=== PATIENT | female | born 1960 | race Caucasian/White ===

== ENCOUNTER 2016-12-13 14:02 | Inpatient (IN) ==
[2016-12-13] MEDS ORDERED: MORPHINE 2 MG/1 ML SYRINGE IV STA (15:38)
[2016-12-13] MEDS ORDERED: methylPREDNISolone SOD SUC 125 MG/2 ML VIAL IV STA (15:38)
[2016-12-13] MEDS ORDERED: ONDANSETRON 4 MG/2 ML VIAL IV STA (15:38)
[2016-12-13] MEDS ORDERED: FUROSEMIDE 100 MG/10 ML VIAL IV STA (15:38)
--- NOTE | 2016-12-13 15:46 | Emergency Department Note ---
Andi Madrid Meredith, am scribing for, and in the presence of, Lambert Gregory MD 15:12. Bri Madrid Charles R, MD, personally performed the services described in this documentation, ascribed by Elizabeth Escamilla in my presence, and it is both accurate and complete [id number] . Arrival - Arrival Chief Complaint: Shortness of Breath Stated Complaint: CANT CATCH BREATH ED Nursing Triage Note: C/O SOB, bilateral lower extremety edema, and lack of sleep X 1 month. Pt normally wears home O2 at 3l but family member states they left it at home. [id number] applied in triage. Mode of Arrival: Wheelchair Limitations: No Limitations Source: Patient, Family, Old Records Reviewed, RN Notes Reviewed Time Seen by Provider: 12/13/16 15:06 - History of Present Illness HPI Narrative: Pt is a 56 y/o white female reporting to the ED with c/o shortness of breath, nausea, and vomiting which onset this morning. She states she has not been able to sleep well the past few days. She uses home O2 at 3L. Pt has a history of COPD and cirrhosis. She has not had alcohol for the past month. Onset (ago): hour(s) Allergies/Adverse Reactions: Allergies Allergy/AdvReac Type Severity Reaction Status Date / Time Penicillins AdvReac ANAPHYLAXIS Verified 12/13/16 14:06 Home Medications: Home Medications Medication Instructions Recorded Confirmed Type Albuterol Sulfate [Ventolin HFA] 1 puff INH QID PRN 12/13/16 12/13/16 History Ferrous Sulfate 325 mg PO DAILY 12/13/16 12/13/16 History Furosemide Tab [Lasix Tab] 20 mg PO DAILY 12/13/16 12/13/16 History Gabapentin 300 mg PO QID 12/13/16 12/13/16 History Potassium 99 mg PO DAILY 12/13/16 12/13/16 History Spironolactone 100 mg PO DAILY 12/13/16 12/13/16 History Review of System - Review of System 12 point system: reviewed and no additional remarkable complaints except as stated - Review of System Constitutional: Present: as per HPI, other (lack of sleep ) Respiratory: Present: as per HPI, other (SOB) Gastrointestinal: Present: as per HPI, nausea, vomiting Medical,Surgical,& Family Hx - Medical History Respiratory: History of: COPD Gastrointestinal: History of: Liver Problems (Cirrhosis) - Surgical History Abdominal Surgeries: Surgical HX of: Cholecystectomy, Gastric Bypass Surgery Orthopedic Surgeries: Patient denies;: Total Knee Replacement - Family History Family History: Denies;: Additional Family History - Social History Smoking Status: Former smoker Frequency of Alcohol Use: None (former heavy drinker) Type of Drug Use: Unknown Exam Vital Signs: Vital Signs Temperature 98.6 F 12/13/16 15:04 Pulse Rate 132 H 12/13/16 15:04 Respiratory Rate 26 H 12/13/16 15:04 Blood Pressure 119/90 12/13/16 15:04 O2 Sat by Pulse Oximetry 92 L 12/13/16 15:04 - General General appearance: alert, in no apparent distress, other (winded speech) - Head Head exam: Present: atraumatic, normocephalic - Eye Eye exam: Present: normal appearance, PERRL, EOMI - ENT ENT exam: Present: mucous membranes moist, normal external ear exam - Neck Neck exam: Present: full ROM, trachea midline. Absent: tenderness, meningismus , lymphadenopathy, thyromegaly - Chest Chest inspection: Present: symmetric chest wall rise. Absent: tenderness, rash - Respiratory Respiratory exam: Present: rales (on the left), other (decreased breath sounds on the right ) - Cardiovascular Cardiovascular exam: Present: normal rhythm, tachycardia. Absent: murmur, rubs , gallop - Abdominal Exam Abdominal exam: Present: soft, normal bowel sounds, ascites. Absent: distention - Extremities Exam Extremities exam: Present: full ROM, normal capillary refill, pedal edema (3+ pitting pedal edema). Absent: tenderness, calf tenderness - Back Exam Back exam: Present: full ROM. Absent: tenderness - Neurological Exam Neurological exam: Present: alert, oriented X3, CN II-XII intact. Absent: motor sensory deficit - Psychiatric Psychiatric exam: Present: normal affect, normal mood - Skin Skin exam: Present: warm, dry, intact, normal color Course - Consultations Consultation #1: Hospitalist will admit patient Time: 17:06 Results - Labs CBC & BMP: 12/13/16 14:59 12/13/16 14:59 Lab Results: I have reviewed the patients labs Labs: Laboratory Tests 12/13/16 12/13/16 14:59 14:59 WBC 6.2 RBC 3.07 L Hgb 9.7 L Hct 29.8 L Plt Count 124 L Neut % (Auto) 79.2 H Lymph % (Auto) 10.6 L Lymph # (Auto) 0.7 L INR 1.7 PT Patient/Control Mix 18.4 - Diagnostic Findings Procedure: Chest x-ray: report reviewed by me (Cardiomegaly and evidence of CHF with bilateral pulmonary edema and pleural effusion. The right pleural effusion is fairly massive in size. Underlying pneumonia in the right lung base cannot be excluded. ) Critical Care Time Critical Care Time: Yes Total Critical Care Time: 60 Disposition Clinical Impression: Ascites, Acute dyspnea, Pedal edema, Congestive heart failure, Pleural effusion , right, History of alcoholism, Liver cirrhosis, COPD (chronic obstructive pulmonary disease) Case discussed with: patient, patient's family Disposition: Still a Patient Condition: Guarded Time of Disposition: 17:07
[2016-12-13 15:49] LABS: Basophils % 0.5 % (0.0-0.8); Eosinophils # 0.1 10*3/uL (0.0-0.87); Eosinophils % 1.1 % (0.00-10.9); Hematocrit 29.8 VOL% (35.7-47.0); Hemoglobin 9.7 GM/DL (12.0-16.0); Immature Granulocytes % 0.5 %; Immature Granulocytes Absolute 0.03 #; Lymphocytes # 0.7 10*3/uL (1.4-4.0); Lymphocytes % 10.6 % (21.3-54.2); Mean Corpuscular HGB Conc 32.6 GM/DL (32-36); Mean Corpuscular Hemoglobin 32 PG (27-34); Mean Corpuscular Volume 97.1 FL (87-102); Mean Platelet Volume 11.4 FL (9.6-12.0); Monocytes # 0.5 10*3/uL (0.11-0.8); Monocytes % 8.1 % (1.7-12.7); Neutrophils # 4.9 10*3/uL (1.4-7.4); Neutrophils % 79.2 % (38.7-73.9); Platelet Count 124 T/CUMM (130-400); Red Blood Count 3.07 MC/CUMM (3.8-5.5); Red Cell Distribution Width 17.2 % (9.3-17.3); White Blood Count 6.2 T/CUMM (4-12)
--- NOTE | 2016-12-13 15:53 | XRay Report ---
History: Shortness of breath Date: 12/13/2016 Study: Chest x-ray AP portable Comparison exam: No previous There is cardiomegaly. The pulmonary vasculature is slightly prominent. There is no definite mediastinal mass. There is opacification of the lower 60% of the right hemithorax related to large right pleural effusion. There is small left pleural effusion as well. There is some right greater than left basilar pulmonary edema with or without underlying inflammatory infiltrate. Osseous structures are unremarkable. Impression: Cardiomegaly and evidence of CHF with bilateral pulmonary edema and pleural effusion. The right pleural effusion is fairly massive in size. Underlying pneumonia in the right lung base cannot be excluded PROCEDURE INTERPRETED AT [facility] DEPARTMENT OF RADIOLOGY Final Report Signed by: Dr. Lisbeth Vidal
[2016-12-13 15:55] LABS: INR 1.7; PT Patient Result 18.4 SECS
[2016-12-13] MEDS ORDERED: ALBUTEROL 2.5 MG/3 ML NEB RESP TX SCH (16:00)
[2016-12-13 16:15] LABS: Albumin 3.6 G/DL (3.4-5.0); Magnesium 1.7 MG/DL (1.8-2.4); Osmolality,Calculated 280.3 MOS/KG (273-304); Potassium 3.2 MMOL/L (3.5-5.1); Total Protein 7.3 G/DL (6.4-8.3); Troponin I Only 0.015 NG/ML (0.00-0.045)
[2016-12-13] MEDS ORDERED: ONDANSETRON 4 MG/2 ML VIAL ONE (16:47)
[2016-12-13] MEDS ORDERED: methylPREDNISolone SOD SUC 125 MG/2 ML VIAL ONE (16:48)
[2016-12-13] MEDS ORDERED: FUROSEMIDE 100 MG/10 ML VIAL ONE (16:48)
[2016-12-13] MEDS ORDERED: MORPHINE 2 MG/1 ML SYRINGE ONE (16:48)
[2016-12-13] MEDS ORDERED: MAGNESIUM SULF RIDER 2 GM in PREMIX 1 EACH IV STA (16:52)
[2016-12-13] MEDS ORDERED: POTASSIUM CHLORIDE 20 MEQ TABLET PO STA (16:52)
[2016-12-13] MEDS ORDERED: DILTIAZEM 50 MG/10 ML VIAL IV ONE (17:21)
[2016-12-13] MEDS ORDERED: DILTIAZEM 100 MG VIAL.ADD IV ONE (17:40)
[2016-12-13] MEDS ORDERED: SODIUM CHLORIDE 0.9% 100 ML IV ONE (17:40)
[2016-12-13] MEDS ORDERED: MAGNESIUM SULF RIDER 50 ML IV ONE (17:41)
[2016-12-13 17:49] LABS: Apearance,Urine Slightly Hazy (Clear); Bacteria,Urine Occasional /HPF (Few); Bilirubin,Urine Negative (Negative); Blood, Urine Negative (Negative); Glucose,Urine (UA) Negative (Negative); Hyaline Casts,Urine 4 /LPF (0-3); Ketones,Urine Negative (Negative); Mucus,Urine Occasional /LPF (Occasional); Nitrite,Urine Negative (Negative); Protein,Urine 30 MG/DL; RBC,Urine 3 /HPF (0-4); Squamous Epithelial Cell,Urine Few /HPF (0-10); Urine Color Amber (Yellow); Urine Specific Gravity 1.017 (1.001-1.035); WBC,Urine 8 /HPF (0-6)
[2016-12-13 17:57] LABS: Barbiturates Screen,Urine Negative (Negative); Benzodiazepines Screen,Urine Positive (Negative); Cannabinoid Screen,Urine Negative (Negative); Opiate Screen,Urine Negative (Negative); Phencyclidine Screen,Urine Negative (Negative)
[2016-12-13] MEDS ORDERED: POTASSIUM CHLORIDE 20 MEQ TABLET PO ONE (18:06)
[2016-12-13] MEDS: DILTIAZEM INJ 100 MG in SODIUM CHLORIDE 0.9% 100 ML IV SCH (18:08)
--- NOTE | 2016-12-13 18:15 | Hospitalist History & Physical ---
Assessment and Plan (1) Acute dyspnea Status: Acute Current Visit: Yes (2) Congestive heart failure Status: Acute Current Visit: Yes (3) Pleural effusion on right Status: Acute Current Visit: Yes (4) History of alcoholism Status: Acute Current Visit: Yes (5) Hepatic cirrhosis Status: Acute Current Visit: Yes (6) Chronic obstructive pulmonary disease Status: Acute Current Visit: Yes (7) Atrial fibrillation with RVR Status: Acute Assessment and plan: Plan for this patient #1 admit the patient to ICU #2 scheduled breathing treatments #3 thoracentesis #4 abdominal ultrasound #5 cardiac echo #6 times them infusion #Potassium supplementation #8 cardiology consult #9 pulmonary consult Current Visit: Yes History of Present Illness Chief complaint: short of breath History of present illness: Ms. Greco is a 56 year old female with medical problems including cirrhosis and COPD who is been in and out of the hospital 3 times in the past several months for similar complaints. She comes in with increased fluid. And shortness of breath. She has been admitted to [facility] in the past in [place] for these complaints. She does report that she was a heavy alcohol abuser. She has had no alcohol in 4 weeks now. After she got discharged from [facility] last time she went to live with her son. She reports that lately she's been having pain in her legs. She went to her regular doctor in [place] he prescribed her gabapentin. She said it made her legs feel worse. She says slowly they started feeling better. She says she got up this morning after poor night's sleep and she felt short of breath. She felt like she couldn't catch her breath. She has very poor functioning capability. And she had her family bring her up to the hospital for further evaluation. I was consulted to admit her. Home Medications Medication Instructions Recorded Confirmed Type Albuterol Sulfate [Ventolin HFA] 1 puff INH QID PRN 12/13/16 12/13/16 History Ferrous Sulfate 325 mg PO DAILY 12/13/16 12/13/16 History Furosemide Tab [Lasix Tab] 20 mg PO DAILY 12/13/16 12/13/16 History Gabapentin 300 mg PO QID 12/13/16 12/13/16 History Potassium 99 mg PO DAILY 12/13/16 12/13/16 History Spironolactone 100 mg PO DAILY 12/13/16 12/13/16 History Allergies Allergy/AdvReac Type Severity Reaction Status Date / Time Penicillins AdvReac ANAPHYLAXIS Verified 12/13/16 14:06 Medical,Surgical,& Family Hx - Medical History Respiratory: History of: COPD Gastrointestinal: History of: Liver Problems (Cirrhosis) - Surgical History Abdominal Surgeries: Surgical HX of: Cholecystectomy, Gastric Bypass Surgery Orthopedic Surgeries: Patient denies;: Total Knee Replacement - Family History Family History: noncontributory (She recently lost her and drank heavily ever since. But I suspect her abuse is gone on for years and her family confirms that she has not had any alcohol in 4 weeks.) Family History: Denies;: Additional Family History - Social History Smoking Status: Former smoker Frequency of Alcohol Use: None (former heavy drinker) Type of Drug Use: Unknown 12 point system: reviewed and no additional remarkable complaints except as stated Exam - Constitutional Vitals: Period Temp Pulse Resp BP Sys/Pastor Pulse Ox Last 24 Hr 98.6 F-98.6 F 112-132 25-26 119-127/77-90 90-96 - General General appearance: alert, in no apparent distress, other (winded speech) - Head Head exam: Present: atraumatic, normocephalic - Eye Eye exam: Present: normal appearance, PERRL, EOMI - ENT ENT exam: Present: mucous membranes moist, normal external ear exam - Neck Neck exam: Present: full ROM, trachea midline. Absent: tenderness, meningismus , lymphadenopathy, thyromegaly - Chest Chest inspection: Present: symmetric chest wall rise. Absent: tenderness, rash - Respiratory Respiratory exam: Present: rales (on the left), other (decreased breath sounds on the right ) - Cardiovascular Cardiovascular exam: Present: normal rhythm, tachycardia. Absent: murmur, rubs , gallop - Abdominal Exam Abdominal exam: Present: soft, normal bowel sounds, ascites. Absent: distention - Extremities Exam Extremities exam: Present: full ROM, normal capillary refill, pedal edema (3+ pitting pedal edema). Absent: tenderness, calf tenderness - Back Exam Back exam: Present: full ROM. Absent: tenderness - Neurological Exam Neurological exam: Present: alert, oriented X3, CN II-XII intact. Absent: motor sensory deficit - Psychiatric Psychiatric exam: Present: normal affect, normal mood - Skin Skin exam: Present: warm, dry, intact, normal color Results - Labs CBC & BMP: 12/13/16 14:59 12/13/16 14:59 Labs: Results of her EKG display an atrial fibrillation with RVR her chest x-ray reveals a large pleural effusion on the right with some evidence of CHF but underlying pneumonia in the right lung base cannot be excluded
[2016-12-13] MEDS ORDERED: ALBUTEROL 2.5 MG/3 ML NEB RESP TX PRN ×2 (18:20→18:25)
[2016-12-13] MEDS: ALBUTEROL/IPRATROPIUM 3 ML NEB RESP TX SCH (21:31)
[2016-12-13] MEDS: LEVOFLOXACIN INJ 750 MG in PREMIX 1 EACH IV SCH (22:27)
[2016-12-13] MEDS ORDERED: FUROSEMIDE 40 MG/4 ML VIAL IV STA (23:29)
[2016-12-14] MEDS ORDERED: methylPREDNISolone SOD SUC 40 MG/1 ML VIAL IV SCH
[2016-12-14] MEDS: DILTIAZEM INJ 100 MG in SODIUM CHLORIDE 0.9% 100 ML IV SCH ×2 (00:58→11:24)
[2016-12-14] MEDS: ALBUTEROL/IPRATROPIUM 3 ML NEB RESP TX SCH ×2 (02:58→07:32)
[2016-12-14 05:51] LABS: Basophils % 0.1 % (0.0-0.8); Hematocrit 29.6 VOL% (35.7-47.0); Hemoglobin 9.2 GM/DL (12.0-16.0); Immature Granulocytes % 0.7 %; Immature Granulocytes Absolute 0.06 #; Lymphocytes # 0.3 10*3/uL (1.4-4.0); Lymphocytes % 3.5 % (21.3-54.2); Mean Corpuscular HGB Conc 31.1 GM/DL (32-36); Mean Corpuscular Hemoglobin 31 PG (27-34); Mean Corpuscular Volume 99.7 FL (87-102); Mean Platelet Volume 10.4 FL (9.6-12.0); Monocytes # 0.1 10*3/uL (0.11-0.8); Monocytes % 1.6 % (1.7-12.7); Neutrophils # 8.5 10*3/uL (1.4-7.4); Neutrophils % 94.1 % (38.7-73.9); Platelet Count 128 T/CUMM (130-400); Red Blood Count 2.97 MC/CUMM (3.8-5.5); Red Cell Distribution Width 17.2 % (9.3-17.3)
[2016-12-14 05:56] LABS: INR 1.8; PT Patient Result 19.2 SECS
--- NOTE | 2016-12-14 06:01 | EKG Report ---
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
[2016-12-14 06:27] LABS: Band Neutrophils 5 % (0-10); Lymphocytes 1 % (20-55); Platelet Estimate Adequate; Segmented Neutrophils 93 % (50-85); Total Cells Counted 100
[2016-12-14 06:29] LABS: Albumin 3.8 G/DL (3.4-5.0); Bilirubin,Total 3.9 MG/DL (0.2-1.0); Calcium 9.1 MG/DL (8.5-10.1); Hypochromasia 1+; Misc Morphology 31; Osmolality,Calculated 287.1 MOS/KG (273-304); Potassium 3.7 MMOL/L (3.5-5.1); Total Protein 7.6 G/DL (6.4-8.3)
[2016-12-14] MEDS ORDERED: ALBUTEROL 1.25 MG/3 ML NEB RESP TX PRN (07:16)
--- NOTE | 2016-12-14 07:18 | Pulmonology Consult Note ---
Assessment and Plan - Time spent with patient Time spent with patient: Greater than 30 minutes History of Present Illness Chief complaint: shortness of breath, edema History of present illness: Ms. Greco is a 56 year old female with a history of alcoholic liver disease and cirrhosis. Her about a year ago when she started drinking heavily since then. Prior to that she said she just drank socially. She was hospitalized 3 times at [facility] in [place] for complications of cirrhosis. She has required paracentesis and diuretics. She's had problems with hyponatremia and hypokalemia from the Lasix. About a month ago after her third hospitalization at [facility], she moved to live with her son here in town. She comes in now with increased shortness of breath and edema. She's been found to have a right pleural effusion, ascites, and marked edema in her legs, basically anasarca. She's not had any fever. She stopped smoking a month ago and the longer has a cough or sputum production. She is on albuterol at home. When she came in last night her heart was rapid and irregular, atrial fibrillation with rapid ventricular response. She does not have any known heart disease. She has been having pain in her legs. She was given gabapentin by Dr. Mccabe in [facility] but said the pain got worse. Unable to access the assessment/plan this so we will list diagnoses here: #1 hepatic cirrhosis with anasarca and hyperbilirubinemia. Plan GI needs to see. Patient has large right pleural effusion which needs packing. I see that interventional radiology has Arty been consulted. Be cautious with Lasix and her because she's had problems with hyponatremia and hypokalemia before. May need paracentesis as well #2 history of COPD. She stopped smoking a month ago and is not having a cough. No purulent sputum and no fever. I don't think she's having an active exacerbation. We'll stop albuterol because of her atrial fibrillation with rapid ventricular response. We'll stop steroids I don't think she's having a flare up and this will cause further problems with fluid retention. Obtain ABGs on nasal oxygen. Try to keep her O2 sat around 90. #3 chronic alcoholism. She states that she hasn't had a drink in about a month. If this is so we should not see problems with withdrawal now. #4 atrial fibrillation with rapid ventricular response. Likely due to the anasarca. Certainly could have cardiac disease and cardiology is seeing her. Home Medications Medication Instructions Recorded Confirmed Type Albuterol Sulfate [Ventolin HFA] 1 puff INH QID PRN 12/13/16 12/13/16 History Ferrous Sulfate 325 mg PO DAILY 12/13/16 12/13/16 History Furosemide Tab [Lasix Tab] 20 mg PO DAILY 12/13/16 12/13/16 History Gabapentin 300 mg PO QID 12/13/16 12/13/16 History Potassium 99 mg PO DAILY 12/13/16 12/13/16 History Spironolactone 100 mg PO DAILY 12/13/16 12/13/16 History Allergies Allergy/AdvReac Type Severity Reaction Status Date / Time Penicillins AdvReac ANAPHYLAXIS Verified 12/13/16 14:06 12 point system: reviewed and no additional remarkable complaints except as stated - Constitutional Constitutional: Present: fatigue, malaise, weight gain - Cardiovascular Cardiovascular: Present: dyspnea, dyspnea on exertion, edema - Respiratory Respiratory: Present: dyspnea, dyspnea on exertion - Gastrointestinal Gastrointestinal: Present: bloating - Musculoskeletal Musculoskeletal: Present: arthralgias, myalgias Exam (Pulmonay) H&P - Constitutional Vitals: Period Temp Pulse Resp BP Sys/Pastor Pulse Ox Last 24 Hr 96.9 F-97.2 F 96-140 13-32 85-125/58-81 84-90 Exam: Vital signs normal except irregular pulse, rate about 105. She is afebrile. Systolic blood pressure 105. HEENT: She is jaundiced. Pupils react to light. Throat is clear. Neck is supple. She does have some jugular venous distention. No bruits. Chest reveals dullness at the right base and decreased breath sounds at the right base. She has some crackles at the left base. No wheezes. Heart irregular with rate around 105 no murmurs. Abdomen is grand obese and I do think she has ascites but is difficult to tell. Liver edge is probably palpable. Extremities show 4+ edema which is tense. Calves are nontender. Medical,Surgical,& Family Hx - Medical History Respiratory: History of: COPD, Respiratory Problems (wears home 02) Gastrointestinal: History of: Liver Problems (Cirrhosis) - Surgical History Neurologic Surgeries: Patient denies: Neurologic Surgery Abdominal Surgeries: Surgical HX of: Cholecystectomy, Gastric Bypass Surgery Orthopedic Surgeries: Patient denies;: Total Knee Replacement - Family History Family History: Denies;: Additional Family History - Social History Smoking Status: Former smoker Frequency of Alcohol Use: None Type of Drug Use: Unknown Results - Labs CBC & BMP: 12/14/16 05:12 12/14/16 05:12 Lab Results: I have reviewed the past 24 hour labs - Diagnostic Findings Procedure: Chest x-ray: image reviewed by me (large right pleural effusion. Small left pleural effusion. Mild cardiomegaly.)
[2016-12-14] MEDS ORDERED: FUROSEMIDE 40 MG/4 ML VIAL IV SCH (08:00)
[2016-12-14 08:27] LABS: ABG Base Excess 2.7 MMOL/L (-2.5-2.5); ABG HCO3 26.6 MMOL/L (20-26); ABG Oxygen Saturation 86.1 % (95-100); ABG PCO2 53.5 MM HG (35-48); ABG PH 7.345 (7.35-7.45); ABG PO2 56.2 MM HG (80-95); Allen Test Positive
--- NOTE | 2016-12-14 08:42 | Ultrasound Report ---
US right upper quadrant Indication: Cirrhosis and ascites. ULTRASOUND ABDOMEN, limited Comparison: None Findings: Liver: Diffusely echogenic and heterogeneous, without focal lesion identified. Contour is slightly nodular. Normal size. Gallbladder: Surgically absent Common bile duct: 9 mm Pancreas: Unremarkable Right kidney: 12.0 cm length. No mass, calcification or obstruction. 22 x 21 mm anechoic cyst at the lower pole is present. Small amount of ascites is present, and a right pleural effusion appears present as well. Impression: 1. Echogenic and heterogeneous liver with minimal peripheral nodularity, consistent with cirrhosis. No focal mass identified. 2. Small right pleural effusion and small amount of ascites. PROCEDURE INTERPRETED AT [facility] DEPARTMENT OF RADIOLOGY Final Report Signed by: Miko Tay M.D.
[2016-12-14] MEDS: SPIRONOLACTONE 50 MG TABLET PO SCH (09:07)
[2016-12-14] MEDS: FERROUS SULFATE 325 MG TABLET PO SCH (09:08)
[2016-12-14] MEDS: MULTIVITAMIN (CENTRUM) TABLET PO SCH (09:08)
[2016-12-14] MEDS: FOLIC ACID 1 MG TABLET PO SCH (09:09)
[2016-12-14] MEDS: POTASSIUM CHLORIDE 20 MEQ TABLET PO SCH (09:09)
[2016-12-14] MEDS: THIAMINE 100 MG TABLET PO SCH (09:10)
[2016-12-14] MEDS: PANTOPRAZOLE 40 MG TABLET PO SCH (09:10)
--- NOTE | 2016-12-14 09:17 | Physician Query Form ---
CLICK EDIT DOCUMENT TO SELECT QUERY ANSWER --> OK --> SIGN Estelle Perdue RN, CCDS Certified Clinical Pipe Assembly Worker W) [phone] (f) [phone] [email or web address]: Make your selection(s) from the choices in EACH section by typing an "x" and enter comments in the comment section. Please use your independent medical judgment in providing your response. This request does not imply that any particular answer is desired or expected. CLINICAL INDICATORS: (Providers should not edit this section) The medical record indicates that the patient was admitted with congestive heart failure, BNP of 306#, and the patient was on Lasix. Please provide further specificity regarding CHF. ACUITY: ( ) Acute ( x) Chronic ( ) Acute on Chronic ( ) Clinically unable to determine TYPE: ( ) Systolic ( ) Diastolic ( ) Combined Systolic/Diastolic ( ) Other, please specify: ( x) Clinically unable to determine ( ) The patient does NOT have CHF COMMENTS: Use of terms such as suspected, likely, or probable (associated with a specific diagnosis that is being evaluated, monitored, or treated as if it exists) are acceptable and can be restated in the discharge summary if not ruled out. [facility]
[2016-12-14] MEDS ORDERED: POTASSIUM CHLORIDE RIDER 10 MEQ in PREMIX 1 EACH IV PRN (10:54)
[2016-12-14] MEDS ORDERED: MAGNESIUM SULF RIDER 2 GM in PREMIX 1 EACH IV ONE (11:00)
--- NOTE | 2016-12-14 13:08 | Hospitalist Progress Note ---
Assessment and Plan (1) Acute dyspnea Status: Acute Current Visit: Yes (2) Congestive heart failure Status: Acute Current Visit: Yes (3) Pleural effusion on right Status: Acute Current Visit: Yes (4) History of alcoholism Status: Chronic Current Visit: Yes (5) Hepatic cirrhosis Status: Chronic Current Visit: Yes (6) Chronic obstructive pulmonary disease Status: Chronic Current Visit: Yes (7) Atrial fibrillation with RVR Status: Acute Assessment and plan: Plan for this patient #1 admit the patient to ICU #2 scheduled breathing treatments #3 thoracentesis #4 abdominal ultrasound #5 cardiac echo #6 times them infusion #Potassium supplementation #8 cardiology consult #9 pulmonary consult 12/14/16 continue with ICU monitoring. She needs her pleural effusion drained. Appreciate Dr. Daniel's input. Cardiology is to say. She 7 new-onset A. fib with RVR. Patient denies a history of this. Patient reports dyspnea on exertion with at least exertion. This could be associated with alcoholism damaging her heart. Patient should be admitted upstairs tomorrow. Monitor labs. Current Visit: Yes Hospitalist: Subjective Interval history: Patient reports feeling better today. Patient looks much more bit better today she hadn't had her pleural effusion tapped. Exam - Constitutional Vitals: Period Temp Pulse Resp BP Sys/Pastor Pulse Ox Last 24 Hr 96.9 F-97.3 F 68-140 13-32 83-125/51-81 79-90 - General General appearance: alert, in no apparent distress) - Head Head exam: Present: atraumatic, normocephalic - Eye Eye exam: Present: normal appearance, PERRL, EOMI - ENT ENT exam: Present: mucous membranes moist, normal external ear exam - Neck Neck exam: Present: full ROM, trachea midline. Absent: tenderness, meningismus , lymphadenopathy, thyromegaly - Chest Chest inspection: Present: symmetric chest wall rise. Absent: tenderness, rash - Respiratory Respiratory exam: Present: rales (on the left), other (decreased breath sounds on the right ) - Cardiovascular Cardiovascular exam: Present: normal rhythm, tachycardia. Absent: murmur, rubs , gallop - Abdominal Exam Abdominal exam: Present: soft, normal bowel sounds, ascites. Absent: distention - Extremities Exam Extremities exam: Present: full ROM, normal capillary refill, pedal edema (3+ pitting pedal edema). Absent: tenderness, calf tenderness - Back Exam Back exam: Present: full ROM. Absent: tenderness - Neurological Exam Neurological exam: Present: alert, oriented X3, CN II-XII intact. Absent: motor sensory deficit - Psychiatric Psychiatric exam: Present: normal affect, normal mood - Skin Skin exam: Present: warm, dry, intact, normal color Results - Labs CBC & BMP: 12/14/16 05:12 12/14/16 05:12
[2016-12-14] MEDS: IPRATROPIUM 500 MCG/2.5 ML NEB RESP TX SCH ×2 (14:26→23:38)
[2016-12-14] MEDS ORDERED: DIGOXIN 0.5 MG/2 ML AMP IV ONE (14:54)
[2016-12-14] MEDS: DILTIAZEM 60 MG TABLET PO SCH ×4 (15:26→21:48)
--- NOTE | 2016-12-14 15:32 | XRay Report ---
History: Right pleural effusion status post thoracentesis by Dr. Lucas Date: 12/14/2016 at 2:57 PM Study: Chest x-ray AP portable Comparison exam: Chest x-ray 12/13/2016 There is continued cardiomegaly. The mediastinal contours are unchanged. The pulmonary vasculature is slightly prominent and ill-defined. There is a moderate amount of residual pleural effusion on the right, though this is at least mildly improved. Parenchymal pleural consolidation in the right lung base is unchanged. There is slightly reduced hazy edema/infiltrate in the left base. The osseous structures are similar. Impression: No evidence of a pneumothorax following right thoracentesis. Reduced pleural effusion in the interval, though a moderate amount of pleural effusion does persist PROCEDURE INTERPRETED AT [facility] DEPARTMENT OF RADIOLOGY Final Report Signed by: Dr. Lisbeth Vidal
--- NOTE | 2016-12-14 15:49 | Post Interventional Procedure ---
Pre-op diagnosis: A fib with RVR and large right pleural effusion Post-op diagnosis: same Procedure: right thoracentesis Contrast: none Flouroscopy: none Radiologist: Eliezer Lucas Anesthesia: local Specimens: other (specimen sent if requested) Estimated blood loss: none Complications: none Condition: stable Description/Findings: 1200 mL of serous straw-colored fluid removed via a right posterior approach using ultrasound guidance. Needle was removed and a sterile dressing was applied. Patient tolerated the procedure well and left the procedure area in stable condition. Assessment and Plan - Time spent with patient Time spent with patient: Less than 30 minutes
--- NOTE | 2016-12-14 16:54 | Ultrasound Report ---
Exam: ULTRASOUND-GUIDED THORACENTESIS Clinical history: History of large right pleural effusion. Physician: Dr. Lucas. Procedure: Informed consent was obtained prior to the procedure. A formal timeout was performed. Maximum sterile barrier technique was used. A right pleural effusion was identified with ultrasound. The right was prepped and draped in sterile fashion. 1% lidocaine was used to anesthetize the skin and subcutaneous tissues. Under sonographic guidance, a 6 Swedish safety centesis needle and catheter were advanced into the effusion using trocar technique. A captured sonographic image demonstrates positioning of the needle within the targeted pleural fluid. The needle was removed. Through the catheter, we obtained a total of 1200 cc of serous straw-colored fluid. The catheter was removed. A bandage was placed at the puncture site. The patient tolerated the procedure well. Chest radiograph is pending. Impression: 1. Technically successful ultrasound guided right thoracentesis as detailed above. 2. Post procedure chest radiograph is pending. PROCEDURE INTERPRETED AT [facility] DEPARTMENT OF RADIOLOGY Final Report Signed by: Eliezer Lucas
[2016-12-14] MEDS: FUROSEMIDE 40 MG TABLET PO SCH (17:01)
[2016-12-14 17:30] LABS: Lymphocytes,Pleural Fluid 77 %; Monocytes,Pleural Fluid 4 %; Neutrophils,Pleural Fluid 19 %; RBC,Pleural Fluid 2164 T/CUMM
--- NOTE | 2016-12-14 17:36 | ECHO Report ---
Kimberley Greco Exam Date: 12/14/2016 09:02 Referring Physician: Technologist: Arnol CORTEZ Age: 56 Ht (in): Wt (lb): Gender: F Exam Location: [facility] Echo Indications: dyspnea, CHF, pleural effusion, Hx. alcoholism, hepatic cirrhosis, COPD BP: / HR: Rhythm: Atrial fibrillation Technical Quality: Technically difficult study IMPRESSIONS Normal wall thickness. Diastolic dysfunction. Left ventricular ejection fraction is estimated at >65 %. Moderately increased right ventricular size. Moderately increased right atrial size. Severely increased left atrial diameter. Aortic valve sclerosis without stenosis or regurgitation. Moderate tricuspid valve regurgitation. Tricuspid regurgitation velocities suggest a PAP of 27.5 mmHg + RAP. Trace- mild pulmonary valve regurgitation. + left pleural effusion. MEASUREMENTS (Male / Female) Normal Values 2D ECHO LV Diastolic Diameter PLAX 4.9 cm 4.2 - 5.9 / 3.9 - 5.3 cm LV Systolic Diameter PLAX 3.5 cm LV Fractional Shortening PLAX 29.4 % IVS Diastolic Thickness 1.1 cm 0.6 - 1.0 / 0.6 - 0.9 cm LVPW Diastolic Thickness 1.1 cm 0.6 - 1.0 / 0.6 - 0.9 cm RV Internal Dim ED PLAX 4.7 cm Aortic Root Diameter 2.8 cm LA Systolic Diameter LX 4.9 cm 3.0 - 4.0 / 2.7 - 3.8 cm DOPPLER TR Peak Velocity 262.0 cm/s TR Peak Gradient 27.5 mmHg FINDINGS Left Ventricle normal wall thickness. diastolic dysfunction.hyperdynamic left ventricular systolic function. Left ventricular ejection fraction is estimated at >65 %. Right Ventricle Moderately increased right ventricular size. Right Atrium Moderately increased right atrial size. Left Atrium Severely increased left atrial diameter. Mitral Valve Morphologically normal mitral valve. Aortic Valve Aortic valve sclerosis without stenosis or regurgitation. Tricuspid Valve Morphologically normal tricuspid valve. Moderate tricuspid valve regurgitation. Tricuspid regurgitation velocities suggest a PAP of 27.5 mmHg + RAP. Pulmonic Valve Morphologically normal pulmonic valve. Trace- mild pulmonary valve regurgitation. Pericardium No pericardial effusion. + left pleural effusion. Aorta Normal size aortic root and proximal ascending aorta. Matteo Patel MD (Electronically Signed) Final Date: 14 December 2016 17:34
[2016-12-14] MEDS: LEVOFLOXACIN INJ 750 MG in PREMIX 1 EACH IV SCH (21:47)
[2016-12-14] MEDS: traZODone 50 MG TABLET PO SCH (21:48)
[2016-12-14] MEDS: APIXABAN 5 MG TABLET PO SCH (21:48)
--- NOTE | 2016-12-14 22:56 | Cardiology Consult Note ---
Mercy, Maria R Calderon, DENISSE, am scribing for, and in the presence of, Matteo Patel MD 22:55. Assessment and Plan (1) Atrial fibrillation with RVR Status: Acute Assessment and plan: The onset of atrial fibrillation with rapid ventricular response noted. She currently remains in atrial fibrillation with heart rates ranging from 90s- 110s. She is currently asymptomatic and denies chest pain and palpitations. She denies any history of GI bleeding, CVA, frequent falls or any contraindications to anticoagulation. Will initiate Eliquis at this time for stroke prevention. Potassium and magnesium also replaced. Will recheck BMP in the morning. echo was done replete mg and k change iv to po diltiazem I discussed with the patient the benefits of stopping use of all tobacco products. I discussed the problems with continued use the tobacco, the benefits of stopping it, and options of treatment. The patient is considering it. Creatinine is 1.4. We'll continue to watch it. For her insomnia we'll try a low-dose of trazodone, 50 mg one half daily at bedtime Agree with the thoracentesis-see if it is transudate or exudate and what the etiology might be Current Visit: Yes (2) Congestive heart failure Status: Acute Assessment and plan: BNP of 400 noted. Patient reports that she was unaware of a history of congestive heart failure. Will order an echo at this time to further evaluate. Current Visit: Yes (3) Former smoker Status: Chronic Assessment and plan: Patient reports that she quit smoking 3 weeks ago. Current Visit: Yes (4) Acute dyspnea Status: Acute Assessment and plan: This seems to be multifactorial. Could be secondary to patient's new onset of atrial fibrillation, COPD or congestive heart failure. Current Visit: Yes (5) Ascites Status: Chronic Current Visit: Yes (6) Chronic obstructive pulmonary disease Status: Chronic Assessment and plan: Management per pulmonology. Current Visit: Yes (7) Edema of foot Status: Acute Current Visit: Yes (8) Hepatic cirrhosis Status: Chronic Current Visit: Yes (9) History of alcoholism Status: Chronic Assessment and plan: Patient reports that she quit drinking 3 weeks ago. Current Visit: Yes (10) Pleural effusion on right Status: Acute Assessment and plan: Management per pulmonology. Current Visit: Yes History of Present Illness - Data of Consult Patient: new to practice Consult date: 12/14/16 Requesting Physician: Miko Ignacio - Consult Narrative Reason for consult: new onset afib History of present illness: Ms. Greco is a 56 year old female without known coronary artery disease. She is not routinely followed by a hair specialist. However, she tells me that she has been seen by hair specialist in the past at [facility] in [place]. Her primary care provider is Dr. Ashley Mccabe in [place], [place]. She presented to [facility] for further evaluation of shortness of breath. She has risk factors significant for former smoker, sedentary lifestyle and obesity. She tells me that she lost her and drank heavily for several years. Fortunately, she reports that she quit smoking and drinking 3 weeks ago. She denies any significant family history of heart disease. She has a past medical history of COPD and cirrhosis of the liver. She has a past surgical history cholecystectomy, gastric bypass and multiple back surgeries. She denies ever having a heart catheterization but tells me that she had a cardiac stress test at [facility] several years ago that was normal. Patient just recently moved to [place] to live with her son 3 weeks ago. She moved from [place], [place]. She tells me that she has been in and out of [facility] in [place] several times since July of last year for shortness of breath, hypokalemia and hyponatremia. She was last discharged from [facility] in September. She states that she has been doing exceptionally well since being discharged. She reports that she has been in her usual state of health until yesterday afternoon when she became extremely short of breath. She reports that she was not doing any strenuous activity when the shortness of breath occurred. Nausea and fatigue were also associated with her shortness of breath. She cannot identify any aggravating or alleviating factors. Activity does not worsen her shortness of breath. She denies chest pain, palpitations, activity intolerance and worsening edema. However she does report orthopnea, trouble sleeping and PND over the past few weeks. She reported to [facility] emergency room for further evaluation of shortness of breath yesterday afternoon. Upon arrival to the ER she was noted to be in atrial fibrillation with rapid ventricular response, heart rate of 135. Diltiazem drip was started and patient was transferred to the ICU. Cardiology was consulted for management of new onset atrial fibrillation. Patient was seen and examined in the ICU. Upon entering the room she was sitting on the side of the bed in no acute distress. She reports that she cannot lay flat without worsening her shortness of breath. Cardizem drip is infusing at 15 mg/h. She remains in atrial fibrillation with heart rates ranging from 90s-110s. She denies any chest pain and palpitations. She tells me that she cannot tell that she is in an irregular rhythm. She reports that she has no past history of atrial fibrillation. Her shortness of breath has improved from yesterday. She denies any history of past CVA, GI bleeding, frequent falls or any contraindication to anticoagulation. Her chest x-ray reveals cardiomegaly with evidence of congestive heart failure, bilateral pulmonary edema, right pleural effusion and possible pneumonia in the right lung base. Her white blood cell count is normal. She denies any fever and chills. Her potassium is noted to be 3.7, troponin negative 1, creatinine 1.4 , BNP 400, ammonia 50, mag 1.7, H&H 9.2 and 29.6 and platelets 128. CC: Miko Ignacio MD - Home Medications and Allergies Home Medications: Home Medications Medication Instructions Recorded Confirmed Type Albuterol Sulfate [Ventolin HFA] 1 puff INH QID PRN 12/13/16 12/13/16 History Ferrous Sulfate 325 mg PO DAILY 12/13/16 12/13/16 History Furosemide Tab [Lasix Tab] 20 mg PO DAILY 12/13/16 12/13/16 History Gabapentin 300 mg PO QID 12/13/16 12/13/16 History Potassium 99 mg PO DAILY 12/13/16 12/13/16 History Spironolactone 100 mg PO DAILY 12/13/16 12/13/16 History Allergies/Adverse Reactions: Allergies Allergy/AdvReac Type Severity Reaction Status Date / Time Penicillins AdvReac ANAPHYLAXIS Verified 12/13/16 14:06 - Constitutional Constitutional: Present: fatigue, weakness, other (Decreased appetite). Absent : chills, fever(s), frequent falls, headache(s) - Cardiovascular Cardiovascular: Present: dyspnea, edema, orthopnea, PND. Absent: chest pain at rest, chest pain with activity, claudication, diaphoresis, radiating jaw, neck or arm pain, lightheadedness, palpitations - Respiratory Respiratory: Present: cough, dyspnea. Absent: wheezing, snoring, pain on inspiration, change in phlegm color - Gastrointestinal Gastrointestinal: Present: early satiety, nausea, vomiting. Absent: abdominal pain, dysphagia, hematemesis, hematochezia, melena - Neurological Neurological: Absent: dizziness, focal weakness, frequent falls, syncope - Psychiatric Psychiatric: Absent: anxiety, memory loss, panic attacks - Hematologic/Lymphatic Hematologic/Lymphatic: Absent: easy bleeding, easy bruising Medical,Surgical,& Family Hx - Medical History Cardio: No history of: Cardiac Dysrhythmia, Congenital Heart Disease, CAD, Cardiovascular Problems Respiratory: History of: COPD, Respiratory Problems (wears home 02) Gastrointestinal: History of: Liver Problems (Cirrhosis) - Surgical History Neurologic Surgeries: Patient denies: Neurologic Surgery Abdominal Surgeries: Surgical HX of: Cholecystectomy, Gastric Bypass Surgery Orthopedic Surgeries: Patient denies;: Total Knee Replacement - Family History Family History: Denies;: Family Heart Disease, Additional Family History - Social History Smoking Status: Former smoker Frequency of Alcohol Use: None Type of Drug Use: Unknown Physical Examination Vital Signs Temp Pulse Resp BP Pulse Ox 98.6 F 130 H 25 H 127/77 90 L 12/13/16 14:06 12/13/16 14:06 12/13/16 14:06 12/13/16 14:06 12/13/16 14:06 General: Present: Appears Well, No Apparent Distress Neck: Present: Supple Neck, Midline Trachea, No Masses, No Bruit, No Thyromegaly Cardiac: Present: Irregularly Regular (Atrial fibrillation), S1/S2, No Murmur, Tachycardia. Absent: Gallop Lungs: Present: Decreased Breath Sounds, Oxygen (2 L nasal cannula), No Wheezes , No Rhonchi Abdomen: Present: Decreased Bowel Sounds, Ascites, Firm, Non-Tender Skin: Absent: Rash, Suspicious Lesions, Ulceration Extremities: Present: No Clubbing, No Cyanosis, Normal Upper Extr. Pulses, Normal Lower Extr. Pulses, +4 Edema, Bilateral Pedal Edema Result/EKG - Labs CBC & BMP: 12/14/16 05:12 12/14/16 05:12 Lab Results: I have reviewed the past 24 hour labs Labs: Laboratory Results - last 24 hr 12/14/16 12/14/16 12/14/16 05:12 05:12 05:12 WBC 9.0 D RBC 2.97 L Hgb 9.2 L Hct 29.6 L MCV 99.7 MCH 31 MCHC 31.1 L RDW 17.2 Plt Count 128 L MPV 10.4 Neut % (Auto) 94.1 H Lymph % (Auto) 3.5 L Hanover % (Auto) 1.6 L Eos % (Auto) 0.0 Baso % (Auto) 0.1 Neut # (Auto) 8.5 H Lymph # (Auto) 0.3 L Han[place] # (Auto) 0.1 L Eos # (Auto) 0.0 Baso # (Auto) 0.0 Total Counted 100 Immature Gran % 0.7 Nucleated RBC % 0.0 Immature Gran # 0.06 Segmented Neutrophils 93 H Band Neutrophils 5 Lymphocytes 1 L Monocytes 1 L Nucleated RBCs # 0.00 Platelet Estimate Adequate Hypochromasia 1+ Morphology Comment 31 INR 1.8 PT Patient/Control Mix 19.2 Sodium 142 Potassium 3.7 Chloride 98 Carbon Dioxide 29 Anion Gap 18.7 H BUN 14 Creatinine 1.40 H GFR Calculation 50 BUN/Creatinine Ratio 10.00 Glucose 164 H Calculated Osmolality 287.1 Calcium 9.1 Total Bilirubin 3.90 H AST 36 ALT 25 Alkaline Phosphatase 114 Ammonia 50 H B-Natriuretic Peptide Total Protein 7.6 Albumin 3.8 Globulin 3.8 H Albumin/Globulin Ratio 1.0 L 12/14/16 05:12 WBC RBC Hgb Hct MCV MCH MCHC RDW Plt Count MPV Neut % (Auto) Lymph % (Auto) Hanover % (Auto) Eos % (Auto) Baso % (Auto) Neut # (Auto) Lymph # (Auto) Hanover # (Auto) Eos # (Auto) Baso # (Auto) Total Counted Immature Gran % Nucleated RBC % Immature Gran # Segmented Neutrophils Band Neutrophils Lymphocytes Monocytes Nucleated RBCs # Platelet Estimate Hypochromasia Morphology Comment INR PT Patient/Control Mix Sodium Potassium Chloride Carbon Dioxide Anion Gap BUN Creatinine GFR Calculation BUN/Creatinine Ratio Glucose Calculated Osmolality Calcium Total Bilirubin AST ALT Alkaline Phosphatase Ammonia B-Natriuretic Peptide 400 H Total Protein Albumin Globulin Albumin/Globulin Ratio - EKG EKG results: interpreted by me EKG shows: atrial fibrillation I, Matteo Patel MD, personally performed the services described in this documentation, ascribed by Maria R Calderon RN in my presence, and it is both accurate and complete .
[2016-12-15 05:39] LABS: Basophils % 0.1 % (0.0-0.8); Hematocrit 27.1 VOL% (35.7-47.0); Hemoglobin 8.6 GM/DL (12.0-16.0); Immature Granulocytes % 0.9 %; Immature Granulocytes Absolute 0.11 #; Lymphocytes # 0.6 10*3/uL (1.4-4.0); Lymphocytes % 4.8 % (21.3-54.2); Mean Corpuscular HGB Conc 31.7 GM/DL (32-36); Mean Corpuscular Hemoglobin 31 PG (27-34); Mean Corpuscular Volume 98.9 FL (87-102); Mean Platelet Volume 10.5 FL (9.6-12.0); Monocytes # 1.2 10*3/uL (0.11-0.8); Monocytes % 9.3 % (1.7-12.7); Neutrophils # 10.6 10*3/uL (1.4-7.4); Neutrophils % 84.9 % (38.7-73.9); Platelet Count 123 T/CUMM (130-400); Red Blood Count 2.74 MC/CUMM (3.8-5.5); Red Cell Distribution Width 17.3 % (9.3-17.3); White Blood Count 12.5 T/CUMM (4-12)
[2016-12-15 06:05] LABS: Band Neutrophils 8 % (0-10); Hypochromasia 1+; Lymphocytes 4 % (20-55); Macrocytosis 1+; Platelet Estimate Adequate; Segmented Neutrophils 81 % (50-85); Total Cells Counted 100
[2016-12-15 06:17] LABS: Calcium 8.7 MG/DL (8.5-10.1); Magnesium 2.5 MG/DL (1.8-2.4); Osmolality,Calculated 282.5 MOS/KG (273-304); Potassium 4.6 MMOL/L (3.5-5.1)
[2016-12-15 06:22] LABS: Albumin 3.3 G/DL (3.4-5.0); Bilirubin,Total 2.7 MG/DL (0.2-1.0); Calcium 8.7 MG/DL (8.5-10.1); Osmolality,Calculated 281.7 MOS/KG (273-304); Potassium 4.6 MMOL/L (3.5-5.1); Total Protein 6.8 G/DL (6.4-8.3)
[2016-12-15] MEDS: IPRATROPIUM 500 MCG/2.5 ML NEB RESP TX SCH ×3 (06:58→23:44)
--- NOTE | 2016-12-15 07:12 | Pulmonology Progress Note ---
Pulmonary - PN: Subj Interval history: This 56-year-old white female has cirrhosis and anasarca. She had a right thoracentesis yesterday with removal of 1200 mL of straw-colored fluid. The fluid appears to be a transudate. Cytology and cultures are pending. Creatinine has risen to 2.0 and she's not making a lot of urine. I'm concerned about hepato-renal syndrome. We need to have GI to see her. She feels better and is more alert. Her weight does not reflect fluid loss. Exam (Progress Note) - Constitutional Vitals: Period Temp Pulse Resp BP Sys/Pastor Pulse Ox Last 24 Hr 97.1 F-98.3 F 74-120 13-29 63-108/39-67 79-94 Exam: Patient is alert seated on side of the bed. Seems oriented. Vital signs show an O2 sat in the mid 90s on nasal oxygen. Pulse is 105 and irregular with atrial fibrillation. Afebrile. Pupils react to light. She is jaundiced. Throat is clear. Neck supple no bruits. Still has some jugular venous distention. Chest reveals decreased breath sounds at the right base. I hear a few crackles. Sounds much better than yesterday. Heart irregular without murmur. Abdomen grand obese probably has ascites. Extremities marked edema in both lower extremities, 4+, calves nontender. Results - Labs CBC & BMP: 12/15/16 04:58 12/15/16 04:59 Lab Results: I have reviewed the past 24 hour labs - Diagnostic Findings Procedure: Chest x-ray: pending Assessment and Plan (1) Anasarca Status: Acute Assessment and plan: This is likely due to her severe liver disease. I'm concerned about hepatorenal syndrome. LV function was normal on echo. BNP is only slightly elevated at 400. Current Visit: Yes (2) Pleural effusion on right Status: Acute Assessment and plan: Right pleural effusion is a transudate. This would fit with liver disease as a cause. Other considerations would be congestive heart failure or nephrotic syndrome. She has known cirrhosis. Needs cautious diuresis watching her renal function. Current Visit: Yes (3) Hepatic cirrhosis Status: Chronic Assessment and plan: Clearly has cirrhosis. Likely the cause of her fluid retention. Watch for hepatorenal syndrome. Current Visit: Yes (4) Atrial fibrillation with RVR Status: Acute Assessment and plan: Heart rate is 105, persistent atrial fibrillation. Controlling weight medications. Cardiology following. Current Visit: Yes
--- NOTE | 2016-12-15 07:32 | XRay Report ---
XR chest 1V portable Indication: Right thoracentesis. Chest one view: Comparison yesterday shows little change in the size of a large right pleural effusion. No pneumothorax is seen. Left hemidiaphragm remains obscured as well. There is continued reticular prominence of the aerated portion of both lungs. Heart size remains indeterminate. Impression: Overall, no change from yesterday. No evidence of pneumothorax. PROCEDURE INTERPRETED AT [facility] DEPARTMENT OF RADIOLOGY Final Report Signed by: Miko Tay M.D.
[2016-12-15] MEDS: FUROSEMIDE 40 MG TABLET PO SCH ×2 (08:20→17:44)
[2016-12-15] MEDS: POTASSIUM CHLORIDE 20 MEQ TABLET PO SCH (08:20)
[2016-12-15] MEDS: THIAMINE 100 MG TABLET PO SCH (08:20)
[2016-12-15] MEDS: APIXABAN 5 MG TABLET PO SCH ×2 (08:20→21:32)
[2016-12-15] MEDS: FERROUS SULFATE 325 MG TABLET PO SCH (08:20)
[2016-12-15] MEDS: PANTOPRAZOLE 40 MG TABLET PO SCH (08:20)
[2016-12-15] MEDS: DILTIAZEM 60 MG TABLET PO SCH ×4 (08:20→21:33)
[2016-12-15] MEDS: FOLIC ACID 1 MG TABLET PO SCH (08:20)
[2016-12-15] MEDS: MULTIVITAMIN (CENTRUM) TABLET PO SCH (08:20)
[2016-12-15] MEDS: SPIRONOLACTONE 50 MG TABLET PO SCH (08:44)
--- NOTE | 2016-12-15 10:30 | Physician Query Form ---
CLICK EDIT DOCUMENT TO SELECT QUERY ANSWER --> OK --> SIGN Estelle Perdue RN, CCDS Certified Clinical Data Control Clerk Supervisor W) [phone] (f) [phone] [email or web address]: Make your selection(s) from the choices in EACH section by typing an "x" and enter comments in the comment section. Please use your independent medical judgment in providing your response. This request does not imply that any particular answer is desired or expected. CLINICAL INDICATORS: (Providers should not edit this section) The medical record indicates that the patient was admitted with congestive heart failure, creatinine of .90 that has increased to 2.10 on the 15th, GFR of 95# on admission that has dropped to 31# on the 15th, and "she's not making a lot of urine". Clarify which of the following most accurately represents the patient's renal status: ( ) Acute kidney injury (non-traumatic) ( x) Acute renal failure ( ) Acute renal failure with underlying Chronic Kidney Disease (CKD) - please provide stage below ( ) Acute renal failure with pathological renal lesion ( ) Acute renal failure with necrosis ( ) tubular ( ) medullary ( ) cortical ( ) CKD - please provide stage below ( ) End Stage Renal Disease ( ) Acute interstitial nephritis ( ) Hepatorenal syndrome ( ) Other, please specify: ( ) Clinically unable to determine Chronic Kidney Disease Stages Source: National Kidney Disease Foundation ( ) Stage I (eGFR > or = 90) ( ) Stage II (eGFR 60 - 89) ( ) Stage III (eGFR 30 - 59) ( ) Stage IV (eGFR 15 - 29) ( ) Stage V (eGFR < 15 or dialysis) COMMENTS: Use of terms such as suspected, likely, or probable (associated with a specific diagnosis that is being evaluated, monitored, or treated as if it exists) are acceptable and can be restated in the discharge summary if not ruled out. MTDD
--- NOTE | 2016-12-15 10:33 | Hospitalist Progress Note ---
Assessment and Plan (1) Acute dyspnea Status: Acute Current Visit: Yes (2) Congestive heart failure Status: Acute Current Visit: Yes (3) Pleural effusion on right Status: Acute Current Visit: Yes (4) History of alcoholism Status: Chronic Current Visit: No (5) Hepatic cirrhosis Status: Chronic Current Visit: Yes (6) Chronic obstructive pulmonary disease Status: Chronic Current Visit: Yes (7) Atrial fibrillation with RVR Status: Acute Assessment and plan: Plan for this patient #1 admit the patient to ICU #2 scheduled breathing treatments #3 thoracentesis #4 abdominal ultrasound #5 cardiac echo #6 times them infusion #Potassium supplementation #8 cardiology consult #9 pulmonary consult 12/14/16 continue with ICU monitoring. She needs her pleural effusion drained. Appreciate Dr. Daniel's input. Cardiology is to say. She 7 new-onset A. fib with RVR. Patient denies a history of this. Patient reports dyspnea on exertion with at least exertion. This could be associated with alcoholism damaging her heart. Patient should be admitted upstairs tomorrow. Monitor labs. 12/15/16 with a new the patient upstairs to a monitored bed. Cardiology is put her on anticoagulation which is appropriate. We'll continue monitoring labs. Agree with GI been consult of this points secondary to her increased creatinine this could indicate hepatorenal syndrome. Or overdiuresis. We'll review her Lasix dose. Current Visit: Yes Hospitalist: Subjective Interval history: Patient's feeling much better and actually wants to go home. Told her I wasn't ready for going home but she was up could go upstairs Exam - Constitutional Vitals: Period Temp Pulse Resp BP Sys/Pastor Pulse Ox Last 24 Hr 97.1 F-98.3 F 92-120 13-29 63-108/39-67 84-94 - General General appearance: alert, in no apparent distress) - Head Head exam: Present: atraumatic, normocephalic - Eye Eye exam: Present: normal appearance, PERRL, EOMI - ENT ENT exam: Present: mucous membranes moist, normal external ear exam - Neck Neck exam: Present: full ROM, trachea midline. Absent: tenderness, meningismus , lymphadenopathy, thyromegaly - Chest Chest inspection: Present: symmetric chest wall rise. Absent: tenderness, rash - Respiratory Respiratory exam: Present: Overall better air movement today. There are breath sounds heard on the right - Cardiovascular Cardiovascular exam: Present: normal rhythm, tachycardia. Absent: murmur, rubs , gallop - Abdominal Exam Abdominal exam: Present: soft, normal bowel sounds, ascites. Absent: distention - Extremities Exam Extremities exam: Present: full ROM, normal capillary refill, pedal edema (3+ pitting pedal edema). Absent: tenderness, calf tenderness - Back Exam Back exam: Present: full ROM. Absent: tenderness - Neurological Exam Neurological exam: Present: alert, oriented X3, CN II-XII intact. Absent: motor sensory deficit - Psychiatric Psychiatric exam: Present: normal affect, normal mood - Skin Skin exam: Present: warm, dry, intact, normal color Results - Labs CBC & BMP: 12/15/16 04:58 12/15/16 04:59
--- NOTE | 2016-12-15 13:47 | Gastrointestinal Consult Note ---
Assessment and Plan (1) Hepatic cirrhosis Status: Chronic Assessment and plan: 12/15-Hx of hepatic cirrhosis with long standing alcohol use now presenting with pleural effusion, post thoracentesis. Elevated creatnine with no knowledge of baseline. Ascites managed at home with diuretics, diet. Us shows small amount of ascites, nodular liver. Plan and addendum to follow by Dr Vidal. Current Visit: Yes History of Present Illness Chief complaint: Cirrhosis History of present illness: Ms. Greco is a 56 year old female who presented to the ER with onset of SOB. Pt has a prior history of cirrhosis, COPD, CHF and atrial fibrillation. She is currently staying with her son due to her recent health status however lives in [place]. She is followed in the past at [facility] in [place] for her health issues. She is a known alcoholic with her last reported drink being 4 weeks ago. She has a long standing history of heavy alcohol use in the past. Pt states that she has been hospitalized three times over the recent months for the SOB. She reports having fluid removed most recently in [place]. She states that the last several days she had another onset of SOB and was brought in for further evaluation. She was found at that time to have a large right pleural effusion and had thoracentesis with 1200 ml removed. She cannot recall having paracentesis as of recent. On admission her creatnine was elevated at 1.7 and increased today at 2.0. Her home diuretic regimen included Lasix 20 and Aldactone 100mg daily. Uncertain as to her baseline creatnine at present due to no facility records in database. She states she manages her cirrhosis at home fairly well with her medications and fluid intake/diet modifications. She has been started on Eliquis since admission. Home Medications Medication Instructions Recorded Confirmed Type Albuterol Sulfate [Ventolin HFA] 1 puff INH QID PRN 12/13/16 12/13/16 History Ferrous Sulfate 325 mg PO DAILY 12/13/16 12/13/16 History Furosemide Tab [Lasix Tab] 20 mg PO DAILY 12/13/16 12/13/16 History Gabapentin 300 mg PO QID 12/13/16 12/13/16 History Potassium 99 mg PO DAILY 12/13/16 12/13/16 History Spironolactone 100 mg PO DAILY 12/13/16 12/13/16 History Allergies Allergy/AdvReac Type Severity Reaction Status Date / Time Penicillins AdvReac ANAPHYLAXIS Verified 12/13/16 14:06 Medical,Surgical,& Family Hx - Medical History Cardio: No history of: Cardiac Dysrhythmia, Congenital Heart Disease, CAD, Cardiovascular Problems Respiratory: History of: COPD, Respiratory Problems (wears home 02) Gastrointestinal: History of: Liver Problems (Cirrhosis) - Surgical History Neurologic Surgeries: Patient denies: Neurologic Surgery Abdominal Surgeries: Surgical HX of: Cholecystectomy, Gastric Bypass Surgery Orthopedic Surgeries: Patient denies;: Total Knee Replacement - Family History Family History: Denies;: Family Heart Disease, Additional Family History - Social History Smoking Status: Former smoker Frequency of Alcohol Use: None Type of Drug Use: Unknown 12 point system: reviewed and no additional remarkable complaints except as stated - Constitutional Constitutional: Present: as per HPI - EENT Eyes: Present: as per HPI Ears: Present: as per HPI Nose, mouth and throat: Present: as per HPI - Cardiovascular Cardiovascular: Present: as per HPI, dyspnea - Respiratory Respiratory: Present: as per HPI - Gastrointestinal Gastrointestinal: Present: as per HPI - Genitourinary Genitourinary: Present: as per HPI - Musculoskeletal Musculoskeletal: Present: as per HPI - Neurological Neurological: Present: as per HPI - Psychiatric Psychiatric: Present: as per HPI - Endocrine Endocrine: Present: as per HPI - Hematologic/Lymphatic Hematologic/Lymphatic: Present: as per HPI Exam - Constitutional Vitals: Period Temp Pulse Resp BP Sys/Pastor Pulse Ox Last 24 Hr 97.1 F-98.6 F 92-120 13-29 63-104/39-67 84-94 General appearance: normal weight, no acute distress - Head Head exam: Present: normal inspection, normocephalic - Eye Eye exam: Present: other (lids and conjunctiva unremarkable). Absent: scleral icterus - ENT ENT exam: Present: normal exam, normal oropharynx - Neck Neck exam: Present: normal inspection - Respiratory Respiratory exam: Present: clear to auscultation bilaterally. Absent: rales, rhonchi, wheezes - Cardiovascular Cardiovascular exam: Present: regular rate and rhythm. Absent: diastolic murmur , JVD, systolic murmur - GI/Abdominal GI/Abdominal exam: Present: normal bowel sounds, ascites, firm. Absent: distended, mass, organomegaly, tenderness, soft - Extremities Exam Extremities exam: Present: normal inspection, full ROM - Back Exam Back exam: Present: normal inspection - Neurological Exam Neurological exam: Present: alert, oriented X3 - Psychiatric Psychiatric exam: Present: normal affect, normal mood - Skin Skin exam: Present: normal color, warm, dry Results - Labs CBC & BMP: 12/15/16 04:58 12/15/16 04:59 Lab Results: I have reviewed the past 24 hour labs - Diagnostic Findings Procedure: Ultrasound: report reviewed by me, X-ray: report reviewed by me
--- NOTE | 2016-12-15 18:32 | Cardiology Progress Note ---
Mercy, Maria Fernanda Cárdenas RN, am scribing for, and in the presence of, Matteo Patel MD 18:30. Assessment and Plan (1) Atrial fibrillation with RVR Status: Acute Assessment and plan: Initial Assessment 12/14/16 The onset of atrial fibrillation with rapid ventricular response noted. She currently remains in atrial fibrillation with heart rates ranging from 90s- 110s. She is currently asymptomatic and denies chest pain and palpitations. She denies any history of GI bleeding, CVA, frequent falls or any contraindications to anticoagulation. Will initiate Eliquis at this time for stroke prevention. Potassium and magnesium also replaced. Will recheck BMP in the morning. echo was done replete mg and k change iv to po diltiazem I discussed with the patient the benefits of stopping use of all tobacco products. I discussed the problems with continued use the tobacco, the benefits of stopping it, and options of treatment. The patient is considering it. Creatinine is 1.4. We'll continue to watch it. For her insomnia we'll try a low-dose of trazodone, 50 mg one half daily at bedtime Agree with the thoracentesis-see if it is transudate or exudate and what the etiology might be 12/15/26-plan/recommendation: Atrial fib is controlled, rate in the 90s. Would not try to actively convert, given she is not on any anticoagulant prior to coming the hospital. When probably try to wait a few weeks to a month after anticoagulation before attempted active cardioversion. Right thoracentesis was done. Will evaluate as to whether this is transudate or exudate. My suspicion is transudate. Platelets and hematocrit are low. She is tolerating the low- dose oral diltiazem well. Chronic lower extremity edema. Echo showed good LV function. Will move to 2 E. Current Visit: Yes (2) Acute dyspnea Status: Acute Current Visit: Yes (3) Congestive heart failure Status: Acute Current Visit: Yes (4) Edema of foot Status: Chronic Current Visit: Yes (5) Pleural effusion on right Status: Acute Assessment and plan: Right thoracentesis 12/14/16. Current Visit: Yes (6) Ascites Status: Chronic Current Visit: Yes (7) Chronic obstructive pulmonary disease Status: Chronic Current Visit: Yes (8) Former smoker Status: Chronic Current Visit: No (9) Hepatic cirrhosis Status: Chronic Current Visit: Yes (10) History of alcoholism Status: Chronic Current Visit: No Cardiology - PN: Subj Interval history: Patient is seen in intensive care unit sitting up on side of bed in no acute distress. Oxygen in use via NBP, O2 sat 91%. She denies any chest pain, shortness of breath, or palpitations. She had a right thoracentesis yesterday with 1200 cc of what appeared to be transudate fluid. Diltiazem has been changed to po, currently she is in afib with heart rates in the 90's. ECHO done yesterday with EF >65%. She was given potassium and magnesium yesterday, and todays labs are potassium of 4.6, magnesium of 2.5. H&H 8.6 a nd 27.1, platelet count of 123. Exam (Progress Note) - Constitutional Vitals: Period Temp Pulse Resp BP Sys/Pastor Pulse Ox Last 24 Hr 97.1 F-98.3 F 92-120 13-29 63-108/39-67 81-94 General appearance: no acute distress, over weight - Head Head exam: Absent: abrasion, hematoma - Neck Neck exam: Absent: tenderness - Respiratory Respiratory exam: Present: clear to auscultation bilaterally, other (oxygen via NBP). Absent: accessory muscle use, chest wall tenderness - Cardiovascular Cardiovascular exam: Present: irregular rhythm - GI/Abdominal GI/Abdominal exam: Present: normal bowel sounds, soft. Absent: distended, tenderness - Extremities Exam Extremities exam: Present: edema (4+ to lower extremities) - Neurological Exam Neurological exam: Present: alert, oriented X3 - Psychiatric Psychiatric exam: Present: normal affect, normal mood - Skin Skin exam: Present: warm, dry Result/EKG - Labs CBC & BMP: 12/15/16 04:58 12/15/16 04:59 Lab Results: I have reviewed the past 24 hour labs Labs: Laboratory Results - last 24 hr 12/14/16 12/14/16 12/14/16 Unknown Unknown Unknown WBC RBC Hgb Hct MCV MCH MCHC RDW Plt Count MPV Neut % (Auto) Lymph % (Auto) [place] % (Auto) Eos % (Auto) Baso % (Auto) Neut # (Auto) Lymph # (Auto) [place] # (Auto) Eos # (Auto) Baso # (Auto) Total Counted Immature Gran % Nucleated RBC % Immature Gran # Segmented Neutrophils Band Neutrophils Lymphocytes Monocytes Nucleated RBCs # Platelet Estimate Hypochromasia Macrocytosis Morphology Comment Sodium Potassium Chloride Carbon Dioxide Anion Gap BUN Creatinine GFR Calculation BUN/Creatinine Ratio Glucose Calculated Osmolality Calcium Magnesium Total Bilirubin AST ALT Alkaline Phosphatase Total Protein Albumin Globulin Albumin/Globulin Ratio Fluid Total Protein Fluid LDH 77 Pleural WBC 269 Pleural RBC [address] 100 Pleural Neutrophils 19 Pleural Lymphocytes 77 Pleural Monocytes 4 Pleural LDH Pleural Glucose 162 12/14/16 12/14/16 12/15/16 Unknown Unknown 04:58 WBC 12.5 H D RBC 2.74 L Hgb 8.6 L Hct 27.1 L MCV 98.9 MCH 31 MCHC 31.7 L RDW 17.3 Plt Count 123 L MPV 10.5 Neut % (Auto) 84.9 H Lymph % (Auto) 4.8 L [place] % (Auto) 9.3 Eos % (Auto) 0.0 Baso % (Auto) 0.1 Neut # (Auto) 10.6 H Lymph # (Auto) 0.6 L [place]land # (Auto) 1.2 H Eos # (Auto) 0.0 Baso # (Auto) 0.0 Total Counted 100 Immature Gran % 0.9 Nucleated RBC % 0.0 Immature Gran # 0.11 Segmented Neutrophils 81 Band Neutrophils 8 Lymphocytes 4 L Monocytes 7 Nucleated RBCs # 0.00 Platelet Estimate Adequate Hypochromasia 1+ Macrocytosis 1+ Morphology Comment Sodium Potassium Chloride Carbon Dioxide Anion Gap BUN Creatinine GFR Calculation BUN/Creatinine Ratio Glucose Calculated Osmolality Calcium Magnesium Total Bilirubin AST ALT Alkaline Phosphatase Total Protein Albumin Globulin Albumin/Globulin Ratio Fluid Total Protein 2.7 Fluid LDH Pleural WBC Pleural RBC Pleural Tot Cell Ct Pleural Neutrophils Pleural Lymphocytes Pleural Monocytes Pleural LDH 71 Pleural Glucose 12/15/16 12/15/16 04:58 04:59 WBC RBC Hgb Hct MCV MCH MCHC RDW Plt Count MPV Neut % (Auto) Lymph % (Auto) [place] % (Auto) Eos % (Auto) Baso % (Auto) Neut # (Auto) Lymph # (Auto) [place] # (Auto) Eos # (Auto) Baso # (Auto) Total Counted Immature Gran % Nucleated RBC % Immature Gran # Segmented Neutrophils Band Neutrophils Lymphocytes Monocytes Nucleated RBCs # Platelet Estimate Hypochromasia Macrocytosis Morphology Comment Sodium 138 139 Potassium 4.6 4.6 Chloride 98 98 Carbon Dioxide 31 28 Anion Gap 13.6 17.6 H BUN 28 H D 26 H Creatinine 2.00 H 2.10 H GFR Calculation 32 31 BUN/Creatinine Ratio 14.00 12.00 Glucose 115 H 116 H Calculated Osmolality 281.7 282.5 Calcium 8.7 8.7 Magnesium 2.5 H Total Bilirubin 2.70 H AST 34 ALT 24 Alkaline Phosphatase 96 Total Protein 6.8 Albumin 3.3 L Globulin 3.5 Albumin/Globulin Ratio 0.9 L Fluid Total Protein Fluid LDH Pleural WBC Pleural RBC Pleural Tot Cell Ct Pleural Neutrophils Pleural Lymphocytes Pleural Monocytes Pleural LDH Pleural Glucose - EKG EKG results: interpreted by me EKG shows: atrial fibrillation IJorge Dale, MD, personally performed the services described in this documentation, ascribed by Maria Fernanda Cárdenas RN in my presence, and it is both accurate and complete [id number] .
[2016-12-15] MEDS: traZODone 50 MG TABLET PO SCH (21:30)
[2016-12-15] MEDS: LEVOFLOXACIN INJ 250 MG in PREMIX 1 EACH IV SCH (21:32)
[2016-12-16] MEDS: ZALEPLON 5 MG CAPSULE PO PRN ×2 (00:43→21:06)
[2016-12-16 07:12] LABS: Calcium 8.7 MG/DL (8.5-10.1); Magnesium 2.5 MG/DL (1.8-2.4); Osmolality,Calculated 280.1 MOS/KG (273-304); Potassium 4.5 MMOL/L (3.5-5.1)
[2016-12-16] MEDS: IPRATROPIUM 500 MCG/2.5 ML NEB RESP TX SCH ×3 (07:21→23:47)
--- NOTE | 2016-12-16 08:03 | Hospitalist Progress Note ---
Assessment and Plan - Time spent with patient Time spent with patient: Less than 30 minutes (due to assessment, plan and documentation.) (1) Acute diastolic CHF (congestive heart failure) Status: Acute Assessment and plan: ECHO showed EF 65% on Lasix 40 po bid Current Visit: Yes (2) REBECCA (acute kidney injury) Status: Acute Assessment and plan: creatinine is up from 2.0 yesterday to 2.7 today, GFR from 32 to 23 today Current Visit: Yes (3) Acute dyspnea Status: Acute Assessment and plan: likely multifactorial--- pleural effusions, a fib RVR, CHF and copd Current Visit: Yes (4) Anasarca Status: Acute Current Visit: Yes (5) Atrial fibrillation with RVR Status: Acute Current Visit: Yes (6) Pleural effusion on right Status: Acute Assessment and plan: Dr. Daniel is following for Pulmonary. Current Visit: Yes (7) Chronic obstructive pulmonary disease Status: Chronic Assessment and plan: home o2 at night Current Visit: Yes (8) Hepatic cirrhosis Status: Chronic Assessment and plan: Dr. Vidal with GI following on aldactone Current Visit: Yes (9) History of alcoholism Status: Chronic Current Visit: No Hospitalist: Subjective Interval history: Ms. Greco was seen sitting up in the chair eating breakfast on rounds this morning. She states that she feels "okay" right now, but that she had a rough night and got short of breath getting up to go to the bathroom. Her O2 was increased to 3L. Her sats this morning are 80-82% which appears to be at baseline. She is back on 2L now. She gives me a hx of COPD as well with home O2 use at night. Denies any abdominal pain. Her creatinine is up today at 2.7, yesterday 2.0. Continue to follow along with Consultants. Exam - Constitutional Vitals: Period Temp Pulse Resp BP Sys/Pastor Pulse Ox Last 24 Hr 97.7 F-98.6 F 83-104 15-24 88-106/44-66 86-97 General appearance: normal weight, no acute distress - Head Head exam: Present: normal inspection, normocephalic - Eye Eye exam: Present: EOMI. Absent: scleral icterus Pupils: Present: PAPITO, normal accommodation - ENT ENT exam: Present: normal exam, normal oropharynx - Neck Neck exam: Present: normal inspection. Absent: lymphadenopathy - Respiratory Respiratory exam: Present: clear to auscultation bilaterally. Absent: accessory muscle use - Cardiovascular Cardiovascular exam: Present: tachycardia - GI/Abdominal GI/Abdominal exam: Present: normal bowel sounds, soft. Absent: tenderness - Extremities Exam Extremities exam: Present: normal inspection. Absent: edema - Back Exam Back exam: Present: normal inspection. Absent: muscle spasm - Neurological Exam Neurological exam: Present: alert, oriented X3 - Psychiatric Psychiatric exam: Present: normal affect, normal mood - Skin Skin exam: Present: normal color, warm, dry, intact Results - Labs CBC & BMP: 12/15/16 04:58 12/16/16 06:17 Lab Results: I have reviewed the past 24 hour labs
--- NOTE | 2016-12-16 08:40 | Pulmonology Progress Note ---
Pulmonary - PN: Subj Interval history: This 56-year-old white female has cirrhosis and anasarca. She had a right thoracentesis yesterday with removal of 1200 mL of straw-colored fluid. The fluid appears to be a transudate. Cytology and cultures are pending. Creatinine has risen to 2.0 and she's not making a lot of urine. I'm concerned about hepato-renal syndrome. We need to have GI to see her. She feels better and is more alert. Her weight does not reflect fluid loss. 12/16/69 Patient's breathing is a little better. She has a large right pleural effusion and apparently has ascites. Also has marked peripheral edema. Basically anasarca. Diuretics were held by GI because of worsening renal function. Difficult situation. We will re-x-ray her in the morning and if she still has large right pleural effusion I will tap her. Not a candidate for an indwelling drain. Has transudative pleural effusions due to liver disease. Exam (Progress Note) - Constitutional Vitals: Period Temp Pulse Resp BP Sys/Pastor Pulse Ox Last 24 Hr 96.8 F-98.6 F 83-104 15-24 88-107/44-55 86-97 Exam: Patient is alert seated on side of the bed. Seems oriented. Vital signs show an O2 sat in the mid 90s on nasal oxygen. Pulse is 105 and irregular with atrial fibrillation. Afebrile. Pupils react to light. She is jaundiced. Throat is clear. Neck supple no bruits. Still has some jugular venous distention. Chest reveals decreased breath sounds at the right base. I hear a few crackles. Sounds much better than yesterday. Heart irregular without murmur. Abdomen grand obese probably has ascites. Extremities marked edema in both lower extremities, 4+, calves nontender. Little change from yesterday. Results - Labs CBC & BMP: 12/15/16 04:58 12/16/16 06:17 Lab Results: I have reviewed the past 24 hour labs Assessment and Plan (1) Anasarca Status: Acute Assessment and plan: This is likely due to her severe liver disease. I'm concerned about hepatorenal syndrome. LV function was normal on echo. BNP is only slightly elevated at 400. 12/16/16 appears to be due to advanced hepatic cirrhosis. Diuresing her has made her renal function worse. We will repeat x-rays tomorrow and tap right chest if still large effusion. However this will not take care of the problem long-term. Current Visit: Yes (2) Pleural effusion on right Status: Acute Assessment and plan: Right pleural effusion is a transudate. This would fit with liver disease as a cause. Other considerations would be congestive heart failure or nephrotic syndrome. She has known cirrhosis. Needs cautious diuresis watching her renal function. 12/16/16 this has recurred. Likely will re-tap tomorrow. Current Visit: Yes (3) Hepatic cirrhosis Status: Chronic Assessment and plan: Clearly has cirrhosis. Likely the cause of her fluid retention. Watch for hepatorenal syndrome. 12/16/16 GI is seeing. They're wanting to get some old records on her. Current Visit: Yes (4) Atrial fibrillation with RVR Status: Acute Assessment and plan: Heart rate is 105, persistent atrial fibrillation. Controlling weight medications. Cardiology following. 12/16/16 rate is controlled at 100. Current Visit: Yes
[2016-12-16] MEDS: POTASSIUM CHLORIDE 20 MEQ TABLET PO SCH (09:25)
[2016-12-16] MEDS: APIXABAN 5 MG TABLET PO SCH (09:25)
[2016-12-16] MEDS: MULTIVITAMIN (CENTRUM) TABLET PO SCH (09:25)
[2016-12-16] MEDS: FUROSEMIDE 40 MG TABLET PO SCH ×2 (09:26→17:10)
[2016-12-16] MEDS: THIAMINE 100 MG TABLET PO SCH (09:26)
[2016-12-16] MEDS: DILTIAZEM 60 MG TABLET PO SCH ×3 (09:26→17:05)
[2016-12-16] MEDS: FERROUS SULFATE 325 MG TABLET PO SCH (09:26)
[2016-12-16] MEDS: FOLIC ACID 1 MG TABLET PO SCH (09:28)
[2016-12-16] MEDS: PANTOPRAZOLE 40 MG TABLET PO SCH (09:28)
[2016-12-16] MEDS: SPIRONOLACTONE 50 MG TABLET PO SCH (09:32)
--- NOTE | 2016-12-16 11:36 | Gastrointestinal Progress Note ---
Assessment and Plan (1) Hepatic cirrhosis Status: Chronic Assessment and plan: 12/16-Records pending from [facility]. Creatnine elevated at 2.7. Weight unchanged. Tolerating diet. Plan and addendum to follow by Dr Vidal. 12/15-Hx of hepatic cirrhosis with long standing alcohol use now presenting with pleural effusion, post thoracentesis. Elevated creatnine with no knowledge of baseline. Ascites managed at home with diuretics, diet. Us shows small amount of ascites, nodular liver. Plan and addendum to follow by Dr Vidal. Current Visit: Yes Gastroenterology - PN: Subj Interval history: CC: Cirrhosis Pt is seen, sitting up in chair. States she slept in chair last night due to her breathing. She states that she is feeling some better today. She is tolerating her diet. Her creatnine is elevated today at 2.7. Records are still pending from [facility]. Her weight is stable at present time. Abdomen is soft, nontender. ROS: Denies SOB or chest pain Exam (Progress Note) - Constitutional Vitals: Period Temp Pulse Resp BP Sys/Pastor Pulse Ox Last 24 Hr 96.8 F-98.6 F 83-104 15-24 88-107/44-55 86-97 - Other Additional findings: General appearance: normal weight, no acute distress - Head Head exam: Present: normal inspection, normocephalic - Eye Eye exam: Present: other (lids and conjunctiva unremarkable). Absent: scleral icterus - ENT ENT exam: Present: normal exam, normal oropharynx - Neck Neck exam: Present: normal inspection - Respiratory Respiratory exam: Present: clear to auscultation bilaterally. Absent: rales, rhonchi, wheezes - Cardiovascular Cardiovascular exam: Present: regular rate and rhythm. Absent: diastolic murmur , JVD, systolic murmur - GI/Abdominal GI/Abdominal exam: Present: normal bowel sounds, soft Absent: distended, mass, organomegaly, tenderness, soft - Extremities Exam Extremities exam: Present: normal inspection, full ROM - Back Exam Back exam: Present: normal inspection - Neurological Exam Neurological exam: Present: alert, oriented X3 - Psychiatric Psychiatric exam: Present: normal affect, normal mood - Skin Skin exam: Present: normal color, warm, dry Results - Labs CBC & BMP: 12/15/16 04:58 12/16/16 06:17 Lab Results: I have reviewed the past 24 hour labs
--- NOTE | 2016-12-16 11:40 | Pathology Report from [facility] ---
ACCESSION # : [id number] PATIENT NAME : Kimberley Greco ORDERING DR : Eliezer Lucas MD CLINICAL HX: R pleural effusion, COPD POST-OP DX: Same SPECIMEN INFO: Fluid- Pleural, right- 1200 mls dark straw CLASS: I CLASS COMMENTS: Blood, inflammation, mesothelial cells.CELL BLOCK: Same CLASS LEGEND: CLASS 0 Material inadequate for diagnosis because of (see comment) CLASS I Absence of atypical or abnormal cells CLASS II Atypical Cytology but no evidence of malignancy CLASS III Cytology suggestive of but not conclusive for malignancy CLASS IV Cytology strongly suggestive of malignancy CLASS V Cytology conclusive for malignancy SERVICE DATE: 12/15/2016 REPORT DATE: 12/16/2016 PATHOLOGIST: Galen Jo
--- NOTE | 2016-12-16 18:25 | Cardiology Progress Note ---
Mercy, Raina Lai RN, am scribing for, and in the presence of, Garcia Rodrigez MD 18:25. Assessment and Plan - Time spent with patient Time spent with patient: Less than 30 minutes (1) Atrial fibrillation with RVR Status: Acute Assessment and plan: (Dr. Patel) Initial Assessment 12/14/16 The onset of atrial fibrillation with rapid ventricular response noted. She currently remains in atrial fibrillation with heart rates ranging from 90s- 110s. She is currently asymptomatic and denies chest pain and palpitations. She denies any history of GI bleeding, CVA, frequent falls or any contraindications to anticoagulation. Will initiate Eliquis at this time for stroke prevention. Potassium and magnesium also replaced. Will recheck BMP in the morning. echo was done replete mg and k change iv to po diltiazem I discussed with the patient the benefits of stopping use of all tobacco products. I discussed the problems with continued use the tobacco, the benefits of stopping it, and options of treatment. The patient is considering it. Creatinine is 1.4. We'll continue to watch it. For her insomnia we'll try a low-dose of trazodone, 50 mg one half daily at bedtime Agree with the thoracentesis-see if it is transudate or exudate and what the etiology might be 12/15/26 (Dr. Patel)-plan/recommendation: Atrial fib is controlled, rate in the 90s. Would not try to actively convert, given she is not on any anticoagulant prior to coming the hospital. When probably try to wait a few weeks to a month after anticoagulation before attempted active cardioversion. Right thoracentesis was done. Will evaluate as to whether this is transudate or exudate. My suspicion is transudate. Platelets and hematocrit are low. She is tolerating the low-dose oral diltiazem well. Chronic lower extremity edema. Echo showed good LV function. Will move to 2 E. 10/15/2017 update: 1. Previous thoracentesis, still decreased breath sounds on the right side 2. Change by mouth diltiazem 2 CD 120 mg twice a day (was on 60 4 times a day) 3. Gross hematuria in her [place] catheter; check urinalysis and hold anticoagulation 4. Still atrial fibrillation with borderline RVR; observe overnight and consider further rate control if needed 5. Normal LV function by echocardiogram with severe left atrial enlargement 6. Previously elevated INR 1.8 due to liver disease? Current Visit: Yes (2) Acute dyspnea Status: Acute Current Visit: Yes (3) Congestive heart failure Status: Acute Current Visit: Yes (4) Pleural effusion on right Status: Acute Current Visit: Yes (5) Ascites Status: Chronic Current Visit: Yes (6) Chronic obstructive pulmonary disease Status: Chronic Current Visit: Yes (7) Hepatic cirrhosis Status: Chronic Current Visit: Yes (8) History of alcoholism Status: Chronic Current Visit: No (9) Former smoker Status: Chronic Current Visit: No Cardiology - PN: Subj Interval history: 56 year old female with PMHx of COPD, HTN, and cirrhosis of the liver related to heavy alcohol. She was admitted to ICU on 12/13/16 with shortness of breath, found to have new onset of atrial fibrillation with RVR, heart rate 130. IV Cardizem infusion initially, and she is now PO Cardizem. Heart rate with improvement, currently 90-105 bpm. Post right thoracentesis on 12/14 with 1,200 ml's removed and negative cultures. Elevated BNP at 400 on 12/14 and has been treated for heart failure. Worsening renal function since admission with initial creatinine of 0.9 and today is 2.7. GI has been consulted and are evaluating for hepato-renal syndrome. Patient has been seen previously by Dr. Patel while in ICU. Transferred to yesterday afternoon, and has done well overnight. This morning, she is sitting up in bedside chair. No acute distress noted. States she usually has to sit up in order to breathe comfortably. Denies chest discomfort or acute dyspnea at this time. Requiring O2, and she uses this at home also. Slightly hypotensive with SBP 85-100 mmHg. Labs reviewed: as above, sodium 135, potassium 4.5, magnesium 2.5, ammonia 53 Exam (Progress Note) - Constitutional Vitals: Period Temp Pulse Resp BP Sys/Pastor Pulse Ox Last 24 Hr 96.8 F-98.6 F 83-104 15-24 88-107/44-55 86-97 General appearance: no acute distress, over weight - Head Head exam: Absent: abrasion, contusion, hematoma - Eye Eye exam: Absent: periorbital swelling, laceration to eyelids Pupils: Absent: dilated, fixed, irregular - ENT ENT exam: Present: normal external ear exam - Neck Neck exam: Absent: tenderness - Respiratory Respiratory exam: Present: clear to auscultation bilaterally. Absent: accessory muscle use, rales, rhonchi, stridor, wheezes - Cardiovascular Cardiovascular exam: Present: irregular rhythm, JVD (slight), tachycardia ( slight; pulse rate no higher than 105). Absent: bradycardia, carotid bruit, diastolic murmur, systolic murmur - GI/Abdominal GI/Abdominal exam: Present: normal bowel sounds, soft. Absent: ascites, distended, firm, tenderness - Extremities Exam Extremities exam: Present: normal capillary refill, edema (4+ pitting to BLE's; chronic). Absent: full ROM, calf tenderness - Back Exam Back exam: Present: normal inspection - Neurological Exam Neurological exam: Present: alert, oriented X3 - Psychiatric Psychiatric exam: Present: normal affect, normal mood. Absent: anxious - Skin Skin exam: Present: warm, dry. Absent: cyanosis, diaphoretic, rash Result/EKG - Labs CBC & BMP: 12/15/16 04:58 12/16/16 06:17 Lab Results: I have reviewed the past 24 hour labs Labs: Laboratory Results - last 24 hr 12/16/16 06:17 Sodium 135 L Potassium 4.5 Chloride 96 L Carbon Dioxide 30 Anion Gap 13.5 BUN 40 H Creatinine 2.70 H GFR Calculation 23 BUN/Creatinine Ratio 14.00 Glucose 111 H Calculated Osmolality 280.1 Calcium 8.7 Magnesium 2.5 H Ammonia 53 H - Diagnostic Findings Procedure: Chest x-ray: report reviewed by me, image reviewed by me (12/15 no significant change from previous study 12/14 cardiomegaly. no evidence of pneumothorax s/p right thoracentesis. mild improvement of moderate sized right pleural effusion. pleural consolidation RLL. slight reduced infiltrate of LLL.) - EKG EKG results: interpreted by me, no acute changes EKG shows: atrial fibrillation Elia Madrid Randall Scott, MD, personally performed the services described in this documentation, ascribed by Raina Lai RN in my presence, and it is both accurate and complete 825 .
[2016-12-16] MEDS: LEVOFLOXACIN INJ 250 MG in PREMIX 1 EACH IV SCH (21:05)
[2016-12-16] MEDS: traZODone 50 MG TABLET PO SCH (21:06)
[2016-12-16] MEDS: DILTIAZEM CD 120 MG CAPSULE PO SCH (21:13)
[2016-12-16] MEDS: ALBUMIN 25% 12.5 GM in PREMIX 1 EACH IV SCH (21:31)
[2016-12-17 05:42] LABS: Basophils % 0.1 % (0.0-0.8); Eosinophils # 0.1 10*3/uL (0.0-0.87); Eosinophils % 0.9 % (0.00-10.9); Hematocrit 24.9 VOL% (35.7-47.0); Hemoglobin 8.2 GM/DL (12.0-16.0); Immature Granulocytes % 0.8 %; Immature Granulocytes Absolute 0.08 #; Lymphocytes # 1.1 10*3/uL (1.4-4.0); Lymphocytes % 11.4 % (21.3-54.2); Mean Corpuscular HGB Conc 32.9 GM/DL (32-36); Mean Corpuscular Hemoglobin 31 PG (27-34); Mean Corpuscular Volume 92.9 FL (87-102); Mean Platelet Volume 10.1 FL (9.6-12.0); Monocytes # 0.9 10*3/uL (0.11-0.8); Monocytes % 8.6 % (1.7-12.7); Neutrophils # 7.8 10*3/uL (1.4-7.4); Neutrophils % 78.2 % (38.7-73.9); Platelet Count 111 T/CUMM (130-400); Red Blood Count 2.68 MC/CUMM (3.8-5.5); Red Cell Distribution Width 17.1 % (9.3-17.3); White Blood Count 9.9 T/CUMM (4-12)
[2016-12-17 06:12] LABS: Albumin 3.2 G/DL (3.4-5.0); Bilirubin,Total 2.3 MG/DL (0.2-1.0); Calcium 8.9 MG/DL (8.5-10.1); Potassium 4.8 MMOL/L (3.5-5.1); Total Protein 6.4 G/DL (6.4-8.3)
[2016-12-17] MEDS: ALBUMIN 25% 12.5 GM in PREMIX 1 EACH IV SCH ×2 (06:13→13:33)
[2016-12-17 06:17] LABS: Free T4 (Free Thyroxine) 1.02 NG/DL (0.76-1.46); Magnesium 2.5 MG/DL (1.8-2.4); Thyroid Stimulating Hormone 3.09 uIU/ml (0.358-3.74)
[2016-12-17 06:41] LABS: Amorphous Crystals,Urine Occasional /HPF (Few); Mucus,Urine Few /LPF (Occasional); RBC,Urine 7371 /HPF (0-4); Squamous Epithelial Cell,Urine Occasional /HPF (0-10); WBC,Urine 779 /HPF (0-6)
[2016-12-17 06:42] LABS: Apearance,Urine Cloudy (Clear); Bilirubin,Urine Negative (Negative); Blood, Urine Large mg/dL (Negative); Glucose,Urine (UA) Negative (Negative); Ketones,Urine Negative (Negative); Nitrite,Urine Negative (Negative); Protein,Urine 100 MG/DL; Urine Color Brown (Yellow); Urine Specific Gravity 1.015 (1.001-1.035); Urine Urobilinogen 0.2 EU/DL (0.2-1.0)
--- NOTE | 2016-12-17 06:53 | XRay Report ---
XR chest 1V portable Indication: Anasarca. History of liver disease. Comparison: Chest x-ray 12/15/2016 Technique: Portable AP chest was performed. Findings: Bilateral pleural effusions again redemonstrated with little change in size suggested. Central pulmonary vascular congestion is suggested and appears stable. Bilateral parenchymal opacities bilaterally present the lung bases have changed little since comparison study. Chest is otherwise stable. Impression: 1. Bilateral pleural effusions remain present, larger on the right. 2. Pulmonary venous congestive changes again are suggested and appears stable. 3. Bibasilar parenchymal opacities may in part reflect atelectasis. A component of pulmonary edema is not excluded. 12/17/2016 6:50 AM PROCEDURE INTERPRETED AT [facility] DEPARTMENT OF RADIOLOGY Final Report Signed by: Dr. Patricio Perdue
[2016-12-17] MEDS: IPRATROPIUM 500 MCG/2.5 ML NEB RESP TX SCH ×3 (07:54→23:21)
--- NOTE | 2016-12-17 07:58 | EKG Report ---
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
--- NOTE | 2016-12-17 08:54 | Pulmonology Progress Note ---
Pulmonary - PN: Subj Interval history: This 56-year-old white female has cirrhosis and anasarca. She had a right thoracentesis yesterday with removal of 1200 mL of straw-colored fluid. The fluid appears to be a transudate. Cytology and cultures are pending. Creatinine has risen to 2.0 and she's not making a lot of urine. I'm concerned about hepato-renal syndrome. We need to have GI to see her. She feels better and is more alert. Her weight does not reflect fluid loss. 12/16/16 Patient's breathing is a little better. She has a large right pleural effusion and apparently has ascites. Also has marked peripheral edema. Basically anasarca. Diuretics were held by GI because of worsening renal function. Difficult situation. We will re-x-ray her in the morning and if she still has large right pleural effusion I will tap her. Not a candidate for an indwelling drain. Has transudative pleural effusions due to liver disease. 12/17/2016 Patient still quite short of breath at rest. Chest x-ray has shown the right pleural effusion looks different than it did prior to the earlier thoracentesis. Plan for thoracentesis this morning. Hematocrit is down to 24. Creatinine up to 3.3. Difficult situation with patient with advanced cirrhosis and anasarca with rising creatinine. Need nephrology to see. Exam (Progress Note) - Constitutional Vitals: Period Temp Pulse Resp BP Sys/Pastor Pulse Ox Last 24 Hr 96.8 F-98.2 F 84-107 17-24 92-107/46-72 84-97 Exam: Patient is alert seated on side of the bed. Seems oriented. Vital signs show an O2 sat in the mid 90s on nasal oxygen. Pulse is 105 and irregular with atrial fibrillation. Afebrile. Pupils react to light. She is jaundiced. Throat is clear. Neck supple no bruits. Still has some jugular venous distention. Chest reveals decreased breath sounds at the right base. I hear a few crackles. Heart irregular without murmur. Abdomen grand obese probably has ascites. Extremities marked edema in both lower extremities, 4+, calves nontender. Little change from yesterday. Results - Labs CBC & BMP: 12/17/16 04:33 12/17/16 04:33 Lab Results: I have reviewed the past 24 hour labs - Diagnostic Findings Procedure: Chest x-ray: image reviewed by me (large right pleural effusion. Cardiomegaly.) Assessment and Plan (1) Anasarca Status: Acute Assessment and plan: This is likely due to her severe liver disease. I'm concerned about hepatorenal syndrome. LV function was normal on echo. BNP is only slightly elevated at 400. 12/16/16 appears to be due to advanced hepatic cirrhosis. Diuresing her has made her renal function worse. We will repeat x-rays tomorrow and tap right chest if still large effusion. However this will not take care of the problem long-term. 12/17/2016 anasarca due to advanced cirrhosis. Prognosis guarded. Unable to safely diurese with her renal function getting worse. Current Visit: Yes (2) Pleural effusion on right Status: Acute Assessment and plan: Right pleural effusion is a transudate. This would fit with liver disease as a cause. Other considerations would be congestive heart failure or nephrotic syndrome. She has known cirrhosis. Needs cautious diuresis watching her renal function. 12/16/16 this has recurred. Likely will re-tap tomorrow. 12/17/2016 we will do repeat thoracentesis today. Current Visit: Yes (3) Hepatic cirrhosis Status: Chronic Assessment and plan: Clearly has cirrhosis. Likely the cause of her fluid retention. Watch for hepatorenal syndrome. 12/16/16 GI is seeing. They're wanting to get some old records on her. Current Visit: Yes (4) Atrial fibrillation with RVR Status: Acute Assessment and plan: Heart rate is 105, persistent atrial fibrillation. Controlling weight medications. Cardiology following. 12/16/16 rate is controlled at 100. 12/17/2016 rate controlled. Current Visit: Yes
--- NOTE | 2016-12-17 08:58 | Operative Note ---
Date of procedure: 12/17/16 (right thoracentesis) Pre-op diagnosis: hepatic cirrhosis with large right pleural effusion. Post-op diagnosis: same Procedure: After an appropriate timeout to be sure we were dealing with Kimberley Greco, the patient was seated on the side of the bed. Using percussion we located the top edge of the pleural effusion and went two interspaces below that. Local anesthetic was applied with Xylocaine after using Betadine prep. The catheter provided on the Arrow tray was used and advanced into the right pleural space. We obtained a total of 1900 mL of alexandre clear fluid. She had some right shoulder pain at the end of the procedure so we decided to stop at that point. The catheter was removed. Patient remained in her room in stable condition. She tolerated the procedure well. Chest x-ray is pending. Anesthesia: local Surgeon / Physician: Mac Daniel Estimated blood loss: minimal Specimens: other (pleural fluid for cytology and cultures) Condition: stable Disposition: floor Results - Labs CBC & BMP: 12/17/16 04:33 12/17/16 04:33 Discharge Plan - Discharge Medications No Action Ferrous Sulfate 325 mg PO DAILY Furosemide Tab [Lasix Tab] 20 mg PO DAILY Gabapentin 300 mg PO QID Spironolactone 100 mg PO DAILY Albuterol Sulfate [Ventolin HFA] 1 puff INH QID PRN PRN Reason: Wheezing Potassium 99 mg PO DAILY - Follow Up or Referral - Forms/Instructions
--- NOTE | 2016-12-17 09:59 | XRay Report ---
History: Pleural effusion now postop thoracentesis Date: 12/17/2016 at 9:22 AM Study: Chest x-ray AP portable Comparison exam: 12/17/2016 at 6:06 AM There is no evidence of a pneumothorax following thoracentesis. There is residual mild to moderate right pleural effusion, though this has decreased considerably since the earlier film. There is stable mild left pleural effusion. There is mild bibasilar edema/infiltrate, right greater than left, with improved aeration on the right. There is cardiomegaly. The pulmonary vasculature is slightly prominent as before. Osseous structures are unchanged. Impression: No evidence of a pneumothorax following thoracentesis. Considerably reduced pleural effusion on the right, though residual effusion does persist. Improved aeration of the right lung base otherwise. Cardiomegaly and continued CHF as before PROCEDURE INTERPRETED AT [facility] DEPARTMENT OF RADIOLOGY Final Report Signed by: Dr. Lisbeth Vidal
--- NOTE | 2016-12-17 11:15 | Gastrointestinal Progress Note ---
Assessment and Plan (1) Hepatic cirrhosis Status: Chronic Assessment and plan: 12/17-Creatnine 3.3. Post thoracentesis today. [place] [facility] [facility] records noted. Plan and addendum to follow by Dr Vidal. 12/16-Records pending from [place]. Creatnine elevated at 2.7. Weight unchanged. Tolerating diet. Plan and addendum to follow by Dr Vidal. 12/15-Hx of hepatic cirrhosis with long standing alcohol use now presenting with pleural effusion, post thoracentesis. Elevated creatnine with no knowledge of baseline. Ascites managed at home with diuretics, diet. Us shows small amount of ascites, nodular liver. Plan and addendum to follow by Dr Vidal. Current Visit: Yes Gastroenterology - PN: Subj Interval history: CC: Cirrhosis Pt is seen, sitting on side of bed. States she is feeling some better today. SHe is post thoracentesis this morning with 1900ml removed. She is breathing better and chest xray is improved. Her creatnine is up at 3.3 today. Abdomen is soft, nontender. Diuretics continue to be held. Weight is inaccurate in chart. Will have nursing staff reweigh patient. [facility] records noted with last hospital stay in August with CHF. Creatnine was 0.3 at that time. There is notation of an elevated CEA level at that time however pt did not follow up with [facility]. ROS: Denies SOB or chest pain Exam (Progress Note) - Constitutional Vitals: Period Temp Pulse Resp BP Sys/Pastor Pulse Ox Last 24 Hr 96.8 F-98.2 F 84-107 17-24 92-109/46-72 84-97 - Other Additional findings: General appearance: normal weight, no acute distress - Head Head exam: Present: normal inspection, normocephalic - Eye Eye exam: Present: other (lids and conjunctiva unremarkable). Absent: scleral icterus - ENT ENT exam: Present: normal exam, normal oropharynx - Neck Neck exam: Present: normal inspection - Respiratory Respiratory exam: Present: clear to auscultation bilaterally. Absent: rales, rhonchi, wheezes - Cardiovascular Cardiovascular exam: Present: regular rate and rhythm. Absent: diastolic murmur , JVD, systolic murmur - GI/Abdominal GI/Abdominal exam: Present: normal bowel sounds, soft Absent: distended, mass, organomegaly, tenderness, soft - Extremities Exam Extremities exam: Present: normal inspection, full ROM - Back Exam Back exam: Present: normal inspection - Neurological Exam Neurological exam: Present: alert, oriented X3 - Psychiatric Psychiatric exam: Present: normal affect, normal mood - Skin Skin exam: Present: normal color, warm, dry Results - Labs CBC & BMP: 12/17/16 04:33 12/17/16 04:33 Lab Results: I have reviewed the past 24 hour labs
[2016-12-17] MEDS: PANTOPRAZOLE 40 MG TABLET PO SCH (13:33)
[2016-12-17] MEDS: POTASSIUM CHLORIDE 20 MEQ TABLET PO SCH (13:33)
[2016-12-17] MEDS: MULTIVITAMIN (CENTRUM) TABLET PO SCH (13:33)
[2016-12-17] MEDS: FOLIC ACID 1 MG TABLET PO SCH (13:33)
[2016-12-17] MEDS: DILTIAZEM CD 120 MG CAPSULE PO SCH ×2 (13:33→21:28)
[2016-12-17] MEDS: FERROUS SULFATE 325 MG TABLET PO SCH (13:33)
[2016-12-17] MEDS: THIAMINE 100 MG TABLET PO SCH (13:33)
--- NOTE | 2016-12-17 14:08 | Hospitalist Progress Note ---
Assessment and Plan (1) Anasarca Status: Acute Assessment and plan: The patient had pleuracentesis today and is less shortness of breath. The patient does complain of obstipation and we will give her MiraLAX. Current Visit: Yes (2) Ascites Status: Chronic Current Visit: Yes (3) REBECCA (acute kidney injury) Status: Acute Current Visit: Yes Hospitalist: Subjective Interval history: The patient was admitted to the hospital with edema and worsening renal failure. The patient had pleural effusion which was treated with thoracentesis by Dr. Daniel today. The patient complains of obstipation and peripheral edema. Exam - Constitutional Vitals: Period Temp Pulse Resp BP Sys/Pastor Pulse Ox Last 24 Hr 96.8 F-98.2 F 84-107 16-21 92-109/46-72 84-97 General appearance: mild distress - Neck Neck exam: Present: normal inspection - Respiratory Respiratory exam: Present: clear to auscultation bilaterally - Cardiovascular Cardiovascular exam: Present: regular rate and rhythm - GI/Abdominal GI/Abdominal exam: Present: normal bowel sounds - Extremities Exam Extremities exam: Present: edema Results - Labs CBC & BMP: 12/17/16 04:33 12/17/16 04:33 Lab Results: I have reviewed the past 24 hour labs
[2016-12-17] MEDS ORDERED: POLYETHYLENE GLYCOL POWDER 17 GM PACK PO PRN (14:09)
[2016-12-17] MEDS: ALBUMIN 25% 25 GM in PREMIX 1 EACH IV SCH ×2 (16:30→23:32)
[2016-12-17] MEDS ORDERED: OCTREOTIDE 1,250 MCG in SODIUM CHLORIDE 0.9% 247.5 ML IV SCH (17:00)
[2016-12-17] MEDS: POLYETHYLENE GLYCOL POWDER 17 GM PACK PO SCH (17:24)
[2016-12-17] MEDS ORDERED: MIDODRINE 5 MG TABLET PO SCH (21:00)
[2016-12-17] MEDS: traZODone 50 MG TABLET PO SCH (21:29)
[2016-12-17] MEDS: LEVOFLOXACIN INJ 250 MG in PREMIX 1 EACH IV SCH (21:29)
[2016-12-17] MEDS: ZALEPLON 5 MG CAPSULE PO PRN (21:37)
--- NOTE | 2016-12-17 23:40 | Cardiology Progress Note ---
Mercy, Raina Lai RN, am scribing for, and in the presence of, Garcia Rodrigez MD 23:40. Assessment and Plan - Time spent with patient Time spent with patient: Less than 30 minutes (1) Atrial fibrillation with RVR Status: Acute Assessment and plan: (Dr. Patel) Initial Assessment 12/14/16 The onset of atrial fibrillation with rapid ventricular response noted. She currently remains in atrial fibrillation with heart rates ranging from 90s- 110s. She is currently asymptomatic and denies chest pain and palpitations. She denies any history of GI bleeding, CVA, frequent falls or any contraindications to anticoagulation. Will initiate Eliquis at this time for stroke prevention. Potassium and magnesium also replaced. Will recheck BMP in the morning. echo was done replete mg and k change iv to po diltiazem I discussed with the patient the benefits of stopping use of all tobacco products. I discussed the problems with continued use the tobacco, the benefits of stopping it, and options of treatment. The patient is considering it. Creatinine is 1.4. We'll continue to watch it. For her insomnia we'll try a low-dose of trazodone, 50 mg one half daily at bedtime Agree with the thoracentesis-see if it is transudate or exudate and what the etiology might be 12/15/26 (Dr. Patel)-plan/recommendation: Atrial fib is controlled, rate in the 90s. Would not try to actively convert, given she is not on any anticoagulant prior to coming the hospital. When probably try to wait a few weeks to a month after anticoagulation before attempted active cardioversion. Right thoracentesis was done. Will evaluate as to whether this is transudate or exudate. My suspicion is transudate. Platelets and hematocrit are low. She is tolerating the low-dose oral diltiazem well. Chronic lower extremity edema. Echo showed good LV function. Will move to 2 E. 12/16/2016 update: 1. Previous thoracentesis, still decreased breath sounds on the right side 2. Change by mouth diltiazem 2 CD 120 mg twice a day (was on 60 4 times a day) 3. Gross hematuria in her [place]ada catheter; check urinalysis and hold anticoagulation 4. Still atrial fibrillation with borderline RVR; observe overnight and consider further rate control if needed 5. Normal LV function by echocardiogram with severe left atrial enlargement 6. Previously elevated INR 1.8 due to liver disease? 12/17/2016 update: 1. Status post paracentesis with improvement in dyspnea since that time 2. Atrial fibrillation still with mild RVR; add Toprol 25 millions per day starting in the morning 3. Given hematuria and dropping hematocrit, will hold off on restarting Eliquis ; consider restarting at a lower dose 2.5 millions twice a day in the near future? 4. Normal LV function noted 5. Being considered for TIPS procedure Current Visit: Yes (2) Acute dyspnea Status: Acute Current Visit: Yes (3) Congestive heart failure Status: Acute Current Visit: Yes (4) Pleural effusion on right Status: Acute Current Visit: Yes (5) Ascites Status: Chronic Current Visit: Yes (6) Chronic obstructive pulmonary disease Status: Chronic Current Visit: Yes (7) Hepatic cirrhosis Status: Chronic Current Visit: Yes (8) History of alcoholism Status: Chronic Current Visit: No (9) Former smoker Status: Chronic Current Visit: No Cardiology - PN: Subj Interval history: Patient is sitting on side of bed with arms and head resting supported on bedside table after right thoracentesis earlier this morning. Chest x-ray this morning, increasing bilateral pleural effusion, more so on right side. There was 1,900 ml's removed during procedure, alexandre colored, and sent for cytology and pathology. Post chest x-ray is without pneumothorax, reduced right pleural effusion with some residual, improved aeration, and continued cardiomegaly with CHF. Only complaint at this time is some right hand numbness and tingling after thoracentesis. Atrial fib with rate in the 90's, no greater than 100, per director of cardiac cath lab. Labs reviewed and creatinine continues to trend up. Today it is 3.3 (2.7 yesterday). Hematocrit has decreased to 24.1 today (27.1 previously) . Urinalysis completed yesterday with large leukocytosis and large amount of blood. Eliquis was stopped yesterday, and she did not receive it last night. Systolic BP 96-110 with diastolic BP 45-55. Exam (Progress Note) - Constitutional Vitals: Period Temp Pulse Resp BP Sys/Pastor Pulse Ox Last 24 Hr 96.8 F-98.2 F 84-107 17-24 92-107/46-72 84-97 General appearance: normal weight, no acute distress Exam: General appearance: no acute distress, morbidly obese - Head Head exam: Absent: abrasion, contusion, hematoma - Eye Eye exam: Absent: periorbital swelling, laceration to eyelids Pupils: Absent: dilated, fixed, irregular - ENT ENT exam: Present: normal external ear exam - Neck Neck exam: Absent: tenderness - Respiratory Respiratory exam: Present: clear to auscultation bilaterally. Absent: accessory muscle use, rales, rhonchi, stridor, wheezes - Cardiovascular Cardiovascular exam: Present: irregular rhythm, JVD (slight), tachycardia ( slight; pulse rate no higher than 105). Absent: bradycardia, carotid bruit, diastolic murmur, systolic murmur - GI/Abdominal GI/Abdominal exam: Present: normal bowel sounds, soft. Absent: ascites, distended, firm, tenderness - Extremities Exam Extremities exam: Present: normal capillary refill, edema (4+ pitting to BLE's; chronic). Absent: full ROM, calf tenderness - Back Exam Back exam: Present: normal inspection - Neurological Exam Neurological exam: Present: alert, oriented X3 - Psychiatric Psychiatric exam: Present: normal affect, normal mood. Absent: anxious - Skin Skin exam: Present: warm, dry. Absent: cyanosis, diaphoretic, rash - Head Head exam: Present: normal inspection, normocephalic, atraumatic - Respiratory Respiratory exam: Present: clear to auscultation bilaterally, decreased breath sounds, rhonchi - Cardiovascular Cardiovascular exam: Present: irregular rhythm. Absent: diastolic murmur - GI/Abdominal GI/Abdominal exam: Present: soft - Extremities Exam Extremities exam: Absent: edema Result/EKG - Labs CBC & BMP: 12/17/16 04:33 12/17/16 04:33 Lab Results: I have reviewed the past 24 hour labs Labs: Laboratory Results - last 24 hr 12/16/16 12/17/16 12/17/16 06:24 04:33 04:33 WBC 9.9 RBC 2.68 L Hgb 8.2 L Hct 24.9 L MCV 92.9 MCH 31 MCHC 32.9 RDW 17.1 Plt Count 111 L MPV 10.1 Neut % (Auto) 78.2 H Lymph % (Auto) 11.4 L Sherman % (Auto) 8.6 Eos % (Auto) 0.9 Baso % (Auto) 0.1 Neut # (Auto) 7.8 H Lymph # (Auto) 1.1 L Sherman # (Auto) 0.9 H Eos # (Auto) 0.1 Baso # (Auto) 0.0 Immature Gran % 0.8 Nucleated RBC % 0.0 Immature Gran # 0.08 Nucleated RBCs # 0.00 Sodium 136 Potassium 4.8 Chloride 96 L Carbon Dioxide 30 Anion Gap 14.8 BUN 48 H Creatinine 3.30 H GFR Calculation 18 BUN/Creatinine Ratio 14.00 Glucose 106 Calculated Osmolality 284.0 Calcium 8.9 Magnesium Total Bilirubin 2.30 H AST 32 ALT 22 Alkaline Phosphatase 90 Total Protein 6.4 Albumin 3.2 L Globulin 3.2 Albumin/Globulin Ratio 1.0 L Free T4 TSH 3rd Generation Urine Color Brown Urine Appearance Cloudy Urine pH 7.0 Ur Specific [place] 1.015 Urine Protein 100 Urine Glucose (UA) Negative Urine Ketones Negative Urine Blood Large Urine Nitrate Negative Urine Bilirubin Negative Urine Urobilinogen 0.2 Urine Leukocytes Large H Urine RBC 7371 Urine WBC 779 Urine WBC Clumps Few Ur Squamous Epith Cells Occasional Amorphous Crystals Occasional Urine Mucus Few Urine Yeast (Budding) Few Ur Culture Indicated? Results to follow Ur Random Sodium 12/17/16 12/17/16 04:33 06:24 WBC RBC Hgb Hct MCV MCH MCHC RDW Plt Count MPV Neut % (Auto) Lymph % (Auto) Sherman % (Auto) Eos % (Auto) Baso % (Auto) Neut # (Auto) Lymph # (Auto) Sherman # (Auto) Eos # (Auto) Baso # (Auto) Immature Gran % Nucleated RBC % Immature Gran # Nucleated RBCs # Sodium Potassium Chloride Carbon Dioxide Anion Gap BUN Creatinine GFR Calculation BUN/Creatinine Ratio Glucose Calculated Osmolality Calcium Magnesium 2.5 H Total Bilirubin AST ALT Alkaline Phosphatase Total Protein Albumin Globulin Albumin/Globulin Ratio Free T4 1.02 TSH 3rd Generation 3.090 Urine Color Urine Appearance Urine pH Ur Specific [place] Urine Protein Urine Glucose (UA) Urine Ketones Urine Blood Urine Nitrate Urine Bilirubin Urine Urobilinogen Urine Leukocytes Urine RBC Urine WBC Urine WBC Clumps Ur Squamous Epith Cells Amorphous Crystals Urine Mucus Urine Yeast (Budding) Ur Culture Indicated? Ur Random Sodium 23.0 - Diagnostic Findings Procedure: Chest x-ray: report reviewed by me, image reviewed by me (2/17 continued simon pleural effusions, larger on right. pulmonary venous congestion changes stable. bibasilar parenchymal opacities reflective of either atelectasis or pulmonary edema) - EKG EKG results: interpreted by me EKG shows: atrial fibrillation (heart rate 90's) IElia Randall Scott, MD, personally performed the services described in this documentation, ascribed by Raina Lai RN in my presence, and it is both accurate and complete 340 .
[2016-12-18] MEDS: ALBUMIN 25% 25 GM in PREMIX 1 EACH IV SCH ×4 (05:08→23:26)
[2016-12-18] MEDS ORDERED: MORPHINE 2 MG/1 ML SYRINGE IV PRN (05:25)
[2016-12-18] MEDS ORDERED: ACETAMINOPHEN 325 MG TABLET PO PRN (05:27)
[2016-12-18 06:51] LABS: Basophils % 0.1 % (0.0-0.8); Eosinophils # 0.2 10*3/uL (0.0-0.87); Eosinophils % 1.8 % (0.00-10.9); Hematocrit 23.7 VOL% (35.7-47.0); Hemoglobin 7.9 GM/DL (12.0-16.0); Immature Granulocytes % 0.8 %; Immature Granulocytes Absolute 0.08 #; Lymphocytes # 1.2 10*3/uL (1.4-4.0); Lymphocytes % 12.6 % (21.3-54.2); Mean Corpuscular HGB Conc 33.3 GM/DL (32-36); Mean Corpuscular Hemoglobin 31 PG (27-34); Mean Corpuscular Volume 92.2 FL (87-102); Mean Platelet Volume 10.1 FL (9.6-12.0); Monocytes # 0.8 10*3/uL (0.11-0.8); Monocytes % 8.7 % (1.7-12.7); Neutrophils # 7.4 10*3/uL (1.4-7.4); Platelet Count 93 T/CUMM (130-400); Red Blood Count 2.57 MC/CUMM (3.8-5.5); Red Cell Distribution Width 17.2 % (9.3-17.3); White Blood Count 9.7 T/CUMM (4-12)
[2016-12-18 07:20] LABS: Calcium 8.7 MG/DL (8.5-10.1); Magnesium 2.6 MG/DL (1.8-2.4); Osmolality,Calculated 285.1 MOS/KG (273-304)
[2016-12-18] MEDS: IPRATROPIUM 500 MCG/2.5 ML NEB RESP TX SCH ×3 (07:44→23:27)
[2016-12-18 08:08] LABS: Hypochromasia 1+; Lymphocytes 11 % (20-55); Platelet Estimate Decreased; Segmented Neutrophils 84 % (50-85); Total Cells Counted 100
[2016-12-18] MEDS: MULTIVITAMIN (CENTRUM) TABLET PO SCH (08:28)
[2016-12-18] MEDS: FERROUS SULFATE 325 MG TABLET PO SCH (08:28)
[2016-12-18] MEDS: POLYETHYLENE GLYCOL POWDER 17 GM PACK PO SCH (08:28)
[2016-12-18] MEDS: POTASSIUM CHLORIDE 20 MEQ TABLET PO SCH (08:28)
[2016-12-18] MEDS: PANTOPRAZOLE 40 MG TABLET PO SCH (08:29)
[2016-12-18] MEDS: THIAMINE 100 MG TABLET PO SCH (08:29)
[2016-12-18] MEDS: FOLIC ACID 1 MG TABLET PO SCH (08:30)
[2016-12-18] MEDS: DILTIAZEM CD 120 MG CAPSULE PO SCH (08:30)
--- NOTE | 2016-12-18 08:35 | Pulmonology Progress Note ---
Pulmonary - PN: Subj Interval history: This 56-year-old white female has cirrhosis and anasarca. She had a right thoracentesis yesterday with removal of 1200 mL of straw-colored fluid. The fluid appears to be a transudate. Cytology and cultures are pending. Creatinine has risen to 2.0 and she's not making a lot of urine. I'm concerned about hepato-renal syndrome. We need to have GI to see her. She feels better and is more alert. Her weight does not reflect fluid loss. 12/16/16 Patient's breathing is a little better. She has a large right pleural effusion and apparently has ascites. Also has marked peripheral edema. Basically anasarca. Diuretics were held by GI because of worsening renal function. Difficult situation. We will re-x-ray her in the morning and if she still has large right pleural effusion I will tap her. Not a candidate for an indwelling drain. Has transudative pleural effusions due to liver disease. 12/17/2016 Patient still quite short of breath at rest. Chest x-ray has shown the right pleural effusion looks different than it did prior to the earlier thoracentesis. Plan for thoracentesis this morning. Hematocrit is down to 24. Creatinine up to 3.3. Difficult situation with patient with advanced cirrhosis and anasarca with rising creatinine. Need nephrology to see. 12/18/16 patient feeling much better post thoracentesis. Hematocrit stable at 23. Creatinine stable at 3.3. Nephrology has been consulted but has not seen yet. Patient relates that Dr. Vidal told her they would look into a TIPS procedure. She overall looks a little better this morning. Hopefully her renal function is turning around. Recheck x-ray tomorrow. Exam (Progress Note) - Constitutional Vitals: Period Temp Pulse Resp BP Sys/Pastor Pulse Ox Last 24 Hr 8.6 F-98.6 F 85-108 16-86 101-120/49-91 88-100 Exam: Patient is alert seated on side of the bed. Seems oriented. Vital signs show an O2 sat in the mid 90s on nasal oxygen. Pulse is 105 and irregular with atrial fibrillation. Afebrile. Pupils react to light. She is jaundiced. Throat is clear. Neck supple no bruits. Still has some jugular venous distention. Chest reveals clear breath sounds at the right base. I hear a few crackles, with slight dullness there. Heart irregular without murmur. Abdomen grand obese probably has ascites. Extremities marked edema in both lower extremities, 4+, calves nontender. Results - Labs CBC & BMP: 12/18/16 04:47 12/18/16 04:47 Lab Results: I have reviewed the past 24 hour labs - Diagnostic Findings Procedure: Chest x-ray: image reviewed by me (postthoracentesis chest x-ray shows improvement in the right pleural effusion. She still has a small to moderate 1. Cardiomegaly still noted.) Assessment and Plan (1) Anasarca Status: Acute Assessment and plan: This is likely due to her severe liver disease. I'm concerned about hepatorenal syndrome. LV function was normal on echo. BNP is only slightly elevated at 400. 12/16/16 appears to be due to advanced hepatic cirrhosis. Diuresing her has made her renal function worse. We will repeat x-rays tomorrow and tap right chest if still large effusion. However this will not take care of the problem long-term. 12/17/2016 anasarca due to advanced cirrhosis. Prognosis guarded. Unable to safely diurese with her renal function getting worse. 12/18/16 anasarca due to advanced cirrhosis. GI seeing. Worsening renal function after diuresis. Nephrology to see. Current Visit: Yes (2) Pleural effusion on right Status: Acute Assessment and plan: Right pleural effusion is a transudate. This would fit with liver disease as a cause. Other considerations would be congestive heart failure or nephrotic syndrome. She has known cirrhosis. Needs cautious diuresis watching her renal function. 12/16/16 this has recurred. Likely will re-tap tomorrow. 12/17/2016 we will do repeat thoracentesis today. 12/18/16 pleural fluid is pending as far as cultures and cytology. We did not repeat chemistries on this specimen. Current Visit: Yes (3) Hepatic cirrhosis Status: Chronic Assessment and plan: Clearly has cirrhosis. Likely the cause of her fluid retention. Watch for hepatorenal syndrome. 12/16/16 GI is seeing. They're wanting to get some old records on her. 12/18/16 advanced cirrhosis. Current Visit: Yes (4) Atrial fibrillation with RVR Status: Acute Assessment and plan: Heart rate is 105, persistent atrial fibrillation. Controlling weight medications. Cardiology following. 12/16/16 rate is controlled at 100. 12/17/2016 rate controlled. 12/18/16 rate is controlled. Current Visit: Yes
[2016-12-18] MEDS ORDERED: METOPROLOL SUCCINATE XL 25 MG TABLET PO SCH ×2 (09:00→21:00)
--- NOTE | 2016-12-18 11:29 | Gastrointestinal Progress Note ---
Assessment and Plan - Time spent with patient Time spent with patient: Greater than 30 minutes (1) Hepatic cirrhosis Status: Chronic Current Visit: Yes (2) Other specified counseling Status: Acute Current Visit: Yes Exam (Progress Note) - Constitutional Vitals: Period Temp Pulse Resp BP Sys/Pastor Pulse Ox Last 24 Hr 8.6 F-98.6 F 87-108 16-86 95-120/45-91 88-100 Results - Labs CBC & BMP: 12/18/16 04:47 12/18/16 04:47 Note Addendum: Chief complaint: Cirrhosis Subjective: The patient is a 56-year-old female seen for follow-up of alcoholic cirrhosis. She has experienced declining renal function during this admission and has been getting intravenous albumin. Despite this, renal function has continued to decline. Serum creatinine is just over 3 today. She reports no abdominal discomfort at present. She is eating and drinking comfortably. She has not had a bowel movement in a couple of days. Medications: Tylenol, albumin, Proventil, Cardizem, iron sulfate, folic acid, Poplar, Atrovent, levofloxacin, Toprol, Zofran, Protonix, MiraLAX, potassium chloride, thiamin, Desyrel, Sonata Review of Systems: 12 point review of systems was negative except as noted above. Objective: Physical examination: Vital Signs: Current vital signs reviewed and documented above. General Appearance: Sitting in the bedside chair. Having lunch. No apparent distress. Accompanied by a family member. Head: Normocephalic. Eyes: No scleral icterus. No scleral injection. No conjunctival pallor. Oral Cavity: Odor of breath was normal. No drooling was observed. Lips showed no abnormalities. Lungs: Respiration rhythm and depth was normal. Cardiovascular: Heart Rate and Rhythm were normal. Abdomen: Abdomen was protuberant due to morbid obesity but not clearly distended. [Abdominal palpation revealed no no tenderness and no hepatosplenomegaly.] Ascites was likely present but examination was confounded by baseline abdominal girth. [Abdominal auscultation revealed positive bowel sounds.] Musculoskeletal System: Musculoskeletal system was grossly normal. Neurological: Level of consciousness was normal. Speech was normal. Skin: General appearance was normal. Color and pigmentation were normal. No skin lesions. Laboratory: White blood count 9.7, hemoglobin 7.9, hematocrit 23.7, platelets 93 , ALT 22, AST 32, total bilirubin 2.3, sodium 135, MELD 28 Radiology: [Reviewed] Impressions: #1. Cirrhosis: The patient has alcoholic cirrhosis and has now been abstinent for 1 month per her report. She is not a candidate for transplant as of this time due to recent alcohol use but if she remains abstinent she will be a candidate for referral at the six-month jacki. Her MELD score of 28 would put her close to the top of a transplant list at most centers in our region. The laboratory and clinical course is consistent with hepatorenal syndrome and I recommend consulting the nephrology for their opinion in this regard. Continued albumin infusion is reasonable as would be the initiation of octreotide and midodrine, I believe. In some cases, TIPS can be therapeutic if transplant is unavailable. I recommend continued aggressive volume and electrolyte management, continue diet with sodium restriction, and continued monitoring of renal function. [#2.] Other specified counseling: The patient was seen for [greater than 30 minutes]. The [patient] was counseled for greater than 50% of this time regarding the differential diagnosis, likely diagnosis, diagnostic and therapeutic options, risk/benefit/alternatives of procedures and medications, and plan of care generally. The [patient] expressed understanding and wishes to proceed. Recommendations: --Continued abstinence --Continue low-sodium diet --Aggressive volume and electrolyte control --Nephrology consultation for evaluation and management of hepatorenal syndrome --Continue albumin infusion --Consider the addition of octreotide and midodrine after consultation with nephrology --We will continue to follow with you
[2016-12-18] MEDS ORDERED: SODIUM CHLORIDE 0.9% 250 ML IV PRN (15:11)
--- NOTE | 2016-12-18 15:12 | Hospitalist Progress Note ---
Assessment and Plan (1) Pleural effusion, right Status: Acute Current Visit: Yes (2) Status post thoracentesis Status: Acute Current Visit: Yes (3) Alcoholic cirrhosis Status: Acute Current Visit: Yes (4) COPD (chronic obstructive pulmonary disease) Status: Acute Current Visit: Yes (5) Anemia of chronic disease Status: Acute Current Visit: Yes (6) Acute UTI Status: Acute Current Visit: Yes (7) Acute renal failure due to tubular necrosis Status: Acute Assessment and plan: Plan: Continue albumin infusion, we'll transfuse 2 units packed red blood cells today. No zana GI/ blood loss. GI discussing possibility of TIPS procedure. Otherwise we'll repeat a chest x-ray in the morning to assess whether she is reaccumulating pleural fluid. Otherwise continue supportive care. We'll add Diflucan for heavy yeast on urine culture Current Visit: Yes Hospitalist: Subjective Interval history: Ms. Greco is sitting in the chair appears comfortable, reports improvement of shortness of breath since thoracentesis. Exam - Constitutional Vitals: Period Temp Pulse Resp BP Sys/Pastor Pulse Ox Last 24 Hr 8.6 F-98.6 F 97-108 18-86 95-120/45-91 88-100 Exam: EXAM: CONSTITUTIONAL: non toxic, NAD HEENT: NC, AT, OP benign, PAPITO, EOMI CV: Irregular no m/g/r RESP: Decreased breath sounds at the bases otherwise clear GI: abd soft, NT, ND, +bowel sounds INTEGUMENTARY: Multiple telangiectasias EXTREMITIES: no c/c/e NEURO: no focal deficits PSYCH: unremarkable, A/O x3 Results - Labs CBC & BMP: 12/18/16 04:47 12/18/16 04:47 Lab Results: I have reviewed the past 24 hour labs
[2016-12-18] MEDS: FLUCONAZOLE IV SCH (16:18)
--- NOTE | 2016-12-18 16:56 | Cardiology Progress Note ---
Assessment and Plan (1) Atrial fibrillation with RVR Status: Acute Assessment and plan: (Dr. Patel) Initial Assessment 12/14/16 The onset of atrial fibrillation with rapid ventricular response noted. She currently remains in atrial fibrillation with heart rates ranging from 90s- 110s. She is currently asymptomatic and denies chest pain and palpitations. She denies any history of GI bleeding, CVA, frequent falls or any contraindications to anticoagulation. Will initiate Eliquis at this time for stroke prevention. Potassium and magnesium also replaced. Will recheck BMP in the morning. echo was done replete mg and k change iv to po diltiazem I discussed with the patient the benefits of stopping use of all tobacco products. I discussed the problems with continued use the tobacco, the benefits of stopping it, and options of treatment. The patient is considering it. Creatinine is 1.4. We'll continue to watch it. For her insomnia we'll try a low-dose of trazodone, 50 mg one half daily at bedtime Agree with the thoracentesis-see if it is transudate or exudate and what the etiology might be 12/15/26 (Dr. Patel)-plan/recommendation: Atrial fib is controlled, rate in the 90s. Would not try to actively convert, given she is not on any anticoagulant prior to coming the hospital. When probably try to wait a few weeks to a month after anticoagulation before attempted active cardioversion. Right thoracentesis was done. Will evaluate as to whether this is transudate or exudate. My suspicion is transudate. Platelets and hematocrit are low. She is tolerating the low-dose oral diltiazem well. Chronic lower extremity edema. Echo showed good LV function. Will move to 2 E. 12/16/2016 update: 1. Previous thoracentesis, still decreased breath sounds on the right side 2. Change by mouth diltiazem 2 CD 120 mg twice a day (was on 60 4 times a day) 3. Gross hematuria in her Tejada catheter; check urinalysis and hold anticoagulation 4. Still atrial fibrillation with borderline RVR; observe overnight and consider further rate control if needed 5. Normal LV function by echocardiogram with severe left atrial enlargement 6. Previously elevated INR 1.8 due to liver disease? 12/17/2016 update: 1. Status post tap with improvement in dyspnea since that time 2. Atrial fibrillation still with mild RVR; add Toprol 25 millions per day starting in the morning 3. Given hematuria and dropping hematocrit, will hold off on restarting Eliquis ; consider restarting at a lower dose 2.5 millions twice a day in the near future? 4. Normal LV function noted 5. Being considered for TIPS procedure 12/18/2016 update: 1. Atrial fibrillation still with mild RVR; increase diltiazem CD to 180 mg twice a day 2. Given her previous hematuria and hematocrit less than 24%, would not restart Eliquis at this time even at low dose 3. Previously noted to have normal LV function 4. GI workup in progress Current Visit: Yes (2) Acute dyspnea Status: Acute Current Visit: Yes (3) Congestive heart failure Status: Acute Current Visit: Yes (4) Pleural effusion on right Status: Acute Current Visit: Yes (5) Ascites Status: Chronic Current Visit: Yes (6) Chronic obstructive pulmonary disease Status: Chronic Current Visit: Yes (7) Hepatic cirrhosis Status: Chronic Current Visit: Yes (8) History of alcoholism Status: Chronic Current Visit: No (9) Former smoker Status: Chronic Current Visit: No Cardiology - PN: Subj Interval history: Angus says her breathing is improved in the last couple of days. She has not gotten up much. She has chronic lower extremity edema but has been worse since her admission. She is not having chest pain palpitations or dizziness. Exam (Progress Note) - Constitutional Vitals: Period Temp Pulse Resp BP Sys/Pastor Pulse Ox Last 24 Hr 8.6 F-98.6 F 93-108 18-86 95-120/45-91 89-100 General appearance: no acute distress, over weight - Head Head exam: Present: normal inspection, normocephalic, atraumatic - Neck Neck exam: Present: normal inspection - Respiratory Respiratory exam: Present: prolonged expiratory phase, rales (few scattered rales) - Cardiovascular Cardiovascular exam: Present: systolic murmur, tachycardia. Absent: diastolic murmur, rubs - GI/Abdominal GI/Abdominal exam: Present: distended - Extremities Exam Extremities exam: Present: edema (2-3+) Result/EKG - Labs CBC & BMP: 12/18/16 04:47 12/18/16 04:47 Labs: Laboratory Results - last 24 hr 12/18/16 12/18/16 04:47 04:47 WBC 9.7 RBC 2.57 L Hgb 7.9 L Hct 23.7 L MCV 92.2 MCH 31 MCHC 33.3 RDW 17.2 Plt Count 93 L MPV 10.1 Neut % (Auto) 76.0 H Lymph % (Auto) 12.6 L [place] % (Auto) 8.7 Eos % (Auto) 1.8 Baso % (Auto) 0.1 Neut # (Auto) 7.4 Lymph # (Auto) 1.2 L [place] # (Auto) 0.8 Eos # (Auto) 0.2 Baso # (Auto) 0.0 Total Counted 100 Immature Gran % 0.8 Nucleated RBC % 0.0 Immature Gran # 0.08 Segmented Neutrophils 84 Lymphocytes 11 L Monocytes 5 Nucleated RBCs # 0.00 Platelet Estimate Decreased Hypochromasia 1+ Morphology Comment Sodium 135 L Potassium 5.0 Chloride 97 L Carbon Dioxide 28 Anion Gap 15.0 BUN 56 H Creatinine 3.30 H GFR Calculation 20 BUN/Creatinine Ratio 16.00 Glucose 91 Calculated Osmolality 285.1 Calcium 8.7 Magnesium 2.6 H
[2016-12-18] MEDS: traZODone 50 MG TABLET PO SCH (20:31)
[2016-12-18] MEDS: LEVOFLOXACIN INJ 250 MG in PREMIX 1 EACH IV SCH (20:32)
[2016-12-19] MEDS: ALBUMIN 25% 25 GM in PREMIX 1 EACH IV SCH ×4 (05:36→23:13)
[2016-12-19 06:10] LABS: Basophils % 0.1 % (0.0-0.8); Eosinophils # 0.2 10*3/uL (0.0-0.87); Eosinophils % 1.4 % (0.00-10.9); Hematocrit 26.5 VOL% (35.7-47.0); Hemoglobin 9.1 GM/DL (12.0-16.0); Immature Granulocytes % 0.9 %; Immature Granulocytes Absolute 0.09 #; Lymphocytes # 1.1 10*3/uL (1.4-4.0); Lymphocytes % 10.2 % (21.3-54.2); Mean Corpuscular HGB Conc 34.3 GM/DL (32-36); Mean Corpuscular Hemoglobin 31 PG (27-34); Mean Corpuscular Volume 88.9 FL (87-102); Mean Platelet Volume 10.5 FL (9.6-12.0); Monocytes # 0.8 10*3/uL (0.11-0.8); Monocytes % 7.2 % (1.7-12.7); Neutrophils # 8.4 10*3/uL (1.4-7.4); Neutrophils % 80.2 % (38.7-73.9); Platelet Count 108 T/CUMM (130-400); Red Blood Count 2.98 MC/CUMM (3.8-5.5); Red Cell Distribution Width 17.2 % (9.3-17.3); White Blood Count 10.5 T/CUMM (4-12)
[2016-12-19] MEDS: ONDANSETRON 4 MG/2 ML VIAL IV PRN ×2 (06:19→22:04)
--- NOTE | 2016-12-19 06:37 | Pulmonology Progress Note ---
Pulmonary - PN: Subj Interval history: This 56-year-old white female has cirrhosis and anasarca. She had a right thoracentesis yesterday with removal of 1200 mL of straw-colored fluid. The fluid appears to be a transudate. Cytology and cultures are pending. Creatinine has risen to 2.0 and she's not making a lot of urine. I'm concerned about hepato-renal syndrome. We need to have GI to see her. She feels better and is more alert. Her weight does not reflect fluid loss. 12/16/16 Patient's breathing is a little better. She has a large right pleural effusion and apparently has ascites. Also has marked peripheral edema. Basically anasarca. Diuretics were held by GI because of worsening renal function. Difficult situation. We will re-x-ray her in the morning and if she still has large right pleural effusion I will tap her. Not a candidate for an indwelling drain. Has transudative pleural effusions due to liver disease. 12/17/2016 Patient still quite short of breath at rest. Chest x-ray has shown the right pleural effusion looks different than it did prior to the earlier thoracentesis. Plan for thoracentesis this morning. Hematocrit is down to 24. Creatinine up to 3.3. Difficult situation with patient with advanced cirrhosis and anasarca with rising creatinine. Need nephrology to see. 12/18/16 patient feeling much better post thoracentesis. Hematocrit stable at 23. Creatinine stable at 3.3. Nephrology has been consulted but has not seen yet. Patient relates that Dr. Vidal told her they would look into a TIPS procedure. She overall looks a little better this morning. Hopefully her renal function is turning around. Recheck x-ray tomorrow. 12/19/2016 patient was moved to ICU last night because of vomiting. Dr. Chambers has recommended Mitodrine and octreotide. These have not been started. Defer to GI. A nephrology consult was placed Tuesday and she has not been seen yet by nephrology. Patient is alert and does not appear to be short of breath. Her chest x-ray shows a lateral pleural effusions worse on the right than the left but still improved since with did tap 2 days ago. Patient apparently has hepatorenal syndrome. Exam (Progress Note) - Constitutional Vitals: Period Temp Pulse Resp BP Sys/Pastor Pulse Ox Last 24 Hr 96.4 F-98.8 F 75-108 14-24 81-126/45-73 87-99 Exam: Patient is alert seated on side of the bed. Seems oriented. Vital signs show an O2 sat in the mid 90s on nasal oxygen. Pulse is 80 and irregular with atrial fibrillation. Afebrile. Pupils react to light. She is jaundiced. Throat is clear. Neck supple no bruits. Still has some jugular venous distention. Chest reveals clear breath sounds at the right base. I hear a few crackles, with slight dullness there. Heart irregular without murmur. Abdomen grand obese probably has ascites. Extremities marked edema in both lower extremities, 4+, calves nontender. Results - Labs CBC & BMP: 12/19/16 05:51 12/18/16 04:47 Lab Results: I have reviewed the past 24 hour labs - Diagnostic Findings Procedure: Chest x-ray: image reviewed by me (bilateral pleural effusions more on the right than the left. However this is stable since last thoracentesis.) Assessment and Plan (1) Anasarca Status: Acute Assessment and plan: This is likely due to her severe liver disease. I'm concerned about hepatorenal syndrome. LV function was normal on echo. BNP is only slightly elevated at 400. 12/16/16 appears to be due to advanced hepatic cirrhosis. Diuresing her has made her renal function worse. We will repeat x-rays tomorrow and tap right chest if still large effusion. However this will not take care of the problem long-term. 12/17/2016 anasarca due to advanced cirrhosis. Prognosis guarded. Unable to safely diurese with her renal function getting worse. 12/18/16 anasarca due to advanced cirrhosis. GI seeing. Worsening renal function after diuresis. Nephrology to see. 12/19/2016 this is due to end-stage cirrhosis. Renal function does not allow diuresis. GI and nephrology are to follow. Current Visit: Yes (2) Pleural effusion on right Status: Acute Assessment and plan: Right pleural effusion is a transudate. This would fit with liver disease as a cause. Other considerations would be congestive heart failure or nephrotic syndrome. She has known cirrhosis. Needs cautious diuresis watching her renal function. 12/16/16 this has recurred. Likely will re-tap tomorrow. 12/17/2016 we will do repeat thoracentesis today. 12/18/16 pleural fluid is pending as far as cultures and cytology. We did not repeat chemistries on this specimen. 12/19/2016 patient's dyspnea is improved. Watching right effusion. Can tap again if need be. Current Visit: Yes (3) Hepatic cirrhosis Status: Chronic Assessment and plan: Clearly has cirrhosis. Likely the cause of her fluid retention. Watch for hepatorenal syndrome. 12/16/16 GI is seeing. They're wanting to get some old records on her. 12/18/16 advanced cirrhosis. 12/19/2016 end-stage cirrhosis. Patient would not be candidate for liver transplant until she has been off alcohol for 6 months. Presently has been a little over one month. Current Visit: Yes (4) Atrial fibrillation with RVR Status: Acute Assessment and plan: Heart rate is 105, persistent atrial fibrillation. Controlling weight medications. Cardiology following. 12/16/16 rate is controlled at 100. 12/17/2016 rate controlled. 12/18/16 rate is controlled. 12/19/2016 rate controlled at around 80. Current Visit: Yes
[2016-12-19 06:48] LABS: Magnesium 2.6 MG/DL (1.8-2.4); Potassium 5.2 MMOL/L (3.5-5.1)
[2016-12-19] MEDS: IPRATROPIUM 500 MCG/2.5 ML NEB RESP TX SCH ×2 (07:50→14:41)
--- NOTE | 2016-12-19 08:38 | Cardiology Progress Note ---
Assessment and Plan (1) Atrial fibrillation with RVR Status: Acute Assessment and plan: (Dr. Patel) Initial Assessment 12/14/16 The onset of atrial fibrillation with rapid ventricular response noted. She currently remains in atrial fibrillation with heart rates ranging from 90s- 110s. She is currently asymptomatic and denies chest pain and palpitations. She denies any history of GI bleeding, CVA, frequent falls or any contraindications to anticoagulation. Will initiate Eliquis at this time for stroke prevention. Potassium and magnesium also replaced. Will recheck BMP in the morning. echo was done replete mg and k change iv to po diltiazem I discussed with the patient the benefits of stopping use of all tobacco products. I discussed the problems with continued use the tobacco, the benefits of stopping it, and options of treatment. The patient is considering it. Creatinine is 1.4. We'll continue to watch it. For her insomnia we'll try a low-dose of trazodone, 50 mg one half daily at bedtime Agree with the thoracentesis-see if it is transudate or exudate and what the etiology might be 12/15/26 (Dr. Patel)-plan/recommendation: Atrial fib is controlled, rate in the 90s. Would not try to actively convert, given she is not on any anticoagulant prior to coming the hospital. When probably try to wait a few weeks to a month after anticoagulation before attempted active cardioversion. Right thoracentesis was done. Will evaluate as to whether this is transudate or exudate. My suspicion is transudate. Platelets and hematocrit are low. She is tolerating the low-dose oral diltiazem well. Chronic lower extremity edema. Echo showed good LV function. Will move to 2 E. 12/16/2016 update: 1. Previous thoracentesis, still decreased breath sounds on the right side 2. Change by mouth diltiazem 2 CD 120 mg twice a day (was on 60 4 times a day) 3. Gross hematuria in her Tejada catheter; check urinalysis and hold anticoagulation 4. Still atrial fibrillation with borderline RVR; observe overnight and consider further rate control if needed 5. Normal LV function by echocardiogram with severe left atrial enlargement 6. Previously elevated INR 1.8 due to liver disease? 12/17/2016 update: 1. Status post tap with improvement in dyspnea since that time 2. Atrial fibrillation still with mild RVR; add Toprol 25 millions per day starting in the morning 3. Given hematuria and dropping hematocrit, will hold off on restarting Eliquis ; consider restarting at a lower dose 2.5 millions twice a day in the near future? 4. Normal LV function noted 5. Being considered for TIPS procedure 12/18/2016 update: 1. Atrial fibrillation still with mild RVR; increase diltiazem CD to 180 mg twice a day 2. Given her previous hematuria and hematocrit less than 24%, would not restart Eliquis at this time even at low dose 3. Previously noted to have normal LV function 4. GI workup in progress December 19 2016 update: 1. Atrial fibrillation with controlled rate 2. Transferred to the ICU last night apparently for nausea and general ill feeling during blood transfusion yesterday p.m.; she reports feeling much better now and is anxious for transfer back to the floor (can transfer from cardiac standpoint) 3. Recheck urinalysis to see if she still has hematuria 4. Eliquis has been discontinued due to her anemia and previous hematuria 5. Apparent hepatorenal syndrome; GI following 6. Previously normal LV systolic function 7. Moderate hypotension; would discontinue diltiazem indefinitely and slightly increased Toprol to 25 mg 3 times a day (can be changed to daily or twice a day dosing later if she tolerates it) Current Visit: Yes (2) Acute dyspnea Status: Acute Current Visit: Yes (3) Congestive heart failure Status: Acute Current Visit: Yes (4) Pleural effusion on right Status: Acute Current Visit: Yes (5) Ascites Status: Chronic Current Visit: Yes (6) Chronic obstructive pulmonary disease Status: Chronic Current Visit: Yes (7) Hepatic cirrhosis Status: Chronic Current Visit: Yes (8) History of alcoholism Status: Chronic Current Visit: No (9) Former smoker Status: Chronic Current Visit: No Cardiology - PN: Subj Interval history: Mrs. Gann reports that she feels good this morning's and anxious to go back to the floor. Apparently she had some nausea and felt ill during her second? Unit of packed red blood cells yesterday PM. She is not having chest pain or shortness of breath currently. She still has significant lower extremity edema. Exam (Progress Note) - Constitutional Vitals: Period Temp Pulse Resp BP Sys/Pastor Pulse Ox Last 24 Hr 96.4 F-98.8 F 75-105 12-24 81-126/46-73 87-100 General appearance: no acute distress, over weight - Head Head exam: Present: normal inspection, normocephalic, atraumatic - Neck Neck exam: Present: normal inspection - Respiratory Respiratory exam: Present: decreased breath sounds, rales, rhonchi. Absent: wheezes - Cardiovascular Cardiovascular exam: Present: regular rate and rhythm. Absent: diastolic murmur , rubs - Extremities Exam Extremities exam: Present: edema Result/EKG - Labs CBC & BMP: 12/19/16 05:51 12/19/16 05:51 Labs: Laboratory Results - last 24 hr 12/18/16 12/18/16 12/19/16 17:04 Unknown 05:51 WBC 10.5 RBC 2.98 L Hgb 9.1 L Hct 26.5 L MCV 88.9 MCH 31 MCHC 34.3 RDW 17.2 Plt Count 108 L MPV 10.5 Neut % (Auto) 80.2 H Lymph % (Auto) 10.2 L [place] % (Auto) 7.2 Eos % (Auto) 1.4 Baso % (Auto) 0.1 Neut # (Auto) 8.4 H Lymph # (Auto) 1.1 L [place] # (Auto) 0.8 Eos # (Auto) 0.2 Baso # (Auto) 0.0 Immature Gran % 0.9 Nucleated RBC % 0.0 Immature Gran # 0.09 Nucleated RBCs # 0.00 Sodium Potassium Chloride Carbon Dioxide Anion Gap BUN Creatinine GFR Calculation BUN/Creatinine Ratio Glucose Calculated Osmolality Calcium Magnesium Ammonia Blood Type A POSITIVE A POSITIVE Antibody Screen Negative Crossmatch See Detail 12/19/16 12/19/16 05:51 05:51 WBC RBC Hgb Hct MCV MCH MCHC RDW Plt Count MPV Neut % (Auto) Lymph % (Auto) [place] % (Auto) Eos % (Auto) Baso % (Auto) Neut # (Auto) Lymph # (Auto) [place] # (Auto) Eos # (Auto) Baso # (Auto) Immature Gran % Nucleated RBC % Immature Gran # Nucleated RBCs # Sodium 136 Potassium 5.2 H Chloride 97 L Carbon Dioxide 29 Anion Gap 15.2 H BUN 57 H Creatinine 3.30 H GFR Calculation 20 BUN/Creatinine Ratio 17.00 Glucose 118 H Calculated Osmolality 288.0 Calcium 9.0 Magnesium 2.6 H Ammonia 186 H Blood Type Antibody Screen Crossmatch
--- NOTE | 2016-12-19 08:45 | Gastrointestinal Progress Note ---
Assessment and Plan - Time spent with patient Time spent with patient: Greater than 30 minutes (1) Hepatic cirrhosis Status: Chronic Current Visit: Yes (2) Other specified counseling Status: Acute Current Visit: Yes Exam (Progress Note) - Constitutional Vitals: Period Temp Pulse Resp BP Sys/Pastor Pulse Ox Last 24 Hr 96.4 F-98.8 F 75-105 12-24 81-126/46-73 87-100 Results - Labs CBC & BMP: 12/19/16 05:51 12/19/16 05:51 Note Addendum: PLEASE NOTE -- automatic citation of patient information is unavoidable in this electronic note. I have made a reasonable effort to review the information cited , but it is not a part of my evaluation, impression, or recommendation unless specifically discussed in the dictated text that follows. As well, voice recognition software was used in the creation of this clinical note. Reasonable effort was made to identify and correct gross errors. Despite proofreading, errors in after school driver may be present, including nonsense verbiage at times. If you encounter such an error, please contact me at [phone] for discussion and correction. -- Reyes Chief complaint: cirrhosis with portal hypertension Subjective: the patient is a 56-year-old female seen for follow-up of cirrhosis with sequela of portal hypertension and possible hepatorenal syndrome. The patient was transferred to the intensive care unit overnight, ostensibly because of intractable vomiting. Blood products were also required but no overt bleeding has been documented. She had an uneventful night otherwise and has now been transferred to the telemetry unit. She reports having had a good bowel movement this morning with no evidence of bleeding. Nephrology is consulting and is evaluating urinary parameters. They have made a initial recommendation to hold diuretics. Medications: Tylenol, albumin, Proventil, iron sulfate, fluconazole, Glendo, Atrovent, Centrum, levofloxacin, Toprol, Zofran, Protonix, MiraLAX, potassium chloride, sodium chloride infusion, thiamine, trazodone, Sonata Review of Symptoms: 12 point review of symptoms was negative except as noted above Physical examination: Vital Signs: Current vital signs reviewed. General Appearance: well it. Sitting in the bedside chair. Comfortable. Conversant. Head: Normocephalic. Eyes: no scleral icterus. No scleral injection. No conjunctival pallor. Oral Cavity: Odor of breath was normal. No drooling was observed. Lips showed no abnormalities. Lungs: Respiration rhythm and depth was normal. Cardiovascular: Heart rate and rhythm were normal. Abdomen: abdomen was protuberant due to obesity but not distended. Abdominal auscultation revealed no abnormalities. Ascites was equivocal. Abdominal palpation revealed no tenderness and no hepatosplenomegaly. Musculoskeletal System: musculoskeletal system was grossly normal. Neurological: level of consciousness was normal. Speech was normal. No coordination/cerebellum abnormalities were noted. Skin: Gen. appearance was normal. Color and pigmentation were normal. No skin lesions were appreciated. Laboratory: white blood count 10.5, hemoglobin 9.1, hematocrit 26.5, platelets 108, sodium 136, potassium 5.2, chloride 97, CO2 29, BUN 57, serum creatinine 3.3, glucose 118, calcium 9.0, magnesium 2.6, serum ammonia 186 Radiology: reviewed with no pertinent changes noted. Impressions: 1. Cirrhosis with portal hypertension -- it is unclear whether this had a part to play in her nausea last evening. She continues with decompensated cirrhosis and probable hepatorenal syndrome. I recommend consideration of octreotide and midodrine pending further recommendations by nephrology. Finally, TIPS may be beneficial in this setting. 2. Patient Counseling: Medical Management: Patient seen for greater than 30 minutes. Greater than 50% of this time was spent counseling regarding differential diagnosis, likely diagnosis,, diagnostic and therapeutic options, risks, benefits, and alternatives to procedures and medications, informed consent, and plan of care generally. Patient has expressed understanding and wishes to proceed. Recommendations: -- continued abstinence -- continue low-sodium diet -- volume and electrolyte management -- continue albumin infusion -- consider the addition of octreotide and midodrine pending nephrology consultation -- we will continue to follow with you. Dr. Rapp will resume G.I. care for this patient tomorrow.
--- NOTE | 2016-12-19 09:04 | Hospitalist Progress Note ---
Assessment and Plan (1) Pleural effusion, right Status: Acute Current Visit: Yes (2) Status post thoracentesis Status: Acute Current Visit: Yes (3) Alcoholic cirrhosis Status: Acute Current Visit: Yes (4) COPD (chronic obstructive pulmonary disease) Status: Acute Current Visit: Yes (5) Anemia of chronic disease Status: Acute Current Visit: Yes (6) Acute UTI Status: Acute Current Visit: Yes (7) Acute renal failure due to tubular necrosis Status: Acute Assessment and plan: Plan: Continue albumin infusion, we'll transfuse 2 units packed red blood cells today. No zana GI/ blood loss. GI discussing possibility of TIPS procedure. Otherwise we'll repeat a chest x-ray in the morning to assess whether she is reaccumulating pleural fluid. Otherwise continue supportive care. We'll add Diflucan for heavy yeast on urine culture 12/19: Transfer back up to the floor, continue rate controlling meds, be judicious of dropping her blood pressure. Blood counts are stable status post transfusion. Renal function is still suboptimal but about the same. Nephrology will see today. Continue supportive care otherwise. Current Visit: Yes Hospitalist: Subjective Interval history: Ms. Greco was moved to the ICU last night due to persistent hypotension and malaise during transfusion. Overnight, her course has been uneventful she can be transferred back to the floor. She is rate control. She has no other complaints at this time. Exam - Constitutional Vitals: Period Temp Pulse Resp BP Sys/Pastor Pulse Ox Last 24 Hr 96.4 F-98.8 F 75-105 12-24 81-126/46-73 87-100 Exam: EXAM: CONSTITUTIONAL: non toxic, NAD HEENT: NC, AT, OP benign, PAPITO, EOMI CV: Irregular no m/g/r RESP: Decreased breath sounds at the bases otherwise clear, some dullness at the right base GI: abd soft, NT, ND, +bowel sounds INTEGUMENTARY: Multiple telangiectasias EXTREMITIES: Correction: 2+ pitting edema of the lower extremities, pitting edema of the abdomen NEURO: no focal deficits PSYCH: unremarkable, A/O x3 Results - Labs CBC & BMP: 12/19/16 05:51 12/19/16 05:51 Lab Results: I have reviewed the past 24 hour labs - Diagnostic Findings Procedure: Chest x-ray: image reviewed by me
[2016-12-19] MEDS: POLYETHYLENE GLYCOL POWDER 17 GM PACK PO SCH (09:23)
[2016-12-19] MEDS: FOLIC ACID 1 MG TABLET PO SCH (09:23)
[2016-12-19] MEDS: THIAMINE 100 MG TABLET PO SCH (09:23)
[2016-12-19] MEDS: METOPROLOL SUCCINATE XL 25 MG TABLET PO SCH ×3 (09:23→21:59)
[2016-12-19] MEDS: PANTOPRAZOLE 40 MG TABLET PO SCH (09:23)
[2016-12-19] MEDS: MULTIVITAMIN (CENTRUM) TABLET PO SCH (09:23)
[2016-12-19] MEDS: FERROUS SULFATE 325 MG TABLET PO SCH (09:23)
[2016-12-19] MEDS: POTASSIUM CHLORIDE 20 MEQ TABLET PO SCH (09:23)
[2016-12-19 10:02] LABS: Apearance,Urine CLOUDY (Clear); Bacteria,Urine Occasional /HPF (Few); Bilirubin,Urine Negative (Negative); Blood, Urine Large mg/dL (Negative); Glucose,Urine (UA) 50 mg/dL (Negative); Ketones,Urine Negative (Negative); Nitrite,Urine Negative (Negative); Protein,Urine 100 MG/DL; RBC,Urine 1147 /HPF (0-4); Urine Color Red (Yellow); Urine Specific Gravity 1.013 (1.001-1.035); Urine Urobilinogen < 2.0 EU/DL (0.2-1.0); WBC,Urine 705 /HPF (0-6)
--- NOTE | 2016-12-19 10:19 | Nephrology Consult Note ---
History of Present Illness Chief complaint: increased BUN/creatinine creatinine History of present illness: Ms. Greco is a 56 year old female admitted on 12/13/2016 for shortness of breath and swelling in her lower extremities. The patient states she has been having swelling in her legs for the past 4 months or so and is been in the hospital on multiple occasions during this time for shortness of breath. The patient denies any history of kidney problems. On this admission the patient had a normal creatinine of 0.9 mg/dL initially this is increased at 3 mg/dL over the past 6 days. The patient denies any nonsteroidal anti-inflammatory medication, she has not been on any particularly nephrotoxic medication, review of her blood pressures reveals that her blood pressure on the systolic side was around 80 denies any during her initial hospital day or 2 here. It sounds like the patient may also have been getting diuretics for her edema although I cannot find any record of this in the computer. The patient is presently getting albumin IV twice daily for the past few days. The patient states she has been drinking quite heavily up until about a month ago for the past year due to her recent passing of her . The patient also had been smoking and gave this up the past month as well. Patient denies any urinary hesitancy or retention problems. The patient had a urinalysis initially on presentation which showed a trace amount of protein in her urine and about 7 red cells per high power field, sensitive having a [place] placed she's had a large amount of blood in her urine. The patient is noted to have a increased INR of around 1.8, she is not on any anticoagulants. Patient had an abdominal ultrasound that showed an increased echogenicity to her kidneys consistent with liver cirrhosis. The patient has also required a couple of thoracenteses for pleural effusions. The patient is also developed atrial fibrillation. The patient's echocardiogram shows a good ejection fraction however she does have diastolic dysfunction as well as moderate tricuspid regurgitation. ROS: Head - denies headaches ENT - denies sore throat Lymphatics - denies lymphadenopathy Hematology - denies bleeding problems Heart - denies chest pain Lungs -positive shortness of breath associated with a cough productive of thick whitish sputum Abdomen - denies abdominal pain Musculoskeletal - denies arthritis Skin - denies rash Neurology - denies stroke General - denies fever PE: General: in no acute distress Eyes: Pupils are round and reactive, conjunctivae are clear ENT: Nose is clear, O/P is benign Neck: Supple, no thyromegaly Lymphatics: No cervical, supraclavicular or axillary adenopathy Heart: Regular rate and rhythm, 2+ lower extremity edema Lungs: Clear to auscultation anteriorly, chest expansion symmetric Abdomen: Soft, normoactive bowel sounds, no hepatomegaly Musculoskeletal: No joint erythema or effusions or joint asymmetry Skin: Normal turgor, normal hydration, no rash Neuro/Psych: Alert and cooperative with poor insight Home Medications Medication Instructions Recorded Confirmed Type Albuterol Sulfate [Ventolin HFA] 1 puff INH QID PRN 12/13/16 12/13/16 History Ferrous Sulfate 325 mg PO DAILY 12/13/16 12/13/16 History Furosemide Tab [Lasix Tab] 20 mg PO DAILY 12/13/16 12/13/16 History Gabapentin 300 mg PO QID 12/13/16 12/13/16 History Potassium 99 mg PO DAILY 12/13/16 12/13/16 History Spironolactone 100 mg PO DAILY 12/13/16 12/13/16 History Allergies Allergy/AdvReac Type Severity Reaction Status Date / Time Penicillins AdvReac ANAPHYLAXIS Verified 12/13/16 14:06 Medical,Surgical,& Family Hx - Medical History Cardio: No history of: Cardiac Dysrhythmia, Congenital Heart Disease, CAD, Cardiovascular Problems Respiratory: History of: COPD, Respiratory Problems (wears home 02) Gastrointestinal: History of: Liver Problems (Cirrhosis) - Surgical History Neurologic Surgeries: Patient denies: Neurologic Surgery Abdominal Surgeries: Surgical HX of: Cholecystectomy, Gastric Bypass Surgery Orthopedic Surgeries: Patient denies;: Total Knee Replacement - Family History Family History: Denies;: Family Heart Disease, Additional Family History Additional Family History: Pancreatic cancer in her - Social History Smoking Status: Former smoker Frequency of Alcohol Use: None Type of Drug Use: Unknown Exam - Vital Signs Vital signs: Period Temp Pulse Resp BP Sys/Pastor Pulse Ox Last 24 Hr 96.4 F-98.8 F 75-105 12-24 81-126/46-73 87-100 Results - Labs CBC & BMP: 12/19/16 05:51 12/19/16 05:51 Assessment and Plan (1) REBECCA (acute kidney injury) Status: Acute Assessment and plan: I suspect this patient has a hepatorenal syndrome developing, I'll check a spot urine microalbumin to creatinine ratio and a fractional excretion of urinary sodium. I agree with a limited trial of albumin and holding her diuretics for now. Current Visit: Yes (2) Alcoholic cirrhosis Status: Acute Current Visit: Yes (3) Anasarca Status: Acute Current Visit: Yes (4) Anemia of chronic disease Status: Acute Assessment and plan: Patient's hematocrit around 25% Current Visit: Yes (5) COPD (chronic obstructive pulmonary disease) Status: Acute Current Visit: Yes (6) Status post thoracentesis Status: Acute Current Visit: Yes (7) Former smoker Status: Chronic Current Visit: No
--- NOTE | 2016-12-19 10:50 | XRay Report ---
Exam: XR chest 1V portable Indication: Cirrhosis, pleural effusion Comparison study: 12/17/2016 Findings: Cardiac silhouette remains enlarged. There has been slight worsening of bibasilar opacities, right more so than left. Upper lobe pulmonary texture also appears slightly prominent. There is no pneumothorax. There is no acute osseous abnormality. Impression: Slight worsening of basilar opacities suggestive of atelectasis and pleural effusions, larger on the right. Similar cardiomegaly. PROCEDURE INTERPRETED AT [facility] DEPARTMENT OF RADIOLOGY Final Report Signed by: Eliezer Lucas
[2016-12-19 12:19] LABS: Microalbum/Creat Ratio Random 655.8 RATIO (0-30)
--- NOTE | 2016-12-19 13:43 | Ultrasound Report ---
US renal Bilateral Indication: Acute renal failure. Comparison: None available. Technique: Multiple longitudinal and transverse real-time sonographic images of the kidneys were obtained. Findings: The right kidney measures 12.7 x 6.1 x 7.7 cm, and the left kidney measures 12.4 X 6.1 x 4.9 cm. There is no evidence of nephrolithiasis or abnormal perinephric fluid collections. Renal cortical echogenicity and thickness are within normal limits. There is no hydronephrosis. Hypoechoic/anechoic lesions are noted within both kidneys measuring up to 2.4 cm maximum at the lower pole on the right and 1.3 cm maximum at the upper pole of the left. These likely represent simple cysts. There is no evidence of surrounding ascites. Ultrasound images were captured and stored. IMPRESSION: Unremarkable renal ultrasound. No hydronephrosis. PROCEDURE INTERPRETED AT [facility] DEPARTMENT OF RADIOLOGY Final Report Signed by: Eliezer Lucas
--- NOTE | 2016-12-19 14:00 | Event Note ---
Reviewing hepatorenal syndrome and the patient's latest findings with a fractional excretion of sodium of 0.3% and lowish blood pressure I believe it be worthwhile to try Midodrine and octreotide therapy towards Ativan I have started her on Midodrine 7.5 mg by mouth 3 times a day and octreotide 100 g subcutaneous 3 times a day
[2016-12-19] MEDS: MIDODRINE 5 MG TABLET PO SCH ×2 (14:37→21:59)
[2016-12-19] MEDS: FLUCONAZOLE IV SCH (14:38)
[2016-12-19] MEDS: OCTREOTIDE 100 MCG/ML SYRINGE SUBCUT SCH ×2 (15:16→23:09)
[2016-12-19] MEDS: traZODone 50 MG TABLET PO SCH (21:59)
[2016-12-19] MEDS: LEVOFLOXACIN INJ 250 MG in PREMIX 1 EACH IV SCH (22:00)
[2016-12-19] MEDS: ZALEPLON 5 MG CAPSULE PO PRN (22:04)
[2016-12-20] MEDS: IPRATROPIUM 500 MCG/2.5 ML NEB RESP TX SCH ×4 (01:08→23:17)
[2016-12-20 05:04] LABS: Basophils % 0.1 % (0.0-0.8); Eosinophils # 0.2 10*3/uL (0.0-0.87); Eosinophils % 2.8 % (0.00-10.9); Hematocrit 27.2 VOL% (35.7-47.0); Immature Granulocytes % 0.6 %; Immature Granulocytes Absolute 0.05 #; Lymphocytes % 11.2 % (21.3-54.2); Mean Corpuscular HGB Conc 33.1 GM/DL (32-36); Mean Corpuscular Hemoglobin 30 PG (27-34); Mean Corpuscular Volume 91.3 FL (87-102); Mean Platelet Volume 10.6 FL (9.6-12.0); Monocytes # 0.7 10*3/uL (0.11-0.8); Monocytes % 8.3 % (1.7-12.7); Neutrophils # 6.7 10*3/uL (1.4-7.4); Platelet Count 104 T/CUMM (130-400); Red Blood Count 2.98 MC/CUMM (3.8-5.5); Red Cell Distribution Width 17.2 % (9.3-17.3); White Blood Count 8.7 T/CUMM (4-12)
[2016-12-20] MEDS: ALBUMIN 25% 25 GM in PREMIX 1 EACH IV SCH ×4 (05:15→22:46)
[2016-12-20 05:36] LABS: Calcium 8.7 MG/DL (8.5-10.1); Magnesium 2.6 MG/DL (1.8-2.4); Potassium 5.2 MMOL/L (3.5-5.1)
[2016-12-20 06:26] LABS: Hepatitis A Ab IgM Quant 0.08 Index; Hepatitis A Ab IgM Result Negative (Negative); Hepatitis B Core IgM Quant 0.77 Index; Hepatitis B Core IgM Result Negative (Negative); Hepatitis B Surface Ag Quant < 0.10 Index; Hepatitis B Surface Ag Result Negative (Negative); Hepatitis C Virus Ab Quant 0.07 Index; Hepatitis C Virus Ab Result Negative (Negative)
--- NOTE | 2016-12-20 07:51 | XRay Report ---
XR chest 1V portable Indication: Shortness of breath Comparison: 19 December 2016 Findings: The heart and mediastinum are stable in size and configuration. The pulmonary vascularity is increased with bilateral increased interstitial lung density similar to previous. No other lung infiltrates, effusions, pneumothorax or other abnormality is demonstrated. Impression: Findings suggest cardiac decompensation similar to previous. PROCEDURE INTERPRETED AT [facility] DEPARTMENT OF RADIOLOGY Final Report Signed by: Dr. Rajendra Waller
--- NOTE | 2016-12-20 08:24 | Pulmonology Progress Note ---
Pulmonary - PN: Subj Interval history: This 56-year-old white female has cirrhosis and anasarca. She had a right thoracentesis yesterday with removal of 1200 mL of straw-colored fluid. The fluid appears to be a transudate. Cytology and cultures are pending. Creatinine has risen to 2.0 and she's not making a lot of urine. I'm concerned about hepato-renal syndrome. We need to have GI to see her. She feels better and is more alert. Her weight does not reflect fluid loss. 12/16/16 Patient's breathing is a little better. She has a large right pleural effusion and apparently has ascites. Also has marked peripheral edema. Basically anasarca. Diuretics were held by GI because of worsening renal function. Difficult situation. We will re-x-ray her in the morning and if she still has large right pleural effusion I will tap her. Not a candidate for an indwelling drain. Has transudative pleural effusions due to liver disease. 12/17/2016 Patient still quite short of breath at rest. Chest x-ray has shown the right pleural effusion looks different than it did prior to the earlier thoracentesis. Plan for thoracentesis this morning. Hematocrit is down to 24. Creatinine up to 3.3. Difficult situation with patient with advanced cirrhosis and anasarca with rising creatinine. Need nephrology to see. 12/18/16 patient feeling much better post thoracentesis. Hematocrit stable at 23. Creatinine stable at 3.3. Nephrology has been consulted but has not seen yet. Patient relates that Dr. Vidal told her they would look into a TIPS procedure. She overall looks a little better this morning. Hopefully her renal function is turning around. Recheck x-ray tomorrow. 12/19/2016 patient was moved to ICU last night because of vomiting. Dr. Chambers has recommended Mitodrine and octreotide. These have not been started. Defer to GI. A nephrology consult was placed Tuesday and she has not been seen yet by nephrology. Patient is alert and does not appear to be short of breath. Her chest x-ray shows a lateral pleural effusions worse on the right than the left but still improved since with did tap 2 days ago. Patient apparently has hepatorenal syndrome. 12/20/16 patient is fairly stable. She has some recurrence of her right pleural effusion but not nearly as bad as before. We will defer to nephrology as far as any further diuretics because of her hepatorenal syndrome. I note that octreotide and Midodrin have been started. Exam (Progress Note) - Constitutional Vitals: Period Temp Pulse Resp BP Sys/Pastor Pulse Ox Last 24 Hr 97 F-98.9 F 72-114 14-21 107-136/55-64 90-97 Exam: Patient is alert seated on side of the bed. Seems oriented. Vital signs show an O2 sat in the mid 90s on nasal oxygen. Pulse is 80 and irregular with atrial fibrillation. Afebrile. Pupils react to light. She is jaundiced. Throat is clear. Neck supple no bruits. Still has some jugular venous distention. Chest reveals clear breath sounds at the right base. I hear a few crackles, with slight dullness there. Heart irregular without murmur. Abdomen grand obese probably has ascites. Extremities marked edema in both lower extremities, 4+, calves nontender. Calves are a little bit less intense. Results - Labs CBC & BMP: 12/20/16 04:07 12/20/16 04:07 Lab Results: I have reviewed the past 24 hour labs - Diagnostic Findings Procedure: Chest x-ray: image reviewed by me (bilateral pleural effusions which are moderate in degree. Cardiomegaly.) Assessment and Plan (1) Anasarca Status: Acute Assessment and plan: This is likely due to her severe liver disease. I'm concerned about hepatorenal syndrome. LV function was normal on echo. BNP is only slightly elevated at 400. 12/16/16 appears to be due to advanced hepatic cirrhosis. Diuresing her has made her renal function worse. We will repeat x-rays tomorrow and tap right chest if still large effusion. However this will not take care of the problem long-term. 12/17/2016 anasarca due to advanced cirrhosis. Prognosis guarded. Unable to safely diurese with her renal function getting worse. 12/18/16 anasarca due to advanced cirrhosis. GI seeing. Worsening renal function after diuresis. Nephrology to see. 12/19/2016 this is due to end-stage cirrhosis. Renal function does not allow diuresis. GI and nephrology are to follow. 12/20/2016 end-stage cirrhosis with anasarca. Hepatorenal syndrome. Defer to nephrology as far as diuretics are concerned. Current Visit: Yes (2) Pleural effusion on right Status: Acute Assessment and plan: Right pleural effusion is a transudate. This would fit with liver disease as a cause. Other considerations would be congestive heart failure or nephrotic syndrome. She has known cirrhosis. Needs cautious diuresis watching her renal function. 12/16/16 this has recurred. Likely will re-tap tomorrow. 12/17/2016 we will do repeat thoracentesis today. 12/18/16 pleural fluid is pending as far as cultures and cytology. We did not repeat chemistries on this specimen. 12/19/2016 patient's dyspnea is improved. Watching right effusion. Can tap again if need be. 12/20/16 patient is not in respiratory distress. She does have a slowly enlarging recurrent right pleural effusion. I can tap if need be in a couple of days. Hopefully we can manage this with diuresis of some form. Current Visit: Yes (3) Hepatic cirrhosis Status: Chronic Assessment and plan: Clearly has cirrhosis. Likely the cause of her fluid retention. Watch for hepatorenal syndrome. 12/16/16 GI is seeing. They're wanting to get some old records on her. 12/18/16 advanced cirrhosis. 12/19/2016 end-stage cirrhosis. Patient would not be candidate for liver transplant until she has been off alcohol for 6 months. Presently has been a little over one month. 12/20/2016 end-stage cirrhosis. Has been getting albumin. Started on octreotide and middle drained yesterday. Current Visit: Yes (4) Atrial fibrillation with RVR Status: Acute Assessment and plan: Heart rate is 105, persistent atrial fibrillation. Controlling weight medications. Cardiology following. 12/16/16 rate is controlled at 100. 12/17/2016 rate controlled. 12/18/16 rate is controlled. 12/19/2016 rate controlled at around 80. Current Visit: Yes
[2016-12-20] MEDS: MIDODRINE 5 MG TABLET PO SCH ×3 (09:01→21:43)
[2016-12-20] MEDS: FERROUS SULFATE 325 MG TABLET PO SCH (09:01)
[2016-12-20] MEDS: FOLIC ACID 1 MG TABLET PO SCH (09:01)
[2016-12-20] MEDS: POLYETHYLENE GLYCOL POWDER 17 GM PACK PO SCH (09:01)
[2016-12-20] MEDS: METOPROLOL SUCCINATE XL 25 MG TABLET PO SCH ×3 (09:01→21:49)
[2016-12-20] MEDS: MULTIVITAMIN (CENTRUM) TABLET PO SCH (09:01)
[2016-12-20] MEDS: POTASSIUM CHLORIDE 20 MEQ TABLET PO SCH (09:02)
[2016-12-20] MEDS: PANTOPRAZOLE 40 MG TABLET PO SCH (09:02)
[2016-12-20] MEDS: OCTREOTIDE 100 MCG/ML SYRINGE SUBCUT SCH ×3 (09:02→22:09)
[2016-12-20] MEDS: THIAMINE 100 MG TABLET PO SCH (09:04)
--- NOTE | 2016-12-20 10:06 | Gastrointestinal Progress Note ---
Assessment and Plan (1) Hepatic cirrhosis Status: Chronic Assessment and plan: 12/20-Creatnine 3.1, wt up 3 kg. Octeotride and Midodrone started. Recheck ammonia level. Noted pt receiving Mirilax and not lactulose at present.Will add Lactulose 30cc q 6 hours. Plan and addendum to follow by DR Vidal. 12/17-Creatnine 3.3. Post thoracentesis today. [facility] records noted. Plan and addendum to follow by Dr Vidal. 12/16-Records pending from [facility]. Creatnine elevated at 2.7. Weight unchanged. Tolerating diet. Plan and addendum to follow by Dr Vidal. 12/15-Hx of hepatic cirrhosis with long standing alcohol use now presenting with pleural effusion, post thoracentesis. Elevated creatnine with no knowledge of baseline. Ascites managed at home with diuretics, diet. Us shows small amount of ascites, nodular liver. Plan and addendum to follow by Dr Vidal. Current Visit: Yes Gastroenterology - PN: Subj Interval history: CC: Cirrhosis Pt is seen, sitting up in chair. She has a poor appetite today and is complaining of just not feeling well all over today. She seems to be a little less oriented and slow to respond. Noted her ammonia was up yesterday at 186. She had a bowel movement on yesterday. Her weight is up 3 kg x 2 days. She has had some recurrence of right pleural effusion. She has been seen by nephrology also and has had Octeotride and Midodrin started on yesterday. Her creatnine is at 3.1. She was transfused 2 units of PRBC on yesterday. Hepatitis panel is negative. Abdomen is soft, nontender. ROS: Denies SOB or chest pain Exam (Progress Note) - Constitutional Vitals: Period Temp Pulse Resp BP Sys/Pastor Pulse Ox Last 24 Hr 97 F-98.9 F 72-114 16-21 109-136/55-64 90-99 General appearance: no acute distress, over weight - Head Head exam: Present: normal inspection, normocephalic - Eye Eye exam: Present: other (lids and conjunctiva unremarkable). Absent: scleral icterus - ENT ENT exam: Present: normal exam, normal oropharynx - Neck Neck exam: Present: normal inspection - Respiratory Respiratory exam: Present: clear to auscultation bilaterally. Absent: rales, rhonchi, wheezes - Cardiovascular Cardiovascular exam: Present: regular rate and rhythm. Absent: diastolic murmur , JVD, systolic murmur - GI/Abdominal GI/Abdominal exam: Present: normal bowel sounds, soft. Absent: ascites, distended, mass, organomegaly, tenderness - Extremities Exam Extremities exam: Present: normal inspection, full ROM - Back Exam Back exam: Present: normal inspection - Neurological Exam Neurological exam: Present: alert, oriented X3 - Psychiatric Psychiatric exam: Present: normal affect, normal mood - Skin Skin exam: Present: normal color, warm, dry Results - Labs CBC & BMP: 12/20/16 04:07 12/20/16 04:07 Lab Results: I have reviewed the past 24 hour labs
--- NOTE | 2016-12-20 10:17 | Nephrology Progress Note ---
Nephrology - PN: Subj Interval history: Patient complains of pins and needles in her legs. Review of systems pulmonary she denies shortness of breath, Gen.-she states she does feels poorly Physical exam general patient's chronically ill-appearing, she has diffuse edema Assessment/plan 1. Acute renal failure-this patient's creatinine is slightly improved from yesterday at 3.1 mg/dL from 3.3 mg/dL, her urine output picked up To 1500 ML Yesterday over 24 Hours, Her Weight Is Going up 3 KG's However I Think This Is More Function of a Different Scale Then a True Weight Gain. Over 24 hours yesterday her intake is reportedly less than her output. 2. Liver cirrhosis-I spoke to the patient about her poor prognosis with both liver failure and kidney failure, spoke to her also about her wishes should she deteriorate and ultimately have complete kidney failure or respiratory failure. The patient related that she would like to be intubated and dialyzed in those situations. 3. Volume overload-I'll like to see a little bit more improvement in her kidney function prior to subjecting her to more diuretics. As long as her pulmonary status is okay at think we have time for further kidney recovery. Exam (PN)-Nephrology - Vital Signs Vital signs: Period Temp Pulse Resp BP Sys/Pastor Pulse Ox Last 24 Hr 97 F-98.9 F 72-114 16-21 109-136/55-64 90-99 - Lab 12/20/16 04:07 12/20/16 04:07 Most recent lab results ABG pH 7.345 (7.35-7.45) L 12/14/16 08:15 ABG pCO2 53.5 MM HG (35-48) H 12/14/16 08:15 ABG pO2 56.2 MM HG (80-95) L 12/14/16 08:15 ABG HCO3 26.6 MMOL/L (20-26) H 12/14/16 08:15 ABG O2 Saturation 86.1 % (95-100) L 12/14/16 08:15 Calcium 8.7 MG/DL (8.5-10.1) 12/20/16 04:07 Magnesium 2.6 MG/DL (1.8-2.4) H 12/20/16 04:07 Assessment and Plan (1) REBECCA (acute kidney injury) Status: Acute Assessment and plan: I suspect this patient has a hepatorenal syndrome developing, I'll check a spot urine microalbumin to creatinine ratio and a fractional excretion of urinary sodium. I agree with a limited trial of albumin and holding her diuretics for now. Current Visit: Yes (2) Alcoholic cirrhosis Status: Acute Current Visit: Yes (3) Anasarca Status: Acute Current Visit: Yes (4) Anemia of chronic disease Status: Acute Assessment and plan: Patient's hematocrit around 25% Current Visit: Yes (5) COPD (chronic obstructive pulmonary disease) Status: Acute Current Visit: Yes (6) Status post thoracentesis Status: Acute Current Visit: Yes (7) Former smoker Status: Chronic Current Visit: No
[2016-12-20] MEDS: LACTULOSE 20 GM/30 ML UDCUP PO SCH ×3 (11:54→23:52)
--- NOTE | 2016-12-20 12:54 | Pathology Report from [facility] ---
ACCESSION # : [id number] PATIENT NAME : Kimberley Greco ORDERING DR : TONYA MCINTOSH MD CLINICAL HX: Hepatic Cirrhosis with large Right Pleural Effusion POST-OP DX: Same SPECIMEN INFO: Fluid,Pleural,Right - 90 ml's alexandre, cloudy CLASS: I CLASS COMMENTS: Benign mesothelial cells, proteinaceous material, inflammation.CELL BLOCK: Same CLASS LEGEND: CLASS 0 Material inadequate for diagnosis because of (see comment) CLASS I Absence of atypical or abnormal cells CLASS II Atypical Cytology but no evidence of malignancy CLASS III Cytology suggestive of but not conclusive for malignancy CLASS IV Cytology strongly suggestive of malignancy CLASS V Cytology conclusive for malignancy SERVICE DATE: 12/17/2016 REPORT DATE: 12/20/2016 PATHOLOGIST: Galen Jo
--- NOTE | 2016-12-20 14:07 | Hospitalist Progress Note ---
Assessment and Plan (1) Pleural effusion, right Status: Acute Current Visit: Yes (2) Status post thoracentesis Status: Acute Current Visit: Yes (3) Alcoholic cirrhosis Status: Acute Current Visit: Yes (4) COPD (chronic obstructive pulmonary disease) Status: Acute Current Visit: Yes (5) Anemia of chronic disease Status: Acute Current Visit: Yes (6) Acute UTI Status: Acute Current Visit: Yes (7) Hepatorenal syndrome Status: Acute Current Visit: Yes (8) Acute renal failure due to tubular necrosis Status: Acute Assessment and plan: Plan: Continue albumin infusion, we'll transfuse 2 units packed red blood cells today. No zana GI/ blood loss. GI discussing possibility of TIPS procedure. Otherwise we'll repeat a chest x-ray in the morning to assess whether she is reaccumulating pleural fluid. Otherwise continue supportive care. We'll add Diflucan for heavy yeast on urine culture 12/19: Transfer back up to the floor, continue rate controlling meds, be judicious of dropping her blood pressure. Blood counts are stable status post transfusion. Renal function is still suboptimal but about the same. Nephrology will see today. Continue supportive care otherwise. 12/20: Octreotide and midodrine have been started. Blood counts remain stable, renal function slightly better today. Blood pressure better today. Current Visit: Yes Hospitalist: Subjective Interval history: No acute events overnight, reports general malaise. No shortness of breath or chest pain. No abdominal pain Exam - Constitutional Vitals: Period Temp Pulse Resp BP Sys/Pastor Pulse Ox Last 24 Hr 97 F-98.9 F 72-114 16-21 109-136/55-81 90-99 Exam: EXAM: CONSTITUTIONAL: non toxic, NAD HEENT: NC, AT, OP benign, PAPITO, EOMI CV: Irregular no m/g/r RESP: Decreased breath sounds at the bases otherwise clear, some dullness at the right base GI: abd soft, NT, ND, +bowel sounds INTEGUMENTARY: Multiple telangiectasias EXTREMITIES: 2+ pitting edema of the lower extremities, pitting edema of the abdomen NEURO: no focal deficits PSYCH: unremarkable, A/O x3 Results - Labs CBC & BMP: 12/20/16 04:07 12/20/16 04:07 Lab Results: I have reviewed the past 24 hour labs
[2016-12-20] MEDS: FLUCONAZOLE IV SCH (15:47)
[2016-12-20] MEDS ORDERED: LACTULOSE 20 GM/30 ML UDCUP PO PRN (19:06)
--- NOTE | 2016-12-20 20:54 | Cardiology Progress Note ---
Assessment and Plan (1) Ascites Status: Chronic Assessment and plan: 56-year-old female, with cirrhosis, hepatorenal syndrome, diastolic CHF, anasacrca. Atrial fibrillation, preserved systolic function. Anemia -AF. Rate better controlled. not anticoagulated due to anemia, high bleeding risk -Anasarca. REBECCA limiting diuresis, followed by renal. Poor prognosis due to hepatorenal sy Current Visit: Yes (2) Acute dyspnea Status: Acute Current Visit: Yes (3) Congestive heart failure Status: Acute Current Visit: Yes (4) Pleural effusion on right Status: Acute Current Visit: Yes (5) History of alcoholism Status: Chronic Current Visit: No (6) Hepatic cirrhosis Status: Chronic Current Visit: Yes (7) Chronic obstructive pulmonary disease Status: Chronic Current Visit: Yes (8) Anasarca Status: Acute Current Visit: Yes (9) REBECCA (acute kidney injury) Status: Acute Current Visit: Yes (10) Hepatorenal syndrome Status: Acute Current Visit: Yes Cardiology - PN: Subj Interval history: She is still unable to lay flat. The lower extremity edema mildly improved. Exam (Progress Note) - Constitutional Vitals: Period Temp Pulse Resp BP Sys/Pastor Pulse Ox Last 24 Hr 96.5 F-98.9 F 86-114 15-22 103-136/55-81 80-99 General appearance: morbidly obese - Head Head exam: Present: normal inspection - Eye Eye exam: Absent: conjunctival injection Pupils: Absent: dilated - ENT ENT exam: Present: normal external ear exam - Neck Neck exam: Present: normal inspection, lymphadenopathy - Respiratory Respiratory exam: Present: decreased breath sounds - Cardiovascular Cardiovascular exam: Present: irregular rhythm - GI/Abdominal GI/Abdominal exam: Present: normal bowel sounds, ascites, distended - Extremities Exam Extremities exam: Present: edema (4+) - Neurological Exam Neurological exam: Present: alert, oriented X3 - Psychiatric Psychiatric exam: Present: normal affect, normal mood - Skin Skin exam: Present: normal color, warm. Absent: cyanosis Result/EKG - Labs CBC & BMP: 12/20/16 04:07 12/20/16 04:07 Lab Results: I have reviewed the past 24 hour labs Labs: Laboratory Results - last 24 hr 12/20/16 12/20/16 12/20/16 04:07 04:07 04:07 WBC 8.7 RBC 2.98 L Hgb 9.0 L Hct 27.2 L MCV 91.3 MCH 30 MCHC 33.1 RDW 17.2 Plt Count 104 L MPV 10.6 Neut % (Auto) 77.0 H Lymph % (Auto) 11.2 L [place] % (Auto) 8.3 Eos % (Auto) 2.8 Baso % (Auto) 0.1 Neut # (Auto) 6.7 Lymph # (Auto) 1.0 L [place] # (Auto) 0.7 Eos # (Auto) 0.2 Baso # (Auto) 0.0 Immature Gran % 0.6 Nucleated RBC % 0.0 Immature Gran # 0.05 Nucleated RBCs # 0.00 Sodium 136 Potassium 5.2 H Chloride 97 L Carbon Dioxide 27 Anion Gap 17.2 H BUN 53 H Creatinine 3.10 H GFR Calculation 22 BUN/Creatinine Ratio 17.00 Glucose 128 H Calculated Osmolality 287.0 Calcium 8.7 Magnesium 2.6 H Ammonia Hepatitis A IgM Ab Negative Hep Bs Antigen Negative Hep B Core IgM Ab Negative Hepatitis C Antibody Negative 12/20/16 10:56 WBC RBC Hgb Hct MCV MCH MCHC RDW Plt Count MPV Neut % (Auto) Lymph % (Auto) [place] % (Auto) Eos % (Auto) Baso % (Auto) Neut # (Auto) Lymph # (Auto) [place] # (Auto) Eos # (Auto) Baso # (Auto) Immature Gran % Nucleated RBC % Immature Gran # Nucleated RBCs # Sodium Potassium Chloride Carbon Dioxide Anion Gap BUN Creatinine GFR Calculation BUN/Creatinine Ratio Glucose Calculated Osmolality Calcium Magnesium Ammonia 215 H Hepatitis A IgM Ab Hep Bs Antigen Hep B Core IgM Ab Hepatitis C Antibody - EKG EKG results: interpreted by me
[2016-12-20] MEDS: traZODone 50 MG TABLET PO SCH (21:42)
[2016-12-20] MEDS: LEVOFLOXACIN INJ 250 MG in PREMIX 1 EACH IV SCH (21:46)
[2016-12-21] MEDS: traMADol 50 MG TABLET PO PRN ×3 (00:50→15:56)
[2016-12-21] MEDS: ALBUMIN 25% 25 GM in PREMIX 1 EACH IV SCH ×4 (05:02→22:34)
[2016-12-21 05:33] LABS: Basophils % 0.3 % (0.0-0.8); Eosinophils # 0.2 10*3/uL (0.0-0.87); Immature Granulocytes % 0.5 %; Immature Granulocytes Absolute 0.04 #; Mean Corpuscular HGB Conc 33.3 GM/DL (32-36); Mean Corpuscular Hemoglobin 30 PG (27-34); Mean Corpuscular Volume 90.3 FL (87-102); Mean Platelet Volume 10.2 FL (9.6-12.0); Monocytes # 0.6 10*3/uL (0.11-0.8); Monocytes % 8.3 % (1.7-12.7); Neutrophils # 5.7 10*3/uL (1.4-7.4); Neutrophils % 75.9 % (38.7-73.9); Platelet Count 98 T/CUMM (130-400); Red Blood Count 2.99 MC/CUMM (3.8-5.5); Red Cell Distribution Width 17.2 % (9.3-17.3); White Blood Count 7.5 T/CUMM (4-12)
[2016-12-21 05:54] LABS: Hypochromasia 1+; Ovalocytes Slight; Platelet Estimate Decreased
[2016-12-21 06:03] LABS: Calcium 9.1 MG/DL (8.5-10.1); Magnesium 2.6 MG/DL (1.8-2.4); Osmolality,Calculated 285.8 MOS/KG (273-304); Potassium 4.9 MMOL/L (3.5-5.1)
[2016-12-21] MEDS: LACTULOSE 20 GM/30 ML UDCUP PO SCH ×3 (06:12→18:12)
[2016-12-21] MEDS: IPRATROPIUM 500 MCG/2.5 ML NEB RESP TX SCH ×3 (06:51→23:47)
--- NOTE | 2016-12-21 08:00 | Nephrology Progress Note ---
Nephrology - PN: Subj Interval history: Patient complains of shortness of breath last night. Review of systems GI- patient states she's not had a bowel movement recently. Physical exam general patient's chronically ill-appearing Assessment/plan 1. Acute renal failure-patient's creatinine is improving and [place] 2.6 mg/dL today from 3 mg/dL the day prior. 2. Volume overload-patient had some shortness of breath symptoms last night she remains grossly volume overloaded I'll give her Lasix 40 mg IV twice a day hopefully this will adversely affect her kidney improvement 3. Liver cirrhosis-patient's prognosis remains extremely felecia Exam (PN)-Nephrology - Vital Signs Vital signs: Period Temp Pulse Resp BP Sys/Pastor Pulse Ox Last 24 Hr 96.5 F-98.2 F 72-119 15-24 103-136/63-81 80-99 - Lab 12/21/16 05:07 12/21/16 05:07 Most recent lab results ABG pH 7.345 (7.35-7.45) L 12/14/16 08:15 ABG pCO2 53.5 MM HG (35-48) H 12/14/16 08:15 ABG pO2 56.2 MM HG (80-95) L 12/14/16 08:15 ABG HCO3 26.6 MMOL/L (20-26) H 12/14/16 08:15 ABG O2 Saturation 86.1 % (95-100) L 12/14/16 08:15 Calcium 9.1 MG/DL (8.5-10.1) 12/21/16 05:07 Magnesium 2.6 MG/DL (1.8-2.4) H 12/21/16 05:07 Assessment and Plan (1) REBECCA (acute kidney injury) Status: Acute Assessment and plan: I suspect this patient has a hepatorenal syndrome developing, I'll check a spot urine microalbumin to creatinine ratio and a fractional excretion of urinary sodium. I agree with a limited trial of albumin and holding her diuretics for now. Current Visit: Yes (2) Alcoholic cirrhosis Status: Acute Current Visit: Yes (3) Anasarca Status: Acute Current Visit: Yes (4) Anemia of chronic disease Status: Acute Assessment and plan: Patient's hematocrit around 25% Current Visit: Yes (5) COPD (chronic obstructive pulmonary disease) Status: Acute Current Visit: Yes (6) Status post thoracentesis Status: Acute Current Visit: Yes (7) Former smoker Status: Chronic Current Visit: No
--- NOTE | 2016-12-21 08:07 | Pulmonology Progress Note ---
Pulmonary - PN: Subj Interval history: This 56-year-old white female has cirrhosis and anasarca. She had a right thoracentesis yesterday with removal of 1200 mL of straw-colored fluid. The fluid appears to be a transudate. Cytology and cultures are pending. Creatinine has risen to 2.0 and she's not making a lot of urine. I'm concerned about hepato-renal syndrome. We need to have GI to see her. She feels better and is more alert. Her weight does not reflect fluid loss. 12/16/16 Patient's breathing is a little better. She has a large right pleural effusion and apparently has ascites. Also has marked peripheral edema. Basically anasarca. Diuretics were held by GI because of worsening renal function. Difficult situation. We will re-x-ray her in the morning and if she still has large right pleural effusion I will tap her. Not a candidate for an indwelling drain. Has transudative pleural effusions due to liver disease. 12/17/2016 Patient still quite short of breath at rest. Chest x-ray has shown the right pleural effusion looks different than it did prior to the earlier thoracentesis. Plan for thoracentesis this morning. Hematocrit is down to 24. Creatinine up to 3.3. Difficult situation with patient with advanced cirrhosis and anasarca with rising creatinine. Need nephrology to see. 12/18/16 patient feeling much better post thoracentesis. Hematocrit stable at 23. Creatinine stable at 3.3. Nephrology has been consulted but has not seen yet. Patient relates that Dr. Vidal told her they would look into a TIPS procedure. She overall looks a little better this morning. Hopefully her renal function is turning around. Recheck x-ray tomorrow. 12/19/2016 patient was moved to ICU last night because of vomiting. Dr. Chambers has recommended Mitodrine and octreotide. These have not been started. Defer to GI. A nephrology consult was placed Tuesday and she has not been seen yet by nephrology. Patient is alert and does not appear to be short of breath. Her chest x-ray shows a lateral pleural effusions worse on the right than the left but still improved since with did tap 2 days ago. Patient apparently has hepatorenal syndrome. 12/20/16 patient is fairly stable. She has some recurrence of her right pleural effusion but not nearly as bad as before. We will defer to nephrology as far as any further diuretics because of her hepatorenal syndrome. I note that octreotide and Midodrin have been started. 12/21/2016 O2 sats acceptable. Weight is stable. Good urine output. She did not have bowel movements after the Chronulac. Defer to GI. Exam (Progress Note) - Constitutional Vitals: Period Temp Pulse Resp BP Sys/Pastor Pulse Ox Last 24 Hr 96.5 F-98.2 F 72-119 15-24 103-118/63-81 80-99 Exam: Patient is alert seated on side of the bed. Seems oriented. Vital signs show an O2 sat in the mid 90s on nasal oxygen. Pulse is 80 and irregular with atrial fibrillation. Afebrile. Pupils react to light. She is jaundiced. Throat is clear. Neck supple no bruits. Still has some jugular venous distention. Chest reveals clear breath sounds at the right base. I hear a few crackles, with slight dullness there. Heart irregular without murmur. Abdomen grand obese probably has ascites. Extremities marked edema in both lower extremities, 3+, calves nontender. Calves are a little bit less tense. Results - Labs CBC & BMP: 12/21/16 05:07 12/21/16 05:07 Lab Results: I have reviewed the past 24 hour labs Assessment and Plan (1) Anasarca Status: Acute Assessment and plan: This is likely due to her severe liver disease. I'm concerned about hepatorenal syndrome. LV function was normal on echo. BNP is only slightly elevated at 400. 12/16/16 appears to be due to advanced hepatic cirrhosis. Diuresing her has made her renal function worse. We will repeat x-rays tomorrow and tap right chest if still large effusion. However this will not take care of the problem long-term. 12/17/2016 anasarca due to advanced cirrhosis. Prognosis guarded. Unable to safely diurese with her renal function getting worse. 12/18/16 anasarca due to advanced cirrhosis. GI seeing. Worsening renal function after diuresis. Nephrology to see. 12/19/2016 this is due to end-stage cirrhosis. Renal function does not allow diuresis. GI and nephrology are to follow. 12/20/2016 end-stage cirrhosis with anasarca. Hepatorenal syndrome. Defer to nephrology as far as diuretics are concerned. 12/21/2016 less edema than before. Recheck x-ray tomorrow. Current Visit: Yes (2) Pleural effusion on right Status: Acute Assessment and plan: Right pleural effusion is a transudate. This would fit with liver disease as a cause. Other considerations would be congestive heart failure or nephrotic syndrome. She has known cirrhosis. Needs cautious diuresis watching her renal function. 12/16/16 this has recurred. Likely will re-tap tomorrow. 12/17/2016 we will do repeat thoracentesis today. 12/18/16 pleural fluid is pending as far as cultures and cytology. We did not repeat chemistries on this specimen. 12/19/2016 patient's dyspnea is improved. Watching right effusion. Can tap again if need be. 12/20/16 patient is not in respiratory distress. She does have a slowly enlarging recurrent right pleural effusion. I can tap if need be in a couple of days. Hopefully we can manage this with diuresis of some form. 12/21/2016 She has had 2 thoracenteses. O2 sat is stable. Recheck x-ray tomorrow. Current Visit: Yes (3) Hepatic cirrhosis Status: Chronic Assessment and plan: Clearly has cirrhosis. Likely the cause of her fluid retention. Watch for hepatorenal syndrome. 12/16/16 GI is seeing. They're wanting to get some old records on her. 12/18/16 advanced cirrhosis. 12/19/2016 end-stage cirrhosis. Patient would not be candidate for liver transplant until she has been off alcohol for 6 months. Presently has been a little over one month. 12/20/2016 end-stage cirrhosis. Has been getting albumin. Started on octreotide and middle drained yesterday. 12/21/2016 reports that she did not have bowel movements after getting Chronulac. Defer to GI. Current Visit: Yes (4) Atrial fibrillation with RVR Status: Acute Assessment and plan: Heart rate is 105, persistent atrial fibrillation. Controlling weight medications. Cardiology following. 12/16/16 rate is controlled at 100. 12/17/2016 rate controlled. 12/18/16 rate is controlled. 12/19/2016 rate controlled at around 80. Current Visit: Yes
[2016-12-21] MEDS: POLYETHYLENE GLYCOL POWDER 17 GM PACK PO SCH (08:55)
[2016-12-21] MEDS: POTASSIUM CHLORIDE 20 MEQ TABLET PO SCH (08:56)
[2016-12-21] MEDS: MIDODRINE 5 MG TABLET PO SCH ×3 (08:56→21:14)
[2016-12-21] MEDS: METOPROLOL SUCCINATE XL 25 MG TABLET PO SCH ×3 (08:56→21:14)
[2016-12-21] MEDS: OCTREOTIDE 100 MCG/ML SYRINGE SUBCUT SCH ×3 (08:57→21:18)
[2016-12-21] MEDS: FERROUS SULFATE 325 MG TABLET PO SCH (08:57)
[2016-12-21] MEDS: FOLIC ACID 1 MG TABLET PO SCH (08:57)
[2016-12-21] MEDS: THIAMINE 100 MG TABLET PO SCH (08:57)
[2016-12-21] MEDS: PANTOPRAZOLE 40 MG TABLET PO SCH (08:57)
[2016-12-21] MEDS: FUROSEMIDE 40 MG/4 ML VIAL IV SCH ×2 (08:57→15:56)
[2016-12-21] MEDS: MULTIVITAMIN (CENTRUM) TABLET PO SCH (09:10)
--- NOTE | 2016-12-21 11:43 | Gastrointestinal Progress Note ---
Assessment and Plan (1) Hepatic cirrhosis Status: Chronic Assessment and plan: 12/21-Creatnine 2.6, wt unchanged. Ammonia down to 67. Plan and addendum to follow by Dr Vidal. 12/20-Creatnine 3.1, wt up 3 kg. Octeotride and Midodrone started. Recheck ammonia level. Noted pt receiving Mirilax and not lactulose at present.Will add Lactulose 30cc q 6 hours. Plan and addendum to follow by DR Vidal. 12/17-Creatnine 3.3. Post thoracentesis today. [facility] records noted. Plan and addendum to follow by Dr Vidal. 12/16-Records pending from [facility]. Creatnine elevated at 2.7. Weight unchanged. Tolerating diet. Plan and addendum to follow by Dr Vidal. 12/15-Hx of hepatic cirrhosis with long standing alcohol use now presenting with pleural effusion, post thoracentesis. Elevated creatnine with no knowledge of baseline. Ascites managed at home with diuretics, diet. Us shows small amount of ascites, nodular liver. Plan and addendum to follow by Dr Vidal. Current Visit: Yes Gastroenterology - PN: Subj Interval history: CC: Cirrhosis Pt is seen, awake and alert sitting up in chair. She is more oriented today than she was on yesterday. She denies any pain at present. States she has had a bowel movement last night. Ammonia level is back down to 67 today. Her creatnine is also down at 2.6 today. Wt unchanged at present time. Abdomen is soft, nontender. ROS: Denies SOB or chest pain Exam (Progress Note) - Constitutional Vitals: Period Temp Pulse Resp BP Sys/Pastor Pulse Ox Last 24 Hr 96.5 F-98.2 F 72-119 15-24 103-124/61-68 80-99 General appearance: no acute distress, over weight - Head Head exam: Present: normal inspection, normocephalic - Eye Eye exam: Present: other (lids and conjunctiva unremarkable). Absent: scleral icterus - ENT ENT exam: Present: normal exam, normal oropharynx - Neck Neck exam: Present: normal inspection - Respiratory Respiratory exam: Present: clear to auscultation bilaterally. Absent: rales, rhonchi, wheezes - Cardiovascular Cardiovascular exam: Present: regular rate and rhythm. Absent: diastolic murmur , JVD, systolic murmur - GI/Abdominal GI/Abdominal exam: Present: normal bowel sounds, soft. Absent: ascites, distended, mass, organomegaly, tenderness - Extremities Exam Extremities exam: Present: normal inspection, full ROM - Back Exam Back exam: Present: normal inspection - Neurological Exam Neurological exam: Present: alert, oriented X3 - Psychiatric Psychiatric exam: Present: normal affect, normal mood - Skin Skin exam: Present: normal color, warm, dry Results - Labs CBC & BMP: 12/21/16 05:07 12/21/16 05:07 Lab Results: I have reviewed the past 24 hour labs
--- NOTE | 2016-12-21 11:46 | Hospitalist Progress Note ---
Assessment and Plan (1) Pleural effusion, right Status: Acute Current Visit: Yes (2) Status post thoracentesis Status: Acute Current Visit: Yes (3) Alcoholic cirrhosis Status: Acute Current Visit: Yes (4) COPD (chronic obstructive pulmonary disease) Status: Acute Current Visit: Yes (5) Anemia of chronic disease Status: Acute Current Visit: Yes (6) Acute UTI Status: Acute Current Visit: Yes (7) Hepatorenal syndrome Status: Acute Current Visit: Yes (8) Hepatic encephalopathy Status: Acute Current Visit: Yes (9) Acute renal failure due to tubular necrosis Status: Acute Assessment and plan: Plan: Continue albumin infusion, we'll transfuse 2 units packed red blood cells today. No zana GI/ blood loss. GI discussing possibility of TIPS procedure. Otherwise we'll repeat a chest x-ray in the morning to assess whether she is reaccumulating pleural fluid. Otherwise continue supportive care. We'll add Diflucan for heavy yeast on urine culture 12/19: Transfer back up to the floor, continue rate controlling meds, be judicious of dropping her blood pressure. Blood counts are stable status post transfusion. Renal function is still suboptimal but about the same. Nephrology will see today. Continue supportive care otherwise. 12/20: Octreotide and midodrine have been started. Blood counts remain stable, renal function slightly better today. Blood pressure better today. 12/21: Continue Chronulac, recheck ammonia in the morning. Start diuretics and watch renal function carefully. Blood counts otherwise stable and renal function continues to improve slowly Current Visit: Yes Hospitalist: Subjective Interval history: Ms. Greco is sitting in the chair, appears comfortable. Her ammonia is over 200 however she is awake and seems alert. Apparently she had considerable amount of stool output last night. We'll continue with the lactulose and repeat ammonia in the morning. She denies chest pain, shortness of breath or abdominal pain. Exam - Constitutional Vitals: Period Temp Pulse Resp BP Sys/Pastor Pulse Ox Last 24 Hr 96.5 F-98.2 F 72-119 15-24 103-124/61-68 80-99 Exam: EXAM: CONSTITUTIONAL: non toxic, NAD HEENT: NC, AT, OP benign, PAPITO, EOMI CV: Irregular no m/g/r RESP: Decreased breath sounds at the bases otherwise clear, some dullness at the right base GI: abd soft, NT, ND, +bowel sounds INTEGUMENTARY: Multiple telangiectasias EXTREMITIES: 2+ pitting edema of the lower extremities, mild improvement from yesterday NEURO: no focal deficits PSYCH: unremarkable, A/O x3 Results - Labs CBC & BMP: 12/21/16 05:07 12/21/16 05:07 Lab Results: I have reviewed the past 24 hour labs
[2016-12-21] MEDS: FLUCONAZOLE IV SCH (13:57)
--- NOTE | 2016-12-21 17:01 | Cardiology Progress Note ---
Melia Madrid April RN, am scribing for, and in the presence of, Melvin Iverson MD 17 :00. Assessment and Plan (1) Atrial fibrillation with RVR Status: Acute Assessment and plan: 56-year-old female, with cirrhosis, hepatorenal syndrome, diastolic CHF, anasacrca. Atrial fibrillation, preserved systolic function. Anemia -AF. Rate better controlled. Switch Toprol XL to 50 mg bid -No anticoagulation due to high bleeding risk, anemia -Anasarca. REBECCA limiting diuresis, followed by renal. Now in iv Lasix. Poor prognosis due to hepatorenal sy Current Visit: Yes (2) Acute dyspnea Status: Acute Current Visit: Yes (3) Congestive heart failure Status: Acute Current Visit: Yes (4) Edema of foot Status: Chronic Current Visit: Yes (5) Pleural effusion on right Status: Acute Assessment and plan: Right thoracentesis 12/14/16. Current Visit: Yes (6) Ascites Status: Chronic Current Visit: Yes (7) Chronic obstructive pulmonary disease Status: Chronic Current Visit: Yes (8) Former smoker Status: Chronic Current Visit: No (9) Hepatic cirrhosis Status: Chronic Current Visit: Yes (10) History of alcoholism Status: Chronic Current Visit: No Cardiology - PN: Subj Interval history: Patient is seen sitting up in chair in no acute distress. Oxygen in use via NBP , reports her breathing is better. Denies any chest pain or palpitations. Reports she does have some dizziness when she stands up quickly. Reports she was very short of breath during the night. She also says she was very confused and having hallucinations during the night. This is improved today, and she is not confused at all. Ammonia level has improved to 67. Exam (Progress Note) - Constitutional Vitals: Period Temp Pulse Resp BP Sys/Pastor Pulse Ox Last 24 Hr 96.5 F-98.2 F 72-119 15-24 103-124/61-68 80-99 General appearance: no acute distress, over weight - Head Head exam: Absent: abrasion, hematoma - Eye Eye exam: Absent: periorbital swelling, laceration to eyelids - Neck Neck exam: Absent: tenderness - Respiratory Respiratory exam: Present: clear to auscultation bilaterally. Absent: accessory muscle use, chest wall tenderness - Cardiovascular Cardiovascular exam: Present: irregular rhythm - GI/Abdominal GI/Abdominal exam: Present: normal bowel sounds, soft. Absent: distended, tenderness - Extremities Exam Extremities exam: Present: edema (4+ to bilateral lower extremities) - Neurological Exam Neurological exam: Present: alert, oriented X3 - Psychiatric Psychiatric exam: Present: normal affect, normal mood - Skin Skin exam: Present: warm, dry Result/EKG - Labs CBC & BMP: 12/21/16 05:07 12/21/16 05:07 Lab Results: I have reviewed the past 24 hour labs Labs: Laboratory Results - last 24 hr 12/21/16 12/21/16 12/21/16 05:07 05:07 11:04 WBC 7.5 RBC 2.99 L Hgb 9.0 L Hct 27.0 L MCV 90.3 MCH 30 MCHC 33.3 RDW 17.2 Plt Count 98 L MPV 10.2 Neut % (Auto) 75.9 H Lymph % (Auto) 13.0 L [place] % (Auto) 8.3 Eos % (Auto) 2.0 Baso % (Auto) 0.3 Neut # (Auto) 5.7 Lymph # (Auto) 1.0 L [place] # (Auto) 0.6 Eos # (Auto) 0.2 Baso # (Auto) 0.0 Immature Gran % 0.5 Nucleated RBC % 0.0 Immature Gran # 0.04 Nucleated RBCs # 0.00 Platelet Estimate Decreased Hypochromasia 1+ Ovalocytes Slight Morphology Comment Sodium 137 Potassium 4.9 Chloride 99 Carbon Dioxide 27 Anion Gap 15.9 H BUN 47 H Creatinine 2.60 H GFR Calculation 27 BUN/Creatinine Ratio 18.00 Glucose 114 H Calculated Osmolality 285.8 Calcium 9.1 Magnesium 2.6 H Ammonia 67 H - EKG EKG results: interpreted by me EKG shows: atrial fibrillation Zayra Madrid Attila, MD, personally performed the services described in this documentation, ascribed by Maria Fernanda Cárdenas RN in my presence, and it is both accurate and complete .
[2016-12-21] MEDS: traZODone 50 MG TABLET PO SCH (21:15)
[2016-12-21] MEDS: LEVOFLOXACIN INJ 250 MG in PREMIX 1 EACH IV SCH (21:20)
[2016-12-22] MEDS: LACTULOSE 20 GM/30 ML UDCUP PO SCH ×4 (01:42→18:13)
[2016-12-22] MEDS: ALBUMIN 25% 25 GM in PREMIX 1 EACH IV SCH ×4 (03:46→23:21)
[2016-12-22 04:11] LABS: Basophils % 0.1 % (0.0-0.8); Eosinophils # 0.2 10*3/uL (0.0-0.87); Eosinophils % 2.8 % (0.00-10.9); Hematocrit 26.8 VOL% (35.7-47.0); Hemoglobin 8.6 GM/DL (12.0-16.0); Immature Granulocytes % 0.6 %; Immature Granulocytes Absolute 0.04 #; Lymphocytes # 1.1 10*3/uL (1.4-4.0); Lymphocytes % 15.6 % (21.3-54.2); Mean Corpuscular HGB Conc 32.1 GM/DL (32-36); Mean Corpuscular Hemoglobin 30 PG (27-34); Mean Corpuscular Volume 93.7 FL (87-102); Mean Platelet Volume 10.1 FL (9.6-12.0); Monocytes # 0.6 10*3/uL (0.11-0.8); Monocytes % 8.7 % (1.7-12.7); Neutrophils # 4.9 10*3/uL (1.4-7.4); Neutrophils % 72.2 % (38.7-73.9); Platelet Count 86 T/CUMM (130-400); Red Blood Count 2.86 MC/CUMM (3.8-5.5); Red Cell Distribution Width 16.9 % (9.3-17.3); White Blood Count 6.8 T/CUMM (4-12)
[2016-12-22 04:38] LABS: Band Neutrophils 1 % (0-10); Eosinophils 1 % (0-10); Lymphocytes 13 % (20-55); Myelocytes 1 %; Segmented Neutrophils 82 % (50-85); Total Cells Counted 100
[2016-12-22 04:39] LABS: Anisocytosis 1+; Hypochromasia Slight; Platelet Estimate Decreased
[2016-12-22 04:40] LABS: Calcium 9.2 MG/DL (8.5-10.1); Osmolality,Calculated 288.5 MOS/KG (273-304); Potassium 4.4 MMOL/L (3.5-5.1)
[2016-12-22] MEDS: traMADol 50 MG TABLET PO PRN ×2 (04:41→21:45)
[2016-12-22 04:46] LABS: Albumin 4.4 G/DL (3.4-5.0); Bilirubin,Total 3.2 MG/DL (0.2-1.0); Calcium 9.3 MG/DL (8.5-10.1); Potassium 4.4 MMOL/L (3.5-5.1); Total Protein 6.5 G/DL (6.4-8.3)
--- NOTE | 2016-12-22 07:21 | Pulmonology Progress Note ---
Pulmonary - PN: Subj Interval history: This 56-year-old white female has cirrhosis and anasarca. She had a right thoracentesis yesterday with removal of 1200 mL of straw-colored fluid. The fluid appears to be a transudate. Cytology and cultures are pending. Creatinine has risen to 2.0 and she's not making a lot of urine. I'm concerned about hepato-renal syndrome. We need to have GI to see her. She feels better and is more alert. Her weight does not reflect fluid loss. 12/16/16 Patient's breathing is a little better. She has a large right pleural effusion and apparently has ascites. Also has marked peripheral edema. Basically anasarca. Diuretics were held by GI because of worsening renal function. Difficult situation. We will re-x-ray her in the morning and if she still has large right pleural effusion I will tap her. Not a candidate for an indwelling drain. Has transudative pleural effusions due to liver disease. 12/17/2016 Patient still quite short of breath at rest. Chest x-ray has shown the right pleural effusion looks different than it did prior to the earlier thoracentesis. Plan for thoracentesis this morning. Hematocrit is down to 24. Creatinine up to 3.3. Difficult situation with patient with advanced cirrhosis and anasarca with rising creatinine. Need nephrology to see. 12/18/16 patient feeling much better post thoracentesis. Hematocrit stable at 23. Creatinine stable at 3.3. Nephrology has been consulted but has not seen yet. Patient relates that Dr. Vidal told her they would look into a TIPS procedure. She overall looks a little better this morning. Hopefully her renal function is turning around. Recheck x-ray tomorrow. 12/19/2016 patient was moved to ICU last night because of vomiting. Dr. Chambers has recommended Mitodrine and octreotide. These have not been started. Defer to GI. A nephrology consult was placed Tuesday and she has not been seen yet by nephrology. Patient is alert and does not appear to be short of breath. Her chest x-ray shows a lateral pleural effusions worse on the right than the left but still improved since with did tap 2 days ago. Patient apparently has hepatorenal syndrome. 12/20/16 patient is fairly stable. She has some recurrence of her right pleural effusion but not nearly as bad as before. We will defer to nephrology as far as any further diuretics because of her hepatorenal syndrome. I note that octreotide and Midodrin have been started. 12/21/2016 O2 sats acceptable. Weight is stable. Good urine output. She did not have bowel movements after the Chronulac. Defer to GI. 12/22/2016 patient is sitting up and having no respiratory distress. Still has moderate pleural effusions. Weight is stable. Creatinine is following. Defer to nephrology as far as when to add diuretics back. No need for thoracentesis at present. Exam (Progress Note) - Constitutional Vitals: Period Temp Pulse Resp BP Sys/Pastor Pulse Ox Last 24 Hr 96.8 F-98 F 16-123 16-20 103-124/57-69 90-99 Exam: Patient is alert seated in chair. Seems oriented. Vital signs show an O2 sat in the mid 90s on nasal oxygen. Pulse is 80 and irregular with atrial fibrillation. Afebrile. Pupils react to light. She is jaundiced. Throat is clear. Neck supple no bruits. Still has some jugular venous distention. Chest reveals clear breath sounds at the right base. I hear a few crackles, with slight dullness there. Heart irregular without murmur. Abdomen grand obese probably has ascites. Extremities marked edema in both lower extremities , 3+, calves nontender. Results - Labs CBC & BMP: 12/22/16 03:24 12/22/16 03:24 Lab Results: I have reviewed the past 24 hour labs - Diagnostic Findings Procedure: Chest x-ray: image reviewed by me (moderate right pleural effusion little change from last one.) Assessment and Plan (1) Anasarca Status: Acute Assessment and plan: This is likely due to her severe liver disease. I'm concerned about hepatorenal syndrome. LV function was normal on echo. BNP is only slightly elevated at 400. 12/16/16 appears to be due to advanced hepatic cirrhosis. Diuresing her has made her renal function worse. We will repeat x-rays tomorrow and tap right chest if still large effusion. However this will not take care of the problem long-term. 12/17/2016 anasarca due to advanced cirrhosis. Prognosis guarded. Unable to safely diurese with her renal function getting worse. 12/18/16 anasarca due to advanced cirrhosis. GI seeing. Worsening renal function after diuresis. Nephrology to see. 12/19/2016 this is due to end-stage cirrhosis. Renal function does not allow diuresis. GI and nephrology are to follow. 12/20/2016 end-stage cirrhosis with anasarca. Hepatorenal syndrome. Defer to nephrology as far as diuretics are concerned. 12/21/2016 less edema than before. Recheck x-ray tomorrow. 12/22/2016 status stable. Needs further diuresis if her renal function can tolerate. Current Visit: Yes (2) Pleural effusion on right Status: Acute Assessment and plan: Right pleural effusion is a transudate. This would fit with liver disease as a cause. Other considerations would be congestive heart failure or nephrotic syndrome. She has known cirrhosis. Needs cautious diuresis watching her renal function. 12/16/16 this has recurred. Likely will re-tap tomorrow. 12/17/2016 we will do repeat thoracentesis today. 12/18/16 pleural fluid is pending as far as cultures and cytology. We did not repeat chemistries on this specimen. 12/19/2016 patient's dyspnea is improved. Watching right effusion. Can tap again if need be. 12/20/16 patient is not in respiratory distress. She does have a slowly enlarging recurrent right pleural effusion. I can tap if need be in a couple of days. Hopefully we can manage this with diuresis of some form. 12/21/2016 She has had 2 thoracenteses. O2 sat is stable. Recheck x-ray tomorrow. 12/22/2016 transudate if pleural effusions related to her chronic liver disease. Plans are for repeat thoracentesis if she has respiratory distress. Current Visit: Yes (3) Hepatic cirrhosis Status: Chronic Assessment and plan: Clearly has cirrhosis. Likely the cause of her fluid retention. Watch for hepatorenal syndrome. 12/16/16 GI is seeing. They're wanting to get some old records on her. 12/18/16 advanced cirrhosis. 12/19/2016 end-stage cirrhosis. Patient would not be candidate for liver transplant until she has been off alcohol for 6 months. Presently has been a little over one month. 12/20/2016 end-stage cirrhosis. Has been getting albumin. Started on octreotide and middle drained yesterday. 12/21/2016 reports that she did not have bowel movements after getting Chronulac. Defer to GI. 12/22/2016 being followed by GI. Current Visit: Yes (4) Atrial fibrillation with RVR Status: Acute Assessment and plan: Heart rate is 105, persistent atrial fibrillation. Controlling weight medications. Cardiology following. 12/16/16 rate is controlled at 100. 12/17/2016 rate controlled. 12/18/16 rate is controlled. 12/19/2016 rate controlled at around 80. Current Visit: Yes
--- NOTE | 2016-12-22 07:31 | XRay Report ---
XR chest 1V portable Indication: Pleural effusion Comparison: 20 December 2016 Findings: The heart and mediastinum are stable in size and configuration. The pulmonary vascularity is decreased with bilateral decrease in interstitial lung density. Pleural effusions are present, similar to previous exam. No other other lung infiltrates, effusions, pneumothorax or other abnormality is demonstrated. Impression: Findings suggest improvement cardiac decompensation. PROCEDURE INTERPRETED AT [facility] DEPARTMENT OF RADIOLOGY Final Report Signed by: Dr. Rajendra Waller
[2016-12-22] MEDS: IPRATROPIUM 500 MCG/2.5 ML NEB RESP TX SCH ×3 (08:00→23:56)
--- NOTE | 2016-12-22 08:23 | Nephrology Progress Note ---
Nephrology - PN: Subj Interval history: Patient feels better today. She denies shortness of breath. Review of systems GI she states she had a good bowel movement yesterday. Physical exam general patient's in no acute distress Assessment/plan 1. Acute renal failure-this patient's creatinine is 2.4 mg/dL down from 2.6 mg/dL, this despite restarting diuretics 2. Volume overload-patient was started on Lasix 40 mg IV twice a day yesterday , her weight is actually a little increased from yesterday if this trend continues I'll bump up her Lasix to perhaps 80 mg 3 times a day and consider starting some Zaroxolyn 3. Liver cirrhosis Exam (PN)-Nephrology - Vital Signs Vital signs: Period Temp Pulse Resp BP Sys/Pastor Pulse Ox Last 24 Hr 96.8 F-97.9 F 16-123 16-20 103-116/57-69 90-99 - Lab 12/22/16 03:24 12/22/16 03:24 Most recent lab results ABG pH 7.345 (7.35-7.45) L 12/14/16 08:15 ABG pCO2 53.5 MM HG (35-48) H 12/14/16 08:15 ABG pO2 56.2 MM HG (80-95) L 12/14/16 08:15 ABG HCO3 26.6 MMOL/L (20-26) H 12/14/16 08:15 ABG O2 Saturation 86.1 % (95-100) L 12/14/16 08:15 Calcium 9.3 MG/DL (8.5-10.1) 12/22/16 03:24 Magnesium 2.6 MG/DL (1.8-2.4) H 12/21/16 05:07 Assessment and Plan (1) REBECCA (acute kidney injury) Status: Acute Assessment and plan: I suspect this patient has a hepatorenal syndrome developing, I'll check a spot urine microalbumin to creatinine ratio and a fractional excretion of urinary sodium. I agree with a limited trial of albumin and holding her diuretics for now. Current Visit: Yes (2) Alcoholic cirrhosis Status: Acute Current Visit: Yes (3) Anasarca Status: Acute Current Visit: Yes (4) Anemia of chronic disease Status: Acute Assessment and plan: Patient's hematocrit around 25% Current Visit: Yes (5) COPD (chronic obstructive pulmonary disease) Status: Acute Current Visit: Yes (6) Status post thoracentesis Status: Acute Current Visit: Yes (7) Former smoker Status: Chronic Current Visit: No
[2016-12-22] MEDS: METOPROLOL SUCCINATE XL 25 MG TABLET PO SCH ×2 (10:16→21:41)
[2016-12-22] MEDS: FUROSEMIDE 40 MG/4 ML VIAL IV SCH ×2 (10:16→17:18)
[2016-12-22] MEDS: MULTIVITAMIN (CENTRUM) TABLET PO SCH (10:16)
[2016-12-22] MEDS: PANTOPRAZOLE 40 MG TABLET PO SCH (10:17)
[2016-12-22] MEDS: MIDODRINE 5 MG TABLET PO SCH ×3 (10:17→21:44)
[2016-12-22] MEDS: FOLIC ACID 1 MG TABLET PO SCH (10:17)
[2016-12-22] MEDS: POTASSIUM CHLORIDE 20 MEQ TABLET PO SCH (10:17)
[2016-12-22] MEDS: THIAMINE 100 MG TABLET PO SCH (10:17)
[2016-12-22] MEDS: OCTREOTIDE 100 MCG/ML SYRINGE SUBCUT SCH ×3 (10:18→21:41)
[2016-12-22] MEDS: FERROUS SULFATE 325 MG TABLET PO SCH (10:18)
[2016-12-22] MEDS: POLYETHYLENE GLYCOL POWDER 17 GM PACK PO SCH (10:18)
--- NOTE | 2016-12-22 10:44 | Hospitalist Progress Note ---
Assessment and Plan - Time spent with patient Time spent with patient: Less than 30 minutes (1) Acute diastolic CHF (congestive heart failure) Status: Acute Assessment and plan: ECHO showed EF 65% Current Visit: Yes (2) REBECCA (acute kidney injury) Status: Acute Assessment and plan: creatinine is 2.[address] Sierra following. on lasix 40 IV BID, weight actually increased. He states that if she continues to trend upward that he will bump to 80 mg TID and consider zaroxolyn. Current Visit: Yes (3) Acute dyspnea Status: Acute Assessment and plan: likely multifactorial--- pleural effusions, a fib RVR, CHF and copd Current Visit: Yes (4) Anasarca Status: Acute Current Visit: Yes (5) Atrial fibrillation with RVR Status: Acute Current Visit: Yes (6) Pleural effusion on right Status: Acute Assessment and plan: Dr. Daniel is following for Pulmonary. Current Visit: Yes (7) Chronic obstructive pulmonary disease Status: Chronic Assessment and plan: home o2 at night Current Visit: Yes (8) Hepatic cirrhosis Status: Chronic Assessment and plan: Dr. Vidal with GI following on aldactone Current Visit: Yes (9) History of alcoholism Status: Chronic Current Visit: No Hospitalist: Subjective Interval history: Ms. Greco was seen on rounds today sitting up in the chair. She says that she is feeling good. Her H/H has dropped from 07/27 yesterday to 06/25 today. She denies any obvious bleeding, and has history of anemia of chronic disease. She did require 2 units of PRBC's on admission for H/H of 05/22. Her renal failure is improving slightly. Creatinine is 2.4 today from 2.6 yesterday. Lungs clear, no difficulty breathing. We will continue to monitor. Exam - Constitutional Vitals: Period Temp Pulse Resp BP Sys/Pastor Pulse Ox Last 24 Hr 96.8 F-97.9 F 16-123 16-20 103-116/57-69 90-99 General appearance: no acute distress, morbidly obese - Head Head exam: Present: normal inspection, normocephalic - Eye Eye exam: Present: EOMI. Absent: scleral icterus Pupils: Present: PAPITO, normal accommodation - ENT ENT exam: Present: normal exam, normal oropharynx - Neck Neck exam: Present: normal inspection. Absent: lymphadenopathy - Respiratory Respiratory exam: Present: clear to auscultation bilaterally. Absent: accessory muscle use - Cardiovascular Cardiovascular exam: Present: regular rate and rhythm - GI/Abdominal GI/Abdominal exam: Present: normal bowel sounds, soft. Absent: tenderness - Extremities Exam Extremities exam: Present: normal inspection. Absent: edema - Back Exam Back exam: Present: normal inspection. Absent: muscle spasm - Neurological Exam Neurological exam: Present: alert, oriented X3 - Psychiatric Psychiatric exam: Present: normal affect, normal mood - Skin Skin exam: Present: normal color, warm, dry, intact Results - Labs CBC & BMP: 12/22/16 03:24 12/22/16 03:24 Lab Results: I have reviewed the past 24 hour labs
--- NOTE | 2016-12-22 10:51 | Gastrointestinal Progress Note ---
Assessment and Plan (1) Hepatic cirrhosis Status: Chronic Assessment and plan: 12/22-Creatnine 2.4, no changes in wt. Ammonia 112, having bowel movements and well oriented. Hgb down slightly at 8.6 in absence of overt bleeding. Plan and addendum to follow by Dr Vidal. 12/21-Creatnine 2.6, wt unchanged. Ammonia down to 67. Plan and addendum to follow by Dr Vidal. 12/20-Creatnine 3.1, wt up 3 kg. Octeotride and Midodrone started. Recheck ammonia level. Noted pt receiving Mirilax and not lactulose at present.Will add Lactulose 30cc q 6 hours. Plan and addendum to follow by DR Viadl. 12/17-Creatnine 3.3. Post thoracentesis today. [facility] records noted. Plan and addendum to follow by Dr Vidal. 12/16-Records pending from [facility]. Creatnine elevated at 2.7. Weight unchanged. Tolerating diet. Plan and addendum to follow by Dr Vidal. 12/15-Hx of hepatic cirrhosis with long standing alcohol use now presenting with pleural effusion, post thoracentesis. Elevated creatnine with no knowledge of baseline. Ascites managed at home with diuretics, diet. Us shows small amount of ascites, nodular liver. Plan and addendum to follow by Dr Vidal. Current Visit: Yes Gastroenterology - PN: Subj Interval history: CC: Cirrhosis Pt is seen, sitting up in chair. States she is feeling much better today. She has had 2 bowel movements this morning. Denies any blood in this. She denies any pain, nausea or vomiting. She is tolerating her diet. Creatnine is down to 2.4 today and no changes in her weight at present. Ammonia is elevated today at 112 but she is more alert and oriented today than the previous two days. Abdomen is soft, nontender. Hgb 8.6, no overt bleeding. ROS: Denies SOB or chest pain Exam (Progress Note) - Constitutional Vitals: Period Temp Pulse Resp BP Sys/Pastor Pulse Ox Last 24 Hr 96.8 F-97.9 F 16-123 16-20 103-116/57-69 90-99 - Other Additional findings: General appearance: no acute distress, over weight - Head Head exam: Present: normal inspection, normocephalic - Eye Eye exam: Present: other (lids and conjunctiva unremarkable). Absent: scleral icterus - ENT ENT exam: Present: normal exam, normal oropharynx - Neck Neck exam: Present: normal inspection - Respiratory Respiratory exam: Present: clear to auscultation bilaterally. Absent: rales, rhonchi, wheezes - Cardiovascular Cardiovascular exam: Present: regular rate and rhythm. Absent: diastolic murmur , JVD, systolic murmur - GI/Abdominal GI/Abdominal exam: Present: normal bowel sounds, soft. Absent: ascites, distended, mass, organomegaly, tenderness - Extremities Exam Extremities exam: Present: normal inspection, full ROM - Back Exam Back exam: Present: normal inspection - Neurological Exam Neurological exam: Present: alert, oriented X3 - Psychiatric Psychiatric exam: Present: normal affect, normal mood - Skin Skin exam: Present: normal color, warm, dry Results - Labs CBC & BMP: 12/22/16 03:24 12/22/16 03:24 Lab Results: I have reviewed the past 24 hour labs
--- NOTE | 2016-12-22 16:28 | Cardiology Progress Note ---
Melia Madrid April RN, am scribing for, and in the presence of, Melvin Iverson MD 16 :27. Assessment and Plan (1) Atrial fibrillation with RVR Status: Acute Assessment and plan: 56-year-old female, with cirrhosis, hepatorenal syndrome, diastolic CHF, anasarca. Atrial fibrillation, preserved systolic function. Anemia -AF. Rate better controlled. Cont Toprol XL to 50 mg bid -No anticoagulation due to high bleeding risk, anemia -Anasarca. REBECCA limiting diuresis, followed by renal. Now in iv Lasix. Poor prognosis due to hepatorenal sy -She requested portable oxygen at home. Will ask CM to help with this Current Visit: Yes (2) Acute dyspnea Status: Acute Current Visit: Yes (3) Congestive heart failure Status: Acute Current Visit: Yes (4) Edema of foot Status: Chronic Current Visit: Yes (5) Pleural effusion on right Status: Acute Current Visit: Yes (6) Ascites Status: Chronic Current Visit: Yes (7) Chronic obstructive pulmonary disease Status: Chronic Current Visit: Yes (8) Former smoker Status: Chronic Current Visit: No (9) Hepatic cirrhosis Status: Chronic Current Visit: Yes (10) History of alcoholism Status: Chronic Current Visit: No Cardiology - PN: Subj Interval history: Seen sitting up in chair in no acute distress, oxygen in use via NBP. Denies chest pain, shortness of breath, or palpitations. Is complaining of nausea and dizziness. She says she has had no more confusion or hallucinations. Currently in atrial fibrillation with heart rates ranging from 100-110. [place] nauseated today. had 3 bms. Exam (Progress Note) - Constitutional Vitals: Period Temp Pulse Resp BP Sys/Pastor Pulse Ox Last 24 Hr 96.8 F-97.6 F 16-123 16-20 103-130/57-75 90-99 General appearance: no acute distress, over weight - Head Head exam: Absent: abrasion, hematoma - Eye Eye exam: Absent: periorbital swelling, laceration to eyelids - Neck Neck exam: Absent: tenderness - Respiratory Respiratory exam: Present: clear to auscultation bilaterally, other (oxygen via NBP). Absent: accessory muscle use, chest wall tenderness - Cardiovascular Cardiovascular exam: Present: irregular rhythm - GI/Abdominal GI/Abdominal exam: Present: normal bowel sounds, soft. Absent: distended, tenderness - Extremities Exam Extremities exam: Present: edema (4+ ble) - Neurological Exam Neurological exam: Present: alert, oriented X3 - Psychiatric Psychiatric exam: Present: normal affect, normal mood - Skin Skin exam: Present: warm, dry Result/EKG - Labs CBC & BMP: 12/22/16 03:24 12/22/16 03:24 Lab Results: I have reviewed the past 24 hour labs Labs: Laboratory Results - last 24 hr 12/22/16 12/22/16 12/22/16 03:24 03:24 03:24 WBC 6.8 RBC 2.86 L Hgb 8.6 L Hct 26.8 L MCV 93.7 MCH 30 MCHC 32.1 RDW 16.9 Plt Count 86 L MPV 10.1 Neut % (Auto) 72.2 Lymph % (Auto) 15.6 L [place] % (Auto) 8.7 Eos % (Auto) 2.8 Baso % (Auto) 0.1 Neut # (Auto) 4.9 Lymph # (Auto) 1.1 L [place] # (Auto) 0.6 Eos # (Auto) 0.2 Baso # (Auto) 0.0 Total Counted 100 Immature Gran % 0.6 Nucleated RBC % 0.0 Immature Gran # 0.04 Segmented Neutrophils 82 Band Neutrophils 1 Lymphocytes 13 L Monocytes 2 Eosinophils 1 Myelocytes 1 Nucleated RBCs # 0.00 Platelet Estimate Decreased Hypochromasia Slight Anisocytosis 1+ Sodium 136 139 Potassium 4.4 4.4 Chloride 97 L 98 Carbon Dioxide 30 29 Anion Gap 13.4 16.4 H BUN 42 H 42 H Creatinine 2.40 H 2.40 H GFR Calculation 29 29 BUN/Creatinine Ratio 17.00 17.00 Glucose 110 H 112 H Calculated Osmolality 283.0 288.5 Calcium 9.3 9.2 Total Bilirubin 3.20 H AST 33 ALT 19 Alkaline Phosphatase 72 Ammonia 112 H Total Protein 6.5 Albumin 4.4 Globulin 2.1 L Albumin/Globulin Ratio 2.0 - EKG EKG results: interpreted by me EKG shows: atrial fibrillation Zayra Madrid Attila, MD, personally performed the services described in this documentation, ascribed by Maria Fernanda Cárdenas RN in my presence, and it is both accurate and complete [id number] .
[2016-12-22] MEDS: VANCOMYCIN INJ 2,000 MG in SODIUM CHLORIDE 0.9% 500 ML IV SCH (17:21)
--- NOTE | 2016-12-22 21:39 | Event Note ---
The patient is sitting up in chair. She is doing acceptable. She mentions feeling much better than yesterday. CV:RR LUNGS:clear bilaterally AB: obese, positive bowel sounds.
[2016-12-22] MEDS: ZALEPLON 5 MG CAPSULE PO PRN ×2 (21:42→21:44)
[2016-12-22] MEDS: traZODone 50 MG TABLET PO SCH (21:45)
[2016-12-23] MEDS: LACTULOSE 20 GM/30 ML UDCUP PO SCH ×4 (00:29→18:31)
[2016-12-23] MEDS: ALBUMIN 25% 25 GM in PREMIX 1 EACH IV SCH ×4 (04:21→22:47)
[2016-12-23] MEDS: IPRATROPIUM 500 MCG/2.5 ML NEB RESP TX SCH ×2 (07:00→14:09)
[2016-12-23] MEDS: traMADol 50 MG TABLET PO PRN (07:35)
--- NOTE | 2016-12-23 07:47 | Pulmonology Progress Note ---
Pulmonary - PN: Subj Interval history: This 56-year-old white female has cirrhosis and anasarca. She had a right thoracentesis yesterday with removal of 1200 mL of straw-colored fluid. The fluid appears to be a transudate. Cytology and cultures are pending. Creatinine has risen to 2.0 and she's not making a lot of urine. I'm concerned about hepato-renal syndrome. We need to have GI to see her. She feels better and is more alert. Her weight does not reflect fluid loss. 12/16/16 Patient's breathing is a little better. She has a large right pleural effusion and apparently has ascites. Also has marked peripheral edema. Basically anasarca. Diuretics were held by GI because of worsening renal function. Difficult situation. We will re-x-ray her in the morning and if she still has large right pleural effusion I will tap her. Not a candidate for an indwelling drain. Has transudative pleural effusions due to liver disease. 12/17/2016 Patient still quite short of breath at rest. Chest x-ray has shown the right pleural effusion looks different than it did prior to the earlier thoracentesis. Plan for thoracentesis this morning. Hematocrit is down to 24. Creatinine up to 3.3. Difficult situation with patient with advanced cirrhosis and anasarca with rising creatinine. Need nephrology to see. 12/18/16 patient feeling much better post thoracentesis. Hematocrit stable at 23. Creatinine stable at 3.3. Nephrology has been consulted but has not seen yet. Patient relates that Dr. Vidal told her they would look into a TIPS procedure. She overall looks a little better this morning. Hopefully her renal function is turning around. Recheck x-ray tomorrow. 12/19/2016 patient was moved to ICU last night because of vomiting. Dr. Chambers has recommended Mitodrine and octreotide. These have not been started. Defer to GI. A nephrology consult was placed Tuesday and she has not been seen yet by nephrology. Patient is alert and does not appear to be short of breath. Her chest x-ray shows a lateral pleural effusions worse on the right than the left but still improved since with did tap 2 days ago. Patient apparently has hepatorenal syndrome. 12/20/16 patient is fairly stable. She has some recurrence of her right pleural effusion but not nearly as bad as before. We will defer to nephrology as far as any further diuretics because of her hepatorenal syndrome. I note that octreotide and Midodrin have been started. 12/21/2016 O2 sats acceptable. Weight is stable. Good urine output. She did not have bowel movements after the Chronulac. Defer to GI. 12/22/2016 patient is sitting up and having no respiratory distress. Still has moderate pleural effusions. Weight is stable. Creatinine is following. Defer to nephrology as far as when to add diuretics back. No need for thoracentesis at present. 12/23/2016 renal function is getting better. Patient still quite weak. She is asking for portable oxygen at home. Already has concentrated. Will get secondary social studies teacher to work on. Exam (Progress Note) - Constitutional Vitals: Period Temp Pulse Resp BP Sys/Pastor Pulse Ox Last 24 Hr 96.8 F-98.3 F 73-98 16-20 106-130/57-75 90-99 Exam: Patient is alert seated in chair. Seems oriented. Vital signs show an O2 sat in the mid 90s on nasal oxygen. Pulse is 80 and irregular with atrial fibrillation. Afebrile. Pupils react to light. She is jaundiced. Throat is clear. Neck supple no bruits. Still has some jugular venous distention. Chest reveals clear breath sounds at the right base. I hear a few crackles, with slight dullness there. Heart irregular without murmur. Abdomen grand obese probably has ascites. Extremities marked edema in both lower extremities , 3+, calves nontender. Little change from yesterday. Results - Labs CBC & BMP: 12/22/16 03:24 12/22/16 03:24 Lab Results: I have reviewed the past 24 hour labs Assessment and Plan (1) Anasarca Status: Acute Assessment and plan: This is likely due to her severe liver disease. I'm concerned about hepatorenal syndrome. LV function was normal on echo. BNP is only slightly elevated at 400. 12/16/16 appears to be due to advanced hepatic cirrhosis. Diuresing her has made her renal function worse. We will repeat x-rays tomorrow and tap right chest if still large effusion. However this will not take care of the problem long-term. 12/17/2016 anasarca due to advanced cirrhosis. Prognosis guarded. Unable to safely diurese with her renal function getting worse. 12/18/16 anasarca due to advanced cirrhosis. GI seeing. Worsening renal function after diuresis. Nephrology to see. 12/19/2016 this is due to end-stage cirrhosis. Renal function does not allow diuresis. GI and nephrology are to follow. 12/20/2016 end-stage cirrhosis with anasarca. Hepatorenal syndrome. Defer to nephrology as far as diuretics are concerned. 12/21/2016 less edema than before. Recheck x-ray tomorrow. 12/22/2016 status stable. Needs further diuresis if her renal function can tolerate. 12/23/2016 weight is stable. A little less edema. Current Visit: Yes (2) Pleural effusion on right Status: Acute Assessment and plan: Right pleural effusion is a transudate. This would fit with liver disease as a cause. Other considerations would be congestive heart failure or nephrotic syndrome. She has known cirrhosis. Needs cautious diuresis watching her renal function. 12/16/16 this has recurred. Likely will re-tap tomorrow. 12/17/2016 we will do repeat thoracentesis today. 12/18/16 pleural fluid is pending as far as cultures and cytology. We did not repeat chemistries on this specimen. 12/19/2016 patient's dyspnea is improved. Watching right effusion. Can tap again if need be. 12/20/16 patient is not in respiratory distress. She does have a slowly enlarging recurrent right pleural effusion. I can tap if need be in a couple of days. Hopefully we can manage this with diuresis of some form. 12/21/2016 She has had 2 thoracenteses. O2 sat is stable. Recheck x-ray tomorrow. 12/22/2016 transudate if pleural effusions related to her chronic liver disease. Plans are for repeat thoracentesis if she has respiratory distress. 12/23/2016 recheck x-ray tomorrow. She does not need a thoracentesis at present. She is back on Lasix per nephrology. Hopefully can mobilize fluid with that. Current Visit: Yes (3) Hepatic cirrhosis Status: Chronic Assessment and plan: Clearly has cirrhosis. Likely the cause of her fluid retention. Watch for hepatorenal syndrome. 12/16/16 GI is seeing. They're wanting to get some old records on her. 12/18/16 advanced cirrhosis. 12/19/2016 end-stage cirrhosis. Patient would not be candidate for liver transplant until she has been off alcohol for 6 months. Presently has been a little over one month. 12/20/2016 end-stage cirrhosis. Has been getting albumin. Started on octreotide and middle drained yesterday. 12/21/2016 reports that she did not have bowel movements after getting Chronulac. Defer to GI. 12/22/2016 being followed by GI. Current Visit: Yes (4) Atrial fibrillation with RVR Status: Acute Assessment and plan: Heart rate is 105, persistent atrial fibrillation. Controlling weight medications. Cardiology following. 12/16/16 rate is controlled at 100. 12/17/2016 rate controlled. 12/18/16 rate is controlled. 12/19/2016 rate controlled at around 80. 12/23/2016 her rate is controlled. Current Visit: Yes
[2016-12-23] MEDS: FUROSEMIDE 40 MG/4 ML VIAL IV SCH ×3 (08:58→21:21)
[2016-12-23] MEDS: ONDANSETRON 4 MG/2 ML VIAL IV PRN (08:58)
[2016-12-23] MEDS: OCTREOTIDE 100 MCG/ML SYRINGE SUBCUT SCH ×3 (09:02→21:22)
[2016-12-23] MEDS: THIAMINE 100 MG TABLET PO SCH (09:03)
[2016-12-23] MEDS: MULTIVITAMIN (CENTRUM) TABLET PO SCH (09:03)
[2016-12-23] MEDS: POTASSIUM CHLORIDE 20 MEQ TABLET PO SCH (09:03)
[2016-12-23] MEDS: FERROUS SULFATE 325 MG TABLET PO SCH (09:03)
[2016-12-23] MEDS: METOPROLOL SUCCINATE XL 25 MG TABLET PO SCH ×2 (09:03→21:19)
[2016-12-23] MEDS: FOLIC ACID 1 MG TABLET PO SCH (09:03)
[2016-12-23] MEDS: PANTOPRAZOLE 40 MG TABLET PO SCH (09:03)
[2016-12-23] MEDS: MIDODRINE 5 MG TABLET PO SCH ×3 (09:03→21:19)
[2016-12-23] MEDS: POLYETHYLENE GLYCOL POWDER 17 GM PACK PO SCH (09:04)
--- NOTE | 2016-12-23 10:30 | Gastrointestinal Progress Note ---
Assessment and Plan (1) Hepatic cirrhosis Status: Chronic Assessment and plan: 12/23-Lab pending for today. No signs of encephalopathy noted. Having bowel movements. Plan and addendum to follow by DR Vidal. 12/22-Creatnine 2.4, no changes in wt. Ammonia 112, having bowel movements and well oriented. Hgb down slightly at 8.6 in absence of overt bleeding. Plan and addendum to follow by Dr Vidal. 12/21-Creatnine 2.6, wt unchanged. Ammonia down to 67. Plan and addendum to follow by Dr Vidal. 12/20-Creatnine 3.1, wt up 3 kg. Octeotride and Midodrone started. Recheck ammonia level. Noted pt receiving Mirilax and not lactulose at present.Will add Lactulose 30cc q 6 hours. Plan and addendum to follow by DR Vidal. 12/17-Creatnine 3.3. Post thoracentesis today. [facility] records noted. Plan and addendum to follow by Dr Vidal. 12/16-Records pending from [facility]. Creatnine elevated at 2.7. Weight unchanged. Tolerating diet. Plan and addendum to follow by Dr Vidal. 12/15-Hx of hepatic cirrhosis with long standing alcohol use now presenting with pleural effusion, post thoracentesis. Elevated creatnine with no knowledge of baseline. Ascites managed at home with diuretics, diet. Us shows small amount of ascites, nodular liver. Plan and addendum to follow by Dr Vidal. Current Visit: Yes Gastroenterology - PN: Subj Interval history: CC: Cirrhosis Pt is seen, sitting up in chair. States she is feeling better today. She denies any abdominal pain, nausea or vomiting. SHe is having continued bowel movements. Labwork is pending for this morning at present time. Weight is unchanged. She remains alert, no signs of confusion, encephalopathy. Abdomen is soft, nontender. ROS: Denies SOB or chest pain Exam (Progress Note) - Constitutional Vitals: Period Temp Pulse Resp BP Sys/Pastor Pulse Ox Last 24 Hr 96.8 F-98.3 F 73-105 16-20 107-130/57-75 93-99 - Other Additional findings: General appearance: no acute distress, over weight - Head Head exam: Present: normal inspection, normocephalic - Eye Eye exam: Present: other (lids and conjunctiva unremarkable). Absent: scleral icterus - ENT ENT exam: Present: normal exam, normal oropharynx - Neck Neck exam: Present: normal inspection - Respiratory Respiratory exam: Present: clear to auscultation bilaterally. Absent: rales, rhonchi, wheezes - Cardiovascular Cardiovascular exam: Present: regular rate and rhythm. Absent: diastolic murmur , JVD, systolic murmur - GI/Abdominal GI/Abdominal exam: Present: normal bowel sounds, soft. Absent: ascites, distended, mass, organomegaly, tenderness - Extremities Exam Extremities exam: Present: normal inspection, full ROM - Back Exam Back exam: Present: normal inspection - Neurological Exam Neurological exam: Present: alert, oriented X3 - Psychiatric Psychiatric exam: Present: normal affect, normal mood - Skin Skin exam: Present: normal color, warm, dry Results - Labs CBC & BMP: 12/22/16 03:24 12/22/16 03:24 Lab Results: I have reviewed the past 24 hour labs
[2016-12-23 11:28] LABS: Osmolality,Calculated 283.7 MOS/KG (273-304); Potassium 4.2 MMOL/L (3.5-5.1)
--- NOTE | 2016-12-23 12:21 | Nephrology Progress Note ---
Nephrology - PN: Subj Interval history: Patient complains of some nausea. Review of systems pulmonary she states she is breathing okay Physical exam general patient's chronically ill-appearing, she has diffuse edema Assessment/plan 1. Acute renal failure-patient's creatinines improved at 2 mg/ dL 2. Liver cirrhosis 3. Volume overload-I'm going to increase her Lasix to 80 mg thrice a day and start Zaroxolyn 5 mg daily, her weight is unchanged from yesterday Exam (PN)-Nephrology - Vital Signs Vital signs: Period Temp Pulse Resp BP Sys/Pastor Pulse Ox Last 24 Hr 97.2 F-98.3 F 73-105 16-20 107-128/57-72 93-99 - Lab 12/22/16 03:24 12/23/16 10:48 Most recent lab results ABG pH 7.345 (7.35-7.45) L 12/14/16 08:15 ABG pCO2 53.5 MM HG (35-48) H 12/14/16 08:15 ABG pO2 56.2 MM HG (80-95) L 12/14/16 08:15 ABG HCO3 26.6 MMOL/L (20-26) H 12/14/16 08:15 ABG O2 Saturation 86.1 % (95-100) L 12/14/16 08:15 Calcium 9.0 MG/DL (8.5-10.1) 12/23/16 10:48 Magnesium 2.6 MG/DL (1.8-2.4) H 12/21/16 05:07 Assessment and Plan (1) REBECCA (acute kidney injury) Status: Acute Assessment and plan: I suspect this patient has a hepatorenal syndrome developing, I'll check a spot urine microalbumin to creatinine ratio and a fractional excretion of urinary sodium. I agree with a limited trial of albumin and holding her diuretics for now. Current Visit: Yes (2) Alcoholic cirrhosis Status: Acute Current Visit: Yes (3) Anasarca Status: Acute Current Visit: Yes (4) Anemia of chronic disease Status: Acute Assessment and plan: Patient's hematocrit around 25% Current Visit: Yes (5) COPD (chronic obstructive pulmonary disease) Status: Acute Current Visit: Yes (6) Status post thoracentesis Status: Acute Current Visit: Yes (7) Former smoker Status: Chronic Current Visit: No
[2016-12-23] MEDS: metOLazone 5 MG TABLET PO SCH (13:10)
--- NOTE | 2016-12-23 15:02 | Hospitalist Progress Note ---
<Fely El - Last Filed: 12/23/16 15:00> Assessment and Plan - Time spent with patient Time spent with patient: Less than 30 minutes (due to assessment, plan and documentation) (1) Acute diastolic CHF (congestive heart failure) Status: Acute Assessment and plan: ECHO showed EF 65% Current Visit: Yes (2) REBECCA (acute kidney injury) Status: Acute Assessment and plan: creatinine is 2.[address] Sierra following. on lasix 40 IV BID, weight actually increased. He states that if she continues to trend upward that he will bump to 80 mg TID and consider zaroxolyn. Current Visit: Yes (3) Acute dyspnea Status: Acute Assessment and plan: likely multifactorial--- pleural effusions, a fib RVR, CHF and copd Current Visit: Yes (4) Anasarca Status: Acute Current Visit: Yes (5) Atrial fibrillation with RVR Status: Acute Current Visit: Yes (6) Pleural effusion on right Status: Acute Assessment and plan: Dr. Daniel is following for Pulmonary. Current Visit: Yes (7) Chronic obstructive pulmonary disease Status: Chronic Assessment and plan: home o2 at night Current Visit: Yes (8) Hepatic cirrhosis Status: Chronic Assessment and plan: Dr. Vidal with GI following on aldactone Current Visit: Yes (9) History of alcoholism Status: Chronic Current Visit: No Hospitalist: Subjective Interval history: Ms. Greco is seen sitting up in the chair watching TV and knitting. She states that she is feeling good and has not had significant shortness of breath. She does get a little SOB on exertion per her report. Dr. Sierra has increased her lasix to 80 mg TID and started zaroxolyn 5 mg po daily as her weight is unchanged from yesterday. Hopefully, this will help diurese her and decrease her weight. We will continue to follow along with consultants. Her daughter is to bring O2 equipment to the hospital for when discharge day arrives. Exam - Constitutional Vitals: Period Temp Pulse Resp BP Sys/Pastor Pulse Ox Last 24 Hr 97 F-98.3 F 76-105 16-20 107-128/57-72 93-99 General appearance: no acute distress, morbidly obese - Head Head exam: Present: normal inspection, normocephalic - Eye Eye exam: Present: EOMI. Absent: scleral icterus Pupils: Present: PAPITO, normal accommodation - ENT ENT exam: Present: normal exam, normal oropharynx - Neck Neck exam: Present: normal inspection. Absent: lymphadenopathy - Respiratory Respiratory exam: Present: clear to auscultation bilaterally. Absent: accessory muscle use - Cardiovascular Cardiovascular exam: Present: regular rate and rhythm - GI/Abdominal GI/Abdominal exam: Present: normal bowel sounds, soft. Absent: tenderness - Extremities Exam Extremities exam: Present: normal inspection. Absent: edema - Back Exam Back exam: Present: normal inspection. Absent: muscle spasm - Neurological Exam Neurological exam: Present: alert, oriented X3 - Psychiatric Psychiatric exam: Present: normal affect, normal mood - Skin Skin exam: Present: normal color, warm, dry, intact Results - Labs CBC & BMP: 12/22/16 03:24 12/23/16 10:48 Lab Results: I have reviewed the past 24 hour labs <Moises Diaz Jr. - Last Filed: 12/23/16 20:13> Assessment and Plan (1) Acute renal failure due to tubular necrosis Status: Chronic Current Visit: Yes (2) Alcoholic cirrhosis Status: Chronic Current Visit: Yes (3) Anasarca Status: Acute Current Visit: Yes (4) Former smoker Status: Chronic Current Visit: No (5) History of alcoholism Status: Chronic Current Visit: No Hospitalist: Subjective Interval history: Patient is resting comfortably. Making preparations for discharge home tomorrow. Exam - Constitutional Vitals: Period Temp Pulse Resp BP Sys/Pastor Pulse Ox Last 24 Hr 97 F-98.3 F 76-105 16-20 107-128/57-68 93-99 Results - Labs CBC & BMP: 12/22/16 03:24 12/23/16 10:48
[2016-12-23] MEDS: VANCOMYCIN INJ 2,000 MG in SODIUM CHLORIDE 0.9% 500 ML IV SCH (16:03)
--- NOTE | 2016-12-23 17:59 | Cardiology Progress Note ---
Maurice Madrid Lauren, DENISSE, am scribing for, and in the presence of, Melvin Iverson MD 17: 59. Assessment and Plan - Time spent with patient Time spent with patient: Less than 30 minutes (1) Atrial fibrillation with RVR Status: Acute Assessment and plan: 56-year-old female, with cirrhosis, hepatorenal syndrome, diastolic CHF, anasarca. Atrial fibrillation, preserved systolic function. Anemia -AF. Rate better controlled. Cont Toprol XL to 50 mg bid. SOB improved. -No anticoagulation due to high bleeding risk, anemia -Anasarca. Creat improved. Fair diuresis. Followed by renal. Poor prognosis due to hepatorenal sy Current Visit: Yes (2) Acute dyspnea Status: Acute Current Visit: Yes (3) COPD (chronic obstructive pulmonary disease) Status: Acute Current Visit: Yes (4) Congestive heart failure Status: Acute Current Visit: Yes (5) Pleural effusion, right Status: Acute Current Visit: Yes (6) Ascites Status: Chronic Current Visit: Yes (7) Edema of foot Status: Chronic Current Visit: Yes (8) Hepatic cirrhosis Status: Chronic Current Visit: Yes (9) Former smoker Status: Chronic Current Visit: No (10) History of alcoholism Status: Chronic Current Visit: No Cardiology - PN: Subj Interval history: Patient is sitting up in chair upon exam today. She's in no acute distress. Oxygen is in use via NBP. She denies chest pain, shortness of breath, palpitations. She continues to complain of some nausea and dizziness. Denies further hallucinations or confusion. She remains in atrial fibrillation with rates in the 90's-100's. Yesterday she requested portable O2 at home. Case management is working on this; apparently, she has not been paying the bill for her oxygen. She currently has oxygen at home but it is not portable. Exam (Progress Note) - Constitutional Vitals: Period Temp Pulse Resp BP Sys/Pastor Pulse Ox Last 24 Hr 96.8 F-98.3 F 73-105 16-20 107-130/57-75 93-99 Exam: General appearance: no acute distress, over weight - Head Head exam: Absent: abrasion, hematoma - Eye Eye exam: Absent: periorbital swelling, laceration to eyelids - Neck Neck exam: Absent: tenderness - Respiratory Respiratory exam: Present: clear to auscultation bilaterally, other (oxygen via NBP). Absent: accessory muscle use, chest wall tenderness - Cardiovascular Cardiovascular exam: Present: irregular rhythm - GI/Abdominal GI/Abdominal exam: Present: normal bowel sounds, soft. Absent: distended, tenderness - Extremities Exam Extremities exam: Present: edema (4+ ble), peripheral pulses present and palpable - Neurological Exam Neurological exam: Present: alert, oriented X3 - Psychiatric Psychiatric exam: Present: normal affect, normal mood - Skin Skin exam: Present: warm, dry Result/EKG - Labs CBC & BMP: 12/22/16 03:24 12/23/16 10:48 Lab Results: I have reviewed the past 24 hour labs Labs: Laboratory Results - last 24 hr 12/23/16 10:48 Sodium 138 Potassium 4.2 Chloride 98 Carbon Dioxide 30 Anion Gap 14.2 BUN 32 H Creatinine 2.00 H GFR Calculation 37 BUN/Creatinine Ratio 16.00 Glucose 137 H Calculated Osmolality 283.7 Calcium 9.0 Ammonia 119 H - EKG EKG results: interpreted by me EKG shows: atrial fibrillation Zayra Madrid Attila, MD, personally performed the services described in this documentation, ascribed by Dalila Richards RN in my presence, and it is both accurate and complete [id number] .
[2016-12-23] MEDS: traZODone 50 MG TABLET PO SCH (21:20)
[2016-12-24] MEDS: IPRATROPIUM 500 MCG/2.5 ML NEB RESP TX SCH ×3 (00:18→14:19)
[2016-12-24] MEDS: LACTULOSE 20 GM/30 ML UDCUP PO SCH ×3 (03:41→15:00)
[2016-12-24 04:17] LABS: Calcium 9.4 MG/DL (8.5-10.1); Potassium 3.8 MMOL/L (3.5-5.1)
[2016-12-24] MEDS: ALBUMIN 25% 25 GM in PREMIX 1 EACH IV SCH ×2 (05:32→10:16)
--- NOTE | 2016-12-24 07:48 | XRay Report ---
XR chest 1V portable Indication: Pleural effusion, cirrhosis Comparison: 22 December 2016 Findings: The heart and mediastinum are normal in size and configuration. The pulmonary vascularity is normal in caliber. Bilateral pleural effusions are present similar to previous. No other lung infiltrates, effusions, pneumothorax or other abnormality is demonstrated. Impression: Bilateral pleural effusions, similar in appearance to previous exam. PROCEDURE INTERPRETED AT [facility] DEPARTMENT OF RADIOLOGY Final Report Signed by: Dr. Rajendra Waller
--- NOTE | 2016-12-24 08:08 | Pulmonology Progress Note ---
Pulmonary - PN: Subj Interval history: This 56-year-old white female has cirrhosis and anasarca. She had a right thoracentesis yesterday with removal of 1200 mL of straw-colored fluid. The fluid appears to be a transudate. Cytology and cultures are pending. Creatinine has risen to 2.0 and she's not making a lot of urine. I'm concerned about hepato-renal syndrome. We need to have GI to see her. She feels better and is more alert. Her weight does not reflect fluid loss. 12/16/16 Patient's breathing is a little better. She has a large right pleural effusion and apparently has ascites. Also has marked peripheral edema. Basically anasarca. Diuretics were held by GI because of worsening renal function. Difficult situation. We will re-x-ray her in the morning and if she still has large right pleural effusion I will tap her. Not a candidate for an indwelling drain. Has transudative pleural effusions due to liver disease. 12/17/2016 Patient still quite short of breath at rest. Chest x-ray has shown the right pleural effusion looks different than it did prior to the earlier thoracentesis. Plan for thoracentesis this morning. Hematocrit is down to 24. Creatinine up to 3.3. Difficult situation with patient with advanced cirrhosis and anasarca with rising creatinine. Need nephrology to see. 12/18/16 patient feeling much better post thoracentesis. Hematocrit stable at 23. Creatinine stable at 3.3. Nephrology has been consulted but has not seen yet. Patient relates that Dr. Vidal told her they would look into a TIPS procedure. She overall looks a little better this morning. Hopefully her renal function is turning around. Recheck x-ray tomorrow. 12/19/2016 patient was moved to ICU last night because of vomiting. Dr. Chambers has recommended Mitodrine and octreotide. These have not been started. Defer to GI. A nephrology consult was placed Tuesday and she has not been seen yet by nephrology. Patient is alert and does not appear to be short of breath. Her chest x-ray shows a lateral pleural effusions worse on the right than the left but still improved since with did tap 2 days ago. Patient apparently has hepatorenal syndrome. 12/20/16 patient is fairly stable. She has some recurrence of her right pleural effusion but not nearly as bad as before. We will defer to nephrology as far as any further diuretics because of her hepatorenal syndrome. I note that octreotide and Midodrin have been started. 12/21/2016 O2 sats acceptable. Weight is stable. Good urine output. She did not have bowel movements after the Chronulac. Defer to GI. 12/22/2016 patient is sitting up and having no respiratory distress. Still has moderate pleural effusions. Weight is stable. Creatinine is following. Defer to nephrology as far as when to add diuretics back. No need for thoracentesis at present. 12/23/2016 renal function is getting better. Patient still quite weak. She is asking for portable oxygen at home. Already has concentrated. Will get social services aide to work on. 12/24/2016 x-ray looks a little better. She is responding to diuretics, although the whites do not agree. Renal function is a little better also with creatinine down to 1.9. Does not appear that she will need another thoracentesis at this point. I will check back on Tuesday. Call Dr. Miller this weekend if needed. Exam (Progress Note) - Constitutional Vitals: Period Temp Pulse Resp BP Sys/Pastor Pulse Ox Last 24 Hr 96.9 F-98.3 F 80-97 16-20 103-144/54-68 92-98 Exam: Patient is alert seated in chair. Seems oriented. Vital signs show an O2 sat in the mid 90s on nasal oxygen. Pulse is 80 and irregular with atrial fibrillation. Afebrile. Pupils react to light. She is jaundiced. Throat is clear. Neck supple no bruits. Still has some jugular venous distention. Chest reveals clear breath sounds at the right base. I hear a few crackles, with slight dullness there. Heart irregular without murmur. Abdomen grand obese probably has ascites. Extremities marked edema in both lower extremities , 2+, calves nontender. Results - Labs CBC & BMP: 12/22/16 03:24 12/24/16 02:13 Lab Results: I have reviewed the past 24 hour labs - Diagnostic Findings Procedure: Chest x-ray: image reviewed by me (Bilateral pleural effusions which are both smaller.) Assessment and Plan (1) Anasarca Status: Acute Assessment and plan: This is likely due to her severe liver disease. I'm concerned about hepatorenal syndrome. LV function was normal on echo. BNP is only slightly elevated at 400. 12/16/16 appears to be due to advanced hepatic cirrhosis. Diuresing her has made her renal function worse. We will repeat x-rays tomorrow and tap right chest if still large effusion. However this will not take care of the problem long-term. 12/17/2016 anasarca due to advanced cirrhosis. Prognosis guarded. Unable to safely diurese with her renal function getting worse. 12/18/16 anasarca due to advanced cirrhosis. GI seeing. Worsening renal function after diuresis. Nephrology to see. 12/19/2016 this is due to end-stage cirrhosis. Renal function does not allow diuresis. GI and nephrology are to follow. 12/20/2016 end-stage cirrhosis with anasarca. Hepatorenal syndrome. Defer to nephrology as far as diuretics are concerned. 12/21/2016 less edema than before. Recheck x-ray tomorrow. 12/22/2016 status stable. Needs further diuresis if her renal function can tolerate. 12/23/2016 weight is stable. A little less edema. 12/24/2016 by physical exam she is losing fluid on a daily basis. Intake and output agree with that. The weights do not agree. Current Visit: Yes (2) Pleural effusion on right Status: Acute Assessment and plan: Right pleural effusion is a transudate. This would fit with liver disease as a cause. Other considerations would be congestive heart failure or nephrotic syndrome. She has known cirrhosis. Needs cautious diuresis watching her renal function. 12/16/16 this has recurred. Likely will re-tap tomorrow. 12/17/2016 we will do repeat thoracentesis today. 12/18/16 pleural fluid is pending as far as cultures and cytology. We did not repeat chemistries on this specimen. 12/19/2016 patient's dyspnea is improved. Watching right effusion. Can tap again if need be. 12/20/16 patient is not in respiratory distress. She does have a slowly enlarging recurrent right pleural effusion. I can tap if need be in a couple of days. Hopefully we can manage this with diuresis of some form. 12/21/2016 She has had 2 thoracenteses. O2 sat is stable. Recheck x-ray tomorrow. 12/22/2016 transudate if pleural effusions related to her chronic liver disease. Plans are for repeat thoracentesis if she has respiratory distress. 12/23/2016 recheck x-ray tomorrow. She does not need a thoracentesis at present. She is back on Lasix per nephrology. Hopefully can mobilize fluid with that. 12/24/2016 pleural effusion is smaller. Continue with diuretics. I will check back Tuesday. Call pulmonary regional refrigerated cdl truck driver this weekend if needed. Current Visit: Yes (3) Hepatic cirrhosis Status: Chronic Assessment and plan: Clearly has cirrhosis. Likely the cause of her fluid retention. Watch for hepatorenal syndrome. 12/16/16 GI is seeing. They're wanting to get some old records on her. 12/18/16 advanced cirrhosis. 12/19/2016 end-stage cirrhosis. Patient would not be candidate for liver transplant until she has been off alcohol for 6 months. Presently has been a little over one month. 12/20/2016 end-stage cirrhosis. Has been getting albumin. Started on octreotide and middle drained yesterday. 12/21/2016 reports that she did not have bowel movements after getting Chronulac. Defer to GI. 12/22/2016 being followed by GI. 12/24/2016 GI is following. Current Visit: Yes (4) Atrial fibrillation with RVR Status: Acute Assessment and plan: Heart rate is 105, persistent atrial fibrillation. Controlling weight medications. Cardiology following. 12/16/16 rate is controlled at 100. 12/17/2016 rate controlled. 12/18/16 rate is controlled. 12/19/2016 rate controlled at around 80. 12/23/2016 her rate is controlled. 12/24/2016 rate controlled. Current Visit: Yes
[2016-12-24] MEDS: FUROSEMIDE 40 MG/4 ML VIAL IV SCH ×2 (08:15→15:33)
[2016-12-24] MEDS: MULTIVITAMIN (CENTRUM) TABLET PO SCH (08:15)
[2016-12-24] MEDS: THIAMINE 100 MG TABLET PO SCH (08:16)
[2016-12-24] MEDS: FERROUS SULFATE 325 MG TABLET PO SCH (08:16)
[2016-12-24] MEDS: FOLIC ACID 1 MG TABLET PO SCH (08:16)
[2016-12-24] MEDS: POTASSIUM CHLORIDE 20 MEQ TABLET PO SCH (08:16)
[2016-12-24] MEDS: MIDODRINE 5 MG TABLET PO SCH ×2 (08:16→15:33)
[2016-12-24] MEDS: traMADol 50 MG TABLET PO PRN ×2 (08:16→15:23)
[2016-12-24] MEDS: PANTOPRAZOLE 40 MG TABLET PO SCH (08:16)
[2016-12-24] MEDS: metOLazone 5 MG TABLET PO SCH (08:16)
[2016-12-24] MEDS: METOPROLOL SUCCINATE XL 25 MG TABLET PO SCH (08:16)
[2016-12-24] MEDS: POLYETHYLENE GLYCOL POWDER 17 GM PACK PO SCH (08:17)
[2016-12-24] MEDS: OCTREOTIDE 100 MCG/ML SYRINGE SUBCUT SCH ×2 (08:17→15:34)
--- NOTE | 2016-12-24 09:53 | Nephrology Progress Note ---
Nephrology - PN: Subj Interval history: Patient reports breathing better. She is anxious about going home. Review of systems GI she denies nausea or vomiting, musculoskeletal-she complains of continued swelling in her legs Physical exam general patient's in no acute distress Assessment/plan 1. Acute renal failure-patient's creatinines 1.9 mg/dL this is improved from 2 yesterday 2. Volume overload-patient seems to be responding to the increased diuretics however her weight is up a KG from yesterday (I'm not sure how accurate this is) . We'll continue her present diuretic regimen 3. Liver cirrhosis 4. Anemia-patient's hematocrit around 27% a few days ago It's okay from my standpoint if patient is discharged, I would send her out on Midodrin and would give her Lasix 160 mg twice daily and Zaroxolyn 5 mg daily. I'll be happy to see her in follow-up in about a week's time post discharge. Exam (PN)-Nephrology - Vital Signs Vital signs: Period Temp Pulse Resp BP Sys/Pastor Pulse Ox Last 24 Hr 96.9 F-98.3 F 80-97 16-20 103-144/54-68 92-98 - Lab 12/22/16 03:24 12/24/16 02:13 Most recent lab results ABG pH 7.345 (7.35-7.45) L 12/14/16 08:15 ABG pCO2 53.5 MM HG (35-48) H 12/14/16 08:15 ABG pO2 56.2 MM HG (80-95) L 12/14/16 08:15 ABG HCO3 26.6 MMOL/L (20-26) H 12/14/16 08:15 ABG O2 Saturation 86.1 % (95-100) L 12/14/16 08:15 Calcium 9.4 MG/DL (8.5-10.1) 12/24/16 02:13 Magnesium 2.6 MG/DL (1.8-2.4) H 12/21/16 05:07 Assessment and Plan (1) REBECCA (acute kidney injury) Status: Acute Assessment and plan: I suspect this patient has a hepatorenal syndrome developing, I'll check a spot urine microalbumin to creatinine ratio and a fractional excretion of urinary sodium. I agree with a limited trial of albumin and holding her diuretics for now. Current Visit: Yes (2) Alcoholic cirrhosis Status: Chronic Current Visit: Yes (3) Anasarca Status: Acute Current Visit: Yes (4) Anemia of chronic disease Status: Acute Assessment and plan: Patient's hematocrit around 25% Current Visit: Yes (5) COPD (chronic obstructive pulmonary disease) Status: Acute Current Visit: Yes (6) Status post thoracentesis Status: Acute Current Visit: Yes (7) Former smoker Status: Chronic Current Visit: No
--- NOTE | 2016-12-24 10:05 | Gastrointestinal Progress Note ---
Assessment and Plan (1) Hepatic cirrhosis Status: Chronic Assessment and plan: 12/24-Creatnine 1.9. Wt up 1 kg. Having 2-3 bowel movements daily. Plan and addendum to follow by DR Vidal. 12/23-Lab pending for today. No signs of encephalopathy noted. Having bowel movements. Plan and addendum to follow by DR Vidal. 12/22-Creatnine 2.4, no changes in wt. Ammonia 112, having bowel movements and well oriented. Hgb down slightly at 8.6 in absence of overt bleeding. Plan and addendum to follow by Dr Vidal. 12/21-Creatnine 2.6, wt unchanged. Ammonia down to 67. Plan and addendum to follow by Dr Vidal. 12/20-Creatnine 3.1, wt up 3 kg. Octeotride and Midodrone started. Recheck ammonia level. Noted pt receiving Mirilax and not lactulose at present.Will add Lactulose 30cc q 6 hours. Plan and addendum to follow by DR Vidal. 12/17-Creatnine 3.3. Post thoracentesis today. [facility] records noted. Plan and addendum to follow by Dr Vidal. 12/16-Records pending from [facility]. Creatnine elevated at 2.7. Weight unchanged. Tolerating diet. Plan and addendum to follow by Dr Vidal. 12/15-Hx of hepatic cirrhosis with long standing alcohol use now presenting with pleural effusion, post thoracentesis. Elevated creatnine with no knowledge of baseline. Ascites managed at home with diuretics, diet. Us shows small amount of ascites, nodular liver. Plan and addendum to follow by Dr Vidal. Current Visit: Yes Gastroenterology - PN: Subj Interval history: CC: Cirrhosis PT is sitting up in chair, states she is feeling better today. States that she has had 2 bowel movements this morning. She has a good appetite and states she is wanting to go home when she can. Her creatnine is 1.9 today. Wt is up 1 kg since yesterday but she denies any SOB or chest pain. Abdomen is soft, nontender. ROS: Denies SOB or chest pain Exam (Progress Note) - Constitutional Vitals: Period Temp Pulse Resp BP Sys/Pastor Pulse Ox Last 24 Hr 96.9 F-98.3 F 80-97 16-20 103-144/54-68 92-98 - Other Additional findings: General appearance: no acute distress, over weight - Head Head exam: Present: normal inspection, normocephalic - Eye Eye exam: Present: other (lids and conjunctiva unremarkable). Absent: scleral icterus - ENT ENT exam: Present: normal exam, normal oropharynx - Neck Neck exam: Present: normal inspection - Respiratory Respiratory exam: Present: clear to auscultation bilaterally. Absent: rales, rhonchi, wheezes - Cardiovascular Cardiovascular exam: Present: regular rate and rhythm. Absent: diastolic murmur , JVD, systolic murmur - GI/Abdominal GI/Abdominal exam: Present: normal bowel sounds, soft. Absent: ascites, distended, mass, organomegaly, tenderness - Extremities Exam Extremities exam: Present: normal inspection, full ROM - Back Exam Back exam: Present: normal inspection - Neurological Exam Neurological exam: Present: alert, oriented X3 - Psychiatric Psychiatric exam: Present: normal affect, normal mood - Skin Skin exam: Present: normal color, warm, dry Results - Labs CBC & BMP: 12/22/16 03:24 12/24/16 02:13 Lab Results: I have reviewed the past 24 hour labs
--- NOTE | 2016-12-24 11:41 | Discharge Summary ---
<Fely El - Last Filed: 12/24/16 11:29> Hospital Course - Hospital Course Hospital Course: Ms. Greco was admitted on 12/13 with acute diastolic CHF EF 65%, right pleural effusion, hepatic cirrhosis, COPD and a fib RVR. She was admitted to the ICU, schedule nebs, thoracentesis, echo. Cardiology was consulted and Dr. Patel saw on 12/14 for A fib RVR. She was asymptomatic at the time. She did not have any contraindication to anticoagulation. Dr. Daniel was consulted for Pulmonary for her right pleural effusion. She states that she has quit drinking and smoking. On 12/14, she underwent a thoracentesis that removed 1200 cc's of serous straw colored fluid by Interventional Radiology. She tolerated this well without any complications. Dr. Gamble with GI saw on 12/15 for hepatic cirrhosis. She was on Lasix 20 mg and Aldactone 100 mg daily. IV albumin was started. She was noted to have an element of REBECCA. She did require a repeat thoracentesis on 12/[address] Daniel and removed 1900 cc's of alexandre clear fluid. TIPS was discussed as an option for her as well. She dropped her H/H and required 2 units of PRBC's. She did not have any zana GI/ blood loss. She did grow heavy yeast on urine cx and was started on Diflucan. She remained in a fib, and toprol 25 mg BID was added for rate control and cardizem was increased to 180 mg PO BID. Eliquis was not restarted due to hx of hematuria. ON 12/18, she did require transfer to ICU for vomiting. Dr. Chambers started on Mitodrine and octreotide. Dr. Sierra with Nephrology was consulted given her acute renal failure. Hepatorenal syndrome was suspected. Albumin trial started and diuretics were held. She did have an elevated ammonia level that required chronulac. Despite measures, she did not diurese well, and her weight remained the same. Dr. Sierra increased lasix to 80 mg TID and started on zaroxolyn. She has improved and is ready for discharge home today. She feels that she will be ' okay without her regulator for her oxygen'. She will be discharged home today on appropriate medications and follow up. - Time spent with patient Time with patient DS: Greater than 30 minutes Diagnosis - Discharge Diagnosis (1) Acute diastolic CHF (congestive heart failure) Status: Acute (2) REBECCA (acute kidney injury) Status: Acute (3) Acute dyspnea Status: Acute (4) Anasarca Status: Acute (5) Atrial fibrillation with RVR Status: Acute (6) Pleural effusion on right Status: Acute (7) Chronic obstructive pulmonary disease Status: Chronic (8) Hepatic cirrhosis Status: Chronic (9) History of alcoholism Status: Chronic Specialty Discharge - Follow Up or Referrals Follow up with: Miko Sierra MD [Physician] - 1 Week Discharge Plan - Discharge Data Disposition: Disch To Home/Self Care - Discharge Medications New Metoprolol Succinate Xl [Toprol Xl] 50 mg PO BID #60 tablet Pantoprazole Tab [Protonix Tab] 40 mg PO DAILY #30 tablet metOLazone [Zaroxolyn] 5 mg PO DAILY #30 tablet Furosemide Tab [Lasix Tab] 80 mg PO TID #90 tablet Continue Ferrous Sulfate 325 mg PO DAILY Furosemide Tab [Lasix Tab] 20 mg PO DAILY Gabapentin 300 mg PO QID Spironolactone 100 mg PO DAILY Albuterol Sulfate [Ventolin HFA] 1 puff INH QID PRN PRN Reason: Wheezing Discontinued Potassium 99 mg PO DAILY - Follow Up or Referral Follow Up: Miko Sierra MD [Physician] - 1 Week - Forms/Instructions Exam - Constitutional Vitals: Period Temp Pulse Resp BP Sys/Pastor Pulse Ox Last 24 Hr 96.9 F-98.3 F 80-97 16-20 103-144/54-66 92-98 Discharge Results Procedures and tests throughout hospitalization: Pending Orders 12/14/16 AFB Culture/Smears Routine 12/14/16 08:44 Cytology Request Routine 12/17/16 06:38 Cytology Request Routine 12/25/16 15:30 Vancomycin,Trough Timed Labs on day of discharge: Labs from last 24 hours 12/24/16 02:13 Sodium 136 Potassium 3.8 Chloride 95 L Carbon Dioxide 32 Anion Gap 12.8 BUN 30 H Creatinine 1.90 H GFR Calculation 39 BUN/Creatinine Ratio 15.00 Glucose 104 Calculated Osmolality 277.0 Calcium 9.4 DS: Provider Date of admission: 12/13/16 18:20 Primary care physician: Abdifatah Saenz Attending physician on admission: Miko Ignacio MD Consults: 12/13/16 21:03 Consult to Pharmacy [CONS] Routine Reason for Pharmacy Consult: Adjust Meds Renal Funct 12/15/16 07:07 Consult to Physician [CONS] Routine Comment: cirrhosis Consulting Provider: Ward Vidal Consulting Provider Notified: Yes Consult to Specialist Group: Gastroenterology When should Consulting Provider be notified: Now Person Notified: CARA Date Notified: 12/15/16 Time Notified: 08:40 12/17/16 16:25 Consult to Physician [CONS] Routine Comment: ARF/cirrhosis Consulting Provider: Miko Sierra 12/21/16 13:42 Consult to Pastoral Services [CONS] Routine Comment: Pastoral Screen: Crying,Anxiety,Nervous,M 12/21/16 15:43 Consult to Wound Care - [place] [CONS] Routine Reason for Wound Care: Other Consult Comment: LOW SOULEYMANE SCALE 12/22/16 16:28 Consult to Case Mgmt/Social Srvs [CONS] Routine Reason for Case Mgmt/Social Srvs: Equipment Consult Comment: Requested portable oxygen at home Discharging clinician: Fely El NP Expected date of discharge: 12/24/16 <Moises Diaz Jr. - Last Filed: 12/24/16 13:45> Diagnosis - Discharge Diagnosis (1) Acute renal failure due to tubular necrosis Status: Chronic (2) Alcoholic cirrhosis Status: Chronic (3) Anasarca Status: Acute (4) Former smoker Status: Chronic (5) History of alcoholism Status: Chronic Discharge Plan - Discharge Data Condition at Discharge: Discharge Diet: advance to your usual diet Contact your physician if you experience:: fever over 101 - Forms/Instructions Additional Discharge Instructions: Follow-up with Dr. Nelson as scheduled. Exam - Constitutional General appearance: normal weight - Respiratory Respiratory exam: Present: clear to auscultation bilaterally - Cardiovascular Cardiovascular exam: Present: regular rate and rhythm - GI/Abdominal GI/Abdominal exam: Present: normal bowel sounds - Psychiatric Psychiatric exam: Present: normal affect
[2016-12-24 11:46] VITALS: BP 104/56
== END 2016-12-24 17:04 | disposition home or self-care (01) | DRG 432 ==
LOC: N.ED 14:02 → N.EDINP 18:20 → N.ICU 20:30 → N.2E 12-15 13:32 → N.ICU 12-18 23:18 → N.TELEN 12-19 10:29
PROVIDERS: ADMIT Internal Medicine; ATTEND Internal Medicine
PROC: IRTHORA (2016-12-14 14:40)

== ENCOUNTER 2016-12-26 00:30 | Inpatient (IN) ==
[2016-12-26] MEDS ORDERED: FUROSEMIDE 100 MG/10 ML VIAL IV STA (01:07)
[2016-12-26] MEDS ORDERED: ONDANSETRON 4 MG/2 ML VIAL IV STA ×2 (01:07→02:29)
--- NOTE | 2016-12-26 01:13 | Emergency Department Note ---
Arrival - Arrival ED Nursing Triage Note: pt to triage c.o sob . pt was dc from hospital yesterday. pt states she also has had nausea for last week, no vomitting. pt staes meds that she is taking are causing the nausea. pt is on home o2 @ [facility] Mode of Arrival: Wheelchair Limitations: No Limitations Source: Patient - History of Present Illness Onset (ago): hour(s) (patient presents 8 hours post onset of symptoms) Consistency: constant <Olu Long - Last Filed: 12/26/16 01:15> <Мария Nicole - Last Filed: 12/26/16 03:16> - Arrival Chief Complaint: Shortness of Breath Stated Complaint: sob - History of Present Illness HPI Narrative: This 56-year-old white female presents less than 24 hours post discharge with complaints of increasing shortness of breath associated with nausea BUT no vomiting, chest pain, or diaphoresis. The patient was hospitalized for multiple problems including recurrent right pleural effusion, cirrhosis, COPD, atrial fibrillation, and acute renal failure. She states that when she went home, she still did not feel quite right and felt nauseated; however, she was not short of breath until this past evening when she rapidly acquired symptoms. Currently she is breathlessness between sentences and presented to the ER with a O2 sat of 85%. (Olu Long) Allergies/Adverse Reactions: Allergies Allergy/AdvReac Type Severity Reaction Status Date / Time Penicillins AdvReac ANAPHYLAXIS Verified 12/26/16 00:44 Home Medications: Home Medications Medication Instructions Recorded Confirmed Type Albuterol Sulfate [Ventolin HFA] 1 puff INH QID PRN 12/13/16 12/13/16 History Ferrous Sulfate 325 mg PO DAILY 12/13/16 12/13/16 History Furosemide Tab [Lasix Tab] 20 mg PO DAILY 12/13/16 12/13/16 History Gabapentin 300 mg PO QID 12/13/16 12/13/16 History Spironolactone 100 mg PO DAILY 12/13/16 12/13/16 History Furosemide Tab [Lasix Tab] 80 mg PO TID #90 tablet 12/24/16 Rx Metoprolol Succinate Xl [Toprol Xl] 50 mg PO BID #60 tablet 12/24/16 Rx Pantoprazole Tab [Protonix Tab] 40 mg PO DAILY #30 tablet 12/24/16 Rx metOLazone [Zaroxolyn] 5 mg PO DAILY #30 tablet 12/24/16 Rx Review of System - Review of System 12 point system: reviewed and no additional remarkable complaints except as stated - Review of System Constitutional: Present: as per HPI Respiratory: Present: as per HPI Cardiovascular: Present: as per HPI Gastrointestinal: Present: as per HPI <Olu Long - Last Filed: 12/26/16 01:15> Medical,Surgical,& Family Hx - Medical History Cardio: No history of: Cardiac Dysrhythmia, Congenital Heart Disease, CAD, Cardiovascular Problems Respiratory: History of: COPD, Respiratory Problems (wears home 02) Gastrointestinal: History of: Liver Problems (Cirrhosis) - Surgical History Neurologic Surgeries: Patient denies: Neurologic Surgery Abdominal Surgeries: Surgical HX of: Cholecystectomy, Gastric Bypass Surgery Orthopedic Surgeries: Patient denies;: Total Knee Replacement - Family History Family History: Denies;: Family Heart Disease - Social History Smoking Status: Former smoker Frequency of Alcohol Use: None Type of Drug Use: None <Olu Long - Last Filed: 12/26/16 01:15> Exam <Olu Long - Last Filed: 12/26/16 01:15> <Мария Nicole - Last Filed: 12/26/16 03:16> Physical Examination: GENERAL: Chronically ill-appearing white female in mild respiratory distress. HEENT: Normocephalic. No trauma. Moist mucous membranes. EOMI. PERRLA. NECK: Supple. No adenopathy. CARDIAC: Irregular. Heart rate at 115 No murmurs. CHEST: Scattered expiratory Walter with decreased breath sounds at right base. No respiratory distress. O2 sat 85% on room air ABDOMEN: Soft. Nontender. Active bowel sounds. EXTREMITIES: No trauma. Normal ROM. 2+ brawny orange peel pedal edema. SKIN: No diaphoresis. No rash. NEURO: Alert. Neuro intact No focal deficits. (Olu Long) Vital Signs: Vital Signs Temperature 97.8 F 12/26/16 01:26 Pulse Rate 118 H 12/26/16 02:40 Respiratory Rate 20 12/26/16 02:40 Blood Pressure 105/69 12/26/16 01:26 O2 Sat by Pulse Oximetry 95 12/26/16 02:40 Course <Olu Long - Last Filed: 12/26/16 01:15> <Мария Nicole - Last Filed: 12/26/16 03:16> Course Narrative: pt will be admitted to dr Ignacio , (Мария Nicole) Results <Olu Long - Last Filed: 12/26/16 01:15> - Labs CBC & BMP: 12/26/16 01:20 12/26/16 01:20 <Мария Nicole - Last Filed: 12/26/16 03:16> - Impressions EKG: Atrial fibrillation at a rate of 113 with right bundle branch block and nonspecific ST changes. No acute injury pattern noted. (Olu Long) Disposition <Olu Long - Last Filed: 12/26/16 01:15> Case discussed with: patient Time of Disposition: 03:16 <Мария Nicole - Last Filed: 12/26/16 03:16> Clinical Impression: CHF (congestive heart failure), Hyperammonemia Disposition: Still a Patient Condition: Stable
[2016-12-26 01:28] LABS: Basophils % 0.2 % (0.0-0.8); Eosinophils # 0.1 10*3/uL (0.0-0.87); Hematocrit 27.8 VOL% (35.7-47.0); Hemoglobin 9.3 GM/DL (12.0-16.0); Immature Granulocytes % 0.4 %; Immature Granulocytes Absolute 0.03 #; Lymphocytes # 1.1 10*3/uL (1.4-4.0); Lymphocytes % 12.7 % (21.3-54.2); Mean Corpuscular HGB Conc 33.5 GM/DL (32-36); Mean Corpuscular Hemoglobin 30 PG (27-34); Mean Corpuscular Volume 90.8 FL (87-102); Mean Platelet Volume 10.8 FL (9.6-12.0); Monocytes # 0.5 10*3/uL (0.11-0.8); Monocytes % 6.4 % (1.7-12.7); Neutrophils # 6.5 10*3/uL (1.4-7.4); Neutrophils % 79.3 % (38.7-73.9); Red Blood Count 3.06 MC/CUMM (3.8-5.5); Red Cell Distribution Width 17.2 % (9.3-17.3); White Blood Count 8.2 T/CUMM (4-12)
[2016-12-26] MEDS ORDERED: FUROSEMIDE 100 MG/10 ML VIAL ONE (01:29)
[2016-12-26] MEDS ORDERED: ONDANSETRON 4 MG/2 ML VIAL ONE ×2 (01:29→02:34)
[2016-12-26] MEDS ORDERED: ALBUTEROL 2.5 MG/3 ML NEB RESP TX SCH (01:30)
[2016-12-26 01:31] LABS: Platelet Count 86 T/CUMM (130-400)
[2016-12-26 01:41] LABS: INR 1.7; Partial Thromboplastin Time 32.1 SECS (0-40)
[2016-12-26 01:53] LABS: Albumin 4.7 G/DL (3.4-5.0); Bilirubin,Total 4.2 MG/DL (0.2-1.0); Calcium 9.6 MG/DL (8.5-10.1); Total Protein 7.2 G/DL (6.4-8.3)
[2016-12-26 01:54] LABS: Osmolality,Calculated 282.5 MOS/KG (273-304); Potassium 3.6 MMOL/L (3.5-5.1)
[2016-12-26 02:19] LABS: Apearance,Urine CLOUDY (Clear); Bacteria,Urine Occasional /HPF (Few); Bilirubin,Urine Negative (Negative); Blood, Urine Small mg/dL (Negative); Glucose,Urine (UA) Negative (Negative); Hyaline Casts,Urine 23 /LPF (0-3); Ketones,Urine Negative (Negative); Mucus,Urine Occasional /LPF (Occasional); Nitrite,Urine Negative (Negative); Protein,Urine Negative; RBC,Urine 1 /HPF (0-4); Squamous Epithelial Cell,Urine Many /HPF (0-10); Urine Color Yellow (Yellow); Urine Specific Gravity 1.006 (1.001-1.035); Urine Urobilinogen < 2.0 EU/DL (0.2-1.0)
[2016-12-26] MEDS ORDERED: KETOROLAC 30 MG/1 ML VIAL ONE (03:06)
[2016-12-26] MEDS ORDERED: KETOROLAC 30 MG/1 ML VIAL IV STA (03:06)
[2016-12-26 03:28] LABS: Microcytosis Slight; Platelet Estimate Decreased
[2016-12-26 03:29] LABS: Anisocytosis Slight
--- NOTE | 2016-12-26 04:00 | Hospitalist History & Physical ---
Assessment and Plan (1) Acute dyspnea Status: Acute Current Visit: No (2) Edema of foot Status: Chronic Current Visit: No (3) Congestive heart failure Status: Acute Current Visit: No (4) Pleural effusion on right Status: Acute Current Visit: No (5) History of alcoholism Status: Chronic Current Visit: No (6) Hepatic cirrhosis Status: Chronic Current Visit: No (7) Chronic obstructive pulmonary disease Status: Chronic Current Visit: No (8) Atrial fibrillation with RVR Status: Acute Current Visit: No (9) Acute diastolic CHF (congestive heart failure) Status: Acute Current Visit: No (10) Hepatorenal syndrome Status: Acute Current Visit: No (11) Hepatic encephalopathy Status: Acute Assessment and plan: It appears that the pleural effusion has returned. We'll consult pulmonary for their assistance with her low O2 sats. Her creatinine has improved do not want to increase diuresis at this point. Her ammonia level is elevated we'll need to use lactulose. Concerned about her lower extremities look like they're getting infected we'll start her on some antibiotics. We'll continue to monitor her INR and other labs. Would feel more comfortable if patient was observed in the unit. Current Visit: No History of Present Illness Chief complaint: lower extremity pain shortness of breath and nausea History of present illness: Ms. Greco is a 56 year old female past medical history of diastolic heart failure , acute kidney injury, acute dyspnea, anasarca, atrial fibrillation with RVR, pleural effusion, COPD, hepatic cirrhosis and history of alcoholism who was just recently discharged from our hospital 2 days ago. Apparently patient did well for approximately 24 hours and progressively got short of breath. Upon physical exam she deathly seems dyspneic. When she gets up and move her right found her O2 sats drop in the 80s. She's also complaining about nausea. There' s been no vomiting. I was consulted to admit the patient. She was to follow- up with Dr. Rigo watson and Dr. Daniel status post discharged. Home Medications Medication Instructions Recorded Confirmed Type Albuterol Sulfate [Ventolin HFA] 1 puff INH QID PRN 12/13/16 12/13/16 History Ferrous Sulfate 325 mg PO DAILY 12/13/16 12/13/16 History Furosemide Tab [Lasix Tab] 20 mg PO DAILY 12/13/16 12/13/16 History Gabapentin 300 mg PO QID 12/13/16 12/13/16 History Spironolactone 100 mg PO DAILY 12/13/16 12/13/16 History Furosemide Tab [Lasix Tab] 80 mg PO TID #90 tablet 12/24/16 Rx Metoprolol Succinate Xl [Toprol Xl] 50 mg PO BID #60 tablet 12/24/16 Rx Pantoprazole Tab [Protonix Tab] 40 mg PO DAILY #30 tablet 12/24/16 Rx metOLazone [Zaroxolyn] 5 mg PO DAILY #30 tablet 12/24/16 Rx Allergies Allergy/AdvReac Type Severity Reaction Status Date / Time Penicillins AdvReac ANAPHYLAXIS Verified 12/26/16 00:44 Medical,Surgical,& Family Hx - Medical History Cardio: No history of: Cardiac Dysrhythmia, Congenital Heart Disease, CAD, Cardiovascular Problems Respiratory: History of: COPD, Respiratory Problems (wears home 02) Gastrointestinal: History of: Liver Problems (Cirrhosis) - Surgical History Neurologic Surgeries: Patient denies: Neurologic Surgery Abdominal Surgeries: Surgical HX of: Cholecystectomy, Gastric Bypass Surgery Orthopedic Surgeries: Patient denies;: Total Knee Replacement - Family History Family History: Denies;: Family Heart Disease Additional Family History: none - Social History Smoking Status: Former smoker Frequency of Alcohol Use: None Type of Drug Use: None 12 point system: reviewed and no additional remarkable complaints except as stated Exam - Constitutional Vitals: Period Temp Pulse Resp BP Sys/Pastor Pulse Ox Last 24 Hr 97.8 F-97.8 F 112-118 20-24 105-105/69-69 85-95 General appearance: over weight - Head Head exam: Present: normal inspection - Eye Eye exam: Present: EOMI Pupils: Present: PAPITO - ENT ENT exam: Present: normal exam - Respiratory Respiratory exam: Present: other (continues to have decreased breast sounds and right base) - Cardiovascular Cardiovascular exam: Present: tachycardia - GI/Abdominal GI/Abdominal exam: Present: normal bowel sounds - Extremities Exam Extremities exam: Present: edema (appears like early cellulitis) - Neurological Exam Neurological exam: Present: oriented X3 - Psychiatric Psychiatric exam: Present: anxious - Skin Skin exam: Present: erythema (in lower extremities) Results - Labs CBC & BMP: 12/26/16 01:20 12/26/16 01:20
[2016-12-26] MEDS ORDERED: ALBUTEROL 2.5 MG/3 ML NEB RESP TX PRN (04:08)
[2016-12-26] MEDS ORDERED: GLUCAGON 1 MG VIAL IM PRN (04:08)
[2016-12-26] MEDS ORDERED: DEXTROSE 50% 25 GM/50 ML VIAL IV PRN ×2 (04:08→17:03)
[2016-12-26] MEDS ORDERED: ACETAMINOPHEN 325 MG TABLET PO PRN (04:08)
[2016-12-26] MEDS ORDERED: LORazepam 2 MG/1 ML VIAL IV PRN (05:00)
[2016-12-26] MEDS ORDERED: MORPHINE 2 MG/1 ML SYRINGE ONE (05:31)
[2016-12-26] MEDS ORDERED: VANCOMYCIN INJ 2,000 MG in SODIUM CHLORIDE 0.9% 500 ML IV ONE (06:00)
--- NOTE | 2016-12-26 07:06 | EKG Report ---
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
[2016-12-26] MEDS: ALBUTEROL 2.5 MG/3 ML NEB RESP TX SCH ×4 (07:15→20:23)
[2016-12-26] MEDS: MORPHINE 2 MG/1 ML SYRINGE IV PRN ×2 (07:23→21:21)
--- NOTE | 2016-12-26 08:06 | Hospitalist Progress Note ---
Assessment and Plan (1) Ascites Status: Chronic Assessment and plan: this has returned and associated with a Pleural effusion. I suspect she likely has hepatorenal syndrome given overall clinical picture and the reaccumulation of the fluid so quickly. GI will be consulted pulmonology has already been consulted. At this time I will add IV albumin to her regimen and change her by mouth Lasix to IV to see if we can decrease the third spacing. We do not have any interventional radiology on this weekend and she may need a paracentesis. Current Visit: No (2) Pleural effusion on right Status: Acute Current Visit: No (3) Hepatic cirrhosis Status: Chronic Assessment and plan: overall very prognosis as she may headed more towards hepatorenal syndrome. Current Visit: No Qualifiers: Hepatic cirrhosis type: alcoholic cirrhosis (4) Anemia Status: Acute Assessment and plan: likely of chronic disease, no transfusion indicated now Current Visit: Yes (5) Atrial fibrillation with rapid ventricular response Status: Chronic Assessment and plan: her rate isn't well controlled and likely her medication is not as effective given her anasarca and likely less GI absoprtion. May need to consider IV if her BP will tolerate. Current Visit: Yes (6) REBECCA (acute kidney injury) Status: Acute Assessment and plan: likely a combination of lasix along with her anasarca. Current Visit: Yes Hospitalist: Subjective Interval history: Ms. Chu is a 56-year-old white female female who has a history of alcohol abuse who states she has quit now has alcoholic cirrhosis suspected hepatorenal syndrome. She was just discharged here from [facility] with some adjustments were made in her medications. She returns again with generalized anasarca associated with recurrent pleural effusion. She also has atrial fibrillation and is currently with rapid ventricular response. Patient states that she has been compliant with her medication and has had good urine output at home with her Lasix. Since being here she is only put out approximately 425 mL of urine. Exam - Constitutional Vitals: Period Temp Pulse Resp BP Sys/Pastor Pulse Ox Last 24 Hr 108-111 83-102/46-58 92-94 General appearance: mild distress - Head Head exam: Present: normocephalic, atraumatic - Eye Eye exam: Present: EOMI Pupils: Present: PAPITO - Respiratory Respiratory exam: Present: decreased breath sounds - Cardiovascular Cardiovascular exam: Present: irregular rhythm, tachycardia - GI/Abdominal GI/Abdominal exam: Present: ascites, soft - Extremities Exam Extremities exam: Present: full ROM, edema - Neurological Exam Neurological exam: Present: alert, oriented X3, CN II-XII intact - Psychiatric Psychiatric exam: Present: normal affect, normal mood - Skin Skin exam: Present: warm, dry Results - Labs CBC & BMP: 12/26/16 01:20 12/26/16 01:20
[2016-12-26] MEDS ORDERED: METOPROLOL TARTRATE 5 MG/5 ML VIAL IV ONE (08:12)
[2016-12-26] MEDS: INSULIN REGULAR 100 UNIT/ML SUBCUT SCH ×4 (08:25→21:16)
--- NOTE | 2016-12-26 08:30 | Pulmonology Consult Note ---
History of Present Illness Chief complaint: Pleural effusion. COPD. Ascites. Cirrhosis. History of present illness: Ms. Greco is a 56 year old white female whom I been asked to see in pulmonary consultation for evaluation and treatment. This patient is sitting up in bed eating. She seems to be oriented 3. The patient was just here in the hospital with diastolic heart failure, acute kidney injury, anasarca, atrial fib with rapid ventricular response, pleural effusion, COPD, hepatic cirrhosis. History of alcoholism. History of tobacco abuse. Patient was discharged here about 2 days ago and did well for about 1 day. And she developed increased edema and increased shortness of breath along with dyspnea on exertion. During her last hospitalization she was seen by the hospitalist. Dr. Miko Sierra and Dr. Moises Scott. . Old records indicate this patient has been treated at [facility] at least 3 times in the past. She was treated for alcoholism. She recently moved to [place] to be with her son. She says she she stopped drinking alcohol a month or so ago. She said at the same time she stopped smoking. She admits to a pack of cigarettes per day Patient's review of systems is otherwise negative. Allergies. Penicillin Medicines. See below Hospital medicines. See below Past history. Alcoholism. Tobacco abuse. Hepatic cirrhosis secondary to alcoholism. COPD secondary to tobacco abuse. Atrial fib. History of recurrent pleural effusions. History of elevated right hemidiaphragm. History of acute kidney injury. Past history of diastolic heart failure. Previous cholecystectomy. Previous gastric bypass. Total knee replacement. Family history. Positive heart disease Social history. quit smoking and drinking 1 month ago. He has been in [facility] alcoholism at least 3 times. Chest x-ray. 12/26/2016. My interpretation. Cardiomegaly. Increased interstitial markings on the left and the left pleural effusion. Huge pleural effusion on the right increase vascular markings in the right upper lung. Degenerative disease of the thoracic spine. This x-ray was compared to previous x-rays done on the patient. These changes appear to be mainly secondary to bilateral pleural effusions. She does have elevation of the right hemidiaphragm with preservation normal curvature on old films. Microbiology. Negative. Lab. Creatinine is 1.8. Going back to 12/21/2016 creatinine was 1.20 BUN is 25 sodium is 139. Potassium 3.6. Chloride is 93. Total bilirubin is elevated 4.20 transaminases are normal alkaline phosphatase minimally up to 134 natruretic peptide is elevated 339. Protein albumin and globulin are normal range. Urine shows no evidence of infection. H&H is 9.3/27.8 with normal indices and normal red blood cell distribution with platelets are chronically low at 86,000 white count is 8279 segs 13 lymphs 6 monocytes. Ammonia level is elevated 134. Physical exam. Vital signs. See below Psychiatric. Oriented 3 Neurologic. Cranial nerves are intact. Patient moves all 4 extremities. She has mild asterixis Pupils irises sclera conjunctiva normal face is symmetrical salivary glands are normal. Lips and tongue are normal. Patient has an anterior nosebleed that looks like it is from the nasal septum. Neck is symmetrical no meningismus Lymphatics. No submandibular cervical supraclavicular adenopathy Chest. No wheezing. Decreased breath sounds over both bases. Heart far lateral PMI Breast deferred Abdomen. Distended with bowel sounds. Fluid wave. and rectal deferred Lower extremities show +3-1/2 over 4 bilateral pedal pretibial and thigh and sacral edema. Venous exam. Jugular venous pressure is top normal to elevated. Mild edema of the hands. Severe edema of the lower extremities. Chronic venous stasis changes over lower extremities. Arterial. Carotid upstroke is decreased. Radial pulse can be palpated in the upper extremities. No pulses can be palpated in the lower extremities. No evidence of lower extremity ischemia. No infections noted on the face hands or feet. Remainder the skin skin exam was not done. The remainder the physical exam is noncontributory. Impression. 1. Cirrhosis of the liver with acute liver failure with asterixis, generalized edema, bilateral pleural effusions 2. Bilateral pleural effusions. Greater on the right than the left. Most likely related to ascites. Note that BNP is elevated and there is a history of diastolic congestive heart failure. 3. Alcoholism. Patient says she stopped drinking about a month ago. Watch for DTs. 4. Tobacco abuse. Patient says she stopped smoking about a month ago 5. COPD 6. Chronic renal failure with a creatinine of 1.8. Recent creatinine of 2.6. 7. Anemia. Thrombocytopenia. 8. See above 9.: Chronic lower extremity edema. Look for deep venous thrombophlebitis. Plan. 1. 25 g of salt poor albumin every 8 hours followed by Lasix 80 IV push every 8 hours. 2. Daily lab to include INR, ammonia, BMP 3. ABGs 4. Daily chest x-rays 5. Doppler venograms of lower extremities 6. IM thiamine 7. P.o. multivitamins. 8. Deep venous thrombophlebitis prevention protocol 9. Dr. Hines and I have discussed and reviewed the case and we have coordinated our care. 10. See order Home Medications Medication Instructions Recorded Confirmed Type Albuterol Sulfate [Ventolin HFA] 1 puff INH QID PRN 12/13/16 12/26/16 History Spironolactone 100 mg PO DAILY 12/13/16 12/26/16 History Furosemide Tab [Lasix Tab] 80 mg PO TID #90 tablet 12/24/16 12/26/16 Rx Metoprolol Succinate Xl [Toprol Xl] 50 mg PO BID #60 tablet 12/24/16 12/26/16 Rx Pantoprazole Tab [Protonix Tab] 40 mg PO DAILY #30 tablet 12/24/16 12/26/16 Rx metOLazone [Zaroxolyn] 5 mg PO DAILY #30 tablet 12/24/16 12/26/16 Rx Lactulose 20 gm PO Q6H 12/26/16 12/26/16 History Allergies Allergy/AdvReac Type Severity Reaction Status Date / Time Penicillins AdvReac ANAPHYLAXIS Verified 12/26/16 00:44 Exam (Pulmonay) H&P - Constitutional Vitals: Period Temp Pulse Resp BP Sys/Pastor Pulse Ox Last 24 Hr 108-111 83-102/46-58 92-94 Medical,Surgical,& Family Hx - Medical History Cardio: No history of: Cardiac Dysrhythmia, Congenital Heart Disease, CAD, Cardiovascular Problems Respiratory: History of: COPD, Respiratory Problems (wears home 02) Gastrointestinal: History of: Liver Problems (Cirrhosis) - Surgical History Neurologic Surgeries: Patient denies: Neurologic Surgery Abdominal Surgeries: Surgical HX of: Cholecystectomy, Gastric Bypass Surgery Orthopedic Surgeries: Patient denies;: Total Knee Replacement - Family History Family History: Denies;: Family Heart Disease - Social History Smoking Status: Former smoker Frequency of Alcohol Use: Occasionally Type of Drug Use: None Results - Labs CBC & BMP: 12/26/16 01:20 12/26/16 01:20
[2016-12-26 08:31] LABS: ABG Base Excess 9.4 MMOL/L (-2.5-2.5); ABG Oxygen Saturation 87.4 % (95-100); ABG PO2 54.9 MM HG (80-95); ABG TCO2 32.6 MMOL/L (23-27)
[2016-12-26 08:34] LABS: Basophils % 0.2 % (0.0-0.8); Eosinophils # 0.1 10*3/uL (0.0-0.87); Eosinophils % 0.7 % (0.00-10.9); Hematocrit 25.9 VOL% (35.7-47.0); Hemoglobin 8.5 GM/DL (12.0-16.0); Immature Granulocytes % 0.7 %; Immature Granulocytes Absolute 0.07 #; Lymphocytes % 10.6 % (21.3-54.2); Mean Corpuscular HGB Conc 32.8 GM/DL (32-36); Mean Corpuscular Hemoglobin 30 PG (27-34); Mean Corpuscular Volume 91.8 FL (87-102); Mean Platelet Volume 9.7 FL (9.6-12.0); Monocytes # 0.6 10*3/uL (0.11-0.8); Monocytes % 5.8 % (1.7-12.7); Neutrophils # 7.7 10*3/uL (1.4-7.4); Red Blood Count 2.82 MC/CUMM (3.8-5.5); Red Cell Distribution Width 17.1 % (9.3-17.3); White Blood Count 9.4 T/CUMM (4-12)
[2016-12-26] MEDS: MUPIROCIN 2% OINT 22 GM TUBE TOP SCH ×2 (08:38→21:15)
[2016-12-26 08:39] LABS: Platelet Count 67 T/CUMM (130-400)
--- NOTE | 2016-12-26 08:40 | XRay Report ---
Referring Physician: Olu Long Exam: XR chest 1V portable Date: December 26, 2016 at 12:59 AM Reason: Shortness of breath Comparison: Chest one view portable December 24, 2016 Findings: The cardiac silhouette is again enlarged, and there may be elevation of the right hemidiaphragm. Opacities are present within the mid and lower lung zones bilaterally, mainly on the right. This is concerning for pulmonary edema and atelectasis, but superimposed pneumonia is not excluded. No pneumothorax is identified, but bilateral pleural fluid is suspected, especially on the right. The osseous structures appear stable. Note is made of possible subacute fractures at the right lateral eighth and ninth ribs. Impression: There is slight improved aeration of the left lung, but there is mild increased opacification/pleural fluid on the right. This may be partially related to patient positioning. PROCEDURE INTERPRETED AT [facility] DEPARTMENT OF RADIOLOGY Final Report Signed by: Dr. Landon Alvarado
[2016-12-26] MEDS ORDERED: SPIRONOLACTONE 50 MG TABLET PO SCH (09:00)
[2016-12-26] MEDS ORDERED: FUROSEMIDE 80 MG TABLET PO SCH (09:00)
[2016-12-26 09:04] LABS: Albumin 4.7 G/DL (3.4-5.0); Bilirubin,Total 3.9 MG/DL (0.2-1.0); Calcium 9.3 MG/DL (8.5-10.1); Osmolality,Calculated 286.3 MOS/KG (273-304); Potassium 2.9 MMOL/L (3.5-5.1); Total Protein 6.9 G/DL (6.4-8.3)
[2016-12-26 09:12] LABS: Platelet Estimate Decreased
--- NOTE | 2016-12-26 09:16 | EKG Report ---
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 Left anterior hemiblock. Electronically Signed On 12-26-16 12:16:16 SPLUNK ARCHITECT by DAISY WINSTON [id number]
[2016-12-26] MEDS: ALBUMIN 25% 25 GM in PREMIX 1 EACH IV SCH ×4 (09:20→23:40)
[2016-12-26] MEDS: GABAPENTIN 300 MG CAPSULE PO SCH ×4 (09:21→21:15)
[2016-12-26] MEDS: FERROUS SULFATE 325 MG TABLET PO SCH (09:21)
[2016-12-26] MEDS: LACTULOSE 20 GM/30 ML UDCUP PO SCH ×4 (09:22→23:41)
[2016-12-26] MEDS: PANTOPRAZOLE 40 MG TABLET PO SCH (09:30)
[2016-12-26] MEDS: MULTIVITAMIN (CENTRUM) TABLET PO SCH (09:31)
[2016-12-26] MEDS: METOPROLOL SUCCINATE XL 25 MG TABLET PO SCH ×2 (09:32→21:16)
[2016-12-26] MEDS: ENOXAPARIN 30 MG/0.3 ML SYRINGE SUBCUT SCH (09:33)
[2016-12-26] MEDS: THIAMINE 200 MG/2 ML VIAL IM SCH (09:35)
[2016-12-26] MEDS: FUROSEMIDE 40 MG/4 ML VIAL IV SCH ×2 (10:14→16:23)
[2016-12-26] MEDS ORDERED: MAGNESIUM SULF RIDER 2 GM in PREMIX 1 EACH IV ONE (11:00)
[2016-12-26] MEDS: POTASSIUM CHLORIDE RIDER 10 MEQ in PREMIX 1 EACH IV PRN ×4 (11:23→20:27)
--- NOTE | 2016-12-26 12:28 | Ultrasound Report ---
Referring physician: Candi Hines MD Exam: Bilateral lower extremity venous ultrasound Date: December 26, 2016 Comparison: None Reason: Lower extremity edema, shortness of breath, evaluate for DVT Technique: Duplex scan of the bilateral lower extremity veins was performed using B-Mode/grayscale imaging, compression, Doppler spectral analysis and color flow. Ultrasound images were captured and stored. Findings: There is no evidence of thrombus within the left or right common femoral veins, saphenous veins, superficial femoral veins or popliteal veins. Normal compression and augmentation are present throughout. Normal color flow and spectral analysis are observed. Impression: No evidence of deep venous thrombosis within either lower extremity. PROCEDURE INTERPRETED AT [facility] DEPARTMENT OF RADIOLOGY Final Report Signed by: Dr. Landon Alvarado
--- NOTE | 2016-12-26 15:29 | Gastrointestinal Consult Note ---
Assessment and Plan (1) Alcoholic cirrhosis Status: Chronic Assessment and plan: Patient has advanced chronic liver disease. She has abstained from alcohol for approximately 5 weeks now. She is not a candidate for liver transplant for now with her recent alcohol use. Increase lactulose today with her lack of bowel movements and recent hepatic encephalopathy episode. Current Visit: No (2) Hepatorenal syndrome Status: Acute Assessment and plan: Creatinine has increased from 1.8-2.0 since admission with increased diuresis. I am going to hold her Aldactone and Lasix for now and continue albumin. Continue daily BMP level. Potassium 2.9 and replacing this. Current Visit: No History of Present Illness Chief complaint: Increased shortness of breath History of present illness: Ms. Greco is a 56 year old female with cirrhosis felt to be of alcohol etiology who had just been discharged 2 days ago. She had been hospitalized with hepatic hydrothorax with right pleural effusion and hepatorenal syndrome. She also had transient encephalopathy symptoms felt exacerbated by constipation which responded to lactulose. She developed increased shortness of breath overnight which progressed and she returned to the emergency room last night. She denies any subjective fever/chills or gross GI bleeding. On presentation she has recurrent large right pleural effusion. She is sitting up in a chair now and states that her shortness of breath is some better but complains of dyspnea with minimal exertion. She reports that she has not had a bowel movement the last 2 days. She has had no increased abdominal distention but has chronic peripheral edema/anasarca. Home Medications Medication Instructions Recorded Confirmed Type Albuterol Sulfate [Ventolin HFA] 1 puff INH QID PRN 12/13/16 12/26/16 History Spironolactone 100 mg PO DAILY 12/13/16 12/26/16 History Furosemide Tab [Lasix Tab] 80 mg PO TID #90 tablet 12/24/16 12/26/16 Rx Metoprolol Succinate Xl [Toprol Xl] 50 mg PO BID #60 tablet 12/24/16 12/26/16 Rx Pantoprazole Tab [Protonix Tab] 40 mg PO DAILY #30 tablet 12/24/16 12/26/16 Rx metOLazone [Zaroxolyn] 5 mg PO DAILY #30 tablet 12/24/16 12/26/16 Rx Lactulose 20 gm PO Q6H 12/26/16 12/26/16 History Allergies Allergy/AdvReac Type Severity Reaction Status Date / Time Penicillins AdvReac ANAPHYLAXIS Verified 12/26/16 00:44 Medical,Surgical,& Family Hx - Medical History Cardio: No history of: Cardiac Dysrhythmia, Congenital Heart Disease, CAD, Cardiovascular Problems Respiratory: History of: COPD, Respiratory Problems (wears home 02) Gastrointestinal: History of: Liver Problems (Cirrhosis) - Surgical History Neurologic Surgeries: Patient denies: Neurologic Surgery Abdominal Surgeries: Surgical HX of: Cholecystectomy, Gastric Bypass Surgery Orthopedic Surgeries: Patient denies;: Total Knee Replacement - Family History Family History: Denies;: Family Heart Disease - Social History Smoking Status: Former smoker Frequency of Alcohol Use: Occasionally Type of Drug Use: None - Constitutional Constitutional: Absent: chills, fever(s) - EENT Nose, mouth and throat: Present: epistaxis - Cardiovascular Cardiovascular: Present: dyspnea, dyspnea on exertion, orthopnea. Absent: chest pain with activity, PND - Respiratory Respiratory: Absent: cough, hemoptysis - Gastrointestinal Gastrointestinal: Present: as per HPI. Absent: hematemesis, hematochezia, melena - Genitourinary Genitourinary: Absent: dysuria, flank pain, hematuria - Neurological Neurological: Absent: abnormal speech, focal weakness Exam - Constitutional Vitals: Period Temp Pulse Resp BP Sys/Pastor Pulse Ox Last 24 Hr 97.8 F-98.3 F 90-114 12-28 83-117/22-81 89-100 General appearance: no acute distress - Head Head exam: Present: normocephalic, atraumatic - Eye Eye exam: Absent: scleral icterus - Respiratory Respiratory exam: Present: decreased breath sounds (In right lower two third lung field). Absent: wheezes - Cardiovascular Cardiovascular exam: Present: regular rate and rhythm. Absent: gallop, rubs - GI/Abdominal GI/Abdominal exam: Present: normal bowel sounds, soft. Absent: distended, organomegaly, tenderness - Extremities Exam Extremities exam: Present: edema (4+ peripheral edema with anasarca tracking into the hip area bilaterally) - Neurological Exam Neurological exam: Present: alert, oriented X3, CN II-XII intact. Absent: motor sensory deficit - Psychiatric Psychiatric exam: Present: normal affect, normal mood - Skin Skin exam: Absent: warm, dry Results - Labs CBC & BMP: 12/26/16 08:14 12/26/16 08:14 Lab Results: I have reviewed the past 24 hour labs
[2016-12-26] MEDS ORDERED: LACTULOSE 20 GM/30 ML UDCUP PO ONE (15:37)
--- NOTE | 2016-12-26 18:31 | ECHO Report ---
Kimberley Greco Exam Date: 12/26/2016 09:45 Referring Physician: Technologist: Tisha Ortiz RDCS Age: 56 Ht (in): Wt (lb): Gender: F Exam Location: [facility] Echo Indications: Ascites, Right pleural effusion, Hepatic cirrhosis, Anemia, Acute kidney injury, Atrial fibrillation BP: / HR: Rhythm: Sinus Technical Quality: IMPRESSIONS Normal left ventricular size, with mild concentric hypertrophy, with normal systolic function. Estimated left ventricular ejection fraction 55%. Moderate biatrial enlargement. Mildly dilated right ventricle, with normal systolic function and normal pulmonary pressure. MEASUREMENTS (Male / Female) Normal Values 2D ECHO LV Diastolic Diameter PLAX 5.3 cm 4.2 - 5.9 / 3.9 - 5.3 cm LV Systolic Diameter PLAX 3.2 cm LV Fractional Shortening PLAX 39.8 % IVS Diastolic Thickness 1.3 cm 0.6 - 1.0 / 0.6 - 0.9 cm LVPW Diastolic Thickness 1.3 cm 0.6 - 1.0 / 0.6 - 0.9 cm RV Internal Dim ED PLAX 4.4 cm Aortic Root Diameter 3.1 cm LA Systolic Diameter LX 4.5 cm 3.0 - 4.0 / 2.7 - 3.8 cm DOPPLER TR Peak Velocity 239.0 cm/s TR Peak Gradient 22.8 mmHg FINDINGS Left Ventricle Normal left ventricular size, with mild concentric hypertrophy, with normal systolic function. Estimated left ventricular ejection fraction 55%. Unable to assess diastolic function due to arrhythmia. Right Ventricle The right ventricle is mildly dilated, with normal systolic function. Right Atrium The right atrium is moderately dilated. Left Atrium The left atrium is moderately dilated. Mitral Valve Morphologically normal mitral valve. Trace mitral valve regurgitation. Aortic Valve Morphologically normal aortic valve without significant sclerosis or stenosis. There is no aortic regurgitation. Tricuspid Valve Morphologically normal tricuspid valve. Mild tricuspid valve regurgitation. Tricuspid regurgitation velocities suggest a PAP of 33 mmHg. Pulmonic Valve Morphologically normal pulmonic valve without significant stenosis. There is trace pulmonic regurgitation. Pericardium Normal pericardium without effusion. Aorta Normal ascending aorta dimension. Melvin Iverson (Electronically Signed) Final Date: 26 December 2016 18:13
[2016-12-27 03:35] LABS: Allen Test Positive
[2016-12-27 03:37] LABS: ABG Base Excess 10.6 MMOL/L (-2.5-2.5); ABG HCO3 34.3 MMOL/L (20-26); ABG Oxygen Saturation 93.4 % (95-100); ABG PCO2 64.7 MM HG (35-48); ABG PH 7.374 (7.35-7.45); ABG PO2 71.7 MM HG (80-95); ABG TCO2 35.3 MMOL/L (23-27)
[2016-12-27] MEDS: MORPHINE 2 MG/1 ML SYRINGE IV PRN ×2 (04:32→13:00)
[2016-12-27 04:45] LABS: Basophils % 0.5 % (0.0-0.8); Eosinophils # 0.1 10*3/uL (0.0-0.87); Eosinophils % 1.7 % (0.00-10.9); Hemoglobin 8.1 GM/DL (12.0-16.0); Immature Granulocytes % 0.5 %; Immature Granulocytes Absolute 0.04 #; Lymphocytes # 1.2 10*3/uL (1.4-4.0); Lymphocytes % 15.1 % (21.3-54.2); Mean Corpuscular HGB Conc 32.4 GM/DL (32-36); Mean Corpuscular Hemoglobin 30 PG (27-34); Mean Corpuscular Volume 92.6 FL (87-102); Mean Platelet Volume 11.4 FL (9.6-12.0); Monocytes # 0.6 10*3/uL (0.11-0.8); Monocytes % 7.2 % (1.7-12.7); Neutrophils # 6.1 10*3/uL (1.4-7.4); Red Cell Distribution Width 17.6 % (9.3-17.3); White Blood Count 8.1 T/CUMM (4-12)
[2016-12-27 04:46] LABS: Platelet Count 59 T/CUMM (130-400)
[2016-12-27 04:55] LABS: INR 1.7
[2016-12-27 05:15] LABS: Calcium 8.9 MG/DL (8.5-10.1); Osmolality,Calculated 280.5 MOS/KG (273-304); Potassium 3.3 MMOL/L (3.5-5.1)
[2016-12-27 05:25] LABS: Free T4 (Free Thyroxine) 0.93 NG/DL (0.76-1.46); Thyroid Stimulating Hormone 7.91 uIU/ml (0.358-3.74)
[2016-12-27] MEDS: POTASSIUM CHLORIDE RIDER 10 MEQ in PREMIX 1 EACH IV PRN (05:25)
[2016-12-27] MEDS: LACTULOSE 20 GM/30 ML UDCUP PO SCH ×3 (05:26→17:01)
[2016-12-27 05:33] LABS: Hypochromasia 1+; Ovalocytes Slight; Platelet Estimate Decreased
[2016-12-27] MEDS: POTASSIUM CHLORIDE 20 MEQ TABLET PO PRN ×2 (06:12→13:10)
--- NOTE | 2016-12-27 06:58 | XRay Report ---
Exam: XR chest 1V portable Date: 12/27/2016 7:00 AM Indication: Shortness of breath, pleural effusion Comparison: 12/26/2016 Technical: AP portable Findings: Bilateral pleural effusions right greater than left involving one half of the right chest. Degenerative spondylosis change present. A speech present. Mild interstitial edema and shunt vascularity also present. Cardiomegaly is present. ASVD present. External cardiac leads are noted. Impression: 1. Persistent bilateral pleural effusions right greater than left with underlying cardiac enlargement and shunt vascularity 2. Degenerative spondylosis change thoracic spine. PROCEDURE INTERPRETED AT [facility] DEPARTMENT OF RADIOLOGY Final Report Signed by: Dr. Ward June
[2016-12-27] MEDS: ALBUTEROL 2.5 MG/3 ML NEB RESP TX SCH ×4 (07:43→19:36)
[2016-12-27] MEDS: INSULIN REGULAR 100 UNIT/ML SUBCUT SCH ×4 (07:54→22:44)
[2016-12-27] MEDS: VANCOMYCIN INJ 2,000 MG in SODIUM CHLORIDE 0.9% 500 ML IV SCH (08:56)
[2016-12-27] MEDS: ALBUMIN 25% 25 GM in PREMIX 1 EACH IV SCH ×2 (08:56→17:00)
[2016-12-27] MEDS: THIAMINE 200 MG/2 ML VIAL IM SCH (08:58)
[2016-12-27] MEDS: FERROUS SULFATE 325 MG TABLET PO SCH (09:00)
[2016-12-27] MEDS: METOPROLOL SUCCINATE XL 25 MG TABLET PO SCH ×2 (09:00→22:35)
[2016-12-27] MEDS: MULTIVITAMIN (CENTRUM) TABLET PO SCH (09:00)
[2016-12-27] MEDS: PANTOPRAZOLE 40 MG TABLET PO SCH (09:00)
[2016-12-27] MEDS: MUPIROCIN 2% OINT 22 GM TUBE TOP SCH ×2 (09:01→22:36)
[2016-12-27] MEDS: ENOXAPARIN 30 MG/0.3 ML SYRINGE SUBCUT SCH (09:01)
[2016-12-27] MEDS: GABAPENTIN 300 MG CAPSULE PO SCH ×4 (09:01→22:32)
--- NOTE | 2016-12-27 10:17 | Pulmonology Progress Note ---
Pulmonary - PN: Subj Interval history: This 56-year-old white female was recently here with anasarca and a large right pleural effusion. She had 2 thoracenteses with findings of transudative fluid. It is felt to be due to her chronic liver disease. 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 A TIPS procedure was offered but she declined. She chose to go home over the weekend but came back in a couple days later with worsening shortness of breath. We had diuresed her before and she had worsening renal function so the diuretics were decreased. She now has a moderate right pleural effusion. However she is not in respiratory distress and she is adequately oxygenated. I would prefer to diurese are rather than doing recurrent thoracenteses as they will not solve the underlying problem. TIPS procedure needs to be readdressed. Exam (Progress Note) - Constitutional Vitals: Period Temp Pulse Resp BP Sys/Pastor Pulse Ox Last 24 Hr 97.4 F-98.8 F 90-108 12-22 80-141/49-81 80-100 Exam: She is alert and oriented vital signs normal. O2 sat 94% on 2 L. Pupils react to light. She does have some jaundice. Throat is clear. Neck supple no bruits. Chest reveals dullness mcfp up on the right side a few rales bilaterally. Heart normal rate and rhythm no murmurs. Abdomen soft nontender no masses. Extremities she has 3+ edema. She does have ascites. Calves are nontender. Results - Labs CBC & BMP: 12/27/16 03:39 12/27/16 03:39 Lab Results: I have reviewed the past 24 hour labs - Diagnostic Findings Procedure: Chest x-ray: image reviewed by me (Moderate right pleural effusion small left pleural effusion cardiomegaly.) Assessment and Plan (1) Hepatic encephalopathy Status: Acute Assessment and plan: Patient's ammonia level was 116. Being addressed with Chronulac. Current Visit: No (2) Pleural effusion on right Status: Acute Assessment and plan: She has a moderate right pleural effusion. She is not in respiratory distress. If it gets worse we can tap her. This is best handled with diuretics, salt poor albumin, and possibly a TIPS procedure. Current Visit: No (3) Ascites Status: Chronic Assessment and plan: Related to her cirrhosis. Current Visit: No (4) Hepatic cirrhosis Status: Chronic Assessment and plan: This is of course her underlying problem. Defer to GI. Current Visit: No Qualifiers: Hepatic cirrhosis type: alcoholic cirrhosis
--- NOTE | 2016-12-27 10:52 | Hospitalist Progress Note ---
Assessment and Plan (1) Hypokalemia Status: Acute Assessment and plan: replace per protocol Current Visit: Yes (2) Hepatic cirrhosis Status: Chronic Current Visit: No Qualifiers: Hepatic cirrhosis type: alcoholic cirrhosis Ascites presence: with ascites Qualified Code(s): K70.31 - Alcoholic cirrhosis of liver with ascites (3) Chronic obstructive pulmonary disease Status: Chronic Current Visit: No Qualifiers: Chronic bronchitis type: simple (4) Anasarca Status: Acute Assessment and plan: receiving albumin and diuresis Current Visit: No (5) REBECCA (acute kidney injury) Status: Acute Current Visit: No (6) COPD (chronic obstructive pulmonary disease) Status: Acute Current Visit: No (7) Anemia of chronic disease Status: Chronic Current Visit: No Hospitalist: Subjective Interval history: Patient seen and examined. She is sitting in the chair today. She appears comfortable. She reports some shaking in her hands consistent with asterixis. Mental status appears clear. She still has significant edema in her lower extremities. Exam - Constitutional Vitals: Period Temp Pulse Resp BP Sys/Pastor Pulse Ox Last 24 Hr 97.4 F-98.8 F 90-108 12-22 80-141/47-81 80-100 General appearance: morbidly obese - Head Head exam: Present: normal inspection, normocephalic, atraumatic - Eye Eye exam: Present: EOMI Pupils: Present: PAPITO - Respiratory Respiratory exam: Present: clear to auscultation bilaterally (anteriorly clear with diminished sounds and rales at the bases posteriorly.), decreased breath sounds. Absent: wheezes - Cardiovascular Cardiovascular exam: Present: regular rate and rhythm - GI/Abdominal GI/Abdominal exam: Present: normal bowel sounds, ascites, soft - Extremities Exam Extremities exam: Present: edema - Neurological Exam Neurological exam: Present: alert, oriented X3 - Psychiatric Psychiatric exam: Present: normal affect, normal mood - Skin Skin exam: Present: normal color, warm Results - Labs CBC & BMP: 12/27/16 03:39 12/27/16 03:39 Lab Results: I have reviewed the past 24 hour labs
--- NOTE | 2016-12-27 11:58 | Nephrology Consult Note ---
History of Present Illness Chief complaint: increased BUN/creatinine creatinine History of present illness: Ms. Greco is a 56 year old female who was discharged home about 3 days ago in remission admitted the day after her discharge for complaints of shortness of breath. The patient had been in the hospital for volume overload and shortness of breath and liver cirrhosis. The patient had acute renal failure during her hospitalization which improved with Midodrin and subcutaneous vasopressin and decreasing her antihypertensives. The patient's creatinine on presentation this admission was around 1.8 mg/dL however today it's up to 2.2 mg/dL. The patient was on IV Lasix up until yesterday as well as spironolactone. She continues on metolazone. The patient's blood pressure has been around 90-105 on the systolic side. The patient states her breathing is better since she has been admitted and also states her swelling in her abdomen is decreased since admission. ROS: Head -positive headaches ENT - denies sore throat Lymphatics - denies lymphadenopathy Hematology - denies bleeding problems Heart - denies chest pain Lungs -positive shortness of breath Abdomen - denies abdominal pain Musculoskeletal - denies arthritis, complains of pain in her legs from the swelling Skin - denies rash Neurology - denies stroke General - denies fever PE: General: in no acute distress Eyes: Pupils are round and reactive, conjunctivae are clear ENT: Nose is clear, O/P is benign Neck: Supple, no thyromegaly Lymphatics: No cervical, supraclavicular or axillary adenopathy Heart: Regular rate and rhythm, 2+ pretibial edema Lungs: Clear to auscultation anteriorly, chest expansion symmetric Abdomen: Soft, normoactive bowel sounds, no hepatomegaly Musculoskeletal: No joint erythema or effusions or joint asymmetry Skin: Normal turgor, normal hydration, no rash Neuro/Psych: Alert and cooperative with poor insight Home Medications Medication Instructions Recorded Confirmed Type Albuterol Sulfate [Ventolin HFA] 1 puff INH QID PRN 12/13/16 12/26/16 History Spironolactone 100 mg PO DAILY 12/13/16 12/26/16 History Furosemide Tab [Lasix Tab] 80 mg PO TID #90 tablet 12/24/16 12/26/16 Rx Metoprolol Succinate Xl [Toprol Xl] 50 mg PO BID #60 tablet 12/24/16 12/26/16 Rx Pantoprazole Tab [Protonix Tab] 40 mg PO DAILY #30 tablet 12/24/16 12/26/16 Rx metOLazone [Zaroxolyn] 5 mg PO DAILY #30 tablet 12/24/16 12/26/16 Rx Lactulose 20 gm PO Q6H 12/26/16 12/26/16 History Allergies Allergy/AdvReac Type Severity Reaction Status Date / Time Penicillins AdvReac ANAPHYLAXIS Verified 12/26/16 00:44 Medical,Surgical,& Family Hx - Medical History Cardio: No history of: Cardiac Dysrhythmia, Congenital Heart Disease, CAD, Cardiovascular Problems Respiratory: History of: COPD, Respiratory Problems (wears home ) Gastrointestinal: History of: Liver Problems (Cirrhosis) - Surgical History Neurologic Surgeries: Patient denies: Neurologic Surgery Abdominal Surgeries: Surgical HX of: Cholecystectomy, Gastric Bypass Surgery Orthopedic Surgeries: Patient denies;: Total Knee Replacement - Family History Family History: Reports;: Family Diabetes Denies;: Family Heart Disease - Social History Smoking Status: Former smoker (she quit smoking about a month ago) Frequency of Alcohol Use: Occasionally (patient had been drinking heavily for the past year since her had passed she states she gave this up about a month ago as well.) Type of Drug Use: None Exam - Vital Signs Vital signs: Period Temp Pulse Resp BP Sys/Pastor Pulse Ox Last 24 Hr 97.4 F-98.8 F 90-108 12-22 80-141/47-81 80-100 Results - Labs CBC & BMP: 12/27/16 03:39 12/27/16 03:39 Assessment and Plan - Time spent with patient Time spent with patient: Less than 30 minutes (1) REBECCA (acute kidney injury) Status: Acute Assessment and plan: This patient is developing acute renal failure again, her Lasix and spironolactone are being held. I think with her marked fluid overload will eventually have to restart these. I'm going to put her back on midodrine and vasopressin as she was previously to try and improve her kidney perfusion. Current Visit: Yes (2) Anemia Status: Acute Current Visit: Yes (3) CHF (congestive heart failure) Status: Acute Current Visit: Yes (4) Hypokalemia Status: Acute Assessment and plan: Continue replacement Current Visit: Yes (5) Anasarca Status: Acute Current Visit: No (6) COPD (chronic obstructive pulmonary disease) Status: Acute Current Visit: No (7) Hepatorenal syndrome Status: Acute Current Visit: No (8) Alcoholic cirrhosis Status: Chronic Current Visit: No
--- NOTE | 2016-12-27 13:33 | Gastrointestinal Progress Note ---
<NaylarobinsonCandi Rosa Maria - Last Filed: 12/27/16 13:29> Assessment and Plan (1) Alcoholic cirrhosis Status: Chronic Assessment and plan: 12/27-Ammonia down at 116, one BM today. No encephalopathy noted at present time. Plan and addendum to follow by Dr Vidal. Current Visit: No (2) Hepatorenal syndrome Status: Acute Assessment and plan: 12/27-Creatnine 2.2. Chest xray noted with persistent bilateral pleural effusion , right greater than left. Plan and addendum to follow by Dr Vidal. Current Visit: No Gastroenterology - PN: Subj Interval history: CC: Cirrhosis Pt is seen, prior to transfer to floor. She states she is breathing easier today with less SOB. She has had a bowel movement this morning. No encephalopathy noted at present time. Ammonia level 116. No repeat LFTs today. Hgb 8.1, no overt bleeding. Abdomen is soft, nontender. Creatnine 2.2, up slightly from admission. Chest xray today shows persistent bilateral pleural effusion right greater than left. ROS: Denies SOB or chest pain at present time Exam (Progress Note) - Constitutional Vitals: Period Temp Pulse Resp BP Sys/Pastor Pulse Ox Last 24 Hr 97.4 F-98.8 F 90-108 12-22 80-141/47-71 80-100 General appearance: no acute distress, over weight - Head Head exam: Present: normal inspection, normocephalic - Eye Eye exam: Present: other (lids and conjunctiva unremarkable). Absent: scleral icterus - ENT ENT exam: Present: normal exam, normal oropharynx - Neck Neck exam: Present: normal inspection - Respiratory Respiratory exam: Present: clear to auscultation bilaterally. Absent: rales, rhonchi, wheezes - Cardiovascular Cardiovascular exam: Present: regular rate and rhythm. Absent: diastolic murmur , JVD, systolic murmur - GI/Abdominal GI/Abdominal exam: Present: normal bowel sounds, soft. Absent: ascites, distended, mass, organomegaly, tenderness - Extremities Exam Extremities exam: Present: normal inspection, full ROM - Back Exam Back exam: Present: normal inspection - Neurological Exam Neurological exam: Present: alert, oriented X3 - Psychiatric Psychiatric exam: Present: normal affect, normal mood - Skin Skin exam: Present: normal color, warm, dry Results - Labs CBC & BMP: 12/27/16 03:39 12/27/16 03:39 Lab Results: I have reviewed the past 24 hour labs <Ward Vidal - Last Filed: 12/27/16 14:49> Assessment and Plan (1) Alcoholic cirrhosis Status: Chronic Current Visit: No (2) Hepatorenal syndrome Status: Acute Current Visit: No Exam (Progress Note) - Constitutional Vitals: Period Temp Pulse Resp BP Sys/Pastor Pulse Ox Last 24 Hr 97.4 F-98.8 F 90-108 12-22 80-141/47-71 80-100 Results - Labs CBC & BMP: 12/27/16 03:39 12/27/16 03:39
[2016-12-27] MEDS: MIDODRINE 5 MG TABLET PO SCH ×2 (16:59→22:32)
[2016-12-27] MEDS: OCTREOTIDE 100 MCG/ML SYRINGE SUBCUT SCH ×2 (17:00→22:39)
[2016-12-28] MEDS: LACTULOSE 20 GM/30 ML UDCUP PO SCH ×5 (01:12→23:45)
[2016-12-28] MEDS: ALBUMIN 25% 25 GM in PREMIX 1 EACH IV SCH ×4 (01:12→23:44)
[2016-12-28 02:32] LABS: ABG Base Excess 9.8 MMOL/L (-2.5-2.5); ABG HCO3 33.4 MMOL/L (20-26); ABG Oxygen Saturation 91.8 % (95-100); ABG PCO2 68.2 MM HG (35-48); ABG PH 7.348 (7.35-7.45); ABG PO2 66.3 MM HG (80-95)
[2016-12-28 04:35] LABS: INR 1.7; PT Patient Result 18.8 SECS
[2016-12-28 05:13] LABS: Free T4 (Free Thyroxine) 0.95 NG/DL (0.76-1.46); Thyroid Stimulating Hormone 4.95 uIU/ml (0.358-3.74)
--- NOTE | 2016-12-28 06:11 | XRay Report ---
Exam: XR chest 1V portable Date: 12/28/2016 6:00 AM Indication: Shortness of breath pleural effusion Comparison: 12/27/2016 Technical: AP portable Findings: Cardiomegaly is present. Bilateral pleural effusions are present with underlying atelectatic changes. Lateral marginal osteophytes are present. External cardiac leads are present no pneumothorax noted. Mediastinum is otherwise intact. No pneumothorax. Impression: 1. Persistent pleural effusions right greater than left involving the lower one half of the right chest. 2. Underlying atelectatic change 3. Cardiomegaly shunt vascularity and ASVD PROCEDURE INTERPRETED AT [facility] DEPARTMENT OF RADIOLOGY Final Report Signed by: Dr. Ward June
--- NOTE | 2016-12-28 06:49 | Pulmonology Progress Note ---
Pulmonary - PN: Subj Interval history: This 56-year-old white female was recently here with anasarca and a large right pleural effusion. She had 2 thoracenteses with findings of transudative fluid. It is felt to be due to her chronic liver disease. 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 A TIPS procedure was offered but she declined. She chose to go home over the weekend but came back in a couple days later with worsening shortness of breath. We had diuresed her before and she had worsening renal function so the diuretics were decreased. She now has a moderate right pleural effusion. However she is not in respiratory distress and she is adequately oxygenated. I would prefer to diurese are rather than doing recurrent thoracenteses as they will not solve the underlying problem. TIPS procedure needs to be readdressed. 12/28/2016 patient had episode of dyspnea yesterday afternoon and was given Ativan. She is a little bit groggy this morning but responsive. She has an elevated PCO2 of 66. We need to be very careful about sedation. No chest x- ray is yet this morning. Exam (Progress Note) - Constitutional Vitals: Period Temp Pulse Resp BP Sys/Pastor Pulse Ox Last 24 Hr 96.7 F-98.1 F 84-102 10-21 83-110/47-71 89-100 Exam: She is groggy but arousable and oriented vital signs normal. O2 sat 97% on 3 L. Pupils react to light. She does have some jaundice. Throat is clear. Neck supple no bruits. Chest reveals dullness longterm up on the right side a few rales bilaterally. Heart normal rate and rhythm no murmurs. Abdomen soft nontender no masses. Extremities she has 3+ edema. She does have ascites. Calves are nontender. Results - Labs CBC & BMP: 12/27/16 03:39 12/27/16 03:39 Lab Results: I have reviewed the past 24 hour labs Assessment and Plan (1) Hepatic encephalopathy Status: Acute Assessment and plan: Patient's ammonia level was 116. Being addressed with Chronulac. 12/28/2016 continuing with Chronulac. Monitor ammonia level. Current Visit: No (2) Pleural effusion on right Status: Acute Assessment and plan: She has a moderate right pleural effusion. She is not in respiratory distress. If it gets worse we can tap her. This is best handled with diuretics, salt poor albumin, and possibly a TIPS procedure. 12/28/2016 chest x-ray pending. With concern about using diuretics she may require thoracentesis. Current Visit: No (3) Ascites Status: Chronic Assessment and plan: Related to her cirrhosis. 12/28/2016 she has ascites but she is not tense. Current Visit: No (4) Hepatic cirrhosis Status: Chronic Assessment and plan: This is of course her underlying problem. Defer to GI. Current Visit: No Qualifiers: Hepatic cirrhosis type: alcoholic cirrhosis Ascites presence: with ascites Qualified Code(s): K70.31 - Alcoholic cirrhosis of liver with ascites
--- NOTE | 2016-12-28 07:07 | Nephrology Progress Note ---
Nephrology - PN: Subj Interval history: Patient reports some shortness of breath last night. Review of systems GI she ate well yesterday, she denies nausea or vomiting Physical exam general patient's chronically ill-appearing Assessment/plan 1. Acute renal failure-the patient's BMP is pending this morning 2. Liver cirrhosis 3. Congestive heart failure-chest x-ray shows continued bilateral pleural effusions and some increased interstitial markings 4. Anemia 5. Volume overload-patient is on Zaroxolyn, patient continues to develop intermittent respiratory distress from a kidney standpoint it would be fine to add Lasix 80 mg IV 2 or 3 times a day. If her creatinine is improved from yesterday I would add Lasix back to her regimen regardless today. Exam (PN)-Nephrology - Vital Signs Vital signs: Period Temp Pulse Resp BP Sys/Pastor Pulse Ox Last 24 Hr 96.7 F-98.1 F 84-102 10-21 83-105/47-71 89-100 - Lab 12/27/16 03:39 12/27/16 03:39 Most recent lab results ABG pH 7.348 (7.35-7.45) L 12/28/16 02:22 ABG pCO2 68.2 MM HG (35-48) H 12/28/16 02:22 ABG pO2 66.3 MM HG (80-95) L 12/28/16 02:22 ABG HCO3 33.4 MMOL/L (20-26) H 12/28/16 02:22 ABG O2 Saturation 91.8 % (95-100) L 12/28/16 02:22 Calcium 8.9 MG/DL (8.5-10.1) 12/27/16 03:39 Magnesium 2.0 MG/DL (1.8-2.4) 12/27/16 03:39 Assessment and Plan (1) REBECCA (acute kidney injury) Status: Acute Assessment and plan: This patient is developing acute renal failure again, her Lasix and spironolactone are being held. I think with her marked fluid overload will eventually have to restart these. I'm going to put her back on midodrine and vasopressin as she was previously to try and improve her kidney perfusion. Current Visit: Yes (2) Anemia Status: Acute Current Visit: Yes (3) CHF (congestive heart failure) Status: Acute Current Visit: Yes (4) Hypokalemia Status: Acute Assessment and plan: Continue replacement Current Visit: Yes (5) Anasarca Status: Acute Current Visit: No (6) COPD (chronic obstructive pulmonary disease) Status: Acute Current Visit: No (7) Hepatorenal syndrome Status: Acute Current Visit: No (8) Alcoholic cirrhosis Status: Chronic Current Visit: No
[2016-12-28 07:29] LABS: Calcium 9.4 MG/DL (8.5-10.1)
[2016-12-28 07:30] LABS: Magnesium 2.1 MG/DL (1.8-2.4); Osmolality,Calculated 282.4 MOS/KG (273-304); Potassium 3.6 MMOL/L (3.5-5.1)
[2016-12-28] MEDS: ALBUTEROL 2.5 MG/3 ML NEB RESP TX SCH ×4 (07:47→20:25)
[2016-12-28] MEDS: INSULIN REGULAR 100 UNIT/ML SUBCUT SCH ×4 (08:38→21:31)
[2016-12-28] MEDS: FERROUS SULFATE 325 MG TABLET PO SCH (08:40)
[2016-12-28] MEDS: MIDODRINE 5 MG TABLET PO SCH ×3 (08:40→20:17)
[2016-12-28] MEDS: GABAPENTIN 300 MG CAPSULE PO SCH ×4 (08:40→20:16)
[2016-12-28] MEDS: THIAMINE 200 MG/2 ML VIAL IM SCH (08:41)
[2016-12-28] MEDS: ENOXAPARIN 30 MG/0.3 ML SYRINGE SUBCUT SCH (08:41)
[2016-12-28] MEDS: MULTIVITAMIN (CENTRUM) TABLET PO SCH (08:41)
[2016-12-28] MEDS: METOPROLOL SUCCINATE XL 25 MG TABLET PO SCH ×2 (08:42→20:17)
[2016-12-28] MEDS: PANTOPRAZOLE 40 MG TABLET PO SCH (08:42)
[2016-12-28] MEDS: MUPIROCIN 2% OINT 22 GM TUBE TOP SCH ×2 (08:43→20:17)
--- NOTE | 2016-12-28 09:13 | Hospitalist Progress Note ---
Assessment and Plan (1) Hepatic cirrhosis Status: Chronic Assessment and plan: Receiving albumin infusion. Diuresis with Zaroxolyn. Current Visit: No Qualifiers: Hepatic cirrhosis type: alcoholic cirrhosis Ascites presence: with ascites Qualified Code(s): K70.31 - Alcoholic cirrhosis of liver with ascites (2) Chronic obstructive pulmonary disease Status: Chronic Current Visit: No Qualifiers: Chronic bronchitis type: simple (3) Anasarca Status: Chronic Assessment and plan: receiving albumin and diuresis Current Visit: No (4) REBECCA (acute kidney injury) Status: Acute Assessment and plan: Baseline creatinine is 1. Currently stable at 2. This is believed to be hepatorenal syndrome and related to her intravascular depletion secondary to low albumin level secondary to hepatic dysfunction. Current Visit: No (5) COPD (chronic obstructive pulmonary disease) Status: Chronic Current Visit: No (6) Anemia of chronic disease Status: Chronic Current Visit: No (7) Hypokalemia Status: Resolved Assessment and plan: replace per protocol Current Visit: Yes Hospitalist: Subjective Interval history: Patient seen and examined. Sitting in the chair eating breakfast. Reports feeling better. Improved appetite. Exam - Constitutional Vitals: Period Temp Pulse Resp BP Sys/Pastor Pulse Ox Last 24 Hr 96.7 F-98.1 F 84-102 10-21 83-105/47-71 89-100 General appearance: mild distress - Head Head exam: Present: normal inspection, normocephalic, atraumatic - Eye Eye exam: Present: EOMI Pupils: Present: PAPITO - Respiratory Respiratory exam: Present: decreased breath sounds, rales (at bases) - Cardiovascular Cardiovascular exam: Present: regular rate and rhythm - GI/Abdominal GI/Abdominal exam: Present: normal bowel sounds, ascites, soft. Absent: tenderness - Extremities Exam Extremities exam: Present: edema - Neurological Exam Neurological exam: Present: alert, oriented X3 - Psychiatric Psychiatric exam: Present: normal affect, normal mood - Skin Skin exam: Present: normal color, warm Results - Labs CBC & BMP: 12/27/16 03:39 12/28/16 06:50 Lab Results: I have reviewed the past 24 hour labs
[2016-12-28] MEDS: OCTREOTIDE 100 MCG/ML SYRINGE SUBCUT SCH ×3 (10:00→21:22)
--- NOTE | 2016-12-28 10:27 | Gastrointestinal Progress Note ---
Assessment and Plan (1) Alcoholic cirrhosis Status: Chronic Assessment and plan: 12/28-Ammonia 79, one BM. No c/o pain. No SOB. NO changes in weight. Creatnine 2.2. Plan and addendum to follow by Dr Vidal. 12/27-Ammonia down at 116, one BM today. No encephalopathy noted at present time. Plan and addendum to follow by Dr Vidal. Current Visit: No (2) Hepatorenal syndrome Status: Acute Assessment and plan: 12/27-Creatnine 2.2. Chest xray noted with persistent bilateral pleural effusion , right greater than left. Plan and addendum to follow by Dr Vidal. Current Visit: No Gastroenterology - PN: Subj Interval history: CC: Cirrhosis Pt is sitting up in chair, somnolent but does awaken and is oriented however falls back asleep. She states that she is feeling some better. Abdomen is soft, nontender. Her weight is essentially unchanged. Creatnine 2.2. She has had a bowel movement this morning. Ammonia is down to 79 at present. She is tolerating her diet. ROS: Denies SOB or chest pain Exam (Progress Note) - Constitutional Vitals: Period Temp Pulse Resp BP Sys/Pastor Pulse Ox Last 24 Hr 96.7 F-98.1 F 84-102 10-21 83-103/50-71 90-100 - Other Additional findings: General appearance: no acute distress, over weight - Head Head exam: Present: normal inspection, normocephalic - Eye Eye exam: Present: other (lids and conjunctiva unremarkable). Absent: scleral icterus - ENT ENT exam: Present: normal exam, normal oropharynx - Neck Neck exam: Present: normal inspection - Respiratory Respiratory exam: Present: clear to auscultation bilaterally. Absent: rales, rhonchi, wheezes - Cardiovascular Cardiovascular exam: Present: regular rate and rhythm. Absent: diastolic murmur , JVD, systolic murmur - GI/Abdominal GI/Abdominal exam: Present: normal bowel sounds, soft. Absent: ascites, distended, mass, organomegaly, tenderness - Extremities Exam Extremities exam: Present: normal inspection, full ROM - Back Exam Back exam: Present: normal inspection - Neurological Exam Neurological exam: Present: alert, oriented X3 - Psychiatric Psychiatric exam: Present: normal affect, normal mood - Skin Skin exam: Present: normal color, warm, dry Results - Labs CBC & BMP: 12/27/16 03:39 12/28/16 06:50 Lab Results: I have reviewed the past 24 hour labs
[2016-12-28] MEDS: VANCOMYCIN INJ 2,000 MG in SODIUM CHLORIDE 0.9% 500 ML IV SCH (11:16)
[2016-12-28] MEDS: MORPHINE 2 MG/1 ML SYRINGE IV PRN ×2 (17:41→23:45)
[2016-12-29 04:21] LABS: ABG Base Excess 9.5 MMOL/L (-2.5-2.5); ABG HCO3 33.2 MMOL/L (20-26); ABG Oxygen Saturation 95.1 % (95-100); ABG PCO2 66.2 MM HG (35-48); ABG PH 7.355 (7.35-7.45); ABG TCO2 34.4 MMOL/L (23-27); Allen Test Positive
[2016-12-29] MEDS: LACTULOSE 20 GM/30 ML UDCUP PO SCH ×3 (05:30→18:15)
[2016-12-29 06:47] LABS: INR 1.7; PT Patient Result 18.3 SECS
[2016-12-29 07:10] LABS: Calcium 9.4 MG/DL (8.5-10.1); Magnesium 2.1 MG/DL (1.8-2.4); Osmolality,Calculated 283.4 MOS/KG (273-304); Potassium 3.7 MMOL/L (3.5-5.1)
--- NOTE | 2016-12-29 07:23 | XRay Report ---
Exam: XR chest 1V portable Date: 12/29/2016 6:00 AM Indication: Shortness of breath Comparison: 12/28/2016 Technical: AP portable Findings: Cardiomegaly present. Bilateral pleural effusions and atelectatic changes are present right greater than left. ASVD is present. External cardiac leads lateral marginal osteophytes are present. No pneumothorax Impression: 1. Cardiomegaly with persistent bilateral effusions atelectatic change with slight improvement in aeration in the upper lung zones bilaterally PROCEDURE INTERPRETED AT [facility] DEPARTMENT OF RADIOLOGY Final Report Signed by: Dr. Ward June
[2016-12-29] MEDS: ALBUTEROL 2.5 MG/3 ML NEB RESP TX SCH ×4 (07:40→19:33)
--- NOTE | 2016-12-29 08:42 | Gastrointestinal Progress Note ---
Assessment and Plan (1) Alcoholic cirrhosis Status: Chronic Assessment and plan: 12/29-Ammonia 47. No pain. Add Mirliax to regimen as needed daily. Plan and addendum to follow by Dr Vidal. 12/28-Ammonia 79, one BM. No c/o pain. No SOB. NO changes in weight. Creatnine 2.2. Plan and addendum to follow by Dr Vidal. 12/27-Ammonia down at 116, one BM today. No encephalopathy noted at present time. Plan and addendum to follow by Dr Vidal. Current Visit: No (2) Hepatorenal syndrome Status: Acute Assessment and plan: 12/29-Creatnine 2.3. For thoracentesis today. Plan and addendum to follow by Dr Vidal. 12/27-Creatnine 2.2. Chest xray noted with persistent bilateral pleural effusion , right greater than left. Plan and addendum to follow by Dr Vidal. Current Visit: No Gastroenterology - PN: Subj Interval history: CC: Cirrhosis, hepatorenal syndrome Pt is seen, awake and alert. States she is feeling about the same at this time. She is to have a thoracentesis today. Her creatnine is noted to be at 2.3. Abdomen is soft, nontender. She states she has not had a bowel movement in two day and having some abdominal discomfort. She states the Mirilax seems to help her more with this than the lactulose. Will add in daily prn dose of Mirilax at this time since Ammonia is down to 47. ROS: Denies SOB or chest pain Exam (Progress Note) - Constitutional Vitals: Period Temp Pulse Resp BP Sys/Pastor Pulse Ox Last 24 Hr 97.1 F-98.2 F 61-107 12-24 103-116/50-72 90-98 - Other Additional findings: General appearance: no acute distress, over weight - Head Head exam: Present: normal inspection, normocephalic - Eye Eye exam: Present: other (lids and conjunctiva unremarkable). Absent: scleral icterus - ENT ENT exam: Present: normal exam, normal oropharynx - Neck Neck exam: Present: normal inspection - Respiratory Respiratory exam: Present: clear to auscultation bilaterally. Absent: rales, rhonchi, wheezes - Cardiovascular Cardiovascular exam: Present: regular rate and rhythm. Absent: diastolic murmur , JVD, systolic murmur - GI/Abdominal GI/Abdominal exam: Present: normal bowel sounds, soft. Absent: ascites, distended, mass, organomegaly, tenderness - Extremities Exam Extremities exam: Present: normal inspection, full ROM - Back Exam Back exam: Present: normal inspection - Neurological Exam Neurological exam: Present: alert, oriented X3 - Psychiatric Psychiatric exam: Present: normal affect, normal mood - Skin Skin exam: Present: normal color, warm, dry Results - Labs CBC & BMP: 12/27/16 03:39 12/29/16 06:29 Lab Results: I have reviewed the past 24 hour labs
[2016-12-29] MEDS ORDERED: POLYETHYLENE GLYCOL POWDER 17 GM PACK PO PRN (08:44)
[2016-12-29] MEDS: ENOXAPARIN 30 MG/0.3 ML SYRINGE SUBCUT SCH (09:00)
[2016-12-29] MEDS: VANCOMYCIN INJ 2,000 MG in SODIUM CHLORIDE 0.9% 500 ML IV SCH (09:15)
--- NOTE | 2016-12-29 10:40 | Pulmonology Progress Note ---
Pulmonary - PN: Subj Interval history: This 56-year-old white female was recently here with anasarca and a large right pleural effusion. She had 2 thoracenteses with findings of transudative fluid. It is felt to be due to her chronic liver disease. 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 A TIPS procedure was offered but she declined. She chose to go home over the weekend but came back in a couple days later with worsening shortness of breath. We had diuresed her before and she had worsening renal function so the diuretics were decreased. She now has a moderate right pleural effusion. However she is not in respiratory distress and she is adequately oxygenated. I would prefer to diurese are rather than doing recurrent thoracenteses as they will not solve the underlying problem. TIPS procedure needs to be readdressed. 12/28/2016 patient had episode of dyspnea yesterday afternoon and was given Ativan. She is a little bit groggy this morning but responsive. She has an elevated PCO2 of 66. We need to be very careful about sedation. No chest x- ray is yet this morning. 12/29/2016 patient's chest x-ray is larger and she is having increased symptoms. She needs a right thoracentesis which I will do. Exam (Progress Note) - Constitutional Vitals: Period Temp Pulse Resp BP Sys/Pastor Pulse Ox Last 24 Hr 97.1 F-98.2 F 61-107 12-24 103-116/50-72 90-98 Exam: She is groggy but arousable and oriented vital signs normal. O2 sat 97% on 3 L. Pupils react to light. She does have some jaundice. Throat is clear. Neck supple no bruits. Chest reveals dullness 3/4 up on the right side a few rales bilaterally. Heart normal rate and rhythm no murmurs. Abdomen soft nontender no masses. Extremities she has 3+ edema. She does have ascites. Calves are nontender. Results - Labs CBC & BMP: 12/27/16 03:39 12/29/16 06:29 Lab Results: I have reviewed the past 24 hour labs - Diagnostic Findings Procedure: Chest x-ray: image reviewed by me (Very large right pleural effusion) Assessment and Plan (1) Hepatic encephalopathy Status: Acute Assessment and plan: Patient's ammonia level was 116. Being addressed with Chronulac. 12/28/2016 continuing with Chronulac. Monitor ammonia level. 12/29/2016 she is a little drowsy but arousable and carries on a good conversation. Current Visit: No (2) Pleural effusion on right Status: Acute Assessment and plan: She has a moderate right pleural effusion. She is not in respiratory distress. If it gets worse we can tap her. This is best handled with diuretics, salt poor albumin, and possibly a TIPS procedure. 12/28/2016 chest x-ray pending. With concern about using diuretics she may require thoracentesis. 12/29/2016 effusion has increased to the point where she needs thoracentesis. She has renal insufficiency with creatinine 2.3. We really not able to get the fluid off with diuretics. A TIPS procedure has been addressed with her earlier. Current Visit: No (3) Ascites Status: Chronic Assessment and plan: Related to her cirrhosis. 12/28/2016 she has ascites but she is not tense. Current Visit: No (4) Hepatic cirrhosis Status: Chronic Assessment and plan: This is of course her underlying problem. Defer to GI. 12/29/2016 this is the underlying cause for her pleural effusion and edema. Current Visit: No Qualifiers: Hepatic cirrhosis type: alcoholic cirrhosis Ascites presence: with ascites Qualified Code(s): K70.31 - Alcoholic cirrhosis of liver with ascites
--- NOTE | 2016-12-29 10:42 | Operative Note ---
Date of procedure: 12/29/16 (Right thoracentesis) Pre-op diagnosis: Recurrent right pleural effusion due to cirrhosis Post-op diagnosis: same Procedure: After an appropriate time out to be sure we were dealing with Kimberley Greco, the patient was seated on the side of the bed. I percussed her back and found the top edge of the dullness in her right chest was about three fourths of the way up. We went down about 3 interspaces from the area and marked a spot at the upper edge of a rib. Betadine was applied. Local anesthetic was applied 1% Xylocaine in the intercostal space. We then used the catheter with the trocar provided in the thoracentesis tray. It was advanced into the right chest. We had a good flow of fluid. We obtained 1800 mL of alexandre clear fluid. It was discarded as we have previously sent multiple specimens for diagnostic procedures. This was a therapeutic thoracentesis. The catheter was withdrawn. Patient tolerated the procedure well. Chest x-ray is pending post tap. Anesthesia: local Surgeon / Physician: Mac Daniel Estimated blood loss: none Specimens: none sent Condition: stable Disposition: floor Results - Labs CBC & BMP: 12/27/16 03:39 12/29/16 06:29 Discharge Plan - Discharge Medications No Action Spironolactone 100 mg PO DAILY Albuterol Sulfate [Ventolin HFA] 1 puff INH QID PRN PRN Reason: Wheezing Metoprolol Succinate Xl [Toprol Xl] 50 mg PO BID #60 tablet Pantoprazole Tab [Protonix Tab] 40 mg PO DAILY #30 tablet metOLazone [Zaroxolyn] 5 mg PO DAILY #30 tablet Furosemide Tab [Lasix Tab] 80 mg PO TID #90 tablet Lactulose 20 gm PO Q6H - Follow Up or Referral - Forms/Instructions
[2016-12-29] MEDS: INSULIN REGULAR 100 UNIT/ML SUBCUT SCH ×4 (10:53→22:32)
[2016-12-29] MEDS: ALBUMIN 25% 25 GM in PREMIX 1 EACH IV SCH ×2 (10:57→16:44)
[2016-12-29] MEDS: MUPIROCIN 2% OINT 22 GM TUBE TOP SCH ×2 (10:58→20:56)
[2016-12-29] MEDS: OCTREOTIDE 100 MCG/ML SYRINGE SUBCUT SCH ×3 (10:59→20:56)
--- NOTE | 2016-12-29 11:23 | XRay Report ---
Exam: XR chest 1V portable Date: 12/29/2016 10:29 AM Indication: Post right-sided thoracentesis Comparison: 12/29/2016 6:41 AM Technical: AP portable Findings: No obvious pneumothorax present. There is improved aeration in the right chest residual bilateral basal pleural effusions are present with cardiomegaly. ASVD is present. Extracardiac leads tubing are present. Impression: 1. No obvious pneumothorax 2. Cardiomegaly with persistent effusions in the lung bases with some mild underlying atelectatic change however overall there is improvement in aeration present within the right chest cavity PROCEDURE INTERPRETED AT [facility] DEPARTMENT OF RADIOLOGY Final Report Signed by: Dr. Ward June
--- NOTE | 2016-12-29 12:02 | Hospitalist Progress Note ---
Assessment and Plan (1) Hepatic cirrhosis Status: Chronic Assessment and plan: Receiving albumin infusion. Diuresis with Zaroxolyn. Current Visit: No Qualifiers: Hepatic cirrhosis type: alcoholic cirrhosis Ascites presence: with ascites Qualified Code(s): K70.31 - Alcoholic cirrhosis of liver with ascites (2) Chronic obstructive pulmonary disease Status: Chronic Current Visit: No Qualifiers: Chronic bronchitis type: simple (3) Anasarca Status: Chronic Assessment and plan: receiving albumin and diuresis Current Visit: No (4) REBECCA (acute kidney injury) Status: Acute Assessment and plan: Baseline creatinine is 1. Currently stable at 2. This is believed to be hepatorenal syndrome and related to her intravascular depletion secondary to low albumin level secondary to hepatic dysfunction. Current Visit: No (5) COPD (chronic obstructive pulmonary disease) Status: Chronic Current Visit: No (6) Anemia of chronic disease Status: Chronic Current Visit: No (7) Hypokalemia Status: Resolved Assessment and plan: replace per protocol Current Visit: Yes Hospitalist: Subjective Interval history: Patient seen and examined. She was moved to the floor from the ICU yesterday. She reports an uneventful night. Tejada catheter to be removed today. Patient scheduled for thoracentesis today. She denies any complaints. Exam - Constitutional Vitals: Period Temp Pulse Resp BP Sys/Pastor Pulse Ox Last 24 Hr 97.1 F-98.2 F 82-107 12-24 103-116/50-72 90-95 General appearance: no acute distress - Head Head exam: Present: normal inspection, normocephalic, atraumatic - Respiratory Respiratory exam: Present: decreased breath sounds - Cardiovascular Cardiovascular exam: Present: regular rate and rhythm - GI/Abdominal GI/Abdominal exam: Present: normal bowel sounds, ascites, distended, soft - Neurological Exam Neurological exam: Present: alert, oriented X3 - Psychiatric Psychiatric exam: Present: normal affect, normal mood - Skin Skin exam: Present: normal color, warm, dry Results - Labs CBC & BMP: 12/27/16 03:39 12/29/16 06:29 Lab Results: I have reviewed the past 24 hour labs
[2016-12-29] MEDS: GABAPENTIN 300 MG CAPSULE PO SCH ×4 (12:16→20:56)
[2016-12-29] MEDS: METOPROLOL SUCCINATE XL 25 MG TABLET PO SCH ×2 (12:16→20:56)
[2016-12-29] MEDS: MIDODRINE 5 MG TABLET PO SCH ×3 (12:17→20:56)
[2016-12-29] MEDS: PANTOPRAZOLE 40 MG TABLET PO SCH (12:17)
[2016-12-29] MEDS: MULTIVITAMIN (CENTRUM) TABLET PO SCH (12:17)
[2016-12-29] MEDS: POTASSIUM CHLORIDE 20 MEQ TABLET PO PRN (12:17)
[2016-12-29] MEDS: FERROUS SULFATE 325 MG TABLET PO SCH (12:17)
[2016-12-29] MEDS: metOLazone 5 MG TABLET PO SCH (12:17)
--- NOTE | 2016-12-29 14:14 | Nephrology Progress Note ---
Nephrology - PN: Subj Interval history: Patient reports breathing okay. Review of systems GI-she had a bowel movement today Physical exam general patient's in no acute distress, she has diffuse edema Assessment/plan 1. Acute renal failure-this patient's creatinines around 2.3 mg /dL this is fairly stable from the past few days 2. Liver cirrhosis we'll continue her current therapy 3. Volume overload-patient just had a thoracentesis today, I think at this point we need to try and affect day diuresis with Lasix I'm going to start Lasix 80 mg IV twice a day we'll continue the Zaroxolyn Exam (PN)-Nephrology - Vital Signs Vital signs: Period Temp Pulse Resp BP Sys/Pastor Pulse Ox Last 24 Hr 97.3 F-98.2 F 81-107 16-24 103-116/50-72 90-99 - Lab 12/27/16 03:39 12/29/16 06:29 Most recent lab results ABG pH 7.355 (7.35-7.45) 12/29/16 04:15 ABG pCO2 66.2 MM HG (35-48) H 12/29/16 04:15 ABG pO2 79.0 MM HG (80-95) L 12/29/16 04:15 ABG HCO3 33.2 MMOL/L (20-26) H 12/29/16 04:15 ABG O2 Saturation 95.1 % (95-100) 12/29/16 04:15 Calcium 9.4 MG/DL (8.5-10.1) 12/29/16 06:29 Magnesium 2.1 MG/DL (1.8-2.4) 12/29/16 06:29 Assessment and Plan (1) REBECCA (acute kidney injury) Status: Acute Assessment and plan: This patient is developing acute renal failure again, her Lasix and spironolactone are being held. I think with her marked fluid overload will eventually have to restart these. I'm going to put her back on midodrine and vasopressin as she was previously to try and improve her kidney perfusion. Current Visit: Yes (2) Anemia Status: Acute Current Visit: Yes (3) CHF (congestive heart failure) Status: Acute Current Visit: Yes (4) Hypokalemia Status: Resolved Assessment and plan: Continue replacement Current Visit: Yes (5) Anasarca Status: Chronic Current Visit: No (6) COPD (chronic obstructive pulmonary disease) Status: Chronic Current Visit: No (7) Hepatorenal syndrome Status: Acute Current Visit: No (8) Alcoholic cirrhosis Status: Chronic Current Visit: No
[2016-12-29] MEDS: FUROSEMIDE 40 MG/4 ML VIAL IV SCH (16:46)
[2016-12-29] MEDS: ZALEPLON 5 MG CAPSULE PO PRN (21:48)
[2016-12-30] MEDS: LACTULOSE 20 GM/30 ML UDCUP PO SCH ×4 (00:18→17:11)
[2016-12-30] MEDS: ALBUMIN 25% 25 GM in PREMIX 1 EACH IV SCH ×3 (00:18→16:17)
[2016-12-30 02:53] LABS: ABG Base Excess 10.5 MMOL/L (-2.5-2.5); ABG HCO3 34.1 MMOL/L (20-26); ABG Oxygen Saturation 88.9 % (95-100); ABG PCO2 60.1 MM HG (35-48); ABG PH 7.399 (7.35-7.45); ABG PO2 58.3 MM HG (80-95); ABG TCO2 34.6 MMOL/L (23-27); Allen Test Positive
[2016-12-30 05:42] LABS: INR 1.8; PT Patient Result 19.5 SECS
--- NOTE | 2016-12-30 07:04 | XRay Report ---
Exam: XR chest 1V portable Date: 12/30/2016 4:00 AM Indication: Pleural effusion Comparison: 12/29/2016 Technical: AP portable Findings: Cardiomegaly is present. Low volume effusions are present. Alveolar edema is present. Lateral marginal osteophytes are present. ASVD is present. External cardiac leads are present. No pneumothorax. Impression: 1. Cardiomegaly with persistent findings of the probable component of CHF with bilateral effusions atelectatic change right greater than left. Some fluid now present along the minor fissure which suggests worsening of findings when compared to the previous study right PROCEDURE INTERPRETED AT [facility] DEPARTMENT OF RADIOLOGY Final Report Signed by: Dr. Ward June
[2016-12-30] MEDS: ALBUTEROL 2.5 MG/3 ML NEB RESP TX SCH ×4 (07:40→19:13)
[2016-12-30] MEDS: INSULIN REGULAR 100 UNIT/ML SUBCUT SCH ×3 (08:38→17:11)
--- NOTE | 2016-12-30 08:39 | Gastrointestinal Progress Note ---
Assessment and Plan (1) Alcoholic cirrhosis Status: Chronic Assessment and plan: 12/30-Ammonia 173, no signs of encephalopathy. Bowels moving daily. Plan and addendum to follow by DR Vidal. 12/29-Ammonia 47. No pain. Add Mirliax to regimen as needed daily. Plan and addendum to follow by Dr Vidal. 12/28-Ammonia 79, one BM. No c/o pain. No SOB. NO changes in weight. Creatnine 2.2. Plan and addendum to follow by Dr Vidal. 12/27-Ammonia down at 116, one BM today. No encephalopathy noted at present time. Plan and addendum to follow by Dr Vidal. Current Visit: No (2) Hepatorenal syndrome Status: Acute Assessment and plan: 12/30-No repeat creatnine today. Recheck lab. Plan and addendum to follow by Dr Vidal. 12/29-Creatnine 2.3. For thoracentesis today. Plan and addendum to follow by Dr Vidal. 12/27-Creatnine 2.2. Chest xray noted with persistent bilateral pleural effusion , right greater than left. Plan and addendum to follow by Dr Vidal. Current Visit: No Gastroenterology - PN: Subj Interval history: CC: Cirrhosis Pt is awake and alert sitting in chair, awake and alert. She states that she is feeling fair however states she is just feeling down at this time due to her health status. She denies any complaints of pain, nausea, vomiting, SOB. She has a good appetite. Her bowels are moving daily. Her creatnine was not rechecked this morning. Abdomen is soft, nontender. She is post thoracentesis on yesterday. Chest xray shows cardiomegaly with bilateral effusions, right greater than left. 1800 ml removed on yesterday. Ammonia is 173 however she has no signs of encephalopathy at present time. ROS: Denies SOB or chest pain Exam (Progress Note) - Constitutional Vitals: Period Temp Pulse Resp BP Sys/Pastor Pulse Ox Last 24 Hr 97.5 F-98.6 F 79-111 16-22 90-98/50-67 90-100 - Other Additional findings: General appearance: no acute distress, over weight - Head Head exam: Present: normal inspection, normocephalic - Eye Eye exam: Present: other (lids and conjunctiva unremarkable). Absent: scleral icterus - ENT ENT exam: Present: normal exam, normal oropharynx - Neck Neck exam: Present: normal inspection - Respiratory Respiratory exam: Present: clear to auscultation bilaterally. Absent: rales, rhonchi, wheezes - Cardiovascular Cardiovascular exam: Present: regular rate and rhythm. Absent: diastolic murmur , JVD, systolic murmur - GI/Abdominal GI/Abdominal exam: Present: normal bowel sounds, soft. Absent: ascites, distended, mass, organomegaly, tenderness - Extremities Exam Extremities exam: Present: normal inspection, full ROM - Back Exam Back exam: Present: normal inspection - Neurological Exam Neurological exam: Present: alert, oriented X3 - Psychiatric Psychiatric exam: Present: normal affect, normal mood - Skin Skin exam: Present: normal color, warm, dry Results - Labs CBC & BMP: 12/27/16 03:39 12/29/16 06:29 Lab Results: I have reviewed the past 24 hour labs
[2016-12-30] MEDS: metOLazone 5 MG TABLET PO SCH (09:15)
[2016-12-30] MEDS: MUPIROCIN 2% OINT 22 GM TUBE TOP SCH ×2 (09:15→21:58)
[2016-12-30] MEDS: FERROUS SULFATE 325 MG TABLET PO SCH (09:15)
[2016-12-30] MEDS: MULTIVITAMIN (CENTRUM) TABLET PO SCH (09:15)
[2016-12-30] MEDS: PANTOPRAZOLE 40 MG TABLET PO SCH (09:15)
[2016-12-30] MEDS: GABAPENTIN 300 MG CAPSULE PO SCH ×4 (09:15→21:56)
[2016-12-30] MEDS: ENOXAPARIN 30 MG/0.3 ML SYRINGE SUBCUT SCH (09:15)
[2016-12-30] MEDS: METOPROLOL SUCCINATE XL 25 MG TABLET PO SCH ×2 (09:15→21:56)
[2016-12-30] MEDS: MIDODRINE 5 MG TABLET PO SCH ×3 (09:15→21:55)
--- NOTE | 2016-12-30 09:44 | Pulmonology Progress Note ---
Pulmonary - PN: Subj Interval history: This 56-year-old white female was recently here with anasarca and a large right pleural effusion. She had 2 thoracenteses with findings of transudative fluid. It is felt to be due to her chronic liver disease. 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 A TIPS procedure was offered but she declined. She chose to go home over the weekend but came back in a couple days later with worsening shortness of breath. We had diuresed her before and she had worsening renal function so the diuretics were decreased. She now has a moderate right pleural effusion. However she is not in respiratory distress and she is adequately oxygenated. I would prefer to diurese are rather than doing recurrent thoracenteses as they will not solve the underlying problem. TIPS procedure needs to be readdressed. 12/28/2016 patient had episode of dyspnea yesterday afternoon and was given Ativan. She is a little bit groggy this morning but responsive. She has an elevated PCO2 of 66. We need to be very careful about sedation. No chest x- ray is yet this morning. 12/29/2016 patient's pleural effusion on chest x-ray is larger and she is having increased symptoms. She needs a right thoracentesis which I will do. 12/30/16 x-ray better after right thoracentesis. She has reaccumulated a little fluid today. Now on Lasix and Zaroxolyn. Creatinine stable at 2.3. Exam (Progress Note) - Constitutional Vitals: Period Temp Pulse Resp BP Sys/Pastor Pulse Ox Last 24 Hr 97.5 F-98.6 F 79-111 16-22 90-107/50-67 90-100 Exam: She is groggy but arousable and oriented vital signs normal. O2 sat 97% on 3 L. Pupils react to light. She does have some jaundice. Throat is clear. Neck supple no bruits. Chest reveals dullness 1/4 up on the right side a few rales bilaterally. Heart normal rate and rhythm no murmurs. Abdomen soft nontender no masses. Extremities she has 3+ edema. She does have ascites. Calves are nontender. Results - Labs CBC & BMP: 12/27/16 03:39 12/30/16 04:28 Lab Results: I have reviewed the past 24 hour labs - Diagnostic Findings Procedure: Chest x-ray: image reviewed by me (Mild to moderate right pleural effusion. Definitely better than prior to her thoracentesis) Assessment and Plan (1) Hepatic encephalopathy Status: Acute Assessment and plan: Patient's ammonia level was 116. Being addressed with Chronulac. 12/28/2016 continuing with Chronulac. Monitor ammonia level. 12/29/2016 she is a little drowsy but arousable and carries on a good conversation. 12/30/16 mental status a little better today. Current Visit: No (2) Pleural effusion on right Status: Acute Assessment and plan: She has a moderate right pleural effusion. She is not in respiratory distress. If it gets worse we can tap her. This is best handled with diuretics, salt poor albumin, and possibly a TIPS procedure. 12/28/2016 chest x-ray pending. With concern about using diuretics she may require thoracentesis. 12/29/2016 effusion has increased to the point where she needs thoracentesis. She has renal insufficiency with creatinine 2.3. We really not able to get the fluid off with diuretics. A TIPS procedure has been addressed with her earlier. 12/30/16 trying to address the pleural effusion with diuretics. We have tapped off 1800 mL yesterday. It appears to be slowly recurring. Current Visit: No (3) Ascites Status: Chronic Assessment and plan: Related to her cirrhosis. 12/28/2016 she has ascites but she is not tense. Current Visit: No (4) Hepatic cirrhosis Status: Chronic Assessment and plan: This is of course her underlying problem. Defer to GI. 12/29/2016 this is the underlying cause for her pleural effusion and edema. 12/30/16 alcoholic cirrhosis is her primary problem. Current Visit: No Qualifiers: Hepatic cirrhosis type: alcoholic cirrhosis Ascites presence: with ascites Qualified Code(s): K70.31 - Alcoholic cirrhosis of liver with ascites
[2016-12-30] MEDS: OCTREOTIDE 100 MCG/ML SYRINGE SUBCUT SCH ×3 (10:40→21:55)
[2016-12-30] MEDS: FUROSEMIDE 40 MG/4 ML VIAL IV SCH ×3 (10:40→22:05)
--- NOTE | 2016-12-30 12:48 | Nephrology Progress Note ---
Nephrology - PN: Subj Interval history: Patient denies shortness of breath. Review of systems GI she denies nausea vomiting Physical exam general the patient chronically ill-appearing Assessment/plan 1. Acute renal failure-patient's creatinine stable at 2.3 mg/dL 2. Liver cirrhosis 3. Volume overload-this patient's had poor urine output the past couple of days , I am going to increase her Lasix to 3 times a day at 80 mg 3 times daily iv and continue Zaroxolyn 5 mg a day Exam (PN)-Nephrology - Vital Signs Vital signs: Period Temp Pulse Resp BP Sys/Pastor Pulse Ox Last 24 Hr 97.5 F-98.6 F 79-111 16-22 90-107/50-67 90-100 - Lab 12/27/16 03:39 12/30/16 04:28 Most recent lab results ABG pH 7.399 (7.35-7.45) 12/30/16 02:40 ABG pCO2 60.1 MM HG (35-48) H 12/30/16 02:40 ABG pO2 58.3 MM HG (80-95) L 12/30/16 02:40 ABG HCO3 34.1 MMOL/L (20-26) H 12/30/16 02:40 ABG O2 Saturation 88.9 % (95-100) L 12/30/16 02:40 Calcium 9.4 MG/DL (8.5-10.1) 12/29/16 06:29 Magnesium 2.1 MG/DL (1.8-2.4) 12/29/16 06:29 Assessment and Plan (1) REBECCA (acute kidney injury) Status: Acute Assessment and plan: This patient is developing acute renal failure again, her Lasix and spironolactone are being held. I think with her marked fluid overload will eventually have to restart these. I'm going to put her back on midodrine and vasopressin as she was previously to try and improve her kidney perfusion. Current Visit: Yes (2) Anemia Status: Acute Current Visit: Yes (3) CHF (congestive heart failure) Status: Acute Current Visit: Yes (4) Hypokalemia Status: Resolved Assessment and plan: Continue replacement Current Visit: Yes (5) Anasarca Status: Chronic Current Visit: No (6) COPD (chronic obstructive pulmonary disease) Status: Chronic Current Visit: No (7) Hepatorenal syndrome Status: Acute Current Visit: No (8) Alcoholic cirrhosis Status: Chronic Current Visit: No
--- NOTE | 2016-12-30 14:19 | Hospitalist Progress Note ---
Assessment and Plan (1) Hepatic cirrhosis Status: Chronic Assessment and plan: Receiving albumin infusion. Diuresis with Zaroxolyn and lasix Current Visit: No Qualifiers: Hepatic cirrhosis type: alcoholic cirrhosis Ascites presence: with ascites Qualified Code(s): K70.31 - Alcoholic cirrhosis of liver with ascites (2) Chronic obstructive pulmonary disease Status: Chronic Current Visit: No Qualifiers: Chronic bronchitis type: simple (3) Anasarca Status: Chronic Assessment and plan: receiving albumin and diuresis Current Visit: No (4) REBECCA (acute kidney injury) Status: Acute Assessment and plan: Baseline creatinine is 1. Currently stable at 2. This is believed to be hepatorenal syndrome and related to her intravascular depletion secondary to low albumin level secondary to hepatic dysfunction. Current Visit: No (5) COPD (chronic obstructive pulmonary disease) Status: Chronic Current Visit: No (6) Anemia of chronic disease Status: Chronic Current Visit: No (7) Hypokalemia Status: Resolved Assessment and plan: replace per protocol Current Visit: Yes Hospitalist: Subjective Interval history: Patient seen and examined. She feels better after thoracentesis. Lasix 80mg IV TID started today. Still on Zaroxolyn and albumin. Exam - Constitutional Vitals: Period Temp Pulse Resp BP Sys/Pastor Pulse Ox Last 24 Hr 97.5 F-98.6 F 79-111 16-22 90-107/50-67 90-100 General appearance: no acute distress - Head Head exam: Present: normal inspection, normocephalic - Respiratory Respiratory exam: Present: decreased breath sounds (at the bases) - Cardiovascular Cardiovascular exam: Present: regular rate and rhythm - GI/Abdominal GI/Abdominal exam: Present: normal bowel sounds, ascites, distended, soft - Extremities Exam Extremities exam: Present: edema - Neurological Exam Neurological exam: Present: alert, oriented X3 - Psychiatric Psychiatric exam: Present: normal affect, normal mood - Skin Skin exam: Present: normal color, warm, dry Results - Labs CBC & BMP: 12/27/16 03:39 12/30/16 04:28 Lab Results: I have reviewed the past 24 hour labs - Diagnostic Findings Procedure: Chest x-ray: report reviewed by me
[2016-12-30] MEDS: SPIRONOLACTONE 50 MG TABLET PO SCH (14:29)
[2016-12-31] MEDS: LACTULOSE 20 GM/30 ML UDCUP PO SCH ×5 (00:15→20:23)
[2016-12-31] MEDS: ALBUMIN 25% 25 GM in PREMIX 1 EACH IV SCH ×2 (00:15→09:18)
[2016-12-31] MEDS: INSULIN REGULAR 100 UNIT/ML SUBCUT SCH ×5 (02:22→22:30)
[2016-12-31 03:55] LABS: ABG Base Excess 9.6 MMOL/L (-2.5-2.5); ABG HCO3 33.3 MMOL/L (20-26); ABG Oxygen Saturation 93.7 % (95-100); ABG PCO2 54.5 MM HG (35-48); ABG PH 7.422 (7.35-7.45); ABG PO2 68.8 MM HG (80-95); Allen Test Positive
[2016-12-31 06:29] LABS: INR 1.8; PT Patient Result 19.4 SECS
[2016-12-31 06:56] LABS: Calcium 9.5 MG/DL (8.5-10.1); Osmolality,Calculated 281.7 MOS/KG (273-304); Potassium 3.8 MMOL/L (3.5-5.1)
[2016-12-31] MEDS: ALBUTEROL 2.5 MG/3 ML NEB RESP TX SCH ×4 (07:56→19:54)
--- NOTE | 2016-12-31 08:32 | Gastrointestinal Progress Note ---
Assessment and Plan (1) Alcoholic cirrhosis Status: Chronic Assessment and plan: 12/31-Ammonia elevated at 215, encephalopathy noted with confusion, lethargy. Increase Lacutulose to q 1 hr until bowel movement and then QID. Keep NPO at present time. Plan and addendum to follow by Dr Vidal 12/30-Ammonia 173, no signs of encephalopathy. Bowels moving daily. Plan and addendum to follow by DR Vidal. 12/29-Ammonia 47. No pain. Add Mirliax to regimen as needed daily. Plan and addendum to follow by Dr Vidal. 12/28-Ammonia 79, one BM. No c/o pain. No SOB. NO changes in weight. Creatnine 2.2. Plan and addendum to follow by Dr Vidal. 12/27-Ammonia down at 116, one BM today. No encephalopathy noted at present time. Plan and addendum to follow by Dr Vidal. Current Visit: No (2) Hepatorenal syndrome Status: Acute Assessment and plan: 12/30-No repeat creatnine today. Recheck lab. Plan and addendum to follow by Dr Vidal. 12/29-Creatnine 2.3. For thoracentesis today. Plan and addendum to follow by Dr Vidal. 12/27-Creatnine 2.2. Chest xray noted with persistent bilateral pleural effusion , right greater than left. Plan and addendum to follow by Dr Vidal. Current Visit: No Gastroenterology - PN: Subj Interval history: CC: Cirrhosis Pt is seen, lethargic and confused this morning. She has had a significant change from her baseline since yesterday. Her ammonia is noted to be elevated at 215. She has had one bowel movement daily for the last couple of days. Her creatnine is 2.6, minimal increase. No other significant changes in her lab noted today. Discussed with DR Vidal and will increase Lactulose and continue to monitor. ROS: Unable to contribute Exam (Progress Note) - Constitutional Vitals: Period Temp Pulse Resp BP Sys/Pastor Pulse Ox Last 24 Hr 97.5 F-100 F 82-115 18-20 95-135/54-86 91-98 General appearance: no acute distress, over weight - Head Head exam: Present: normal inspection, normocephalic - Eye Eye exam: Present: other (lids and conjuncitva unremarakble). Absent: scleral icterus - ENT ENT exam: Present: normal exam, normal oropharynx - Neck Neck exam: Present: normal inspection - Respiratory Respiratory exam: Present: clear to auscultation bilaterally. Absent: rales, rhonchi, wheezes - Cardiovascular Cardiovascular exam: Present: regular rate and rhythm. Absent: diastolic murmur , JVD, systolic murmur - GI/Abdominal GI/Abdominal exam: Present: normal bowel sounds, soft. Absent: ascites, distended, mass, organomegaly, tenderness - Extremities Exam Extremities exam: Present: normal inspection, full ROM - Back Exam Back exam: Present: normal inspection - Neurological Exam Neurological exam: Present: altered - Psychiatric Psychiatric exam: Present: other - Skin Skin exam: Present: normal color, warm, dry Results - Labs CBC & BMP: 12/27/16 03:39 12/31/16 05:58 Lab Results: I have reviewed the past 24 hour labs
[2016-12-31] MEDS ORDERED: LACTULOSE 20 GM/30 ML UDCUP PO SCH (09:00)
[2016-12-31] MEDS: metOLazone 5 MG TABLET PO SCH (09:12)
[2016-12-31] MEDS: MULTIVITAMIN (CENTRUM) TABLET PO SCH (09:12)
[2016-12-31] MEDS: FERROUS SULFATE 325 MG TABLET PO SCH (09:12)
[2016-12-31] MEDS: MIDODRINE 5 MG TABLET PO SCH ×3 (09:12→20:23)
[2016-12-31] MEDS: METOPROLOL SUCCINATE XL 25 MG TABLET PO SCH ×2 (09:12→20:22)
[2016-12-31] MEDS: SPIRONOLACTONE 50 MG TABLET PO SCH (09:13)
[2016-12-31] MEDS: GABAPENTIN 300 MG CAPSULE PO SCH ×4 (09:13→20:23)
[2016-12-31] MEDS: PANTOPRAZOLE 40 MG TABLET PO SCH (09:13)
[2016-12-31] MEDS: FUROSEMIDE 40 MG/4 ML VIAL IV SCH (09:15)
[2016-12-31] MEDS: MUPIROCIN 2% OINT 22 GM TUBE TOP SCH ×2 (09:19→20:24)
[2016-12-31] MEDS: OCTREOTIDE 100 MCG/ML SYRINGE SUBCUT SCH ×3 (09:20→20:26)
[2016-12-31] MEDS ORDERED: FUROSEMIDE 40 MG/4 ML VIAL IV SCH (10:28)
--- NOTE | 2016-12-31 10:31 | Nephrology Progress Note ---
Nephrology - PN: Subj Interval history: Patient was sleeping this morning when checked on her, she did awaken but was nonverbal and interactions, she looked about the room as if she was lost. Physical exam general the patient chronically ill-appearing, heart is regular rate and rhythm, lungs are clear to auscultation anteriorly, abdomen is soft with positive bowel sounds, extremities reveal 2+ lower extremity edema Assessment/plan 1. Acute renal failure-this patient's creatinine increased to 2.6 mg/dL from 2.3 mg/dL yesterday, her acute renal failure self-pity due to hepatorenal syndrome. I am going to increase her Midrin to 10 mg p.o. 3 times daily and continue the octreotide 100 g subcu 3 times daily 2. Hepatic cirrhosis-secondary to heavy alcohol use 3. Volume overload-patient is currently getting Aldactone, Lasix 80 mg IV 3 times daily and Zaroxolyn 5 mg daily I am going to increase her Lasix to 160 mg IV 3 times daily Exam (PN)-Nephrology - Vital Signs Vital signs: Period Temp Pulse Resp BP Sys/Pastor Pulse Ox Last 24 Hr 97.5 F-100 F 82-115 16-20 95-135/54-86 91-98 - Lab 12/27/16 03:39 12/31/16 05:58 Most recent lab results ABG pH 7.422 (7.35-7.45) 12/31/16 03:45 ABG pCO2 54.5 MM HG (35-48) H 12/31/16 03:45 ABG pO2 68.8 MM HG (80-95) L 12/31/16 03:45 ABG HCO3 33.3 MMOL/L (20-26) H 12/31/16 03:45 ABG O2 Saturation 93.7 % (95-100) L 12/31/16 03:45 Calcium 9.5 MG/DL (8.5-10.1) 12/31/16 05:58 Magnesium 2.1 MG/DL (1.8-2.4) 12/29/16 06:29 Assessment and Plan (1) REBECCA (acute kidney injury) Status: Acute Assessment and plan: This patient is developing acute renal failure again, her Lasix and spironolactone are being held. I think with her marked fluid overload will eventually have to restart these. I'm going to put her back on midodrine and vasopressin as she was previously to try and improve her kidney perfusion. Current Visit: Yes (2) Anemia Status: Acute Current Visit: Yes (3) CHF (congestive heart failure) Status: Acute Current Visit: Yes (4) Hypokalemia Status: Resolved Assessment and plan: Continue replacement Current Visit: Yes (5) Anasarca Status: Chronic Current Visit: No (6) COPD (chronic obstructive pulmonary disease) Status: Chronic Current Visit: No (7) Hepatorenal syndrome Status: Acute Current Visit: No (8) Alcoholic cirrhosis Status: Chronic Current Visit: No
[2016-12-31] MEDS: NYSTATIN POWDER 15 GM BOTTLE TOP SCH ×3 (11:50→20:24)
[2016-12-31] MEDS: LACTULOSE 160 GM/240 ML BOTTLE PO SCH ×8 (11:50→18:07)
[2016-12-31] MEDS: FUROSEMIDE INJ 160 MG in SODIUM CHLORIDE 0.9% 50 ML IV SCH ×2 (14:41→20:23)
--- NOTE | 2016-12-31 15:12 | Pulmonology Progress Note ---
Pulmonary - PN: Subj Interval history: This 56-year-old white female was recently here with anasarca and a large right pleural effusion. She had 2 thoracenteses with findings of transudative fluid. It is felt to be due to her chronic liver disease. 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 A TIPS procedure was offered but she declined. She chose to go home over the weekend but came back in a couple days later with worsening shortness of breath. We had diuresed her before and she had worsening renal function so the diuretics were decreased. She now has a moderate right pleural effusion. However she is not in respiratory distress and she is adequately oxygenated. I would prefer to diurese are rather than doing recurrent thoracenteses as they will not solve the underlying problem. TIPS procedure needs to be readdressed. 12/28/2016 patient had episode of dyspnea yesterday afternoon and was given Ativan. She is a little bit groggy this morning but responsive. She has an elevated PCO2 of 66. We need to be very careful about sedation. No chest x- ray is yet this morning. 12/29/2016 patient's pleural effusion on chest x-ray is larger and she is having increased symptoms. She needs a right thoracentesis which I will do. 12/30/16 x-ray better after right thoracentesis. She has reaccumulated a little fluid today. Now on Lasix and Zaroxolyn. Creatinine stable at 2.3. 12/31/2016 patient is more lethargic. Worsening renal function. Difficulty diuresing her. Ammonia level higher. Appears to be nearing end-stage. Decision needs to be made about her CODE STATUS. Exam (Progress Note) - Constitutional Vitals: Period Temp Pulse Resp BP Sys/Pastor Pulse Ox Last 24 Hr 97.5 F-100 F 80-115 16-20 99-135/54-86 88-98 Exam: She is groggy but arousable, vital signs normal. O2 sat 97% on 3 L. Pupils react to light. She does have some jaundice. Throat is clear. Neck supple no bruits. Chest reveals dullness 1/4 up on the right side a few rales bilaterally. Heart normal rate and rhythm no murmurs. Abdomen soft nontender no masses. Extremities she has 3+ edema. She does have ascites. Calves are nontender. Results - Labs CBC & BMP: 12/27/16 03:39 12/31/16 05:58 Lab Results: I have reviewed the past 24 hour labs Assessment and Plan (1) Hepatic encephalopathy Status: Acute Assessment and plan: Patient's ammonia level was 116. Being addressed with Chronulac. 12/28/2016 continuing with Chronulac. Monitor ammonia level. 12/29/2016 she is a little drowsy but arousable and carries on a good conversation. 12/30/16 mental status a little better today. 12/31/2016 she is more sluggish today. Defer to gastroenterology. Current Visit: No (2) Pleural effusion on right Status: Acute Assessment and plan: She has a moderate right pleural effusion. She is not in respiratory distress. If it gets worse we can tap her. This is best handled with diuretics, salt poor albumin, and possibly a TIPS procedure. 12/28/2016 chest x-ray pending. With concern about using diuretics she may require thoracentesis. 12/29/2016 effusion has increased to the point where she needs thoracentesis. She has renal insufficiency with creatinine 2.3. We really not able to get the fluid off with diuretics. A TIPS procedure has been addressed with her earlier. 12/30/16 trying to address the pleural effusion with diuretics. We have tapped off 1800 mL yesterday. It appears to be slowly recurring. 12/31/2016 she has had recurrent thoracenteses. It continues to recur. She has a hepatic hydrothorax. Current Visit: No (3) Ascites Status: Chronic Assessment and plan: Related to her cirrhosis. 12/28/2016 she has ascites but she is not tense. Current Visit: No (4) Hepatic cirrhosis Status: Chronic Assessment and plan: This is of course her underlying problem. Defer to GI. 12/29/2016 this is the underlying cause for her pleural effusion and edema. 12/30/16 alcoholic cirrhosis is her primary problem. 12/31/2016 again defer to gastroenterology. Current Visit: No Qualifiers: Hepatic cirrhosis type: alcoholic cirrhosis Ascites presence: with ascites Qualified Code(s): K70.31 - Alcoholic cirrhosis of liver with ascites
--- NOTE | 2016-12-31 15:48 | Hospitalist Progress Note ---
Assessment and Plan (1) Hepatic cirrhosis Status: Chronic Assessment and plan: Receiving albumin infusion. Diuresis with Zaroxolyn and lasix Today with worsening HE with elevated ammonia levels and lethargy re-consider TIPS Current Visit: No Qualifiers: Hepatic cirrhosis type: alcoholic cirrhosis Ascites presence: with ascites Qualified Code(s): K70.31 - Alcoholic cirrhosis of liver with ascites (2) Chronic obstructive pulmonary disease Status: Chronic Current Visit: No Qualifiers: Chronic bronchitis type: simple (3) Anasarca Status: Chronic Assessment and plan: receiving albumin and diuresis Current Visit: No (4) REBECCA (acute kidney injury) Status: Acute Assessment and plan: Baseline creatinine is 1. Currently stable at 2. This is believed to be hepatorenal syndrome and related to her intravascular depletion secondary to low albumin level secondary to hepatic dysfunction. Current Visit: No (5) COPD (chronic obstructive pulmonary disease) Status: Chronic Current Visit: No (6) Anemia of chronic disease Status: Chronic Current Visit: No (7) Hypokalemia Status: Resolved Assessment and plan: replace per protocol Current Visit: Yes Hospitalist: Subjective Interval history: Patient seen and examined. She is extremely lethargic today. Hepatic encephalopathy appears to be worse with elevated ammonia level. She is requiring lactulose enemas. Exam - Constitutional Vitals: Period Temp Pulse Resp BP Sys/Pastor Pulse Ox Last 24 Hr 97.5 F-100 F 80-115 16-20 99-135/54-86 88-98 General appearance: mild distress - Respiratory Respiratory exam: Present: decreased breath sounds, rales - Cardiovascular Cardiovascular exam: Present: regular rate and rhythm - GI/Abdominal GI/Abdominal exam: Present: normal bowel sounds, distended, soft, other ( anasarca) - Extremities Exam Extremities exam: Present: edema - Neurological Exam Neurological exam: Present: altered, other (encephalopathic with lethargy) Results - Labs CBC & BMP: 12/27/16 03:39 12/31/16 05:58 Lab Results: I have reviewed the past 24 hour labs
[2016-12-31] MEDS: DESITIN 4OZ/NYSTATIN 15 GRAM MIXTURE PASTE TOP SCH (20:27)
[2017-01-01 02:40] LABS: ABG Base Excess 8.5 MMOL/L (-2.5-2.5); ABG HCO3 32.2 MMOL/L (20-26); ABG Oxygen Saturation 89.6 % (95-100); ABG PH 7.305 (7.35-7.45); ABG PO2 63.8 MM HG (80-95); ABG TCO2 34.7 MMOL/L (23-27); Allen Test Positive; Pt O2 Delivery Device BIPAP
[2017-01-01 02:42] LABS: ABG PCO2 74.3 MM HG (35-48)
--- NOTE | 2017-01-01 02:47 | Event Note ---
Patient had low O2 sats and rapid response was called. When I was paged I recommended transfer the patient down to the unit. Once all the patient out of the unit failed BiPAP would be appropriate for this patient. She seems to be maintaining her O2 sats on BiPAP. Would really did not want to put patient on the ventilator if at all possible. She has a history of cirrhosis and COPD. Per review of the records her lethargy is most likely associated with her ammonia level. Patient left in the CCU in stable condition
[2017-01-01 03:21] LABS: Basophils # 0.1 10*3/uL (0.0-0.2); Basophils % 0.6 % (0.0-0.8); Eosinophils # 0.3 10*3/uL (0.0-0.87); Eosinophils % 2.5 % (0.00-10.9); Hematocrit 26.8 VOL% (35.7-47.0); Hemoglobin 8.6 GM/DL (12.0-16.0); Immature Granulocytes % 0.5 %; Immature Granulocytes Absolute 0.06 #; Lymphocytes # 1.6 10*3/uL (1.4-4.0); Lymphocytes % 13.9 % (21.3-54.2); Mean Corpuscular HGB Conc 32.1 GM/DL (32-36); Mean Corpuscular Hemoglobin 31 PG (27-34); Mean Platelet Volume 11.8 FL (9.6-12.0); Monocytes % 8.9 % (1.7-12.7); Neutrophils # 8.2 10*3/uL (1.4-7.4); Neutrophils % 73.6 % (38.7-73.9); Platelet Count 75 T/CUMM (130-400); Red Blood Count 2.82 MC/CUMM (3.8-5.5); Red Cell Distribution Width 19.3 % (9.3-17.3); White Blood Count 11.2 T/CUMM (4-12)
[2017-01-01] MEDS: DILTIAZEM INJ 100 MG in SODIUM CHLORIDE 0.9% 100 ML IV SCH (03:22)
[2017-01-01 03:46] LABS: Osmolality,Calculated 290.3 MOS/KG (273-304); Potassium 3.5 MMOL/L (3.5-5.1)
[2017-01-01 07:06] LABS: ABG Base Excess 9.9 MMOL/L (-2.5-2.5); ABG HCO3 33.6 MMOL/L (20-26); ABG Oxygen Saturation 93.3 % (95-100); ABG PCO2 65.8 MM HG (35-48); ABG PH 7.362 (7.35-7.45); ABG PO2 69.6 MM HG (80-95); ABG TCO2 34.8 MMOL/L (23-27); Allen Test Positive; Pt O2 Delivery Device BIPAP
[2017-01-01] MEDS: ALBUTEROL 2.5 MG/3 ML NEB RESP TX SCH ×4 (07:36→19:24)
--- NOTE | 2017-01-01 08:29 | Gastrointestinal Progress Note ---
Assessment and Plan - Time spent with patient Time spent with patient: Greater than 30 minutes (1) Alcoholic cirrhosis Status: Chronic Current Visit: No (2) Hepatorenal syndrome Status: Acute Current Visit: No (3) Hepatic encephalopathy Status: Acute Current Visit: No (4) Other specified counseling Status: Acute Current Visit: No Exam (Progress Note) - Constitutional Vitals: Period Temp Pulse Resp BP Sys/Pastor Pulse Ox Last 24 Hr 97.5 F-100.9 F 65-133 14-23 92-129/51-79 88-100 Results - Labs CBC & BMP: 01/01/17 02:30 01/01/17 02:30 Note Addendum: PLEASE NOTE -- automatic citation of patient information is unavoidable in this electronic note. I have made a reasonable effort to review the information cited , but it is not a part of my evaluation, impression, or recommendation unless specifically discussed in the dictated text that follows. As well, voice recognition software was used in the creation of this clinical note. Reasonable effort was made to identify and correct gross errors. Despite proofreading, errors in fixture builder may be present, including nonsense verbiage at times. If you encounter such an error, please contact me at for discussion and correction. -- Reyes Chief complaint: cirrhosis Subjective: the patient is a 56-year-old female seen for follow-up of alcoholic cirrhosis with encephalopathy. Overnight, the patient was noted to be hypoxic prompting a rapid response notification. She was transferred to the cardiac care unit and placed on BiPAP. She has remained stable since that transfer. 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 She is currently on octreotide, midodrine , and daily albumin in addition to high-dose diuretics. She has three bowel movements documented overnight. Her mental status is somewhat improved this morning, and she is alert and oriented to person and place. She does seem to remain mildly encephalopathic, however. Her abdominal ascites has improved and her peripheral edema has improved. She is attended by several family members. Medications: albumin, albuterol, diltiazem, iron sulfate, Lasix, gabapentin, insulin, lactulose, Zaroxolyn, Toprol, midrange, octreotide, Zofran, Protonix, polyethylene glycol, potassium chloride, Aldactone, vancomycin, Sonata Review of Symptoms: unable to accurately provide Physical examination: Vital Signs: Current vital signs reviewed. General Appearance: lying in bed, by [place] place. Comfortable. Head: Normocephalic. Eyes: positive scleral icterus. No scleral injection. No conjunctival pallor. Oral Cavity: Odor of breath was normal. No drooling was observed. Lips showed no abnormalities. Lungs: Respiration rhythm was increased and depth was decreased. Cardiovascular: Heart rate and rhythm were normal. Abdomen: abdomen was mildly distended. Abdominal auscultation revealed no abnormalities. Ascites was marginal. Abdominal palpation revealed no tenderness and no hepatosplenomegaly. Musculoskeletal System: musculoskeletal system was grossly normal. Neurological: patient is alert and oriented to person and place. Level of consciousness was normal. Speech was normal. No coordination/cerebellum abnormalities were noted. Skin: Gen. appearance was normal. Color and pigmentation were normal. No skin lesions were appreciated. Laboratory: white blood count 11.2, hemoglobin 8.6, hematocrit 26.8, platelets 75, INR 1.8, sodium 141, potassium 3.5, creatinine 3.2, ammonia 93 (down from 215), MELD 29 based on most recent measurements Radiology: reviewed with no pertinent changes noted. Impressions: 1. Alcoholic cirrhosis -- the patient has alcohol cirrhosis complicated by poor hypertension, hepatorenal syndrome, and persistent encephalopathy despite adequate therapy. Her current MELD is 29 based on aged data, and is probably actually higher. Unfortunately, due to her recent alcohol use, she is not a transplant candidate. As well, her morbid obesity and chronic obstructive pulmonary disease are factors that would have to be considered in a transplant evaluation. Her 30 and 90 day mortality predictions are very high, but if she survives to the 4-5 months of abstinence jacki, it would be reasonable to refer her to a transplant center for evaluation and listing as appropriate. She is to see Dr. Diaz with nephrology today to determine whether dialysis or other intervention could be helpful with respect to maintaining her renal status. It goes without saying that abstinence is the most important intervention at present. 2. Hepatorenal syndrome -- the patient's serum creatinine continues to climb. This may be multifactorial as she is getting high-dose diuretics. Nephrology will be seeing her this morning and will make recommendations regarding how to best manage this in the short-term. Continued use of octreotide, midodrine, and albumin is reasonable, I believe. Ultimately, transplant is the only viable curative therapy for this condition. 3. Hepatic encephalopathy -- the patient has improved some but remains mildly encephalopathic. She is getting lactulose and is having some bowel movement response. I recommend continuing same and monitoring for now. 4. Patient Counseling: Medical Management: Patient seen for greater than 30 minutes. Greater than 50% of this time was spent counseling regarding differential diagnosis, likely diagnosis,, diagnostic and therapeutic options, risks, benefits, and alternatives to procedures and medications, informed consent, and plan of care generally. Patient has expressed understanding and wishes to proceed. Recommendations: -- continued volume and electrolyte management -- I agree with nephrology console for advice regarding hepatorenal syndrome -- check liver labs and coagulation parameters tomorrow -- discuss prognosis with family and patient to determine their wishes regarding how aggressive we should be -- transplant evaluation once patient has been abstinent for four or five months -- we will continue to follow with you
[2017-01-01] MEDS: INSULIN REGULAR 100 UNIT/ML SUBCUT SCH ×4 (08:42→21:37)
--- NOTE | 2017-01-01 08:47 | Pulmonology Progress Note ---
Pulmonary - PN: Subj Interval history: This 56-year-old white female was recently here with anasarca and a large right pleural effusion. She had 2 thoracenteses with findings of transudative fluid. It is felt to be due to her chronic liver disease. 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 A TIPS procedure was offered but she declined. She chose to go home over the weekend but came back in a couple days later with worsening shortness of breath. We had diuresed her before and she had worsening renal function so the diuretics were decreased. She now has a moderate right pleural effusion. However she is not in respiratory distress and she is adequately oxygenated. I would prefer to diurese are rather than doing recurrent thoracenteses as they will not solve the underlying problem. TIPS procedure needs to be readdressed. 12/28/2016 patient had episode of dyspnea yesterday afternoon and was given Ativan. She is a little bit groggy this morning but responsive. She has an elevated PCO2 of 66. We need to be very careful about sedation. No chest x- ray is yet this morning. 12/29/2016 patient's pleural effusion on chest x-ray is larger and she is having increased symptoms. She needs a right thoracentesis which I will do. 12/30/16 x-ray better after right thoracentesis. She has reaccumulated a little fluid today. Now on Lasix and Zaroxolyn. Creatinine stable at 2.3. 12/31/2016 patient is more lethargic. Worsening renal function. Difficulty diuresing her. Ammonia level higher. Appears to be nearing end-stage. Decision needs to be made about her CODE STATUS. 01/01/2017 patient was moved to CCU as she became more lethargic. Doing a little better with facemask BiPAP. Has a large recurrent right pleural effusion again. I discussed the case on the telephone with her youngest daughter. I advised him that the family need to get together make a decision about CODE STATUS on her. She is end-stage liver disease. Not a candidate for liver transplant. Has ammonia levels over 200. Will ask GI to address this with family as well. Exam (Progress Note) - Constitutional Vitals: Period Temp Pulse Resp BP Sys/Pastor Pulse Ox Last 24 Hr 97.5 F-100.9 F 65-133 14-23 92-129/51-79 88-100 Exam: She is groggy but arousable, vital signs normal. O2 sat 94% on facemask BiPAP. Pupils react to light. She does have some jaundice. Throat is clear. Neck supple no bruits. Chest reveals dullness 1/2 up on the right side a few rales bilaterally. Heart normal rate and rhythm no murmurs. Abdomen soft nontender no masses. Extremities she has 3+ edema. She does have ascites. Calves are nontender. Results - Labs CBC & BMP: 01/01/17 02:30 01/01/17 02:30 Lab Results: I have reviewed the past 24 hour labs - Diagnostic Findings Procedure: Chest x-ray: image reviewed by me (Right pleural effusion is larger.) Assessment and Plan (1) Hepatic encephalopathy Status: Acute Assessment and plan: Patient's ammonia level was 116. Being addressed with Chronulac. 12/28/2016 continuing with Chronulac. Monitor ammonia level. 12/29/2016 she is a little drowsy but arousable and carries on a good conversation. 12/30/16 mental status a little better today. 12/31/2016 she is more sluggish today. Defer to gastroenterology. 01/01/2017 more sluggish, ammonia level higher Current Visit: No (2) Pleural effusion on right Status: Acute Assessment and plan: She has a moderate right pleural effusion. She is not in respiratory distress. If it gets worse we can tap her. This is best handled with diuretics, salt poor albumin, and possibly a TIPS procedure. 12/28/2016 chest x-ray pending. With concern about using diuretics she may require thoracentesis. 12/29/2016 effusion has increased to the point where she needs thoracentesis. She has renal insufficiency with creatinine 2.3. We really not able to get the fluid off with diuretics. A TIPS procedure has been addressed with her earlier. 12/30/16 trying to address the pleural effusion with diuretics. We have tapped off 1800 mL yesterday. It appears to be slowly recurring. 12/31/2016 she has had recurrent thoracenteses. It continues to recur. She has a hepatic hydrothorax. 01/01/2017 right pleural effusion has increased in size. This is a hepatic hydrothorax. We could consider a pleural catheter to drain it more easily. Do not usually like to do this with a hepatic hydrothorax but may be helpful in her case. Current Visit: No (3) Ascites Status: Chronic Assessment and plan: Related to her cirrhosis. 12/28/2016 she has ascites but she is not tense. Current Visit: No (4) Hepatic cirrhosis Status: Chronic Assessment and plan: This is of course her underlying problem. Defer to GI. 12/29/2016 this is the underlying cause for her pleural effusion and edema. 12/30/16 alcoholic cirrhosis is her primary problem. 12/31/2016 again defer to gastroenterology. 01/01/2017 she has alcoholic cirrhosis and end-stage. Defer to gastroenterology as to the next step. She has been about 2 months since her last drink of alcohol. Would not be a candidate for transplant at this point to my knowledge. Current Visit: No Qualifiers: Hepatic cirrhosis type: alcoholic cirrhosis Ascites presence: with ascites Qualified Code(s): K70.31 - Alcoholic cirrhosis of liver with ascites
--- NOTE | 2017-01-01 09:00 | XRay Report ---
XR chest 1V portable Indication: Shortness of breath Comparison: 30 December 2016 Findings: The heart and mediastinum are normal in size and configuration. The pulmonary vascularity is increased similar to previous. Right lower lung density and effusion are present, similar to previous when accounting for positional difference. No other lung infiltrates, effusions, pneumothorax or other abnormality is demonstrated. Impression: Right lower lung effusion and increased density similar to previous. PROCEDURE INTERPRETED AT [facility] DEPARTMENT OF RADIOLOGY Final Report Signed by: Dr. Rajendra Waller
[2017-01-01] MEDS: LACTULOSE 20 GM/30 ML UDCUP PO SCH ×4 (10:45→20:26)
--- NOTE | 2017-01-01 11:25 | Nephrology Progress Note ---
Nephrology - PN: Subj Interval history: Patient went into respiratory distress done yesterday is now on BiPAP ventilation. Family members at the bedside. She has been getting diuretics as well as Midrin for her hepatorenal syndrome. Family members had questions about any other options for her care. Discussed with patient and her family about renal replacement therapy as a mode of support. They are considering all options. Expressed to the family and patient benefits and risks of renal replacement therapy for them to consider. Of note, patient had been offered TIPS procedure and that was declined. Situation is very guarded. Exam (PN)-Nephrology - Vital Signs Vital signs: Period Temp Pulse Resp BP Sys/Pastor Pulse Ox Last 24 Hr 97.5 F-100.9 F 65-133 14-23 92-129/51-80 88-100 - General Appearance General appearance: chronically ill, frail EENT: ATNC Neck: supple Respiratory: clear Cardiology: regular rate, regular rhythm Gastrointestinal: normoactive bowel sounds Neurologic: alert and oriented x3 Musculoskeletal: no clubbing Psychiatric: mood/affect appropriate - Lab 01/01/17 02:30 01/01/17 02:30 Most recent lab results ABG pH 7.362 (7.35-7.45) 01/01/17 06:55 ABG pCO2 65.8 MM HG (35-48) H 01/01/17 06:55 ABG pO2 69.6 MM HG (80-95) L 01/01/17 06:55 ABG HCO3 33.6 MMOL/L (20-26) H 01/01/17 06:55 ABG O2 Saturation 93.3 % (95-100) L 01/01/17 06:55 Calcium 10.0 MG/DL (8.5-10.1) 01/01/17 02:30 Magnesium 2.1 MG/DL (1.8-2.4) 12/29/16 06:29 Assessment and Plan (1) Ascites Status: Chronic Current Visit: No (2) Congestive heart failure Status: Acute Current Visit: No (3) Pleural effusion on right Status: Chronic Assessment and plan: Patient has had several thoracentesis. Current Visit: No (4) History of alcoholism Status: Chronic Current Visit: No (5) Hepatic cirrhosis Status: Chronic Current Visit: No Qualifiers: Hepatic cirrhosis type: alcoholic cirrhosis Ascites presence: with ascites Qualified Code(s): K70.31 - Alcoholic cirrhosis of liver with ascites (6) Acute renal failure due to tubular necrosis Status: Chronic Current Visit: No (7) Hepatorenal syndrome Status: Acute Assessment and plan: Declining renal function in this patient with liver disease. Has been responding to midodrine and octreotide however that that regimen appears to have limiting factors at this time. Renal replacement therapy would be an option for this patient given she has volume overload and respiratory compromise requiring positive ventilation. Current Visit: No (8) CHF (congestive heart failure) Status: Acute Current Visit: Yes
--- NOTE | 2017-01-01 11:55 | Event Note ---
Dr. hernandez and I had a conversation with the patient and her family regarding how aggressive we would like to be going forward. We explained to the family that her 30 and 90 day mortality as it relates to her end-stage liver disease is very high and that we were at the point where more aggressive intervention would seem to be necessary. Specifically, we discussed whether the patient would like to take the step of starting dialysis in hopes of improving her fluid status and electrolytes status. I explained that, in this case, dialysis would be unlikely to make a positive difference in her kidney function overall rather it would be to provide a bridge to the point where she could be considered for liver transplant. We offered that this would also likely common with other potentially aggressive interventions including recurrent drainage of the hydrothorax, TIPS, recurrent paracenteses, and others. As an alternative, we explained that only less aggressive or comfort care measures could be stipulated in which case the risk of would approach 100%. Having presented with this information, the patient and her family expressed understanding and wishes to pursue aggressive measures including dialysis, and we will inform Dr. Diaz of such.
--- NOTE | 2017-01-01 12:02 | Hospitalist Progress Note ---
Assessment and Plan (1) Hepatic cirrhosis Status: Chronic Assessment and plan: Receiving albumin infusion. Diuresis with Zaroxolyn and lasix worsening HE with elevated ammonia levels and lethargy- slightly improved from yesterday. continue supportive care Current Visit: No Qualifiers: Hepatic cirrhosis type: alcoholic cirrhosis Ascites presence: with ascites Qualified Code(s): K70.31 - Alcoholic cirrhosis of liver with ascites (2) Chronic obstructive pulmonary disease Status: Chronic Current Visit: No Qualifiers: Chronic bronchitis type: simple (3) Anasarca Status: Chronic Assessment and plan: receiving albumin and diuresis Current Visit: No (4) REBECCA (acute kidney injury) Status: Acute Assessment and plan: Baseline creatinine is 1. This is believed to be hepatorenal syndrome and related to her intravascular depletion secondary to low albumin level secondary to hepatic dysfunction. family and patient considering dialysis Current Visit: No (5) COPD (chronic obstructive pulmonary disease) Status: Chronic Current Visit: No (6) Anemia of chronic disease Status: Chronic Current Visit: No (7) Hypokalemia Status: Resolved Assessment and plan: replace per protocol Current Visit: Yes Hospitalist: Subjective Interval history: 56 y/o WF with ESLD and COPD with REBECCA due to HRS. She was transferred to the ICU overnight for worsening respiratory distress and acidosis. She is now on Bipap. Her Mental status has improved since yesterday. She has worsening hepatic encephalopathy due to ESLD. Exam - Constitutional Vitals: Period Temp Pulse Resp BP Sys/Pastor Pulse Ox Last 24 Hr 97.5 F-100.9 F 65-133 14-28 92-129/51-80 91-100 General appearance: mild distress, morbidly obese, other (anasarca noted) - Head Head exam: Present: normal inspection, normocephalic - Eye Eye exam: Present: EOMI Pupils: Present: PAPITO - Respiratory Respiratory exam: Present: decreased breath sounds - Cardiovascular Cardiovascular exam: Present: regular rate and rhythm - GI/Abdominal GI/Abdominal exam: Present: normal bowel sounds, soft, other (abd wall edema noted ) - Extremities Exam Extremities exam: Present: edema - Neurological Exam Neurological exam: Present: alert, oriented X3 - Skin Skin exam: Present: normal color, warm, dry Results - Labs CBC & BMP: 01/01/17 02:30 01/01/17 02:30 Lab Results: I have reviewed the past 24 hour labs
[2017-01-01] MEDS: MUPIROCIN 2% OINT 22 GM TUBE TOP SCH ×2 (12:53→20:25)
[2017-01-01] MEDS: ALBUMIN 25% 50 GM in PREMIX 1 EACH IV SCH (12:53)
[2017-01-01] MEDS: SPIRONOLACTONE 50 MG TABLET PO SCH (12:53)
[2017-01-01] MEDS: MULTIVITAMIN (CENTRUM) TABLET PO SCH (12:54)
[2017-01-01] MEDS: FERROUS SULFATE 325 MG TABLET PO SCH (12:54)
[2017-01-01] MEDS: FUROSEMIDE INJ 160 MG in SODIUM CHLORIDE 0.9% 50 ML IV SCH ×3 (12:54→20:26)
[2017-01-01] MEDS: NYSTATIN POWDER 15 GM BOTTLE TOP SCH ×3 (12:55→20:25)
[2017-01-01] MEDS: MIDODRINE 5 MG TABLET PO SCH ×3 (12:55→20:26)
[2017-01-01] MEDS: GABAPENTIN 300 MG CAPSULE PO SCH ×4 (12:55→20:26)
[2017-01-01] MEDS: PANTOPRAZOLE 40 MG TABLET PO SCH (12:55)
[2017-01-01] MEDS: POTASSIUM CHLORIDE RIDER 10 MEQ in PREMIX 1 EACH IV PRN ×3 (12:56→15:15)
[2017-01-01] MEDS: DESITIN 4OZ/NYSTATIN 15 GRAM MIXTURE PASTE TOP SCH ×2 (12:56→20:25)
[2017-01-01] MEDS: metOLazone 5 MG TABLET PO SCH (12:56)
[2017-01-01] MEDS: ONDANSETRON 4 MG/2 ML VIAL IV PRN (12:56)
[2017-01-01] MEDS: METOPROLOL SUCCINATE XL 25 MG TABLET PO SCH ×2 (12:56→20:29)
[2017-01-01] MEDS: OCTREOTIDE 100 MCG/ML SYRINGE SUBCUT SCH ×3 (13:18→20:26)
[2017-01-02] MEDS: DILTIAZEM INJ 100 MG in SODIUM CHLORIDE 0.9% 100 ML IV SCH (02:36)
[2017-01-02 02:57] LABS: ABG Base Excess 10.7 MMOL/L (-2.5-2.5); ABG HCO3 34.3 MMOL/L (20-26); ABG Oxygen Saturation 91.3 % (95-100); ABG PCO2 58.8 MM HG (35-48); ABG PH 7.407 (7.35-7.45); ABG PO2 61.1 MM HG (80-95); ABG TCO2 34.7 MMOL/L (23-27); Allen Test Positive; Pt O2 Delivery Device BIPAP
[2017-01-02 04:58] LABS: Basophils % 0.6 % (0.0-0.8); Eosinophils # 0.2 10*3/uL (0.0-0.87); Eosinophils % 2.9 % (0.00-10.9); Hemoglobin 7.8 GM/DL (12.0-16.0); Immature Granulocytes % 0.3 %; Immature Granulocytes Absolute 0.02 #; Lymphocytes # 1.4 10*3/uL (1.4-4.0); Lymphocytes % 20.1 % (21.3-54.2); Mean Corpuscular HGB Conc 32.5 GM/DL (32-36); Mean Corpuscular Hemoglobin 30 PG (27-34); Mean Platelet Volume 11.2 FL (9.6-12.0); Monocytes # 0.7 10*3/uL (0.11-0.8); Monocytes % 9.9 % (1.7-12.7); Neutrophils # 4.7 10*3/uL (1.4-7.4); Neutrophils % 66.2 % (38.7-73.9); Platelet Count 63 T/CUMM (130-400); Red Blood Count 2.58 MC/CUMM (3.8-5.5); Red Cell Distribution Width 19.7 % (9.3-17.3); White Blood Count 7.2 T/CUMM (4-12)
[2017-01-02 05:26] LABS: Albumin 5.3 G/DL (3.4-5.0); Bilirubin,Total 5.3 MG/DL (0.2-1.0); Calcium 10.2 MG/DL (8.5-10.1); Osmolality,Calculated 296.8 MOS/KG (273-304); Potassium 3.5 MMOL/L (3.5-5.1); Total Protein 6.8 G/DL (6.4-8.3)
[2017-01-02 05:28] LABS: Eosinophils 1 % (0-10); Hypochromasia 1+; Lymphocytes 24 % (20-55); Segmented Neutrophils 70 % (50-85); Total Cells Counted 100
[2017-01-02 05:29] LABS: Microcytosis 1+; Ovalocytes Slight; Platelet Estimate Decreased
[2017-01-02] MEDS: POTASSIUM CHLORIDE 20 MEQ TABLET PO PRN ×2 (05:35→07:02)
[2017-01-02] MEDS: ALBUTEROL 2.5 MG/3 ML NEB RESP TX SCH ×4 (07:08→19:13)
--- NOTE | 2017-01-02 08:03 | Gastrointestinal Progress Note ---
Assessment and Plan (1) Alcoholic cirrhosis Status: Chronic Current Visit: No (2) Hepatorenal syndrome Status: Acute Current Visit: No (3) Hepatic encephalopathy Status: Acute Current Visit: No (4) Other specified counseling Status: Acute Current Visit: No Exam (Progress Note) - Constitutional Vitals: Period Temp Pulse Resp BP Sys/Pastor Pulse Ox Last 24 Hr 97.8 F-98 F 80-102 15-29 89-122/49-80 90-98 Results - Labs CBC & BMP: 01/02/17 03:26 01/02/17 03:26 Note Addendum: PLEASE NOTE -- automatic citation of patient information is unavoidable in this electronic note. I have made a reasonable effort to review the information cited , but it is not a part of my evaluation, impression, or recommendation unless specifically discussed in the dictated text that follows. As well, voice recognition software was used in the creation of this clinical note. Reasonable effort was made to identify and correct gross errors. Despite proofreading, errors in tie tamper may be present, including nonsense verbiage at times. If you encounter such an error, please contact me at for discussion and correction. -- Reyes Chief complaint: cirrhosis Subjective: the patient is a 56-year-old female seen for follow-up of alcoholic cirrhosis with encephalopathy. The patient is improving in terms of her respiratory status and her pulmonary data center consultant does not intend to intubate her at present. As previously noted, she has essentially said that she would like to pursue aggressive measures in order to try to bridge to a point in time where she could pursue evaluation with a liver transplant service. To that end, she has requested dialysis. She is tolerating some oral input. She is having adequate stool output without overt bleeding. She is not having any nausea, vomiting, or abdominal pain at present. Medications: albumin, albuterol, diltiazem, iron sulfate, Lasix, gabapentin, insulin, lactulose, Zaroxolyn, Toprol, midrange, octreotide, Zofran, Protonix, polyethylene glycol, potassium chloride, Aldactone, vancomycin, Sonata Review of Symptoms: unable to accurately provide Physical examination: Vital Signs: Current vital signs reviewed. General Appearance: lying in bed, by [place] place. Comfortable. Head: Normocephalic. Eyes: positive scleral icterus. No scleral injection. No conjunctival pallor. Oral Cavity: Odor of breath was normal. No drooling was observed. Lips showed no abnormalities. Lungs: Respiration rhythm was increased and depth was decreased. Cardiovascular: Heart rate and rhythm were normal. Abdomen: abdomen was mildly distended. Abdominal auscultation revealed no abnormalities. Ascites was marginal. Abdominal palpation revealed no tenderness and no hepatosplenomegaly. Musculoskeletal System: musculoskeletal system was grossly normal. Neurological: patient is alert and oriented to person and place. Level of consciousness was normal. Speech was normal. No coordination/cerebellum abnormalities were noted. Skin: Gen. appearance was normal. Color and pigmentation were normal. No skin lesions were appreciated. Laboratory: white blood count 7.2, hemoglobin 7.8, hematocrit 24.0, platelets 63 , sodium 144, BUN 38, creatinine 3.8, total bilirubin 5.3, ALT 13, AST 26, alkaline phosphatase 52, total protein 6.8, albumin 5.3, ammonia 108, MELD 32 Radiology: reviewed with no pertinent changes noted. Impressions: 1. Alcoholic cirrhosis -- the patient has alcohol cirrhosis complicated by portal hypertension, hepatorenal syndrome, and encephalopathy. Her current MELD is 32 which would potentially be high enough for listing at a transplant center once she surpasses six months of abstinence and assuming there are no contraindications in her health history. Her 30 and 90 day mortality predictors remain very. She saw Dr. Diaz yesterday and he is amenable to proceeding with dialysis. 2. Hepatorenal syndrome -- the patient's serum creatinine continues to climb. She is consulting with nephrology who is considering dialysis. 3. Hepatic encephalopathy -- the patient has improved and we will continue the current regimen. 4. Patient Counseling: Medical Management: Patient seen for greater than 30 minutes. Greater than 50% of this time was spent counseling regarding differential diagnosis, likely diagnosis,, diagnostic and therapeutic options, risks, benefits, and alternatives to procedures and medications, informed consent, and plan of care generally. Patient has expressed understanding and wishes to proceed. Recommendations: -- continued volume and electrolyte management -- I agree with dialysis at the discretion of the nephrology service -- follow liver labs and coagulation parameters -- discussed prognosis with family and patient and they wish to be aggressive in terms of near-term care -- transplant evaluation once patient has been abstinent for four or five months -- we will continue to follow with you. Dr. Vidal will resume G.I. care for this patient tomorrow.
--- NOTE | 2017-01-02 08:24 | Hospitalist Progress Note ---
Assessment and Plan (1) Hepatic cirrhosis Status: Chronic Assessment and plan: Receiving albumin infusion. Diuresis with Zaroxolyn and lasix Continued elevation of ammonia levels however her mental status has improved from yesterday. continue supportive care Current Visit: No Qualifiers: Hepatic cirrhosis type: alcoholic cirrhosis Ascites presence: with ascites Qualified Code(s): K70.31 - Alcoholic cirrhosis of liver with ascites (2) Chronic obstructive pulmonary disease Status: Chronic Assessment and plan: ABG this morning reviewed. The patient appears to be at her baseline. We will wean BiPAP and transitioned to nasal cannula oxygen as tolerated. Current Visit: No Qualifiers: Chronic bronchitis type: simple (3) Anasarca Status: Chronic Assessment and plan: receiving albumin and diuresis. Patient continues to have worsening acute kidney injury secondary to hepatorenal syndrome however she needs the diuresis. We have discussed hemodialysis initiation. Nephrology following. Current Visit: No (4) REBECCA (acute kidney injury) Status: Acute Assessment and plan: Baseline creatinine is 1. This is believed to be hepatorenal syndrome and related to her intravascular depletion secondary to low albumin level secondary to hepatic dysfunction. family and patient considering dialysis Current Visit: No (5) COPD (chronic obstructive pulmonary disease) Status: Chronic Current Visit: No (6) Anemia of chronic disease Status: Chronic Current Visit: No (7) Hypokalemia Status: Resolved Assessment and plan: replace per protocol Current Visit: Yes Hospitalist: Subjective Interval history: Patient seen and examined. She looks much better today. She continues to be on BiPAP. Edema has improved significantly although her creatinines also increasing and is 3.8 today. Her mental status is improved dramatically despite a continued elevated ammonia level. Exam - Constitutional Vitals: Period Temp Pulse Resp BP Sys/Pastor Pulse Ox Last 24 Hr 97.8 F-98 F 80-102 15-29 89-122/49-80 90-98 General appearance: mild distress - Head Head exam: Present: normal inspection, normocephalic - Eye Eye exam: Present: EOMI - Respiratory Respiratory exam: Present: decreased breath sounds (decreased breath sounds at the right base.) - Cardiovascular Cardiovascular exam: Present: regular rate and rhythm - GI/Abdominal GI/Abdominal exam: Present: normal bowel sounds, soft. Absent: tenderness, rebound - Extremities Exam Extremities exam: Present: edema (improved) - Neurological Exam Neurological exam: Present: alert - Psychiatric Psychiatric exam: Present: normal affect, normal mood - Skin Skin exam: Present: normal color, warm, dry Results - Labs CBC & BMP: 01/02/17 03:26 01/02/17 03:26 Lab Results: I have reviewed the past 24 hour labs
--- NOTE | 2017-01-02 08:35 | Pulmonology Progress Note ---
Pulmonary - PN: Subj Interval history: This 56-year-old white female was recently here with anasarca and a large right pleural effusion. She had 2 thoracenteses with findings of transudative fluid. It is felt to be due to her chronic liver disease. 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 A TIPS procedure was offered but she declined. She chose to go home over the weekend but came back in a couple days later with worsening shortness of breath. We had diuresed her before and she had worsening renal function so the diuretics were decreased. She now has a moderate right pleural effusion. However she is not in respiratory distress and she is adequately oxygenated. I would prefer to diurese are rather than doing recurrent thoracenteses as they will not solve the underlying problem. TIPS procedure needs to be readdressed. 12/28/2016 patient had episode of dyspnea yesterday afternoon and was given Ativan. She is a little bit groggy this morning but responsive. She has an elevated PCO2 of 66. We need to be very careful about sedation. No chest x- ray is yet this morning. 12/29/2016 patient's pleural effusion on chest x-ray is larger and she is having increased symptoms. She needs a right thoracentesis which I will do. 12/30/16 x-ray better after right thoracentesis. She has reaccumulated a little fluid today. Now on Lasix and Zaroxolyn. Creatinine stable at 2.3. 12/31/2016 patient is more lethargic. Worsening renal function. Difficulty diuresing her. Ammonia level higher. Appears to be nearing end-stage. Decision needs to be made about her CODE STATUS. 01/01/2017 patient was moved to CCU as she became more lethargic. Doing a little better with facemask BiPAP. Has a large recurrent right pleural effusion again. I discussed the case on the telephone with her youngest daughter. I advised him that the family need to get together make a decision about CODE STATUS on her. She is end-stage liver disease. Not a candidate for liver transplant. Has ammonia levels over 200. Will ask GI to address this with family as well. 01/02/2017 patient and family had discussion with Dr. Chambers yesterday. He is a spine specialist this weekend. He gave him detailed information on outlook for liver transplant. Also plans for dialysis. They have decided to have dialysis done. This would hopefully bridge her over until she can have a liver transplant done. It would be the best way to offload her ascites and hepatic hydrothorax. She is more alert this morning. Oxygen saturation 94% on 3 L. Does not look like we will need to tap her at this point. I did have a discussion with Dr. Chambers yesterday as well about the options. Exam (Progress Note) - Constitutional Vitals: Period Temp Pulse Resp BP Sys/Pastor Pulse Ox Last 24 Hr 97.8 F-98 F 80-102 15-29 89-122/49-80 90-98 Exam: She is more alert, vital signs normal. O2 sat 94% on nasal oxygen. Pupils react to light. She does have some jaundice. Throat is clear. Neck supple no bruits. Chest reveals dullness 1/2 up on the right side a few rales bilaterally. Heart normal rate and rhythm no murmurs. Abdomen soft nontender no masses. Extremities she has 3+ edema. She does have ascites. Calves are nontender. Results - Labs CBC & BMP: 01/02/17 03:26 01/02/17 03:26 Lab Results: I have reviewed the past 24 hour labs Assessment and Plan (1) Hepatic encephalopathy Status: Acute Assessment and plan: Patient's ammonia level was 116. Being addressed with Chronulac. 12/28/2016 continuing with Chronulac. Monitor ammonia level. 12/29/2016 she is a little drowsy but arousable and carries on a good conversation. 12/30/16 mental status a little better today. 12/31/2016 she is more sluggish today. Defer to gastroenterology. 01/01/2017 more sluggish, ammonia level higher 01/02/2017 ammonia is down from around 200 to around 100 and she is more alert. Current Visit: No (2) Pleural effusion on right Status: Chronic Assessment and plan: She has a moderate right pleural effusion. She is not in respiratory distress. If it gets worse we can tap her. This is best handled with diuretics, salt poor albumin, and possibly a TIPS procedure. 12/28/2016 chest x-ray pending. With concern about using diuretics she may require thoracentesis. 12/29/2016 effusion has increased to the point where she needs thoracentesis. She has renal insufficiency with creatinine 2.3. We really not able to get the fluid off with diuretics. A TIPS procedure has been addressed with her earlier. 12/30/16 trying to address the pleural effusion with diuretics. We have tapped off 1800 mL yesterday. It appears to be slowly recurring. 12/31/2016 she has had recurrent thoracenteses. It continues to recur. She has a hepatic hydrothorax. 01/01/2017 right pleural effusion has increased in size. This is a hepatic hydrothorax. We could consider a pleural catheter to drain it more easily. Do not usually like to do this with a hepatic hydrothorax but may be helpful in her case. 01/02/2017 watching the effusion from now. If she gets dialysis in the next day or 2 should be able to offload that way. If she gets into respiratory distress we can tap her before then. Current Visit: No (3) Ascites Status: Chronic Assessment and plan: Related to her cirrhosis. 12/28/2016 she has ascites but she is not tense. Current Visit: No (4) Hepatic cirrhosis Status: Chronic Assessment and plan: This is of course her underlying problem. Defer to GI. 12/29/2016 this is the underlying cause for her pleural effusion and edema. 12/30/16 alcoholic cirrhosis is her primary problem. 12/31/2016 again defer to gastroenterology. 01/01/2017 she has alcoholic cirrhosis and end-stage. Defer to gastroenterology as to the next step. She has been about 2 months since her last drink of alcohol. Would not be a candidate for transplant at this point to my knowledge. 01/02/2017 she has alcoholic cirrhosis. Has not had alcohol in about 2 months. Plan for setting her up to look at a liver transplant. Current Visit: No Qualifiers: Hepatic cirrhosis type: alcoholic cirrhosis Ascites presence: with ascites Qualified Code(s): K70.31 - Alcoholic cirrhosis of liver with ascites
--- NOTE | 2017-01-02 09:59 | Nephrology Progress Note ---
Nephrology - PN: Subj Interval history: Within the last 24 hours patient's respiratory status has improved. She is much more comfortable. She is now on nasal cannula. Had discussions with patient and her family about renal replacement options should her condition continued to worsen as relates to shortness of breath pleural effusion and worsening hepatorenal syndrome. She is of the mindset that if conditions worsen she would be open to of dialysis if this would help her situation bridge to possibility of liver transplant. At this time she seems to be comfortable creatinine has been stable at 3.8. Continue with aggressive diuresis. Exam (PN)-Nephrology - Vital Signs Vital signs: Period Temp Pulse Resp BP Sys/Pastor Pulse Ox Last 24 Hr 97.8 F-98 F 80-106 15-29 89-122/49-80 90-98 - General Appearance General appearance: well-developed, frail EENT: ATNC Neck: supple Respiratory: clear Cardiology: regular rate, regular rhythm Gastrointestinal: normoactive bowel sounds, no tenderness, obese Neurologic: alert and oriented x3, CN 3-12 intact Musculoskeletal: no clubbing Psychiatric: mood/affect appropriate, cooperative - Lab 01/02/17 03:26 01/02/17 03:26 Most recent lab results ABG pH 7.407 (7.35-7.45) 01/02/17 02:38 ABG pCO2 58.8 MM HG (35-48) H 01/02/17 02:38 ABG pO2 61.1 MM HG (80-95) L 01/02/17 02:38 ABG HCO3 34.3 MMOL/L (20-26) H 01/02/17 02:38 ABG O2 Saturation 91.3 % (95-100) L 01/02/17 02:38 Calcium 10.2 MG/DL (8.5-10.1) H 01/02/17 03:26 Magnesium 2.1 MG/DL (1.8-2.4) 12/29/16 06:29 Assessment and Plan (1) Ascites Status: Chronic Current Visit: No (2) Congestive heart failure Status: Acute Current Visit: No (3) Pleural effusion on right Status: Chronic Assessment and plan: Patient has had several thoracentesis. Current Visit: No (4) History of alcoholism Status: Chronic Current Visit: No (5) Hepatic cirrhosis Status: Chronic Current Visit: No Qualifiers: Hepatic cirrhosis type: alcoholic cirrhosis Ascites presence: with ascites Qualified Code(s): K70.31 - Alcoholic cirrhosis of liver with ascites (6) Acute renal failure due to tubular necrosis Status: Chronic Current Visit: No (7) Hepatorenal syndrome Status: Acute Assessment and plan: Declining renal function in this patient with liver disease. Has been responding to midodrine and octreotide however that that regimen appears to have limiting factors at this time. Renal replacement therapy would be an option for this patient given she has volume overload and respiratory compromise requiring positive ventilation. At present today patient seems to be a little more stable. The situation is very , very guarded Current Visit: No (8) CHF (congestive heart failure) Status: Acute Current Visit: Yes
[2017-01-02] MEDS: INSULIN REGULAR 100 UNIT/ML SUBCUT SCH ×4 (10:37→22:40)
[2017-01-02] MEDS: SPIRONOLACTONE 50 MG TABLET PO SCH (10:38)
[2017-01-02] MEDS: LACTULOSE 20 GM/30 ML UDCUP PO SCH ×4 (10:38→20:18)
[2017-01-02] MEDS: NYSTATIN POWDER 15 GM BOTTLE TOP SCH ×3 (10:38→20:20)
[2017-01-02] MEDS: GABAPENTIN 300 MG CAPSULE PO SCH ×4 (10:38→20:18)
[2017-01-02] MEDS: FUROSEMIDE INJ 160 MG in SODIUM CHLORIDE 0.9% 50 ML IV SCH ×3 (10:38→20:19)
[2017-01-02] MEDS: FERROUS SULFATE 325 MG TABLET PO SCH (10:38)
[2017-01-02] MEDS: MUPIROCIN 2% OINT 22 GM TUBE TOP SCH ×2 (10:38→20:20)
[2017-01-02] MEDS: ALBUMIN 25% 50 GM in PREMIX 1 EACH IV SCH (10:38)
[2017-01-02] MEDS: MULTIVITAMIN (CENTRUM) TABLET PO SCH (10:38)
[2017-01-02] MEDS: DESITIN 4OZ/NYSTATIN 15 GRAM MIXTURE PASTE TOP SCH ×2 (10:39→20:20)
[2017-01-02] MEDS: metOLazone 5 MG TABLET PO SCH (10:39)
[2017-01-02] MEDS: METOPROLOL SUCCINATE XL 25 MG TABLET PO SCH ×2 (10:39→20:18)
[2017-01-02] MEDS: OCTREOTIDE 100 MCG/ML SYRINGE SUBCUT SCH ×3 (10:39→20:18)
[2017-01-02] MEDS: ONDANSETRON 4 MG/2 ML VIAL IV PRN ×3 (10:39→17:30)
[2017-01-02] MEDS: MIDODRINE 5 MG TABLET PO SCH ×3 (10:39→20:18)
[2017-01-02] MEDS: PANTOPRAZOLE 40 MG TABLET PO SCH (10:39)
[2017-01-02] MEDS: MORPHINE 2 MG/1 ML SYRINGE IV PRN (15:55)
[2017-01-03] MEDS: DILTIAZEM INJ 100 MG in SODIUM CHLORIDE 0.9% 100 ML IV SCH (03:43)
[2017-01-03 05:06] LABS: Albumin 5.7 G/DL (3.4-5.0); Bilirubin,Total 4.5 MG/DL (0.2-1.0); Calcium 10.8 MG/DL (8.5-10.1); Osmolality,Calculated 296.8 MOS/KG (273-304); Potassium 3.5 MMOL/L (3.5-5.1); Total Protein 7.3 G/DL (6.4-8.3)
[2017-01-03] MEDS: POTASSIUM CHLORIDE RIDER 10 MEQ in PREMIX 1 EACH IV PRN ×3 (06:40→10:58)
--- NOTE | 2017-01-03 07:16 | Nephrology Progress Note ---
Nephrology - PN: Subj Interval history: Patient reports breathing better today. Review of systems GI she has an appetite and wants to eat, she denies nausea or vomiting Physical exam general patient is chronically ill-appearing, she has diffuse edema Her weight is down in the past week or so Assessment/plan 1. Acute renal failure-patient's creatinine is 3.9 mg/dL this is up from 3.8 mg/dL, will continue to monitor this 2. Volume overload-we will continue aggressive diuretics she had 3600 cc of urine output over yesterday's 24 hours 4. Congestive heart failure 5. Anemia 6. Liver cirrhosis Exam (PN)-Nephrology - Vital Signs Vital signs: Period Temp Pulse Resp BP Sys/Pastor Pulse Ox Last 24 Hr 97.2 F-98.2 F 83-111 13-28 91-121/52-82 90-100 - Lab 01/02/17 03:26 01/03/17 03:59 Most recent lab results ABG pH 7.407 (7.35-7.45) 01/02/17 02:38 ABG pCO2 58.8 MM HG (35-48) H 01/02/17 02:38 ABG pO2 61.1 MM HG (80-95) L 01/02/17 02:38 ABG HCO3 34.3 MMOL/L (20-26) H 01/02/17 02:38 ABG O2 Saturation 91.3 % (95-100) L 01/02/17 02:38 Calcium 10.8 MG/DL (8.5-10.1) H 01/03/17 03:59 Magnesium 2.1 MG/DL (1.8-2.4) 12/29/16 06:29 Assessment and Plan (1) REBECCA (acute kidney injury) Status: Acute Assessment and plan: This patient is developing acute renal failure again, her Lasix and spironolactone are being held. I think with her marked fluid overload will eventually have to restart these. I'm going to put her back on midodrine and vasopressin as she was previously to try and improve her kidney perfusion. Current Visit: Yes (2) Anemia Status: Acute Current Visit: Yes (3) CHF (congestive heart failure) Status: Acute Current Visit: Yes (4) Hypokalemia Status: Resolved Assessment and plan: Continue replacement Current Visit: Yes (5) Anasarca Status: Chronic Current Visit: No (6) COPD (chronic obstructive pulmonary disease) Status: Chronic Current Visit: No (7) Hepatorenal syndrome Status: Acute Current Visit: No (8) Alcoholic cirrhosis Status: Chronic Current Visit: No
[2017-01-03] MEDS: ALBUTEROL 2.5 MG/3 ML NEB RESP TX SCH ×5 (07:50→19:52)
[2017-01-03] MEDS: INSULIN REGULAR 100 UNIT/ML SUBCUT SCH ×2 (07:51→12:03)
--- NOTE | 2017-01-03 08:20 | Pulmonology Progress Note ---
Pulmonary - PN: Subj Interval history: This 56-year-old white female was recently here with anasarca and a large right pleural effusion. She had 2 thoracenteses with findings of transudative fluid. It is felt to be due to her chronic liver disease. 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 A TIPS procedure was offered but she declined. She chose to go home over the weekend but came back in a couple days later with worsening shortness of breath. We had diuresed her before and she had worsening renal function so the diuretics were decreased. She now has a moderate right pleural effusion. However she is not in respiratory distress and she is adequately oxygenated. I would prefer to diurese are rather than doing recurrent thoracenteses as they will not solve the underlying problem. TIPS procedure needs to be readdressed. 12/28/2016 patient had episode of dyspnea yesterday afternoon and was given Ativan. She is a little bit groggy this morning but responsive. She has an elevated PCO2 of 66. We need to be very careful about sedation. No chest x- ray is yet this morning. 12/29/2016 patient's pleural effusion on chest x-ray is larger and she is having increased symptoms. She needs a right thoracentesis which I will do. 12/30/16 x-ray better after right thoracentesis. She has reaccumulated a little fluid today. Now on Lasix and Zaroxolyn. Creatinine stable at 2.3. 12/31/2016 patient is more lethargic. Worsening renal function. Difficulty diuresing her. Ammonia level higher. Appears to be nearing end-stage. Decision needs to be made about her CODE STATUS. 01/01/2017 patient was moved to CCU as she became more lethargic. Doing a little better with facemask BiPAP. Has a large recurrent right pleural effusion again. I discussed the case on the telephone with her youngest daughter. I advised him that the family need to get together make a decision about CODE STATUS on her. She is end-stage liver disease. Not a candidate for liver transplant. Has ammonia levels over 200. Will ask GI to address this with family as well. 01/02/2017 patient and family had discussion with Dr. Chambers yesterday. He is a camp recreation specialist this weekend. He gave him detailed information on outlook for liver transplant. Also plans for dialysis. They have decided to have dialysis done. This would hopefully bridge her over until she can have a liver transplant done. It would be the best way to offload her ascites and hepatic hydrothorax. She is more alert this morning. Oxygen saturation 94% on 3 L. Does not look like we will need to tap her at this point. I did have a discussion with Dr. Chambers yesterday as well about the options. 01/03/2017 patient is responding to diuretics. Creatinine has gotten up to 3.9. Defer to nephrology on further plans there. As long as were able to mobilize fluid, I will not plan thoracentesis unless her oxygen saturation drops to an unacceptable level. O2 sat is 91-92% on nasal biprong's at present. Exam (Progress Note) - Constitutional Vitals: Period Temp Pulse Resp BP Sys/Pastor Pulse Ox Last 24 Hr 97.2 F-98.2 F 83-111 13-28 91-121/52-79 90-100 Exam: She is more alert, vital signs normal. O2 sat 92% on nasal oxygen. Pupils react to light. She does have some jaundice. Throat is clear. Neck supple no bruits. Chest reveals dullness 1/2 up on the right side a few rales bilaterally. Heart normal rate and rhythm no murmurs. Abdomen soft nontender no masses. Extremities she has 3+ edema. She does have ascites. Calves are nontender. Again she seems more oriented and alert the last 2 days. Results - Labs CBC & BMP: 01/02/17 03:26 01/03/17 03:59 Lab Results: I have reviewed the past 24 hour labs Assessment and Plan (1) Hepatic encephalopathy Status: Acute Assessment and plan: Patient's ammonia level was 116. Being addressed with Chronulac. 12/28/2016 continuing with Chronulac. Monitor ammonia level. 12/29/2016 she is a little drowsy but arousable and carries on a good conversation. 12/30/16 mental status a little better today. 12/31/2016 she is more sluggish today. Defer to gastroenterology. 01/01/2017 more sluggish, ammonia level higher 01/02/2017 ammonia is down from around 200 to around 100 and she is more alert. 01/03/2017 she is more alert. Defer to GI. Current Visit: No (2) Pleural effusion on right Status: Chronic Assessment and plan: She has a moderate right pleural effusion. She is not in respiratory distress. If it gets worse we can tap her. This is best handled with diuretics, salt poor albumin, and possibly a TIPS procedure. 12/28/2016 chest x-ray pending. With concern about using diuretics she may require thoracentesis. 12/29/2016 effusion has increased to the point where she needs thoracentesis. She has renal insufficiency with creatinine 2.3. We really not able to get the fluid off with diuretics. A TIPS procedure has been addressed with her earlier. 12/30/16 trying to address the pleural effusion with diuretics. We have tapped off 1800 mL yesterday. It appears to be slowly recurring. 12/31/2016 she has had recurrent thoracenteses. It continues to recur. She has a hepatic hydrothorax. 01/01/2017 right pleural effusion has increased in size. This is a hepatic hydrothorax. We could consider a pleural catheter to drain it more easily. Do not usually like to do this with a hepatic hydrothorax but may be helpful in her case. 01/02/2017 watching the effusion from now. If she gets dialysis in the next day or 2 should be able to offload that way. If she gets into respiratory distress we can tap her before then. 01/03/2017 we will re-x-ray her tomorrow. Decide after that about management. Current Visit: No (3) Ascites Status: Chronic Assessment and plan: Related to her cirrhosis. 12/28/2016 she has ascites but she is not tense. Current Visit: No (4) Hepatic cirrhosis Status: Chronic Assessment and plan: This is of course her underlying problem. Defer to GI. 12/29/2016 this is the underlying cause for her pleural effusion and edema. 12/30/16 alcoholic cirrhosis is her primary problem. 12/31/2016 again defer to gastroenterology. 01/01/2017 she has alcoholic cirrhosis and end-stage. Defer to gastroenterology as to the next step. She has been about 2 months since her last drink of alcohol. Would not be a candidate for transplant at this point to my knowledge. 01/02/2017 she has alcoholic cirrhosis. Has not had alcohol in about 2 months. Plan for setting her up to look at a liver transplant. 01/03/2017 hope to get her where she can have a liver transplant in a few months. Current Visit: No Qualifiers: Hepatic cirrhosis type: alcoholic cirrhosis Ascites presence: with ascites Qualified Code(s): K70.31 - Alcoholic cirrhosis of liver with ascites
[2017-01-03] MEDS ORDERED: VANCOMYCIN IV PRN (08:45)
[2017-01-03] MEDS ORDERED: SODIUM CHLORIDE 0.9% IV PRN (08:45)
[2017-01-03] MEDS ORDERED: SODIUM CHLORIDE 0.9% IV ONE (10:00)
[2017-01-03] MEDS ORDERED: VANCOMYCIN IV ONE (10:00)
--- NOTE | 2017-01-03 10:37 | Gastrointestinal Progress Note ---
Assessment and Plan (1) Alcoholic cirrhosis Status: Chronic Assessment and plan: 01/03-Ammonia 75, oriented, alert. Continued output via BMS. Creatnine 3.9. Good UOP. Plan and addendum to follow by Dr Vidal. 12/31-Ammonia elevated at 215, encephalopathy noted with confusion, lethargy. Increase Lacutulose to q 1 hr until bowel movement and then QID. Keep NPO at present time. Plan and addendum to follow by Dr Vidal 12/30-Ammonia 173, no signs of encephalopathy. Bowels moving daily. Plan and addendum to follow by DR Vidal. 12/29-Ammonia 47. No pain. Add Mirliax to regimen as needed daily. Plan and addendum to follow by Dr Vidal. 12/28-Ammonia 79, one BM. No c/o pain. No SOB. NO changes in weight. Creatnine 2.2. Plan and addendum to follow by Dr Vidal. 12/27-Ammonia down at 116, one BM today. No encephalopathy noted at present time. Plan and addendum to follow by Dr Vidal. Current Visit: No (2) Hepatorenal syndrome Status: Acute Assessment and plan: 01/03-Creatnine 3.9. Nephrology following. Plan and addendum to follow by Dr Vidal. 12/30-No repeat creatnine today. Recheck lab. Plan and addendum to follow by Dr Vidal. 12/29-Creatnine 2.3. For thoracentesis today. Plan and addendum to follow by Dr Vidal. 12/27-Creatnine 2.2. Chest xray noted with persistent bilateral pleural effusion , right greater than left. Plan and addendum to follow by Dr Vidal. Current Visit: No Gastroenterology - PN: Subj Interval history: CC: Cirrhosis Pt is seen awake and alert with family at side. She is more oriented today. She has a BMS at this time and having continued bowel output. Her ammonia is down today at 75. Her creatnine is up slightly at 3.9. She is having continued urine output. Bilirubin 4.5. Abdomen is soft, nontender. Dr Sierra is following at present time. Wt is up 2kg over past couple of days. ROS: Denies SOB or chest pain Exam (Progress Note) - Constitutional Vitals: Period Temp Pulse Resp BP Sys/Pastor Pulse Ox Last 24 Hr 97.2 F-98.2 F 83-111 13-28 91-121/52-79 90-100 General appearance: normal weight, no acute distress - Head Head exam: Present: normal inspection, normocephalic - Eye Eye exam: Present: other (lids and conjunctiva unremarkable). Absent: scleral icterus - ENT ENT exam: Present: normal exam, normal oropharynx - Neck Neck exam: Present: normal inspection - Respiratory Respiratory exam: Present: clear to auscultation bilaterally. Absent: rales, rhonchi, wheezes - Cardiovascular Cardiovascular exam: Present: regular rate and rhythm. Absent: diastolic murmur , JVD, systolic murmur - GI/Abdominal GI/Abdominal exam: Present: normal bowel sounds, soft. Absent: ascites, distended, mass, organomegaly, tenderness - Extremities Exam Extremities exam: Present: normal inspection, full ROM - Back Exam Back exam: Present: normal inspection - Neurological Exam Neurological exam: Present: alert, oriented X3 - Psychiatric Psychiatric exam: Present: normal affect, normal mood - Skin Skin exam: Present: normal color, warm, dry Results - Labs CBC & BMP: 01/02/17 03:26 01/03/17 03:59 Lab Results: I have reviewed the past 24 hour labs
[2017-01-03] MEDS: ALBUMIN 25% 50 GM in PREMIX 1 EACH IV SCH (10:39)
[2017-01-03] MEDS: NYSTATIN POWDER 15 GM BOTTLE TOP SCH ×3 (10:41→20:20)
[2017-01-03] MEDS: MUPIROCIN 2% OINT 22 GM TUBE TOP SCH ×2 (10:41→20:20)
[2017-01-03] MEDS: SPIRONOLACTONE 50 MG TABLET PO SCH (10:41)
[2017-01-03] MEDS: MULTIVITAMIN (CENTRUM) TABLET PO SCH (10:42)
[2017-01-03] MEDS: DESITIN 4OZ/NYSTATIN 15 GRAM MIXTURE PASTE TOP SCH ×2 (10:42→20:20)
[2017-01-03] MEDS: FERROUS SULFATE 325 MG TABLET PO SCH (10:42)
[2017-01-03] MEDS: LACTULOSE 20 GM/30 ML UDCUP PO SCH ×4 (10:42→20:20)
[2017-01-03] MEDS: FUROSEMIDE INJ 160 MG in SODIUM CHLORIDE 0.9% 50 ML IV SCH ×3 (10:43→20:18)
[2017-01-03] MEDS: GABAPENTIN 300 MG CAPSULE PO SCH ×4 (10:43→20:17)
[2017-01-03] MEDS: MIDODRINE 5 MG TABLET PO SCH ×3 (10:43→20:17)
[2017-01-03] MEDS: PANTOPRAZOLE 40 MG TABLET PO SCH (10:44)
[2017-01-03] MEDS: metOLazone 5 MG TABLET PO SCH (10:44)
[2017-01-03] MEDS: OCTREOTIDE 100 MCG/ML SYRINGE SUBCUT SCH ×3 (10:44→20:17)
[2017-01-03] MEDS: METOPROLOL SUCCINATE XL 25 MG TABLET PO SCH ×2 (10:51→20:17)
--- NOTE | 2017-01-03 12:31 | Hospitalist Progress Note ---
Assessment and Plan (1) Hepatic cirrhosis Status: Chronic Assessment and plan: Receiving albumin infusion. Diuresis with Zaroxolyn and lasix Improved of ammonia levels however her mental status has improved from yesterday. continue supportive care Current Visit: No Qualifiers: Hepatic cirrhosis type: alcoholic cirrhosis Ascites presence: with ascites Qualified Code(s): K70.31 - Alcoholic cirrhosis of liver with ascites (2) Chronic obstructive pulmonary disease Status: Chronic Assessment and plan: ABG this morning reviewed. The patient appears to be at her baseline. We will wean BiPAP and transitioned to nasal cannula oxygen as tolerated. Current Visit: No Qualifiers: Chronic bronchitis type: simple (3) Anasarca Status: Chronic Assessment and plan: receiving albumin and diuresis. Patient continues to have worsening acute kidney injury secondary to hepatorenal syndrome however she needs the diuresis. We have discussed hemodialysis initiation. Nephrology following. Current Visit: No (4) REBECCA (acute kidney injury) Status: Acute Assessment and plan: Baseline creatinine is 1. This is believed to be hepatorenal syndrome and related to her intravascular depletion secondary to low albumin level secondary to hepatic dysfunction. family and patient considering dialysis Current Visit: No (5) COPD (chronic obstructive pulmonary disease) Status: Chronic Current Visit: No (6) Anemia of chronic disease Status: Chronic Current Visit: No (7) Hypokalemia Status: Resolved Assessment and plan: replace per protocol Current Visit: Yes Hospitalist: Subjective Interval history: Patient seen and examined. She has improved dramatically over the last 48 hours. She remains critically ill. She and her family have elected to pursue dialysis for management of her ascites and anasarca as well as hydrothorax. She has responded well to diuretics but her creatinine is climbing. She continues to receive lactulose for her elevated ammonia level and hepatic encephalopathy which has improved over the last 48 hours. She is using the BiPAP at night and gets periodically more short of breath due to her pleural effusions. She's currently awaiting placement of dialysis catheter. Exam - Constitutional Vitals: Period Temp Pulse Resp BP Sys/Pastor Pulse Ox Last 24 Hr 96.9 F-97.8 F 87-111 13-26 91-121/52-79 90-100 General appearance: mild distress, other (due to shortness of breath) - Respiratory Respiratory exam: Present: decreased breath sounds (decreased at the bases. ) - Cardiovascular Cardiovascular exam: Present: regular rate and rhythm - GI/Abdominal GI/Abdominal exam: Present: normal bowel sounds, soft - Extremities Exam Extremities exam: Present: edema (improved with diuresis) - Neurological Exam Neurological exam: Present: alert, oriented X3 - Psychiatric Psychiatric exam: Present: normal affect, normal mood - Skin Skin exam: Present: normal color, warm, dry Results - Labs CBC & BMP: 01/02/17 03:26 01/03/17 03:59 Lab Results: I have reviewed the past 24 hour labs
[2017-01-03] MEDS: ONDANSETRON 4 MG/2 ML VIAL IV PRN ×2 (13:31→21:22)
[2017-01-03] MEDS: traMADol 50 MG TABLET PO PRN (14:50)
[2017-01-04] MEDS: DILTIAZEM INJ 100 MG in SODIUM CHLORIDE 0.9% 100 ML IV SCH (03:00)
[2017-01-04 04:50] LABS: Albumin 5.6 G/DL (3.4-5.0); Bilirubin,Total 4.2 MG/DL (0.2-1.0); Potassium 3.7 MMOL/L (3.5-5.1); Total Protein 7.2 G/DL (6.4-8.3)
[2017-01-04] MEDS: POTASSIUM CHLORIDE 20 MEQ TABLET PO PRN (05:34)
--- NOTE | 2017-01-04 07:26 | Pulmonology Progress Note ---
Pulmonary - PN: Subj Interval history: This 56-year-old white female was recently here with anasarca and a large right pleural effusion. She had 2 thoracenteses with findings of transudative fluid. It is felt to be due to her chronic liver disease. 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 A TIPS procedure was offered but she declined. She chose to go home over the weekend but came back in a couple days later with worsening shortness of breath. We had diuresed her before and she had worsening renal function so the diuretics were decreased. She now has a moderate right pleural effusion. However she is not in respiratory distress and she is adequately oxygenated. I would prefer to diurese are rather than doing recurrent thoracenteses as they will not solve the underlying problem. TIPS procedure needs to be readdressed. 12/28/2016 patient had episode of dyspnea yesterday afternoon and was given Ativan. She is a little bit groggy this morning but responsive. She has an elevated PCO2 of 66. We need to be very careful about sedation. No chest x- ray is yet this morning. 12/29/2016 patient's pleural effusion on chest x-ray is larger and she is having increased symptoms. She needs a right thoracentesis which I will do. 12/30/16 x-ray better after right thoracentesis. She has reaccumulated a little fluid today. Now on Lasix and Zaroxolyn. Creatinine stable at 2.3. 12/31/2016 patient is more lethargic. Worsening renal function. Difficulty diuresing her. Ammonia level higher. Appears to be nearing end-stage. Decision needs to be made about her CODE STATUS. 01/01/2017 patient was moved to CCU as she became more lethargic. Doing a little better with facemask BiPAP. Has a large recurrent right pleural effusion again. I discussed the case on the telephone with her youngest daughter. I advised him that the family need to get together make a decision about CODE STATUS on her. She is end-stage liver disease. Not a candidate for liver transplant. Has ammonia levels over 200. Will ask GI to address this with family as well. 01/02/2017 patient and family had discussion with Dr. Chambers yesterday. He is a bolt maker this weekend. He gave him detailed information on outlook for liver transplant. Also plans for dialysis. They have decided to have dialysis done. This would hopefully bridge her over until she can have a liver transplant done. It would be the best way to offload her ascites and hepatic hydrothorax. She is more alert this morning. Oxygen saturation 94% on 3 L. Does not look like we will need to tap her at this point. I did have a discussion with Dr. Chambers yesterday as well about the options. 01/03/2017 patient is responding to diuretics. Creatinine has gotten up to 3.9. Defer to nephrology on further plans there. As long as were able to mobilize fluid, I will not plan thoracentesis unless her oxygen saturation drops to an unacceptable level. O2 sat is 91-92% on nasal biprong's at present. 01/04/2017 creatinine is rising. Patient a little more sleepy. Chest x-ray shows the right pleural effusion is reviewed. She needs another therapeutic thoracentesis. She is too weak and groggy to safely seat on the side of the bed. Will ask interventional radiology to use ultrasound to do thoracentesis. This is just a temporizing measure until we can find some way to offload her fluid permanently, perhaps with dialysis. Exam (Progress Note) - Constitutional Vitals: Period Temp Pulse Resp BP Sys/Pastor Pulse Ox Last 24 Hr 96.9 F-97.6 F 86-111 14-26 88-115/50-84 87-98 Exam: She is alert, does appear a little drowsy, vital signs normal. O2 sat 91% on nasal oxygen. Pupils react to light. She does have some jaundice. Throat is clear. Neck supple no bruits. Chest reveals dullness 1/2 up on the right side a few rales bilaterally. Heart normal rate and rhythm no murmurs. Abdomen soft nontender no masses. Extremities she has 3+ edema. She does have ascites. Calves are nontender. Results - Labs CBC & BMP: 01/02/17 03:26 01/04/17 03:49 Lab Results: I have reviewed the past 24 hour labs - Diagnostic Findings Procedure: Chest x-ray: image reviewed by me (Very large right pleural effusion) Assessment and Plan (1) Hepatic encephalopathy Status: Acute Assessment and plan: Patient's ammonia level was 116. Being addressed with Chronulac. 12/28/2016 continuing with Chronulac. Monitor ammonia level. 12/29/2016 she is a little drowsy but arousable and carries on a good conversation. 12/30/16 mental status a little better today. 12/31/2016 she is more sluggish today. Defer to gastroenterology. 01/01/2017 more sluggish, ammonia level higher 01/02/2017 ammonia is down from around 200 to around 100 and she is more alert. 01/03/2017 she is more alert. Defer to GI. 01/04/2017 a little more thick tongue today. Current Visit: No (2) Pleural effusion on right Status: Chronic Assessment and plan: She has a moderate right pleural effusion. She is not in respiratory distress. If it gets worse we can tap her. This is best handled with diuretics, salt poor albumin, and possibly a TIPS procedure. 12/28/2016 chest x-ray pending. With concern about using diuretics she may require thoracentesis. 12/29/2016 effusion has increased to the point where she needs thoracentesis. She has renal insufficiency with creatinine 2.3. We really not able to get the fluid off with diuretics. A TIPS procedure has been addressed with her earlier. 12/30/16 trying to address the pleural effusion with diuretics. We have tapped off 1800 mL yesterday. It appears to be slowly recurring. 12/31/2016 she has had recurrent thoracenteses. It continues to recur. She has a hepatic hydrothorax. 01/01/2017 right pleural effusion has increased in size. This is a hepatic hydrothorax. We could consider a pleural catheter to drain it more easily. Do not usually like to do this with a hepatic hydrothorax but may be helpful in her case. 01/02/2017 watching the effusion from now. If she gets dialysis in the next day or 2 should be able to offload that way. If she gets into respiratory distress we can tap her before then. 01/03/2017 we will re-x-ray her tomorrow. Decide after that about management. 01/04/2017 right pleural effusion is very large. She is too weak to sit up to do a thoracentesis so I will ask interventional radiology to do one with an ultrasound Current Visit: No (3) Ascites Status: Chronic Assessment and plan: Related to her cirrhosis. 12/28/2016 she has ascites but she is not tense. Current Visit: No (4) Hepatic cirrhosis Status: Chronic Assessment and plan: This is of course her underlying problem. Defer to GI. 12/29/2016 this is the underlying cause for her pleural effusion and edema. 12/30/16 alcoholic cirrhosis is her primary problem. 12/31/2016 again defer to gastroenterology. 01/01/2017 she has alcoholic cirrhosis and end-stage. Defer to gastroenterology as to the next step. She has been about 2 months since her last drink of alcohol. Would not be a candidate for transplant at this point to my knowledge. 01/02/2017 she has alcoholic cirrhosis. Has not had alcohol in about 2 months. Plan for setting her up to look at a liver transplant. 01/03/2017 hope to get her where she can have a liver transplant in a few months. 01/04/2017 defer to GI Current Visit: No Qualifiers: Hepatic cirrhosis type: alcoholic cirrhosis Ascites presence: with ascites Qualified Code(s): K70.31 - Alcoholic cirrhosis of liver with ascites
[2017-01-04] MEDS: ALBUTEROL 2.5 MG/3 ML NEB RESP TX SCH ×4 (07:28→20:56)
--- NOTE | 2017-01-04 07:33 | XRay Report ---
Referring Physician: Mac Daniel MD Exam: XR chest 1V portable Date: January 04, 2017 at 3:18 AM Reason: Right pleural effusion Comparison: Chest one view portable January 01, 2017 Findings: The heart is partially obscured by pulmonary opacities but appears stable in size. There is almost complete opacification of the right lung with residual aeration seen at the right upper lung zone. There are also opacities within the left lower lung zone. This is concerning for pulmonary edema and atelectasis, but there could be superimposed pneumonia. Additional underlying pathology is not excluded. No pneumothorax is identified, but there is bilateral pleural fluid, likely a large amount on the right and [id number] on the left. The osseous structures appear stable. Surgical clips are suspected within the abdomen. Impression: There has been no significant change. PROCEDURE INTERPRETED AT [facility] DEPARTMENT OF RADIOLOGY Final Report Signed by: Dr. Landon Alvarado
--- NOTE | 2017-01-04 08:32 | Hospitalist Progress Note ---
Assessment and Plan (1) Pleural effusion associated with hepatic disorder Status: Acute Assessment and plan: Interventional radiology guided thoracentesis today. Current Visit: Yes (2) Hepatic cirrhosis Status: Chronic Assessment and plan: Receiving albumin infusion. Diuresis with Zaroxolyn and lasix Improvement of ammonia levels and mental status. continue supportive care Current Visit: No Qualifiers: Hepatic cirrhosis type: alcoholic cirrhosis Ascites presence: with ascites Qualified Code(s): K70.31 - Alcoholic cirrhosis of liver with ascites (3) Chronic obstructive pulmonary disease Status: Chronic Assessment and plan: The patient appears to be at her baseline. We will wean BiPAP and transitioned to nasal cannula oxygen as tolerated. Current Visit: No Qualifiers: Chronic bronchitis type: simple (4) Anasarca Status: Chronic Assessment and plan: receiving albumin and diuresis. Patient continues to have worsening acute kidney injury secondary to hepatorenal syndrome however she needs the diuresis. We have discussed hemodialysis initiation. Nephrology following. Current Visit: No (5) REBECCA (acute kidney injury) Status: Acute Assessment and plan: Baseline creatinine is 1. This is believed to be hepatorenal syndrome and related to her intravascular depletion secondary to low albumin level secondary to hepatic dysfunction. family and patient considering dialysis Current Visit: No (6) COPD (chronic obstructive pulmonary disease) Status: Chronic Current Visit: No (7) Anemia of chronic disease Status: Chronic Current Visit: No (8) Hypokalemia Status: Resolved Assessment and plan: replace per protocol Current Visit: Yes Hospitalist: Subjective Interval history: Patient seen and examined. Case discussed with Dr. Sierra by phone. No plans for immediate dialysis at this time. Would like to maximize oral diuretic therapy and offload fluid through the kidneys as much as possible. She is scheduled for ultrasound-guided thoracentesis with interventional radiology for today. We will hold off on transferred to the floor until after the procedure to ensure her respiratory status is not compromised. The patient continues to have periods of hypoxia and lethargy related to hepatic encephalopathy requiring daily treatment. Exam - Constitutional Vitals: Period Temp Pulse Resp BP Sys/Pastor Pulse Ox Last 24 Hr 96.9 F-97.6 F 86-111 14-26 88-115/50-84 87-98 General appearance: mild distress, other (satting 90% on 2 L. To the 80s with Conversation. Shortness of Breath with Conversation.) - Head Head exam: Present: normal inspection, normocephalic - Respiratory Respiratory exam: Present: decreased breath sounds (diminished breath sounds at the bases worse on the right) - Cardiovascular Cardiovascular exam: Present: regular rate and rhythm - GI/Abdominal GI/Abdominal exam: Present: normal bowel sounds, ascites, soft. Absent: tenderness, rebound - Extremities Exam Extremities exam: Present: edema - Psychiatric Psychiatric exam: Present: normal affect, normal mood - Skin Skin exam: Present: normal color, warm Results - Labs CBC & BMP: 01/02/17 03:26 01/04/17 03:49 Lab Results: I have reviewed the past 24 hour labs
--- NOTE | 2017-01-04 08:55 | Nephrology Progress Note ---
Nephrology - PN: Subj Interval history: Patient complains of some dyspnea. Review of systems GI she denies nausea or vomiting Physical exam general the patient chronically ill-appearing, she has 2+ pretibial edema although it is decreased significantly in the past few days Assessment/plan 1. Acute renal failure-this patient's creatinine is 4.1 mg/dL this is increased from around 3.9 mg/dL yesterday we will continue to monitor this 2. Liver cirrhosis 3. Pleural effusion-patient's to have a thoracentesis 4. Anemia 5. Volume overload-we will continue her diuretics, she seems to be responding well to this with a brisk diuresis. Exam (PN)-Nephrology - Vital Signs Vital signs: Period Temp Pulse Resp BP Sys/Pastor Pulse Ox Last 24 Hr 96.9 F-97.6 F 86-106 14-26 88-115/50-84 87-98 - Lab 01/02/17 03:26 01/04/17 03:49 Most recent lab results ABG pH 7.407 (7.35-7.45) 01/02/17 02:38 ABG pCO2 58.8 MM HG (35-48) H 01/02/17 02:38 ABG pO2 61.1 MM HG (80-95) L 01/02/17 02:38 ABG HCO3 34.3 MMOL/L (20-26) H 01/02/17 02:38 ABG O2 Saturation 91.3 % (95-100) L 01/02/17 02:38 Calcium 10.0 MG/DL (8.5-10.1) 01/04/17 03:49 Magnesium 2.1 MG/DL (1.8-2.4) 12/29/16 06:29 Assessment and Plan (1) REBECCA (acute kidney injury) Status: Acute Assessment and plan: This patient is developing acute renal failure again, her Lasix and spironolactone are being held. I think with her marked fluid overload will eventually have to restart these. I'm going to put her back on midodrine and vasopressin as she was previously to try and improve her kidney perfusion. Current Visit: Yes (2) Anemia Status: Acute Current Visit: Yes (3) CHF (congestive heart failure) Status: Acute Current Visit: Yes (4) Hypokalemia Status: Resolved Assessment and plan: Continue replacement Current Visit: Yes (5) Anasarca Status: Chronic Current Visit: No (6) COPD (chronic obstructive pulmonary disease) Status: Chronic Current Visit: No (7) Hepatorenal syndrome Status: Acute Current Visit: No (8) Alcoholic cirrhosis Status: Chronic Current Visit: No
--- NOTE | 2017-01-04 09:03 | Gastrointestinal Progress Note ---
Assessment and Plan (1) Alcoholic cirrhosis Status: Chronic Assessment and plan: 01/04-Alert but somnolent, oriented. Creatnine 4.2. Continues with good UOP. Thoracentesis today. Plan and addendum to follow by Dr Vidal. 01/03-Ammonia 75, oriented, alert. Continued output via BMS. Creatnine 3.9. Good UOP. Plan and addendum to follow by Dr Vidal. 12/31-Ammonia elevated at 215, encephalopathy noted with confusion, lethargy. Increase Lacutulose to q 1 hr until bowel movement and then QID. Keep NPO at present time. Plan and addendum to follow by Dr Vidal 12/30-Ammonia 173, no signs of encephalopathy. Bowels moving daily. Plan and addendum to follow by DR Vidal. 12/29-Ammonia 47. No pain. Add Mirliax to regimen as needed daily. Plan and addendum to follow by Dr Vidal. 12/28-Ammonia 79, one BM. No c/o pain. No SOB. NO changes in weight. Creatnine 2.2. Plan and addendum to follow by Dr Vidal. 12/27-Ammonia down at 116, one BM today. No encephalopathy noted at present time. Plan and addendum to follow by Dr Vidal. Current Visit: No (2) Hepatorenal syndrome Status: Acute Assessment and plan: 01/03-Creatnine 3.9. Nephrology following. Plan and addendum to follow by Dr Vidal. 12/30-No repeat creatnine today. Recheck lab. Plan and addendum to follow by Dr Vidal. 12/29-Creatnine 2.3. For thoracentesis today. Plan and addendum to follow by Dr Vidal. 12/27-Creatnine 2.2. Chest xray noted with persistent bilateral pleural effusion , right greater than left. Plan and addendum to follow by Dr Vidal. Current Visit: No Gastroenterology - PN: Subj Interval history: CC: Cirrhosis Pt is seen, sitting up in bed. She is somnolent this morning but oriented. She denies any SOB, pain, nausea or vomiting. Has a poor appetite at present time. Her creatnine is up at 4.2 however weight is stable at present time. She is for repeat thoracentesis today. Abdomen is soft, nontender. 2-3+ pitting edema to BLE. No BMS output recorded at present time. ROS: Denies SOB or chest pain Exam (Progress Note) - Constitutional Vitals: Period Temp Pulse Resp BP Sys/Pastor Pulse Ox Last 24 Hr 96.9 F-97.6 F 86-106 14-26 88-112/50-84 87-98 General appearance: no acute distress, over weight - Head Head exam: Present: normal inspection, normocephalic - Eye Eye exam: Present: other (lids and conjunctiva unremarkable). Absent: scleral icterus - ENT ENT exam: Present: normal exam, normal oropharynx - Neck Neck exam: Present: normal inspection - Respiratory Respiratory exam: Present: clear to auscultation bilaterally. Absent: rales, rhonchi, wheezes - Cardiovascular Cardiovascular exam: Present: regular rate and rhythm. Absent: diastolic murmur , JVD, systolic murmur - GI/Abdominal GI/Abdominal exam: Present: normal bowel sounds, soft. Absent: ascites, distended, mass, organomegaly, tenderness - Extremities Exam Extremities exam: Present: normal inspection, full ROM - Back Exam Back exam: Present: normal inspection - Neurological Exam Neurological exam: Present: alert, oriented X3 - Psychiatric Psychiatric exam: Present: normal affect, normal mood - Skin Skin exam: Present: normal color, warm, dry Results - Labs CBC & BMP: 01/02/17 03:26 01/04/17 03:49 Lab Results: I have reviewed the past 24 hour labs
[2017-01-04] MEDS: FUROSEMIDE INJ 160 MG in SODIUM CHLORIDE 0.9% 50 ML IV SCH ×3 (09:37→20:18)
[2017-01-04] MEDS: LACTULOSE 20 GM/30 ML UDCUP PO SCH ×4 (09:52→20:30)
[2017-01-04] MEDS: DESITIN 4OZ/NYSTATIN 15 GRAM MIXTURE PASTE TOP SCH ×2 (09:55→20:22)
[2017-01-04] MEDS: MUPIROCIN 2% OINT 22 GM TUBE TOP SCH ×2 (09:55→20:22)
[2017-01-04] MEDS: MULTIVITAMIN (CENTRUM) TABLET PO SCH (09:55)
[2017-01-04] MEDS: SPIRONOLACTONE 50 MG TABLET PO SCH (09:55)
[2017-01-04] MEDS: NYSTATIN POWDER 15 GM BOTTLE TOP SCH ×3 (09:55→20:22)
[2017-01-04] MEDS: OCTREOTIDE 100 MCG/ML SYRINGE SUBCUT SCH ×3 (09:56→20:18)
[2017-01-04] MEDS: FERROUS SULFATE 325 MG TABLET PO SCH (09:56)
[2017-01-04] MEDS: metOLazone 5 MG TABLET PO SCH (09:56)
[2017-01-04] MEDS: MIDODRINE 5 MG TABLET PO SCH ×3 (09:56→20:18)
[2017-01-04] MEDS: GABAPENTIN 300 MG CAPSULE PO SCH ×4 (09:56→20:18)
[2017-01-04] MEDS: METOPROLOL SUCCINATE XL 25 MG TABLET PO SCH ×2 (09:56→22:00)
[2017-01-04] MEDS: PANTOPRAZOLE 40 MG TABLET PO SCH (09:59)
--- NOTE | 2017-01-04 10:36 | Physician Query Form ---
CLICK EDIT DOCUMENT TO SELECT QUERY ANSWER --> OK --> SIGN Jaida Harding RN Clinical Bank Officer W) [phone] (f) [phone] [email or web address] PROVIDERS: Make your selection(s) from the choices in EACH section by typing an "x" and enter comments in the comment section. Please use your independent medical judgment in providing your response. This request does not imply that any particular answer is desired or expected. CLINICAL INDICATORS: (Providers should not edit this section) Based on documentation of "Patient had low O2 sats and rapid response was called. She seems to be maintaining her O2 sats on BiPAP". Nurse note states " O2 sat was 77% on 3L per NC; when venturi mask was placed patient's sat increased to 83%; when placed on 100% non rebreather mask patient's sat increased to 93-94%". If possible, please further clarify the type and acuity of respiratory diagnosis : ACUITY: ( ) Acute ( ) Chronic ( X) Acute on Chronic TYPE: (X ) Respiratory failure with hypoxia ( ) Respiratory failure with hypercapnia ( ) Respiratory Arrest ( ) Postprocedural/postoperative respiratory failure ( ) Respiratory Insufficiency ( ) ARDS (Adult/Acute Respiratory Distress Syndrome) ( ) Other, please specify: ( ) Clinically unable to determine Recognized criteria for respiratory failure PH <7.35 or >7.45 PO2 <60 PCO2 >50 RR >24 O2 Sat <90% on RA or <95% on O2 Use of accessory muscles Unable to speak in full sentences Intubation is not required COMMENTS: Use of terms such as suspected, likely, or probable (associated with a specific diagnosis that is being evaluated, monitored, or treated as if it exists) are acceptable and can be restated in the discharge summary if not ruled out. MTDD
--- NOTE | 2017-01-04 15:57 | Post Interventional Procedure ---
Pre-op diagnosis: Right pleural effusion Post-op diagnosis: same Procedure: US guided right thoracentesis Radiologist: Miko Tay Anesthesia: local Specimens: other (1200 cc alexandre colored fluid to lab) Estimated blood loss: none Complications: none Condition: stable
--- NOTE | 2017-01-04 16:20 | XRay Report ---
XR chest post procedure Indication: Thoracentesis. Post procedure chest radiograph, 2 views: Inspiratory and expiratory views of the chest were obtained. Right-sided pleural effusion has decreased significantly since study obtained this morning. No pneumothorax is identified. There is still persistent bilateral pleural effusions and continued cardiomegaly evident. Impression: Status post right thoracentesis with decreased right pleural effusion. No pneumothorax. PROCEDURE INTERPRETED AT [facility] DEPARTMENT OF RADIOLOGY Final Report Signed by: Miko Tay M.D.
--- NOTE | 2017-01-04 16:21 | Ultrasound Report ---
US thoracentesis Indication: Recurrent right pleural effusion. ULTRASOUND-GUIDED THORACENTESIS Description: A formal timeout was performed. Maximum sterile barrier technique was used. A right pleural effusion was identified with ultrasound. The right back was prepped and draped in sterile fashion. Under sonographic guidance, a 6 Serbian pigtail catheter was advanced into the effusion using trocar technique. A captured sonographic image documents needle position. The needle was removed. Through the catheter, we obtained a total of 1200 cc of alexandre-colored fluid. The catheter was removed. A bandage was placed at the puncture site. The patient tolerated the procedure well. Chest radiograph is pending. Specimen: 1200 cc fluid to the laboratory. Impression: Ultrasound-guided thoracentesis. PROCEDURE INTERPRETED AT [facility] DEPARTMENT OF RADIOLOGY Final Report Signed by: Miko Tay M.D.
[2017-01-04] MEDS: traMADol 50 MG TABLET PO PRN (18:01)
[2017-01-04] MEDS: RIFAXIMIN 550 MG TABLET PO SCH (20:27)
[2017-01-05] MEDS: DILTIAZEM INJ 100 MG in SODIUM CHLORIDE 0.9% 100 ML IV SCH (03:00)
--- NOTE | 2017-01-05 07:17 | Pulmonology Progress Note ---
Pulmonary - PN: Subj Interval history: This 56-year-old white female was recently here with anasarca and a large right pleural effusion. She had 2 thoracenteses with findings of transudative fluid. It is felt to be due to her chronic liver disease. 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 A TIPS procedure was offered but she declined. She chose to go home over the weekend but came back in a couple days later with worsening shortness of breath. We had diuresed her before and she had worsening renal function so the diuretics were decreased. She now has a moderate right pleural effusion. However she is not in respiratory distress and she is adequately oxygenated. I would prefer to diurese are rather than doing recurrent thoracenteses as they will not solve the underlying problem. TIPS procedure needs to be readdressed. 12/28/2016 patient had episode of dyspnea yesterday afternoon and was given Ativan. She is a little bit groggy this morning but responsive. She has an elevated PCO2 of 66. We need to be very careful about sedation. No chest x- ray is yet this morning. 12/29/2016 patient's pleural effusion on chest x-ray is larger and she is having increased symptoms. She needs a right thoracentesis which I will do. 12/30/16 x-ray better after right thoracentesis. She has reaccumulated a little fluid today. Now on Lasix and Zaroxolyn. Creatinine stable at 2.3. 12/31/2016 patient is more lethargic. Worsening renal function. Difficulty diuresing her. Ammonia level higher. Appears to be nearing end-stage. Decision needs to be made about her CODE STATUS. 01/01/2017 patient was moved to CCU as she became more lethargic. Doing a little better with facemask BiPAP. Has a large recurrent right pleural effusion again. I discussed the case on the telephone with her youngest daughter. I advised him that the family need to get together make a decision about CODE STATUS on her. She is end-stage liver disease. Not a candidate for liver transplant. Has ammonia levels over 200. Will ask GI to address this with family as well. 01/02/2017 patient and family had discussion with Dr. Chambers yesterday. He is a transit department clerk this weekend. He gave him detailed information on outlook for liver transplant. Also plans for dialysis. They have decided to have dialysis done. This would hopefully bridge her over until she can have a liver transplant done. It would be the best way to offload her ascites and hepatic hydrothorax. She is more alert this morning. Oxygen saturation 94% on 3 L. Does not look like we will need to tap her at this point. I did have a discussion with Dr. Chambers yesterday as well about the options. 01/03/2017 patient is responding to diuretics. Creatinine has gotten up to 3.9. Defer to nephrology on further plans there. As long as were able to mobilize fluid, I will not plan thoracentesis unless her oxygen saturation drops to an unacceptable level. O2 sat is 91-92% on nasal biprong's at present. 01/04/2017 creatinine is rising. Patient a little more sleepy. Chest x-ray shows the right pleural effusion is reviewed. She needs another therapeutic thoracentesis. She is too weak and groggy to safely seat on the side of the bed. Will ask interventional radiology to use ultrasound to do thoracentesis. This is just a temporizing measure until we can find some way to offload her fluid permanently, perhaps with dialysis. 01/05/2017 patient had right thoracentesis with 1200 mL removed and chest x-ray clearly is better. Patient feels better and is more alert. This is a temporizing measure. Creatinine a little higher. Patient has hepatorenal syndrome. Will soon need to make a decision about dialysis. Exam (Progress Note) - Constitutional Vitals: Period Temp Pulse Resp BP Sys/Pastor Pulse Ox Last 24 Hr 97.6 F-99.3 F 84-102 12- 90-112/51-75 88-100 Exam: She is alert, does appear a little more alert, vital signs normal. O2 sat 96% on nasal oxygen. Pupils react to light. She does have some jaundice. Throat is clear. Neck supple no bruits. Chest reveals dullness 1/4 up on the right side a few rales bilaterally. Heart normal rate and rhythm no murmurs. Abdomen soft nontender no masses. Extremities she has 3+ edema. She does have ascites. Calves are nontender. Results - Labs CBC & BMP: 01/02/17 03:26 01/04/17 03:49 Lab Results: I have reviewed the past 24 hour labs - Diagnostic Findings Procedure: Chest x-ray: image reviewed by me (Right pleural effusion is much smaller.) Assessment and Plan (1) Hepatic encephalopathy Status: Acute Assessment and plan: Patient's ammonia level was 116. Being addressed with Chronulac. 12/28/2016 continuing with Chronulac. Monitor ammonia level. 12/29/2016 she is a little drowsy but arousable and carries on a good conversation. 12/30/16 mental status a little better today. 12/31/2016 she is more sluggish today. Defer to gastroenterology. 01/01/2017 more sluggish, ammonia level higher 01/02/2017 ammonia is down from around 200 to around 100 and she is more alert. 01/03/2017 she is more alert. Defer to GI. 01/04/2017 a little more thick tongue today. 01/05/2017 patient more alert today. Current Visit: No (2) Pleural effusion on right Status: Chronic Assessment and plan: She has a moderate right pleural effusion. She is not in respiratory distress. If it gets worse we can tap her. This is best handled with diuretics, salt poor albumin, and possibly a TIPS procedure. 12/28/2016 chest x-ray pending. With concern about using diuretics she may require thoracentesis. 12/29/2016 effusion has increased to the point where she needs thoracentesis. She has renal insufficiency with creatinine 2.3. We really not able to get the fluid off with diuretics. A TIPS procedure has been addressed with her earlier. 12/30/16 trying to address the pleural effusion with diuretics. We have tapped off 1800 mL yesterday. It appears to be slowly recurring. 12/31/2016 she has had recurrent thoracenteses. It continues to recur. She has a hepatic hydrothorax. 01/01/2017 right pleural effusion has increased in size. This is a hepatic hydrothorax. We could consider a pleural catheter to drain it more easily. Do not usually like to do this with a hepatic hydrothorax but may be helpful in her case. 01/02/2017 watching the effusion from now. If she gets dialysis in the next day or 2 should be able to offload that way. If she gets into respiratory distress we can tap her before then. 01/03/2017 we will re-x-ray her tomorrow. Decide after that about management. 01/04/2017 right pleural effusion is very large. She is too weak to sit up to do a thoracentesis so I will ask interventional radiology to do one with an ultrasound 01/05/2017 x-ray much better after right thoracentesis yesterday. We are continuing to do this as a temporizing measure. Long-term decision needs to be made about dialysis. Current Visit: No (3) Ascites Status: Chronic Assessment and plan: Related to her cirrhosis. 12/28/2016 she has ascites but she is not tense. Current Visit: No (4) Hepatic cirrhosis Status: Chronic Assessment and plan: This is of course her underlying problem. Defer to GI. 12/29/2016 this is the underlying cause for her pleural effusion and edema. 12/30/16 alcoholic cirrhosis is her primary problem. 12/31/2016 again defer to gastroenterology. 01/01/2017 she has alcoholic cirrhosis and end-stage. Defer to gastroenterology as to the next step. She has been about 2 months since her last drink of alcohol. Would not be a candidate for transplant at this point to my knowledge. 01/02/2017 she has alcoholic cirrhosis. Has not had alcohol in about 2 months. Plan for setting her up to look at a liver transplant. 01/03/2017 hope to get her where she can have a liver transplant in a few months. 01/04/2017 defer to GI 01/05/2017 likely would be candidate for liver transplant in about 4 months. Has been a little over 2 months since she had her last alcoholic beverage. Current Visit: No Qualifiers: Hepatic cirrhosis type: alcoholic cirrhosis Ascites presence: with ascites Qualified Code(s): K70.31 - Alcoholic cirrhosis of liver with ascites
[2017-01-05] MEDS: ALBUTEROL 2.5 MG/3 ML NEB RESP TX SCH ×4 (07:38→19:50)
--- NOTE | 2017-01-05 08:16 | XRay Report ---
History: Right pleural effusion Date: 01/05/2017 Study: Chest x-ray AP portable Comparison exam: 01/04/2017 There is continued cardiomegaly. The mediastinal contour is stable. The pulmonary vasculature is slightly prominent and ill-defined. There is continued patchy and hazy bilateral pulmonary edema/infiltrate, grossly similar. There is continued mild bilateral pleural effusion, right more than left, the same or improved compared to the comparison study performed at 3:48 PM the previous day. Osseous structures are unchanged. Impression: Cardiomegaly and evidence of CHF with pulmonary edema. Underlying pneumonia cannot be excluded. There is no pneumothorax. There is continued bilateral pleural effusion, though this is the same or improved PROCEDURE INTERPRETED AT [facility] Final Report Signed by: Dr. Lisbeth Vidal
--- NOTE | 2017-01-05 08:28 | Nephrology Progress Note ---
Nephrology - PN: Subj Interval history: Patient is feeling better. He states she is breathing better since having a thoracentesis yesterday. Review of systems GI she denies nausea vomiting Physical exam general patient is chronically ill-appearing, she still has 2+ pretibial edema Assessment/plan 1. Acute renal failure-patient's creatinine has been progressively increasing however am inclined to continue the aggressive diuresis due to her respiratory problems and recurrent pleural effusion 2. Liver cirrhosis-the patient's lactulose has been decreased 3. Anemia From my standpoint is okay if patient's transfer to the floor Exam (PN)-Nephrology - Vital Signs Vital signs: Period Temp Pulse Resp BP Sys/Pastor Pulse Ox Last 24 Hr 97.6 F-99.3 F 84-102 12- 90-112/51-75 90-100 - Lab 01/02/17 03:26 01/04/17 03:49 Most recent lab results ABG pH 7.407 (7.35-7.45) 01/02/17 02:38 ABG pCO2 58.8 MM HG (35-48) H 01/02/17 02:38 ABG pO2 61.1 MM HG (80-95) L 01/02/17 02:38 ABG HCO3 34.3 MMOL/L (20-26) H 01/02/17 02:38 ABG O2 Saturation 91.3 % (95-100) L 01/02/17 02:38 Calcium 10.0 MG/DL (8.5-10.1) 01/04/17 03:49 Magnesium 2.1 MG/DL (1.8-2.4) 12/29/16 06:29 Assessment and Plan (1) REBECCA (acute kidney injury) Status: Acute Assessment and plan: This patient is developing acute renal failure again, her Lasix and spironolactone are being held. I think with her marked fluid overload will eventually have to restart these. I'm going to put her back on midodrine and vasopressin as she was previously to try and improve her kidney perfusion. Current Visit: Yes (2) Anemia Status: Acute Current Visit: Yes (3) CHF (congestive heart failure) Status: Acute Current Visit: Yes (4) Hypokalemia Status: Resolved Assessment and plan: Continue replacement Current Visit: Yes (5) Anasarca Status: Chronic Current Visit: No (6) COPD (chronic obstructive pulmonary disease) Status: Chronic Current Visit: No (7) Hepatorenal syndrome Status: Acute Current Visit: No (8) Alcoholic cirrhosis Status: Chronic Current Visit: No
--- NOTE | 2017-01-05 09:28 | Gastrointestinal Progress Note ---
Assessment and Plan (1) Alcoholic cirrhosis Status: Chronic Assessment and plan: 01/05-No signs of encephalopathy at present time. CMP pending for this morning. Continues with good UOP. Thoracentesis with 1200 removed. Plan and addendum to follow by Dr Vidal. 01/04-Alert but somnolent, oriented. Creatnine 4.2. Continues with good UOP. Thoracentesis today. Plan and addendum to follow by Dr Vidal. 01/03-Ammonia 75, oriented, alert. Continued output via BMS. Creatnine 3.9. Good UOP. Plan and addendum to follow by Dr Vidal. 12/31-Ammonia elevated at 215, encephalopathy noted with confusion, lethargy. Increase Lacutulose to q 1 hr until bowel movement and then QID. Keep NPO at present time. Plan and addendum to follow by Dr Vidal 12/30-Ammonia 173, no signs of encephalopathy. Bowels moving daily. Plan and addendum to follow by DR Vidal. 12/29-Ammonia 47. No pain. Add Mirliax to regimen as needed daily. Plan and addendum to follow by Dr Vidal. 12/28-Ammonia 79, one BM. No c/o pain. No SOB. NO changes in weight. Creatnine 2.2. Plan and addendum to follow by Dr Vidal. 12/27-Ammonia down at 116, one BM today. No encephalopathy noted at present time. Plan and addendum to follow by Dr Vidal. Current Visit: No (2) Hepatorenal syndrome Status: Acute Assessment and plan: 01/05-Creatnine pending. Dr Sierra following at present. Plan and addendum to follow by Dr Vidal. 01/03-Creatnine 3.9. Nephrology following. Plan and addendum to follow by Dr Vidal. 12/30-No repeat creatnine today. Recheck lab. Plan and addendum to follow by Dr Vidal. 12/29-Creatnine 2.3. For thoracentesis today. Plan and addendum to follow by Dr Vidal. 12/27-Creatnine 2.2. Chest xray noted with persistent bilateral pleural effusion , right greater than left. Plan and addendum to follow by Dr Vidal. Current Visit: No Gastroenterology - PN: Subj Interval history: CC: Cirrhosis Pt is seen, awake and alert. States she is feeling some better today. She has no signs of encephalopathy at present time. Abdomen is soft, nontender. She had 1200 ml removed with thoracentesis on yesterday and states that she is breathing better. Her weight is recorded but is obviously inaccurate today. CMP is pending for this morning. No stool output recorded for today as of this morning however she is having continued bowel movements with the Chronulac. ROS: Denies SOB or chest pain Exam (Progress Note) - Constitutional Vitals: Period Temp Pulse Resp BP Sys/Pastor Pulse Ox Last 24 Hr 97.6 F-99.3 F 84-102 12-26 90-112/51-75 90-100 General appearance: no acute distress, over weight - Head Head exam: Present: normal inspection, normocephalic - Eye Eye exam: Present: other (lids and conjunctiva unremarkable). Absent: scleral icterus - ENT ENT exam: Present: normal exam, normal oropharynx - Neck Neck exam: Present: normal inspection - Respiratory Respiratory exam: Present: clear to auscultation bilaterally. Absent: rales, rhonchi, wheezes - Cardiovascular Cardiovascular exam: Present: regular rate and rhythm. Absent: diastolic murmur , JVD, systolic murmur - GI/Abdominal GI/Abdominal exam: Present: normal bowel sounds, soft. Absent: ascites, distended, mass, organomegaly, tenderness - Extremities Exam Extremities exam: Present: normal inspection, full ROM, edema - Back Exam Back exam: Present: normal inspection - Neurological Exam Neurological exam: Present: alert, oriented X3 - Psychiatric Psychiatric exam: Present: normal affect, normal mood - Skin Skin exam: Present: normal color, warm, dry Results - Labs CBC & BMP: 01/02/17 03:26 01/04/17 03:49 Lab Results: I have reviewed the past 24 hour labs
[2017-01-05 10:34] LABS: Albumin 5.1 G/DL (3.4-5.0); Bilirubin,Total 3.9 MG/DL (0.2-1.0); Calcium 9.9 MG/DL (8.5-10.1); Osmolality,Calculated 293.3 MOS/KG (273-304); Potassium 3.5 MMOL/L (3.5-5.1); Total Protein 6.8 G/DL (6.4-8.3)
[2017-01-05] MEDS: SPIRONOLACTONE 50 MG TABLET PO SCH (10:41)
[2017-01-05] MEDS: MUPIROCIN 2% OINT 22 GM TUBE TOP SCH (10:41)
[2017-01-05] MEDS: FUROSEMIDE INJ 160 MG in SODIUM CHLORIDE 0.9% 50 ML IV SCH ×3 (10:42→22:00)
[2017-01-05] MEDS: LACTULOSE 20 GM/30 ML UDCUP PO SCH ×4 (10:42→22:07)
[2017-01-05] MEDS: FERROUS SULFATE 325 MG TABLET PO SCH (10:42)
[2017-01-05] MEDS: MULTIVITAMIN (CENTRUM) TABLET PO SCH (10:42)
[2017-01-05] MEDS: GABAPENTIN 300 MG CAPSULE PO SCH ×4 (10:45→22:03)
[2017-01-05] MEDS: OCTREOTIDE 100 MCG/ML SYRINGE SUBCUT SCH ×3 (10:45→22:02)
[2017-01-05] MEDS: MIDODRINE 5 MG TABLET PO SCH ×3 (10:45→22:03)
[2017-01-05] MEDS: NYSTATIN POWDER 15 GM BOTTLE TOP SCH ×2 (10:45→15:58)
[2017-01-05] MEDS: PANTOPRAZOLE 40 MG TABLET PO SCH (10:45)
[2017-01-05] MEDS: metOLazone 5 MG TABLET PO SCH (10:46)
[2017-01-05] MEDS: DESITIN 4OZ/NYSTATIN 15 GRAM MIXTURE PASTE TOP SCH (10:46)
[2017-01-05] MEDS: RIFAXIMIN 550 MG TABLET PO SCH ×2 (10:46→22:01)
[2017-01-05] MEDS: METOPROLOL SUCCINATE XL 25 MG TABLET PO SCH ×2 (10:46→22:03)
--- NOTE | 2017-01-05 11:10 | Hospitalist Progress Note ---
Assessment and Plan (1) Pleural effusion associated with hepatic disorder Status: Acute Assessment and plan: Interventional radiology guided thoracentesis removal of 1200 cc 01/06/2017 Current Visit: Yes (2) Hepatic cirrhosis Status: Chronic Assessment and plan: Receiving albumin infusion. Diuresis with Zaroxolyn and lasix and Aldactone. On octreotide. Improvement of ammonia levels and mental status. continue supportive care Current Visit: No Qualifiers: Hepatic cirrhosis type: alcoholic cirrhosis Ascites presence: with ascites Qualified Code(s): K70.31 - Alcoholic cirrhosis of liver with ascites (3) Chronic obstructive pulmonary disease Status: Chronic Assessment and plan: The patient appears to be at her baseline. We will wean BiPAP and transitioned to nasal cannula oxygen as tolerated. Current Visit: No Qualifiers: Chronic bronchitis type: simple (4) Anasarca Status: Chronic Assessment and plan: receiving albumin and diuresis. Patient continues to have worsening acute kidney injury secondary to hepatorenal syndrome however she needs the diuresis. We have discussed hemodialysis initiation. Nephrology following. Current Visit: No (5) REBECCA (acute kidney injury) Status: Acute Assessment and plan: Baseline creatinine is 1. This is believed to be hepatorenal syndrome. family and patient considering dialysis Current Visit: No (6) COPD (chronic obstructive pulmonary disease) Status: Chronic Current Visit: No (7) Anemia of chronic disease Status: Chronic Current Visit: No (8) Hypokalemia Status: Resolved Assessment and plan: replace per protocol Current Visit: Yes Hospitalist: Subjective Interval history: Patient seen and examined. Thoracentesis done by interventional radiology yesterday removed 1200 cc from the chest. Patient is breathing much better this morning. O2 sats improved. Diuresis ongoing with Lasix and Zaroxolyn and Aldactone. Okay to transfer to the floor today. Exam - Constitutional Vitals: Period Temp Pulse Resp BP Sys/Pastor Pulse Ox Last 24 Hr 97.6 F-99.3 F 84-99 12-26 90-110/51-75 91-100 General appearance: mild distress - Head Head exam: Present: normal inspection, normocephalic, atraumatic - Eye Eye exam: Present: EOMI - Respiratory Respiratory exam: Present: decreased breath sounds - Cardiovascular Cardiovascular exam: Present: regular rate and rhythm - GI/Abdominal GI/Abdominal exam: Present: normal bowel sounds, soft. Absent: tenderness, rebound - Extremities Exam Extremities exam: Present: edema (Improved edema.) - Neurological Exam Neurological exam: Present: alert, oriented X3 - Psychiatric Psychiatric exam: Present: normal affect, normal mood - Skin Skin exam: Present: normal color Results - Labs CBC & BMP: 01/02/17 03:26 01/05/17 09:30 Lab Results: I have reviewed the past 24 hour labs
[2017-01-05] MEDS: traMADol 50 MG TABLET PO PRN (22:02)
[2017-01-05] MEDS: ZALEPLON 5 MG CAPSULE PO PRN (22:03)
[2017-01-06] MEDS: DESITIN 4OZ/NYSTATIN 15 GRAM MIXTURE PASTE TOP SCH ×3 (01:29→20:39)
[2017-01-06] MEDS: MUPIROCIN 2% OINT 22 GM TUBE TOP SCH ×3 (01:29→20:38)
[2017-01-06] MEDS: NYSTATIN POWDER 15 GM BOTTLE TOP SCH ×4 (01:29→20:38)
[2017-01-06] MEDS ORDERED: METOPROLOL TARTRATE 5 MG/5 ML VIAL IV SCH ×2 (04:00)
[2017-01-06] MEDS: METOPROLOL TARTRATE 5 MG/5 ML VIAL IV SCH ×3 (04:10→04:29)
[2017-01-06 05:05] LABS: Basophils # 0.1 10*3/uL (0.0-0.2); Basophils % 0.6 % (0.0-0.8); Eosinophils # 0.4 10*3/uL (0.0-0.87); Eosinophils % 4.5 % (0.00-10.9); Hematocrit 26.5 VOL% (35.7-47.0); Hemoglobin 8.5 GM/DL (12.0-16.0); Immature Granulocytes % 0.3 %; Immature Granulocytes Absolute 0.03 #; Lymphocytes # 1.7 10*3/uL (1.4-4.0); Lymphocytes % 18.5 % (21.3-54.2); Mean Corpuscular HGB Conc 32.1 GM/DL (32-36); Mean Corpuscular Hemoglobin 30 PG (27-34); Mean Corpuscular Volume 94.3 FL (87-102); Mean Platelet Volume 11.2 FL (9.6-12.0); Monocytes # 0.7 10*3/uL (0.11-0.8); Monocytes % 8.2 % (1.7-12.7); Neutrophils # 6.2 10*3/uL (1.4-7.4); Neutrophils % 67.9 % (38.7-73.9); Platelet Count 76 T/CUMM (130-400); Red Blood Count 2.81 MC/CUMM (3.8-5.5); Red Cell Distribution Width 21.2 % (9.3-17.3); White Blood Count 9.1 T/CUMM (4-12)
[2017-01-06 05:28] LABS: Eosinophils 7 % (0-10); Lymphocytes 14 % (20-55); Segmented Neutrophils 74 % (50-85); Total Cells Counted 100
[2017-01-06 05:29] LABS: Elliptocytes Few; Hypochromasia 1+; Microcytosis 1+; Platelet Estimate Decreased
[2017-01-06 05:35] LABS: Albumin 4.8 G/DL (3.4-5.0); Bilirubin,Total 4.3 MG/DL (0.2-1.0); Calcium 9.5 MG/DL (8.5-10.1); Osmolality,Calculated 294.3 MOS/KG (273-304); Potassium 3.7 MMOL/L (3.5-5.1); Total Protein 6.6 G/DL (6.4-8.3)
[2017-01-06] MEDS: ALBUTEROL 2.5 MG/3 ML NEB RESP TX SCH ×4 (07:38→19:11)
--- NOTE | 2017-01-06 08:09 | EKG Report ---
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
--- NOTE | 2017-01-06 08:17 | Nephrology Progress Note ---
Nephrology - PN: Subj Interval history: Patient denies shortness of breath. Review of systems GI she denies nausea or vomiting Physical exam general the patient is chronically ill-appearing, she has some tremulousness to her hands this morning and her voice is a little bit weaker than it had been. She also appears weaker in general. She has 2+ lower extremity edema Assessment/plan 1. Acute renal failure-this patient's creatinine is essentially stable at 4.2 mg/dL from yesterday 2. Volume overload will continue her present diuretics 3. Liver cirrhosis-this patient looks a little more toxic today. 4. Fever-we will check blood cultures 2, chest x-ray, urinalysis with C&S Exam (PN)-Nephrology - Vital Signs Vital signs: Period Temp Pulse Resp BP Sys/Pastor Pulse Ox Last 24 Hr 97.3 F-102.1 F 88-120 11-22 92-121/48-77 89-99 - Lab 01/06/17 04:39 01/06/17 04:39 Most recent lab results ABG pH 7.407 (7.35-7.45) 01/02/17 02:38 ABG pCO2 58.8 MM HG (35-48) H 01/02/17 02:38 ABG pO2 61.1 MM HG (80-95) L 01/02/17 02:38 ABG HCO3 34.3 MMOL/L (20-26) H 01/02/17 02:38 ABG O2 Saturation 91.3 % (95-100) L 01/02/17 02:38 Calcium 9.5 MG/DL (8.5-10.1) 01/06/17 04:39 Magnesium 2.1 MG/DL (1.8-2.4) 12/29/16 06:29 Assessment and Plan (1) REBECCA (acute kidney injury) Status: Acute Assessment and plan: This patient is developing acute renal failure again, her Lasix and spironolactone are being held. I think with her marked fluid overload will eventually have to restart these. I'm going to put her back on midodrine and vasopressin as she was previously to try and improve her kidney perfusion. Current Visit: Yes (2) Anemia Status: Acute Current Visit: Yes (3) CHF (congestive heart failure) Status: Acute Current Visit: Yes (4) Hypokalemia Status: Resolved Assessment and plan: Continue replacement Current Visit: Yes (5) Anasarca Status: Chronic Current Visit: No (6) COPD (chronic obstructive pulmonary disease) Status: Chronic Current Visit: No (7) Hepatorenal syndrome Status: Acute Current Visit: No (8) Alcoholic cirrhosis Status: Chronic Current Visit: No
[2017-01-06] MEDS: OCTREOTIDE 100 MCG/ML SYRINGE SUBCUT SCH ×3 (08:44→20:37)
[2017-01-06] MEDS: MIDODRINE 5 MG TABLET PO SCH ×3 (08:44→20:37)
[2017-01-06] MEDS: FUROSEMIDE INJ 160 MG in SODIUM CHLORIDE 0.9% 50 ML IV SCH ×3 (08:44→20:37)
[2017-01-06] MEDS: LACTULOSE 20 GM/30 ML UDCUP PO SCH ×4 (08:44→20:38)
[2017-01-06] MEDS: RIFAXIMIN 550 MG TABLET PO SCH ×2 (08:44→20:37)
[2017-01-06] MEDS: METOPROLOL TARTRATE 100 MG TABLET PO SCH ×2 (08:44→20:38)
[2017-01-06] MEDS: PANTOPRAZOLE 40 MG TABLET PO SCH (08:45)
[2017-01-06] MEDS: FERROUS SULFATE 325 MG TABLET PO SCH (08:45)
[2017-01-06] MEDS: SPIRONOLACTONE 50 MG TABLET PO SCH (08:45)
[2017-01-06] MEDS: GABAPENTIN 300 MG CAPSULE PO SCH ×4 (08:45→20:38)
[2017-01-06] MEDS: metOLazone 5 MG TABLET PO SCH (08:45)
[2017-01-06] MEDS: MULTIVITAMIN (CENTRUM) TABLET PO SCH (08:45)
--- NOTE | 2017-01-06 08:46 | Pulmonology Progress Note ---
Pulmonary - PN: Subj Interval history: This 56-year-old white female was recently here with anasarca and a large right pleural effusion. She had 2 thoracenteses with findings of transudative fluid. It is felt to be due to her chronic liver disease. 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 A TIPS procedure was offered but she declined. She chose to go home over the weekend but came back in a couple days later with worsening shortness of breath. We had diuresed her before and she had worsening renal function so the diuretics were decreased. She now has a moderate right pleural effusion. However she is not in respiratory distress and she is adequately oxygenated. I would prefer to diurese are rather than doing recurrent thoracenteses as they will not solve the underlying problem. TIPS procedure needs to be readdressed. 12/28/2016 patient had episode of dyspnea yesterday afternoon and was given Ativan. She is a little bit groggy this morning but responsive. She has an elevated PCO2 of 66. We need to be very careful about sedation. No chest x- ray is yet this morning. 12/29/2016 patient's pleural effusion on chest x-ray is larger and she is having increased symptoms. She needs a right thoracentesis which I will do. 12/30/16 x-ray better after right thoracentesis. She has reaccumulated a little fluid today. Now on Lasix and Zaroxolyn. Creatinine stable at 2.3. 12/31/2016 patient is more lethargic. Worsening renal function. Difficulty diuresing her. Ammonia level higher. Appears to be nearing end-stage. Decision needs to be made about her CODE STATUS. 01/01/2017 patient was moved to CCU as she became more lethargic. Doing a little better with facemask BiPAP. Has a large recurrent right pleural effusion again. I discussed the case on the telephone with her youngest daughter. I advised him that the family need to get together make a decision about CODE STATUS on her. She is end-stage liver disease. Not a candidate for liver transplant. Has ammonia levels over 200. Will ask GI to address this with family as well. 01/02/2017 patient and family had discussion with Dr. Chambers yesterday. He is a funeral director this weekend. He gave him detailed information on outlook for liver transplant. Also plans for dialysis. They have decided to have dialysis done. This would hopefully bridge her over until she can have a liver transplant done. It would be the best way to offload her ascites and hepatic hydrothorax. She is more alert this morning. Oxygen saturation 94% on 3 L. Does not look like we will need to tap her at this point. I did have a discussion with Dr. Chambers yesterday as well about the options. 01/03/2017 patient is responding to diuretics. Creatinine has gotten up to 3.9. Defer to nephrology on further plans there. As long as were able to mobilize fluid, I will not plan thoracentesis unless her oxygen saturation drops to an unacceptable level. O2 sat is 91-92% on nasal biprong's at present. 01/04/2017 creatinine is rising. Patient a little more sleepy. Chest x-ray shows the right pleural effusion is reviewed. She needs another therapeutic thoracentesis. She is too weak and groggy to safely seat on the side of the bed. Will ask interventional radiology to use ultrasound to do thoracentesis. This is just a temporizing measure until we can find some way to offload her fluid permanently, perhaps with dialysis. 01/05/2017 patient had right thoracentesis with 1200 mL removed and chest x-ray clearly is better. Patient feels better and is more alert. This is a temporizing measure. Creatinine a little higher. Patient has hepatorenal syndrome. Will soon need to make a decision about dialysis. 01/06/2017 patient is a little drowsy this morning and she is having some feeling. Cultures have been ordered. Will add Levaquin at renal dose. Exam (Progress Note) - Constitutional Vitals: Period Temp Pulse Resp BP Sys/Pastor Pulse Ox Last 24 Hr 97.3 F-102.1 F 61-120 11-22 92-121/48-77 89-99 Exam: She is alert, vital signs normal, except fever to 101. O2 sat 96% on nasal oxygen. Pupils react to light. She does have some jaundice. Throat is clear. Neck supple no bruits. Chest reveals dullness 1/4 up on the right side a few rales bilaterally. Heart normal rate and rhythm no murmurs. Abdomen soft nontender no masses. Extremities she has 3+ edema. She does have ascites. Calves are nontender. Results - Labs CBC & BMP: 03/09/17 04:39 01/06/17 04:39 Lab Results: I have reviewed the past 24 hour labs Assessment and Plan (1) Hepatic encephalopathy Status: Acute Assessment and plan: Patient's ammonia level was 116. Being addressed with Chronulac. 12/28/2016 continuing with Chronulac. Monitor ammonia level. 12/29/2016 she is a little drowsy but arousable and carries on a good conversation. 12/30/16 mental status a little better today. 12/31/2016 she is more sluggish today. Defer to gastroenterology. 01/01/2017 more sluggish, ammonia level higher 01/02/2017 ammonia is down from around 200 to around 100 and she is more alert. 01/03/2017 she is more alert. Defer to GI. 01/04/2017 a little more thick tongue today. 01/05/2017 patient more alert today. 01/06/2017 continuing treatment for hepatic encephalopathy Current Visit: No (2) Pleural effusion on right Status: Chronic Assessment and plan: She has a moderate right pleural effusion. She is not in respiratory distress. If it gets worse we can tap her. This is best handled with diuretics, salt poor albumin, and possibly a TIPS procedure. 12/28/2016 chest x-ray pending. With concern about using diuretics she may require thoracentesis. 12/29/2016 effusion has increased to the point where she needs thoracentesis. She has renal insufficiency with creatinine 2.3. We really not able to get the fluid off with diuretics. A TIPS procedure has been addressed with her earlier. 12/30/16 trying to address the pleural effusion with diuretics. We have tapped off 1800 mL yesterday. It appears to be slowly recurring. 12/31/2016 she has had recurrent thoracenteses. It continues to recur. She has a hepatic hydrothorax. 01/01/2017 right pleural effusion has increased in size. This is a hepatic hydrothorax. We could consider a pleural catheter to drain it more easily. Do not usually like to do this with a hepatic hydrothorax but may be helpful in her case. 01/02/2017 watching the effusion from now. If she gets dialysis in the next day or 2 should be able to offload that way. If she gets into respiratory distress we can tap her before then. 01/03/2017 we will re-x-ray her tomorrow. Decide after that about management. 01/04/2017 right pleural effusion is very large. She is too weak to sit up to do a thoracentesis so I will ask interventional radiology to do one with an ultrasound 01/05/2017 x-ray much better after right thoracentesis yesterday. We are continuing to do this as a temporizing measure. Long-term decision needs to be made about dialysis. 01/06/2017 recheck x-ray tomorrow. Quite sure the effusion will recur over time Current Visit: No (3) Ascites Status: Chronic Assessment and plan: Related to her cirrhosis. 12/28/2016 she has ascites but she is not tense. Current Visit: No (4) Hepatic cirrhosis Status: Chronic Assessment and plan: This is of course her underlying problem. Defer to GI. 12/29/2016 this is the underlying cause for her pleural effusion and edema. 12/30/16 alcoholic cirrhosis is her primary problem. 12/31/2016 again defer to gastroenterology. 01/01/2017 she has alcoholic cirrhosis and end-stage. Defer to gastroenterology as to the next step. She has been about 2 months since her last drink of alcohol. Would not be a candidate for transplant at this point to my knowledge. 01/02/2017 she has alcoholic cirrhosis. Has not had alcohol in about 2 months. Plan for setting her up to look at a liver transplant. 01/03/2017 hope to get her where she can have a liver transplant in a few months. 01/04/2017 defer to GI 01/05/2017 likely would be candidate for liver transplant in about 4 months. Has been a little over 2 months since she had her last alcoholic beverage. Current Visit: No Qualifiers: Hepatic cirrhosis type: alcoholic cirrhosis Ascites presence: with ascites Qualified Code(s): K70.31 - Alcoholic cirrhosis of liver with ascites
[2017-01-06] MEDS: LEVOFLOXACIN INJ 250 MG in PREMIX 1 EACH IV SCH (09:40)
[2017-01-06 10:21] LABS: Apearance,Urine Slightly Hazy (Clear); Bacteria,Urine Occasional /HPF (Few); Bilirubin,Urine Negative (Negative); Blood, Urine Large mg/dL (Negative); Glucose,Urine (UA) Negative (Negative); Hyaline Casts,Urine 8 /LPF (0-3); Ketones,Urine Negative (Negative); Mucus,Urine Occasional /LPF (Occasional); Nitrite,Urine Negative (Negative); Protein,Urine 30 MG/DL; RBC,Urine 76 /HPF (0-4); Squamous Epithelial Cell,Urine Occasional /HPF (0-10); Urine Color Dark yellow (Yellow); Urine Specific Gravity 1.009 (1.001-1.035); Urine Urobilinogen < 2.0 EU/DL (0.2-1.0); WBC,Urine 20 /HPF (0-6)
--- NOTE | 2017-01-06 10:24 | XRay Report ---
Exam: XR chest 1V Date: 01/06/2017 8:18 AM Comparison: 01/05/2017 Indication: Fever Technique:[Portable sitting chest Findings: Stable cardiomegaly with persistent diffuse parenchymal findings especially at the lung bases with bilateral pleural effusions. Right pleural effusion appears larger in size. Stable mediastinum with degenerative changes. Impression: Persistent significant pulmonary edema/infiltration/atelectasis with larger right and more stable left pleural effusions. PROCEDURE INTERPRETED AT [facility] DEPARTMENT OF RADIOLOGY Final Report Signed by: Dr. Daiana Duarte
--- NOTE | 2017-01-06 11:20 | Hospitalist Progress Note ---
Assessment and Plan (1) Pleural effusion associated with hepatic disorder Status: Acute Assessment and plan: Interventional radiology guided thoracentesis removal of 1200 cc 01/06/2017 CXR shows recurrent pleural effusion with questionable pneumonia. Current Visit: Yes (2) Hepatic cirrhosis Status: Chronic Assessment and plan: Receiving albumin infusion. Diuresis with Zaroxolyn and lasix and Aldactone. On octreotide. Patient has waxing and waning mental status. She is not showing signs of significant improvement. She has a poor prognosis. Continue supportive care Current Visit: No Qualifiers: Hepatic cirrhosis type: alcoholic cirrhosis Ascites presence: with ascites Qualified Code(s): K70.31 - Alcoholic cirrhosis of liver with ascites (3) Chronic obstructive pulmonary disease Status: Chronic Assessment and plan: The patient appears to be at her baseline. We will wean BiPAP and transitioned to nasal cannula oxygen as tolerated. Current Visit: No Qualifiers: Chronic bronchitis type: simple (4) Anasarca Status: Chronic Assessment and plan: receiving albumin and diuresis. Patient continues to have worsening acute kidney injury secondary to hepatorenal syndrome however she needs the diuresis. We have discussed hemodialysis initiation. Nephrology following. Current Visit: No (5) REBECCA (acute kidney injury) Status: Acute Assessment and plan: This is believed to be hepatorenal syndrome. family and patient considering dialysis. Nephrology following. Lasix maximized at 160 mg IV 3 times daily. Current Visit: No (6) COPD (chronic obstructive pulmonary disease) Status: Chronic Current Visit: No (7) Anemia of chronic disease Status: Chronic Current Visit: No (8) Hypokalemia Status: Resolved Assessment and plan: replace per protocol Current Visit: Yes Hospitalist: Subjective Interval history: Patient seen and examined. Case discussed with nursing staff. Labs reviewed. Patient more drowsy today. Renal function worsening. Fever of 102 this morning. She received 10 days of IV vancomycin. It was discontinued yesterday prior to moving her out of the ICU. Within 24 hours she has spiked fever. Levaquin has been added- renal dosed. The patient is allergic to penicillin. Exam - Constitutional Vitals: Period Temp Pulse Resp BP Sys/Pastor Pulse Ox Last 24 Hr 97.3 F-102.1 F 61-120 11-22 97-121/48-77 89-99 General appearance: mild distress, other (more drowsy) - Head Head exam: Present: normal inspection, normocephalic, atraumatic - Respiratory Respiratory exam: Present: decreased breath sounds (decreased at the bases. CXR with worsening pleural effusion vs pneumonia. ) - Cardiovascular Cardiovascular exam: Present: regular rate and rhythm - GI/Abdominal GI/Abdominal exam: Present: normal bowel sounds, soft. Absent: tenderness, rebound - Extremities Exam Extremities exam: Present: edema (improved edema) - Skin Skin exam: Present: normal color, warm, dry Results - Labs CBC & BMP: 01/06/17 04:39 01/06/17 04:39 Lab Results: I have reviewed the past 24 hour labs
--- NOTE | 2017-01-06 18:03 | Gastrointestinal Progress Note ---
Assessment and Plan (1) Alcoholic cirrhosis Status: Chronic Assessment and plan: Patient has advanced chronic liver disease. She has abstained from alcohol for approximately 5 weeks now. She is not a candidate for liver transplant for now with her recent alcohol use. Increase lactulose today with her lack of bowel movements and recent hepatic encephalopathy episode. 01/06 patient remains significantly ill with end-stage liver disease. Encephalopathy appears controlled at present on lactulose and Xifaxan. Source of fever unclear but may be genitourinary with urinalysis results noted. Also consider lung source. Antibiotic spectrum has been broadened with Levaquin added. Cultures pending. Current Visit: No (2) Hepatorenal syndrome Status: Acute Assessment and plan: Creatinine has increased from 1.8-2.0 since admission with increased diuresis. I am going to hold her Aldactone and Lasix for now and continue albumin. Continue daily BMP level. Potassium 2.9 and replacing this. Current Visit: No Gastroenterology - PN: Subj Interval history: Subjectively stable. Denies shortness of breath or abdominal pain. Has had fever develop and was 102.1 this morning. Has had cough with some creamy sputum production she says. Denies genitourinary symptoms. Exam (Progress Note) - Constitutional Vitals: Period Temp Pulse Resp BP Sys/Pastor Pulse Ox Last 24 Hr 98.6 F-102.1 F 61-120 16-22 97-121/45-64 88-99 General appearance: no acute distress - Head Head exam: Present: normocephalic, atraumatic - Eye Eye exam: Present: EOMI, scleral icterus - Respiratory Respiratory exam: Present: decreased breath sounds (Right lower half lung field) - Cardiovascular Cardiovascular exam: Absent: gallop, rubs - GI/Abdominal GI/Abdominal exam: Present: normal bowel sounds, soft. Absent: distended, tenderness - Neurological Exam Neurological exam: Present: alert, oriented X3, CN II-XII intact. Absent: motor sensory deficit - Psychiatric Psychiatric exam: Present: normal mood - Skin Skin exam: Present: warm, dry Results - Labs CBC & BMP: 01/06/17 04:39 01/06/17 04:39 Lab Results: I have reviewed the past 24 hour labs
[2017-01-06] MEDS: traMADol 50 MG TABLET PO PRN (20:37)
--- NOTE | 2017-01-07 06:36 | XRay Report ---
XR chest 1V portable Indication: Right-sided pleural effusion Comparison: Chest x-ray 01/06/2017 Technique: Portable AP chest was performed. Findings: Mild prominence of central vasculature is unchanged. Hazy opacities in the mid to lower chest bilaterally present and blunting of bilateral costophrenic angles is unchanged. Small bilateral pleural effusions remain present. Chest is otherwise unchanged. Impression: 1. Small bilateral pleural effusions. 2. Little change in the lung parenchyma. 3. Pulmonary vascular congestion is suggested. 01/07/2017 6:33 AM PROCEDURE INTERPRETED AT [facility] DEPARTMENT OF RADIOLOGY Final Report Signed by: Dr. Patricio Perdue
[2017-01-07] MEDS: ALBUTEROL 2.5 MG/3 ML NEB RESP TX SCH ×4 (07:23→19:30)
--- NOTE | 2017-01-07 08:02 | Pulmonology Progress Note ---
Pulmonary - PN: Subj Interval history: This 56-year-old white female was recently here with anasarca and a large right pleural effusion. She had 2 thoracenteses with findings of transudative fluid. It is felt to be due to her chronic liver disease. 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 A TIPS procedure was offered but she declined. She chose to go home over the weekend but came back in a couple days later with worsening shortness of breath. We had diuresed her before and she had worsening renal function so the diuretics were decreased. She now has a moderate right pleural effusion. However she is not in respiratory distress and she is adequately oxygenated. I would prefer to diurese are rather than doing recurrent thoracenteses as they will not solve the underlying problem. TIPS procedure needs to be readdressed. 12/28/2016 patient had episode of dyspnea yesterday afternoon and was given Ativan. She is a little bit groggy this morning but responsive. She has an elevated PCO2 of 66. We need to be very careful about sedation. No chest x- ray is yet this morning. 12/29/2016 patient's pleural effusion on chest x-ray is larger and she is having increased symptoms. She needs a right thoracentesis which I will do. 12/30/16 x-ray better after right thoracentesis. She has reaccumulated a little fluid today. Now on Lasix and Zaroxolyn. Creatinine stable at 2.3. 12/31/2016 patient is more lethargic. Worsening renal function. Difficulty diuresing her. Ammonia level higher. Appears to be nearing end-stage. Decision needs to be made about her CODE STATUS. 01/01/2017 patient was moved to CCU as she became more lethargic. Doing a little better with facemask BiPAP. Has a large recurrent right pleural effusion again. I discussed the case on the telephone with her youngest daughter. I advised him that the family need to get together make a decision about CODE STATUS on her. She is end-stage liver disease. Not a candidate for liver transplant. Has ammonia levels over 200. Will ask GI to address this with family as well. 01/02/2017 patient and family had discussion with Dr. Chambers yesterday. He is a circular saw filer this weekend. He gave him detailed information on outlook for liver transplant. Also plans for dialysis. They have decided to have dialysis done. This would hopefully bridge her over until she can have a liver transplant done. It would be the best way to offload her ascites and hepatic hydrothorax. She is more alert this morning. Oxygen saturation 94% on 3 L. Does not look like we will need to tap her at this point. I did have a discussion with Dr. Chambers yesterday as well about the options. 01/03/2017 patient is responding to diuretics. Creatinine has gotten up to 3.9. Defer to nephrology on further plans there. As long as were able to mobilize fluid, I will not plan thoracentesis unless her oxygen saturation drops to an unacceptable level. O2 sat is 91-92% on nasal biprong's at present. 01/04/2017 creatinine is rising. Patient a little more sleepy. Chest x-ray shows the right pleural effusion is reviewed. She needs another therapeutic thoracentesis. She is too weak and groggy to safely seat on the side of the bed. Will ask interventional radiology to use ultrasound to do thoracentesis. This is just a temporizing measure until we can find some way to offload her fluid permanently, perhaps with dialysis. 01/05/2017 patient had right thoracentesis with 1200 mL removed and chest x-ray clearly is better. Patient feels better and is more alert. This is a temporizing measure. Creatinine a little higher. Patient has hepatorenal syndrome. Will soon need to make a decision about dialysis. 01/06/2017 patient is a little drowsy this morning and she is having some feeling. Cultures have been ordered. Will add Levaquin at renal dose. 01/07/2017 patient responsive. Chest x-ray shows pleural effusions but they are not large as yet. As her creatinine rises and she is less responsive to diuretics, it becomes clear that she is going to need dialysis. In the meantime needs thoracentesis every few days. Does not need one today. Exam (Progress Note) - Constitutional Vitals: Period Temp Pulse Resp BP Sys/Pastor Pulse Ox Last 24 Hr 97.8 F-99.4 F 18-113 16-20 103-117/45-69 86-99 Exam: She is alert, vital signs normal. O2 sat 96% on nasal oxygen. Pupils react to light. She does have some jaundice. Throat is clear. Neck supple no bruits. Chest reveals dullness 1/4 up on the right side a few rales bilaterally. Heart normal rate and rhythm no murmurs. Abdomen soft nontender no masses. Extremities she has 3+ edema. She does have ascites. Calves are nontender. Results - Labs CBC & BMP: 01/06/17 04:39 01/06/17 04:39 Lab Results: I have reviewed the past 24 hour labs - Diagnostic Findings Procedure: Chest x-ray: image reviewed by me (Modest bilateral pleural effusions. Cardiomegaly.) Assessment and Plan (1) Hepatic encephalopathy Status: Acute Assessment and plan: Patient's ammonia level was 116. Being addressed with Chronulac. 12/28/2016 continuing with Chronulac. Monitor ammonia level. 12/29/2016 she is a little drowsy but arousable and carries on a good conversation. 12/30/16 mental status a little better today. 12/31/2016 she is more sluggish today. Defer to gastroenterology. 01/01/2017 more sluggish, ammonia level higher 01/02/2017 ammonia is down from around 200 to around 100 and she is more alert. 01/03/2017 she is more alert. Defer to GI. 01/04/2017 a little more thick tongue today. 01/05/2017 patient more alert today. 01/06/2017 continuing treatment for hepatic encephalopathy 01/07/2017 patient responsive but a little sluggish. Current Visit: No (2) Pleural effusion on right Status: Chronic Assessment and plan: She has a moderate right pleural effusion. She is not in respiratory distress. If it gets worse we can tap her. This is best handled with diuretics, salt poor albumin, and possibly a TIPS procedure. 12/28/2016 chest x-ray pending. With concern about using diuretics she may require thoracentesis. 12/29/2016 effusion has increased to the point where she needs thoracentesis. She has renal insufficiency with creatinine 2.3. We really not able to get the fluid off with diuretics. A TIPS procedure has been addressed with her earlier. 12/30/16 trying to address the pleural effusion with diuretics. We have tapped off 1800 mL yesterday. It appears to be slowly recurring. 12/31/2016 she has had recurrent thoracenteses. It continues to recur. She has a hepatic hydrothorax. 01/01/2017 right pleural effusion has increased in size. This is a hepatic hydrothorax. We could consider a pleural catheter to drain it more easily. Do not usually like to do this with a hepatic hydrothorax but may be helpful in her case. 01/02/2017 watching the effusion from now. If she gets dialysis in the next day or 2 should be able to offload that way. If she gets into respiratory distress we can tap her before then. 01/03/2017 we will re-x-ray her tomorrow. Decide after that about management. 01/04/2017 right pleural effusion is very large. She is too weak to sit up to do a thoracentesis so I will ask interventional radiology to do one with an ultrasound 01/05/2017 x-ray much better after right thoracentesis yesterday. We are continuing to do this as a temporizing measure. Long-term decision needs to be made about dialysis. 01/06/2017 recheck x-ray tomorrow. Quite sure the effusion will recur over time 01/07/2017 does not need thoracentesis today. Current Visit: No (3) Ascites Status: Chronic Assessment and plan: Related to her cirrhosis. 12/28/2016 she has ascites but she is not tense. Current Visit: No (4) Hepatic cirrhosis Status: Chronic Assessment and plan: This is of course her underlying problem. Defer to GI. 12/29/2016 this is the underlying cause for her pleural effusion and edema. 12/30/16 alcoholic cirrhosis is her primary problem. 12/31/2016 again defer to gastroenterology. 01/01/2017 she has alcoholic cirrhosis and end-stage. Defer to gastroenterology as to the next step. She has been about 2 months since her last drink of alcohol. Would not be a candidate for transplant at this point to my knowledge. 01/02/2017 she has alcoholic cirrhosis. Has not had alcohol in about 2 months. Plan for setting her up to look at a liver transplant. 01/03/2017 hope to get her where she can have a liver transplant in a few months. 01/04/2017 defer to GI 01/05/2017 likely would be candidate for liver transplant in about 4 months. Has been a little over 2 months since she had her last alcoholic beverage. 01/07/2017 hopefully can get on the list for liver transplant in time. Current Visit: No Qualifiers: Hepatic cirrhosis type: alcoholic cirrhosis Ascites presence: with ascites Qualified Code(s): K70.31 - Alcoholic cirrhosis of liver with ascites
[2017-01-07] MEDS: LACTULOSE 20 GM/30 ML UDCUP PO SCH ×4 (08:46→20:24)
[2017-01-07] MEDS: MULTIVITAMIN (CENTRUM) TABLET PO SCH (08:47)
[2017-01-07] MEDS: metOLazone 5 MG TABLET PO SCH (08:47)
[2017-01-07] MEDS: PANTOPRAZOLE 40 MG TABLET PO SCH (08:47)
[2017-01-07] MEDS: RIFAXIMIN 550 MG TABLET PO SCH ×2 (08:47→20:23)
[2017-01-07] MEDS: SPIRONOLACTONE 50 MG TABLET PO SCH (08:47)
[2017-01-07] MEDS: FERROUS SULFATE 325 MG TABLET PO SCH (08:47)
[2017-01-07] MEDS: GABAPENTIN 300 MG CAPSULE PO SCH ×4 (08:47→20:24)
[2017-01-07] MEDS: FUROSEMIDE INJ 160 MG in SODIUM CHLORIDE 0.9% 50 ML IV SCH ×3 (08:48→20:26)
[2017-01-07] MEDS: MIDODRINE 5 MG TABLET PO SCH ×3 (08:48→20:23)
[2017-01-07] MEDS: METOPROLOL TARTRATE 100 MG TABLET PO SCH ×2 (08:49→20:41)
[2017-01-07] MEDS: NYSTATIN POWDER 15 GM BOTTLE TOP SCH ×3 (08:49→20:41)
[2017-01-07] MEDS: MUPIROCIN 2% OINT 22 GM TUBE TOP SCH ×2 (08:49→20:41)
[2017-01-07] MEDS: DESITIN 4OZ/NYSTATIN 15 GRAM MIXTURE PASTE TOP SCH ×2 (09:07→20:41)
[2017-01-07] MEDS: OCTREOTIDE 100 MCG/ML SYRINGE SUBCUT SCH ×3 (09:07→20:32)
--- NOTE | 2017-01-07 10:24 | Hospitalist Progress Note ---
Assessment and Plan (1) Fever Status: Acute Assessment and plan: unknown source. on empiric abx. cultures negative to date. no abdominal tenderness. afebrile now for 24 hours Current Visit: Yes Qualifiers: Fever type: unspecified Qualified Code(s): R50.9 - Fever, unspecified (2) Alcoholic cirrhosis Status: Chronic Current Visit: No (3) COPD (chronic obstructive pulmonary disease) Status: Chronic Current Visit: No (4) Hepatorenal syndrome Status: Acute Assessment and plan: renal following. no lab this am. will begin daily renal panel. pt may require DENTOFACIAL ORTHOPEDICS DENTIST at some point as pt and family seek continued aggressive tx Current Visit: No (5) REBECCA (acute kidney injury) Status: Acute Current Visit: Yes (6) Pleural effusion associated with hepatic disorder Status: Acute Assessment and plan: s/p thoracentesis 01/06/17. pt with recurrent effusions Current Visit: Yes Hospitalist: Subjective Interval history: pt reports no Bm in days but RN reports one this morning. she states that she feels "rough bc now she has infection" Exam - Constitutional Vitals: Period Temp Pulse Resp BP Sys/Pastor Pulse Ox Last 24 Hr 97.6 F-99.4 F 18-113 16-20 103-117/45-69 86-99 General appearance: no acute distress (chronically ill appearing) - Head Head exam: Present: normocephalic, atraumatic - Eye Eye exam: Present: EOMI, scleral icterus Pupils: Present: PAPITO - ENT ENT exam: Present: normal external ear exam, normal oropharynx - Neck Neck exam: Present: normal inspection - Respiratory Respiratory exam: Present: decreased breath sounds. Absent: rales, rhonchi, wheezes - Cardiovascular Cardiovascular exam: Present: regular rate and rhythm. Absent: gallop, rubs - GI/Abdominal GI/Abdominal exam: Present: normal bowel sounds, ascites, distended, soft. Absent: firm, guarding, tenderness, rebound - Extremities Exam Extremities exam: Present: full ROM, edema - Neurological Exam Neurological exam: Present: alert (mild confusion and disorientation) - Psychiatric Psychiatric exam: Present: anxious - Skin Skin exam: Present: warm, dry Results - Labs CBC & BMP: 01/06/17 04:39 01/06/17 04:39
--- NOTE | 2017-01-07 11:32 | Nephrology Progress Note ---
Nephrology - PN: Subj Interval history: Patient complains of feeling poorly. Review of systems GI she denies vomiting she does complain of some nausea she denies shortness of breath. Physical exam general the patient is chronically ill-appearing, she has 1-2+ pretibial edema Assessment/plan 1. Acute renal failure-this patient's creatinine was 4.2 mg/dL yesterday, she is thought to have hepatorenal syndrome in the past few days her creatinine has stabilized somewhat around 4 mg/dL. 2. Anasarca-this patient had gross volume overload and associated shortness of breath, she has responded well to aggressive diuresis with Lasix and metolazone 3. Febrile illness-patient spiked a fever yesterday-she had a urinalysis that could be the culprit with a moderate amount of bacteria and white cells, she is presently on IV Levaquin 4. Liver cirrhosis Exam (PN)-Nephrology - Vital Signs Vital signs: Period Temp Pulse Resp BP Sys/Pastor Pulse Ox Last 24 Hr 97.6 F-99.4 F 18-110 16-20 103-117/45-69 86-99 - Lab 01/06/17 04:39 01/06/17 04:39 Most recent lab results ABG pH 7.407 (7.35-7.45) 01/02/17 02:38 ABG pCO2 58.8 MM HG (35-48) H 01/02/17 02:38 ABG pO2 61.1 MM HG (80-95) L 01/02/17 02:38 ABG HCO3 34.3 MMOL/L (20-26) H 01/02/17 02:38 ABG O2 Saturation 91.3 % (95-100) L 01/02/17 02:38 Calcium 9.5 MG/DL (8.5-10.1) 01/06/17 04:39 Magnesium 2.1 MG/DL (1.8-2.4) 12/29/16 06:29 Assessment and Plan (1) REBECCA (acute kidney injury) Status: Acute Assessment and plan: This patient is developing acute renal failure again, her Lasix and spironolactone are being held. I think with her marked fluid overload will eventually have to restart these. I'm going to put her back on midodrine and vasopressin as she was previously to try and improve her kidney perfusion. Current Visit: Yes (2) Anemia Status: Acute Current Visit: Yes (3) CHF (congestive heart failure) Status: Acute Current Visit: Yes (4) Hypokalemia Status: Resolved Assessment and plan: Continue replacement Current Visit: Yes (5) Anasarca Status: Chronic Current Visit: No (6) COPD (chronic obstructive pulmonary disease) Status: Chronic Current Visit: No (7) Hepatorenal syndrome Status: Acute Current Visit: No (8) Alcoholic cirrhosis Status: Chronic Current Visit: No
--- NOTE | 2017-01-07 13:38 | Gastrointestinal Progress Note ---
Assessment and Plan (1) Alcoholic cirrhosis Status: Chronic Assessment and plan: Patient has advanced chronic liver disease. She has abstained from alcohol for approximately 5 weeks now. She is not a candidate for liver transplant for now with her recent alcohol use. Increase lactulose today with her lack of bowel movements and recent hepatic encephalopathy episode. 01/06 patient remains significantly ill with end-stage liver disease. Encephalopathy appears controlled at present on lactulose and Xifaxan. Source of fever unclear but may be genitourinary with urinalysis results noted. Also consider lung source. Antibiotic spectrum has been broadened with Levaquin added. Cultures pending. 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 She has had no fever in over 24 hours with adjustment of IV antibiotics. Blood and urine cultures negative so far. Continue empiric antibiotics for now. With no bowel movements in over 36 hours, will give an extra dose of lactulose today. She needs to have at least 2 soft bowel movements daily. She is also on Xifaxan. Current Visit: No (2) Hepatorenal syndrome Status: Acute Assessment and plan: Creatinine has increased from 1.8-2.0 since admission with increased diuresis. I am going to hold her Aldactone and Lasix for now and continue albumin. Continue daily BMP level. Potassium 2.9 and replacing this. Current Visit: No Gastroenterology - PN: Subj Interval history: Patient sitting up eating lunch and appears comfortable with no complaints other than no bowel movement in the last 2 days. Her sleep pattern has been normal the last 24 hours. She denies shortness of breath. Exam (Progress Note) - Constitutional Vitals: Period Temp Pulse Resp BP Sys/Pastor Pulse Ox Last 24 Hr 97.6 F-99.4 F 18-110 16-20 103-117/55-69 86-99 General appearance: no acute distress, over weight - Head Head exam: Present: normocephalic, atraumatic - Eye Eye exam: Present: scleral icterus. Absent: EOMI - Respiratory Respiratory exam: Present: decreased breath sounds (Right lower half lung field) . Absent: wheezes - GI/Abdominal GI/Abdominal exam: Present: normal bowel sounds, soft. Absent: distended, tenderness - Extremities Exam Extremities exam: Present: edema - Neurological Exam Neurological exam: Present: alert, oriented X3, CN II-XII intact. Absent: motor sensory deficit - Psychiatric Psychiatric exam: Present: normal affect, normal mood - Skin Skin exam: Present: warm, dry Results - Labs CBC & BMP: 01/06/17 04:39 01/06/17 04:39
[2017-01-07] MEDS ORDERED: LACTULOSE 20 GM/30 ML UDCUP PO ONE (13:39)
[2017-01-07] MEDS: traMADol 50 MG TABLET PO PRN (20:24)
[2017-01-08 07:14] LABS: Albumin 4.5 G/DL (3.4-5.0); Calcium 9.6 MG/DL (8.5-10.1); Osmolality,Calculated 294.4 MOS/KG (273-304); Phosphorous 3.3 MG/DL (2.5-4.9); Potassium 3.3 MMOL/L (3.5-5.1)
[2017-01-08] MEDS: ALBUTEROL 2.5 MG/3 ML NEB RESP TX SCH ×4 (07:23→19:57)
[2017-01-08] MEDS: OCTREOTIDE 100 MCG/ML SYRINGE SUBCUT SCH ×3 (09:14→20:53)
[2017-01-08] MEDS: MULTIVITAMIN (CENTRUM) TABLET PO SCH (09:15)
[2017-01-08] MEDS: GABAPENTIN 300 MG CAPSULE PO SCH ×4 (09:15→20:54)
[2017-01-08] MEDS: LACTULOSE 20 GM/30 ML UDCUP PO SCH (09:15)
[2017-01-08] MEDS: FERROUS SULFATE 325 MG TABLET PO SCH (09:15)
[2017-01-08] MEDS: METOPROLOL TARTRATE 100 MG TABLET PO SCH ×2 (09:15→20:54)
[2017-01-08] MEDS: MIDODRINE 5 MG TABLET PO SCH ×3 (09:16→20:54)
[2017-01-08] MEDS: LEVOFLOXACIN INJ 250 MG in PREMIX 1 EACH IV SCH (09:16)
[2017-01-08] MEDS: metOLazone 5 MG TABLET PO SCH (09:16)
[2017-01-08] MEDS: SPIRONOLACTONE 50 MG TABLET PO SCH (09:16)
[2017-01-08] MEDS: PANTOPRAZOLE 40 MG TABLET PO SCH (09:16)
[2017-01-08] MEDS: RIFAXIMIN 550 MG TABLET PO SCH ×2 (09:16→20:54)
[2017-01-08] MEDS: FUROSEMIDE INJ 160 MG in SODIUM CHLORIDE 0.9% 50 ML IV SCH (09:18)
[2017-01-08] MEDS: ONDANSETRON 4 MG/2 ML VIAL IV PRN (09:19)
[2017-01-08] MEDS: MUPIROCIN 2% OINT 22 GM TUBE TOP SCH ×2 (09:32→20:54)
[2017-01-08] MEDS: NYSTATIN POWDER 15 GM BOTTLE TOP SCH ×3 (09:32→20:53)
[2017-01-08] MEDS ORDERED: LACTULOSE 20 GM/30 ML UDCUP PO PRN (10:01)
--- NOTE | 2017-01-08 10:06 | Gastrointestinal Progress Note ---
Assessment and Plan (1) Alcoholic cirrhosis of liver with ascites Status: Acute Assessment and plan: This patient is being seen for Dr. Vidal while he is off the weekend. She currently has a MELD score of 32, but is not a candidate for transplant of liver for another 4 months, given that she states she had discontinued drinking some 2 months ago. Unfortunately she is eating salty potato chips at the bedside and reminded her that she needs to be on a low-sodium diet to help keep her ascites down which she is going to comply with. She states that she is still confused with her hepatic encephalopathy and we can increase her lactulose to every 4 hours from every 6. I have told the nursing staff to hold lactulose should she have more than 4 bowel movements per day. Current Visit: Yes (2) Hepatorenal syndrome Status: Acute Assessment and plan: Unfortunately the patient has been getting albumin, octreotide, and midodrine-- all of which are indicated for the patient's underlying hepatorenal syndrome but has been getting progressively worsening creatinine function and may ultimately require dialysis. We continue to treat her supportively. She really does not need more albumin. She might benefit from some blood although the increased protein is likely to worsen her encephalopathy and so I have not ordered this. Current Visit: No (3) Hepatic encephalopathy Status: Acute Assessment and plan: As mentioned above I have increased the patient's lactulose from every 6 to every 4 hours and hopefully this will help with producing more than 2 bowel meds per day. I will be checking her ammonia level tomorrow to see if this is still high. She is already on Xifaxan. There is little else to do about this aside from transplant which she will not qualify for for another 4 months. With a meld score of 32 she is certainly a candidate for transplant ( consideration is given to patients who have greater than 15 MELD score). Current Visit: No Gastroenterology - PN: Subj Interval history: This patient is being seen for Dr. Vidal while he is off of the weekend. Patient states that she is confused today and was observed eating some Lays potato chips at the bedside. I tried to reemphasize that a low-salt diet is going to be helpful for keeping the abdominal ascites down and therefore keeping the right hepatic thorax from recurring as quickly. Patient is very thirsty and we went over the plan to have her volunteer restrict her fluid intake to 1.5 L per day. Although she states she is confused she is actually able to participate in questioning and does not seem at all encephalopathic just talking with her. Exam (Progress Note) - Constitutional Vitals: Period Temp Pulse Resp BP Sys/Pastor Pulse Ox Last 24 Hr 97.2 F-98.8 F 80-96 15-20 98-118/45-73 91-100 General appearance: mild distress - Eye Eye exam: Present: EOMI - Respiratory Respiratory exam: Present: clear to auscultation bilaterally. Absent: rhonchi, stridor, wheezes - Cardiovascular Cardiovascular exam: Present: regular rate and rhythm - GI/Abdominal GI/Abdominal exam: Present: normal bowel sounds, ascites (Mild to moderate), distended, soft, other (caput medusae). Absent: guarding, tenderness, rebound - Neurological Exam Neurological exam: Present: alert, oriented X3 - Psychiatric Psychiatric exam: Present: normal affect, normal mood - Skin Skin exam: Present: warm Results - Labs CBC & BMP: 01/06/17 04:39 01/08/17 05:42
[2017-01-08] MEDS: DESITIN 4OZ/NYSTATIN 15 GRAM MIXTURE PASTE TOP SCH ×2 (10:46→23:43)
--- NOTE | 2017-01-08 11:00 | Hospitalist Progress Note ---
Assessment and Plan (1) Fever Status: Acute Assessment and plan: unknown source. on empiric abx. cultures negative to date. no abdominal tenderness. afebrile now for 48 hrs Current Visit: Yes Qualifiers: Fever type: unspecified Qualified Code(s): R50.9 - Fever, unspecified (2) Alcoholic cirrhosis Status: Chronic Current Visit: No (3) COPD (chronic obstructive pulmonary disease) Status: Chronic Current Visit: No (4) Hepatorenal syndrome Status: Acute Assessment and plan: Nephrology following. Continues to diurese. Cr relatively stable. 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 pt with recurrent effusions Current Visit: Yes Hospitalist: Subjective Interval history: pt reports 2 bowel movements yesterday. Lactulose has been increased. c/o pain/aching posterior cervical spine at base of skull. no fall/trauma Exam - Constitutional Vitals: Period Temp Pulse Resp BP Sys/Pastor Pulse Ox Last 24 Hr 97.2 F-98.8 F 80-101 15-20 98-118/45-73 91-100 General appearance: no acute distress - Head Head exam: Present: normal inspection - Eye Eye exam: Present: EOMI, scleral icterus Pupils: Present: PAPITO - ENT ENT exam: Present: normal external ear exam, normal oropharynx - Neck Neck exam: Present: other (muscular TTP cervical paraspinal muscles. FROM. no spinal TTP) - Respiratory Respiratory exam: Present: decreased breath sounds. Absent: rales, rhonchi, wheezes - Cardiovascular Cardiovascular exam: Present: regular rate and rhythm - GI/Abdominal GI/Abdominal exam: Present: ascites, distended, hypoactive bowel sounds. Absent : firm, tenderness - Extremities Exam Extremities exam: Present: full ROM, edema - Neurological Exam Neurological exam: Present: alert, CN II-XII intact (no asterixis ) - Psychiatric Psychiatric exam: Present: normal affect, normal mood - Skin Skin exam: Present: warm, dry Results - Labs CBC & BMP: 01/06/17 04:39 01/08/17 05:42
[2017-01-08] MEDS: traMADol 50 MG TABLET PO PRN ×2 (13:05→20:54)
--- NOTE | 2017-01-08 13:26 | Pulmonology Progress Note ---
Pulmonary - PN: Subj Interval history: This is a 56-year-old white female whom I am seeing for . This patient has alcoholic cirrhosis and recurrent pleural effusions. She has had right chest thoracentesis at least [address] Daniel noted that she does not need it right now but that it may need to be repeated soon. He also notes when she is diuresed her creatinine increases. He goes on to say that she has hepatorenal's syndrome in sooner or later will need dialysis. Last chest x-ray was done 01/07/2017. There are no new positive cultures. Potassium is low at 3.3. Sodium is 140. Creatinine is 4.5 with a BUN of 56. Albumin is 4.5. Patient complains of nausea. She is getting improvement with Zofran. Labs been reviewed. Medicines have been reviewed. Chest x-ray from 01/07/2017 is been reviewed Physical exam. Vital signs see above Psychiatric. Oriented 3 Face is symmetrical. Lips and tongue are normal. Neck. Symmetrical. Kyphosis. No meningismus. Chest. Breath sounds are clear. Heart. No gallop Abdomen. Few bowel sounds are present Lower extremities nothing to suggest deep venous thrombophlebitis Cranial nerves are intact. Long track motor functions intact. I see no asterixis. The remainder the physical exam is negative. Plan. 1. Continue present regimen. 2. Watch for recurrent pleural effusion causing respiratory embarrassed Exam (Progress Note) - Constitutional Vitals: Period Temp Pulse Resp BP Sys/Pastor Pulse Ox Last 24 Hr 97.2 F-99.8 F 83-101 15-20 98-118/45-73 91-100 Results - Labs CBC & BMP: 01/06/17 04:39 01/08/17 05:42
--- NOTE | 2017-01-08 13:46 | Nephrology Progress Note ---
Nephrology - PN: Subj Interval history: She denies shortness of breath. No abdominal pain Exam (PN)-Nephrology - Vital Signs Vital signs: Period Temp Pulse Resp BP Sys/Pastor Pulse Ox Last 24 Hr 97.2 F-99.8 F 83-101 15-20 98-118/45-73 91-100 Exam: ENT: Normal Cardiovascular: Regular rate and rhythm. No murmur rub or gallop Abdomen: Ascites Lungs: Clear Extremities: No edema - Lab 01/06/17 04:39 01/08/17 05:42 Most recent lab results ABG pH 7.407 (7.35-7.45) 01/02/17 02:38 ABG pCO2 58.8 MM HG (35-48) H 01/02/17 02:38 ABG pO2 61.1 MM HG (80-95) L 01/02/17 02:38 ABG HCO3 34.3 MMOL/L (20-26) H 01/02/17 02:38 ABG O2 Saturation 91.3 % (95-100) L 01/02/17 02:38 Calcium 9.6 MG/DL (8.5-10.1) 01/08/17 05:42 Phosphorus 3.3 MG/DL (2.5-4.9) 01/08/17 05:42 Magnesium 2.1 MG/DL (1.8-2.4) 12/29/16 06:29 Assessment and Plan (1) REBECCA (acute kidney injury) Status: Acute Assessment and plan: 56-year-old woman with: * Acute renal failure. Creatinine is higher today. Fluid balance negative. Diuretic will be decreased * Cirrhosis. Ascites present * Anemia * CHF. Compensated Current Visit: Yes (2) Alcoholic cirrhosis of liver with ascites Status: Acute Current Visit: Yes (3) COPD (chronic obstructive pulmonary disease) Status: Chronic Current Visit: No
[2017-01-08] MEDS: FUROSEMIDE INJ 100 MG in SODIUM CHLORIDE 0.9% 50 ML IV SCH ×2 (14:54→20:54)
[2017-01-09 06:36] LABS: Albumin 4.6 G/DL (3.4-5.0); Bilirubin,Total 4.4 MG/DL (0.2-1.0); Calcium 10.1 MG/DL (8.5-10.1); Osmolality,Calculated 291.7 MOS/KG (273-304); Osmolality,Calculated 293.5 MOS/KG (273-304); Phosphorous 3.7 MG/DL (2.5-4.9); Potassium 3.4 MMOL/L (3.5-5.1); Total Protein 6.5 G/DL (6.4-8.3)
[2017-01-09] MEDS: ALBUTEROL 2.5 MG/3 ML NEB RESP TX SCH ×4 (07:10→20:56)
[2017-01-09] MEDS: RIFAXIMIN 550 MG TABLET PO SCH ×2 (09:07→21:55)
[2017-01-09] MEDS: metOLazone 5 MG TABLET PO SCH (09:07)
[2017-01-09] MEDS: FERROUS SULFATE 325 MG TABLET PO SCH (09:07)
[2017-01-09] MEDS: MULTIVITAMIN (CENTRUM) TABLET PO SCH (09:07)
[2017-01-09] MEDS: PANTOPRAZOLE 40 MG TABLET PO SCH (09:07)
[2017-01-09] MEDS: MIDODRINE 5 MG TABLET PO SCH ×3 (09:07→21:54)
[2017-01-09] MEDS: SPIRONOLACTONE 50 MG TABLET PO SCH (09:07)
[2017-01-09] MEDS: METOPROLOL TARTRATE 100 MG TABLET PO SCH ×2 (09:07→21:55)
[2017-01-09] MEDS: POTASSIUM CHLORIDE 20 MEQ TABLET PO PRN (09:08)
[2017-01-09] MEDS: OCTREOTIDE 100 MCG/ML SYRINGE SUBCUT SCH ×3 (09:11→21:55)
[2017-01-09] MEDS: GABAPENTIN 300 MG CAPSULE PO SCH ×4 (09:11→21:54)
[2017-01-09] MEDS: FUROSEMIDE INJ 100 MG in SODIUM CHLORIDE 0.9% 50 ML IV SCH ×3 (09:12→21:53)
[2017-01-09] MEDS: DESITIN 4OZ/NYSTATIN 15 GRAM MIXTURE PASTE TOP SCH ×2 (09:13→21:55)
[2017-01-09] MEDS: MUPIROCIN 2% OINT 22 GM TUBE TOP SCH ×2 (09:17→21:55)
[2017-01-09] MEDS: NYSTATIN POWDER 15 GM BOTTLE TOP SCH ×3 (09:27→21:56)
[2017-01-09] MEDS ORDERED: LACTULOSE 160 GM/240 ML BOTTLE RECTAL ONE (09:42)
--- NOTE | 2017-01-09 09:45 | Hospitalist Progress Note ---
Assessment and Plan (1) Fever Status: Resolved Assessment and plan: unknown source. on empiric abx. cultures negative to date. no abdominal tenderness. afebrile now for 48 hrs Current Visit: Yes Qualifiers: Fever type: unspecified Qualified Code(s): R50.9 - Fever, unspecified (2) Alcoholic cirrhosis Status: Chronic Assessment and plan: some confusion/encephalopathy. Ammonia high. Not having regular BM despite increased doses of po Lactulose. Will give Lactulose enema today in an effort to stim further BM Current Visit: No (3) COPD (chronic obstructive pulmonary disease) Status: Chronic Current Visit: No (4) Hepatorenal syndrome Status: Acute Assessment and plan: Nephrology following. Continues to diurese. Cr relatively stable. No indication for HOLIDAY DETECTOR OPERATOR yet Current Visit: No (5) REBECCA (acute kidney injury) Status: Acute Current Visit: Yes (6) Pleural effusion associated with hepatic disorder Status: Acute Assessment and plan: s/p thoracentesis 01/06/17. pt with recurrent effusions. currently without symptoms a/w effusion Current Visit: Yes Hospitalist: Subjective Interval history: pt and family member report that pt is still not stooling regularly. some nausea this am Exam - Constitutional Vitals: Period Temp Pulse Resp BP Sys/Pastor Pulse Ox Last 24 Hr 97.6 F-98.2 F 77-100 17-20 93-116/57-67 92-100 General appearance: no acute distress - Head Head exam: Present: normal inspection, normocephalic - Eye Eye exam: Present: EOMI, scleral icterus Pupils: Present: PAPITO - ENT ENT exam: Present: normal exam - Neck Neck exam: Present: normal inspection - Respiratory Respiratory exam: Present: decreased breath sounds. Absent: accessory muscle use, rhonchi, wheezes - Cardiovascular Cardiovascular exam: Present: regular rate and rhythm - GI/Abdominal GI/Abdominal exam: Present: distended, hypoactive bowel sounds. Absent: firm, tenderness - Neurological Exam Neurological exam: Present: alert (mild confusion) - Skin Skin exam: Present: warm, dry Results - Labs CBC & BMP: 01/06/17 04:39 01/09/17 05:28
--- NOTE | 2017-01-09 09:58 | Gastrointestinal Progress Note ---
Assessment and Plan (1) Alcoholic cirrhosis of liver with ascites Status: Acute Assessment and plan: This patient is being seen for Dr. Vidal while he is off the weekend. She currently has a MELD score of 32, but is not a candidate for transplant of liver for another 4 months, given that she states she had discontinued drinking some 2 months ago. Unfortunately she is eating salty potato chips at the bedside and reminded her that she needs to be on a low-sodium diet to help keep her ascites down which she is going to comply with. She states that she is still confused with her hepatic encephalopathy and we can increase her lactulose to every 4 hours from every 6. I have told the nursing staff to hold lactulose should she have more than 4 bowel movements per day. 01/09/17--the patient had only one bowel movement yesterday but then again got only a single lactulose dose. Unfortunately this is my fault is a switch her from every 6 to every 4hour dosing, I did not note that this was being placed as a PRN order. Daughter at the bedside informs me that her mother is only had with single bowel movement since Tuesday. She is now nauseous and vomiting despite not having the lactulose, and despite her electrolytes being marginally better. I strongly suspect she may be developing an ileus. Unfortunately, her ammonia levels also up to 179. At this point I think our best course of action is to gingerly place an NG tube into the stomach, suctioned out residual fluids , clamp this and start giving the lactulose every 4 hours as originally planned. The patient is confused and this should help out with that. If we see a huge amount of fluid in the stomach this should help with the nausea as well. We will get a abdominal 2 view looking for evidence of ileus. Continue managing her electrolytes as per nephrology. The patient is also getting her treatment for hepatorenal syndrome, --her prognosis is quite poor. We will continue to monitor her electrolytes/ammonia. Soapsuds enema 1. Current Visit: Yes (2) Hepatorenal syndrome Status: Acute Assessment and plan: Unfortunately the patient has been getting albumin, octreotide, and midodrine-- all of which are indicated for the patient's underlying hepatorenal syndrome but has been getting progressively worsening creatinine function and may ultimately require dialysis. We continue to treat her supportively. She really does not need more albumin. She might benefit from some blood although the increased protein is likely to worsen her encephalopathy and so I have not ordered this. 01/09/17--The creatinine level is stable. The patient has not been eating much, unfortunately not getting her lactulose either. Current Visit: No (3) Hepatic encephalopathy Status: Acute Assessment and plan: As mentioned above I have increased the patient's lactulose from every 6 to every 4 hours and hopefully this will help with producing more than 2 bowel meds per day. I will be checking her ammonia level tomorrow to see if this is still high. She is already on Xifaxan. There is little else to do about this aside from transplant which she will not qualify for for another 4 months. With a meld score of 32 she is certainly a candidate for transplant ( consideration is given to patients who have greater than 15 MELD score). 01/09/17--The patient is still confused, not surprisingly given the lack of lactulose she got yesterday and her ammonia levels up to 179 as mentioned above. Lactulose via the NG tube at this time, hopefully between this and the enema patient will start open up and have stools without having too much vomiting. I certainly do not like using a NG tube in a patient who has the potential for esophageal varices however there is little choice at this point as she likely will become more encephalopathic in the next 24 hours and may not be able to swallow for us. This will also give us an opportunity to utilize the NG tube to suck out her stomach in between doses and decrease her nausea level in a nonpharmacologic fashion. Current Visit: No Gastroenterology - PN: Subj Interval history: This patient only got lactulose yesterday 1. This is my fault because when I changed her from every 6 to every 4 hours, I noted this was placed as a as needed order mistakenly. The patient was "constipated" she did not ask for the medication and so none was delivered. She is having further nausea and vomiting issues today and cannot really keep much down. I am going to go ahead and discontinue the iron as this may be causing some dyspepsia as well as the MiraLAX. I suspect that she may be developing ileus in combination with her electrolyte abnormalities and renal failure. She has never had black stools or vomited any blood. We do not know if she has varices. Exam (Progress Note) - Constitutional Vitals: Period Temp Pulse Resp BP Sys/Pastor Pulse Ox Last 24 Hr 97.6 F-98.2 F 77-100 17-20 93-116/57-67 92-100 General appearance: mild distress (Ill-appearing), over weight, other - Head Head exam: Present: normocephalic - Eye Eye exam: Present: EOMI - Respiratory Respiratory exam: Present: clear to auscultation bilaterally - Cardiovascular Cardiovascular exam: Present: regular rate and rhythm - GI/Abdominal GI/Abdominal exam: Present: distended, hypoactive bowel sounds, soft. Absent: guarding, tenderness, rebound - Neurological Exam Neurological exam: Present: alert, oriented X3 - Psychiatric Psychiatric exam: Present: normal affect, normal mood - Skin Skin exam: Present: warm Results - Labs CBC & BMP: 01/06/17 04:39 01/09/17 05:28
[2017-01-09] MEDS ORDERED: LACTULOSE 20 GM/30 ML UDCUP PO SCH (10:00)
--- NOTE | 2017-01-09 11:30 | XRay Report ---
Portable chest Date: 01/09/2017 Clinical history: Nasogastric tube placement Comparison: 01/07/2017 Technique: Portable AP sitting chest Findings: The nasogastric tube is in satisfactory position of the stomach. Post operative findings in the abdomen. Residual pleural-parenchymal findings in the lungs with cardiomegaly. Degenerative changes. Impression: The nasogastric tube is in satisfactory position in the stomach. PROCEDURE INTERPRETED AT [facility] DEPARTMENT OF RADIOLOGY Final Report Signed by: Dr. Daiana Duarte
--- NOTE | 2017-01-09 12:37 | Pulmonology Progress Note ---
Pulmonary - PN: Subj Interval history: This is a 56-year-old white female whom I am seeing for . This patient has alcoholic cirrhosis and recurrent pleural effusions. She has had right chest thoracentesis at least [address] Daniel noted that she does not need it right now but that it may need to be repeated soon. He also notes when she is diuresed her creatinine increases. He goes on to say that she has hepatorenal's syndrome in sooner or later will need dialysis. Last chest x-ray was done 01/07/2017. There are no new positive cultures. Potassium is low at 3.3. Sodium is 140. Creatinine is 4.5 with a BUN of 56. Albumin is 4.5. Patient complains of nausea. She is getting improvement with Zofran. 01/09/2017. This patient continues to have significant nausea. She has not gotten all of her lactulose. I discussed the case with Dr. Alfred Salazar today. He is planning to place an NG tube. Sodium is 138. Potassium is 3.4. Chloride is 87. Creatinine is 4.4 with BUN of 56. Glucose is 115. Total bilirubin is 4.4. Ammonia level is up to 179. Chest x-ray really looks like a KUB. Labs been reviewed. Medicines have been reviewed. Chest x-ray from 01/07/2017 is been reviewed Physical exam. Vital signs see above Psychiatric. Oriented 3. General very nauseated. Acute on chronic. Face is symmetrical. Lips and tongue are normal. Neck. Symmetrical. Kyphosis. No meningismus. Chest. Breath sounds are clear. Heart. No gallop Abdomen. Somewhat distended. I did not hear any bowel sounds Lower extremities nothing to suggest deep venous thrombophlebitis Cranial nerves are intact. Long track motor functions intact. I see no asterixis. The remainder the physical exam is negative. Plan. 1. Continue present regimen. 2. Watch for recurrent pleural effusion causing respiratory embarrassed 3. Follow-up portable chest x-ray 4. NG tube with intermittent suction as per Dr. Salazar Exam (Progress Note) - Constitutional Vitals: Period Temp Pulse Resp BP Sys/Pastor Pulse Ox Last 24 Hr 97.5 F-98.2 F 62-100 16-20 93-123/57-76 91-100 Results - Labs CBC & BMP: 01/06/17 04:39 01/09/17 05:28
--- NOTE | 2017-01-09 14:09 | XRay Report ---
Exam: XR abdomen 2V Date: 01/09/2017 10:42 AM Comparison: None Indication: Abdominal distention Technique:[Supine and erect abdomen] Findings: Mild gaseous distention of bowel with air-fluid levels. No free air. Postoperative findings in the left upper quadrant with prior cholecystectomy. Nasogastric tube in the stomach. Pleural and parenchymal findings at the lung bases. Degenerative changes are noted. Impression: Mild gaseous distention of the bowel which could be related to ileus, developing SBO, etc. No free air. Nasogastric tube in the stomach. Postoperative findings. PROCEDURE INTERPRETED AT [facility] DEPARTMENT OF RADIOLOGY Final Report Signed by: Dr. Daiana Duarte
[2017-01-09] MEDS: POTASSIUM CHLORIDE RIDER 10 MEQ in PREMIX 1 EACH IV PRN ×3 (14:34→16:41)
[2017-01-09] MEDS: LACTULOSE 20 GM/30 ML UDCUP NG SCH ×4 (14:35→21:55)
--- NOTE | 2017-01-09 21:28 | Nephrology Progress Note ---
Nephrology - PN: Subj Interval history: She has had nausea today. She denies shortness of breath. Exam (PN)-Nephrology - Vital Signs Vital signs: Period Temp Pulse Resp BP Sys/Pastor Pulse Ox Last 24 Hr 95.5 F-97.7 F 62-83 16-22 93-137/64-87 91-98 Exam: ENT: Normal Cardiovascular: Regular rate and rhythm. No murmur rub or gallop Lungs: Clear Extremities: No edema - Lab 01/06/17 04:39 01/09/17 05:28 Most recent lab results ABG pH 7.407 (7.35-7.45) 01/02/17 02:38 ABG pCO2 58.8 MM HG (35-48) H 01/02/17 02:38 ABG pO2 61.1 MM HG (80-95) L 01/02/17 02:38 ABG HCO3 34.3 MMOL/L (20-26) H 01/02/17 02:38 ABG O2 Saturation 91.3 % (95-100) L 01/02/17 02:38 Calcium 10.0 MG/DL (8.5-10.1) 01/09/17 05:28 Phosphorus 3.7 MG/DL (2.5-4.9) 01/09/17 05:28 Magnesium 2.0 MG/DL (1.8-2.4) 01/09/17 05:28 Assessment and Plan (1) REBECCA (acute kidney injury) Status: Acute Assessment and plan: 56-year-old woman with: * Acute renal failure. Fluid balance negative on lower diuretic dose * Cirrhosis. Ascites present * Anemia * CHF. Compensated Current Visit: Yes (2) Alcoholic cirrhosis of liver with ascites Status: Acute Current Visit: Yes (3) COPD (chronic obstructive pulmonary disease) Status: Chronic Current Visit: No
[2017-01-09] MEDS: traMADol 50 MG TABLET PO PRN (21:54)
[2017-01-10] MEDS: LACTULOSE 20 GM/30 ML UDCUP NG SCH ×5 (02:21→17:50)
[2017-01-10 06:57] LABS: Albumin 4.8 G/DL (3.4-5.0); Calcium 10.3 MG/DL (8.5-10.1); Osmolality,Calculated 291.7 MOS/KG (273-304); Phosphorous 3.6 MG/DL (2.5-4.9); Potassium 3.6 MMOL/L (3.5-5.1)
--- NOTE | 2017-01-10 07:10 | XRay Report ---
Exam: XR chest 1V portable Indication: Pleural effusion, esophagogastric tube Comparison study: 01/09/2017 Findings: Cardiac silhouette is enlarged, similar to prior esophagogastric tube traverses the thorax and travels below the [id number], the distal tip is not visualized. Bilateral moderate to large pleural effusions appear slightly increased from prior. There is no pneumothorax. Impression: Slight worsening of moderate to large bilateral pleural effusions. Similar cardiomegaly. Esophagogastric tube travels below the [id number]. PROCEDURE INTERPRETED AT [facility] DEPARTMENT OF RADIOLOGY Final Report Signed by: Eliezer Lucas
--- NOTE | 2017-01-10 07:54 | Pulmonology Progress Note ---
Pulmonary - PN: Subj Interval history: This 56-year-old white female was recently here with anasarca and a large right pleural effusion. She had 2 thoracenteses with findings of transudative fluid. It is felt to be due to her chronic liver disease. 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 A TIPS procedure was offered but she declined. She chose to go home over the weekend but came back in a couple days later with worsening shortness of breath. We had diuresed her before and she had worsening renal function so the diuretics were decreased. She now has a moderate right pleural effusion. However she is not in respiratory distress and she is adequately oxygenated. I would prefer to diurese are rather than doing recurrent thoracenteses as they will not solve the underlying problem. TIPS procedure needs to be readdressed. 12/28/2016 patient had episode of dyspnea yesterday afternoon and was given Ativan. She is a little bit groggy this morning but responsive. She has an elevated PCO2 of 66. We need to be very careful about sedation. No chest x- ray is yet this morning. 12/29/2016 patient's pleural effusion on chest x-ray is larger and she is having increased symptoms. She needs a right thoracentesis which I will do. 12/30/16 x-ray better after right thoracentesis. She has reaccumulated a little fluid today. Now on Lasix and Zaroxolyn. Creatinine stable at 2.3. 12/31/2016 patient is more lethargic. Worsening renal function. Difficulty diuresing her. Ammonia level higher. Appears to be nearing end-stage. Decision needs to be made about her CODE STATUS. 01/01/2017 patient was moved to CCU as she became more lethargic. Doing a little better with facemask BiPAP. Has a large recurrent right pleural effusion again. I discussed the case on the telephone with her youngest daughter. I advised him that the family need to get together make a decision about CODE STATUS on her. She is end-stage liver disease. Not a candidate for liver transplant. Has ammonia levels over 200. Will ask GI to address this with family as well. 01/02/2017 patient and family had discussion with Dr. Chambers yesterday. He is a ticket collector or usher this weekend. He gave him detailed information on outlook for liver transplant. Also plans for dialysis. They have decided to have dialysis done. This would hopefully bridge her over until she can have a liver transplant done. It would be the best way to offload her ascites and hepatic hydrothorax. She is more alert this morning. Oxygen saturation 94% on 3 L. Does not look like we will need to tap her at this point. I did have a discussion with Dr. Chambers yesterday as well about the options. 01/03/2017 patient is responding to diuretics. Creatinine has gotten up to 3.9. Defer to nephrology on further plans there. As long as were able to mobilize fluid, I will not plan thoracentesis unless her oxygen saturation drops to an unacceptable level. O2 sat is 91-92% on nasal biprong's at present. 01/04/2017 creatinine is rising. Patient a little more sleepy. Chest x-ray shows the right pleural effusion is reviewed. She needs another therapeutic thoracentesis. She is too weak and groggy to safely seat on the side of the bed. Will ask interventional radiology to use ultrasound to do thoracentesis. This is just a temporizing measure until we can find some way to offload her fluid permanently, perhaps with dialysis. 01/05/2017 patient had right thoracentesis with 1200 mL removed and chest x-ray clearly is better. Patient feels better and is more alert. This is a temporizing measure. Creatinine a little higher. Patient has hepatorenal syndrome. Will soon need to make a decision about dialysis. 01/06/2017 patient is a little drowsy this morning and she is having some feeling. Cultures have been ordered. Will add Levaquin at renal dose. 01/07/2017 patient responsive. Chest x-ray shows pleural effusions but they are not large as yet. As her creatinine rises and she is less responsive to diuretics, it becomes clear that she is going to need dialysis. In the meantime needs thoracentesis every few days. Does not need one today. 01/10/2017 patient now has an NG tube down because of some vomiting over the weekend. She is getting more Chronulac. She seems to be a little bit more alert. She is not complaining of shortness of breath. Chest x-ray shows modest pleural effusions. No need for thoracentesis at this point. Exam (Progress Note) - Constitutional Vitals: Period Temp Pulse Resp BP Sys/Pastor Pulse Ox Last 24 Hr 95.5 F-97.7 F 62-97 16-22 106-137/57-87 90-97 Exam: She is alert, vital signs normal. Has NG tube in place. O2 sat 91% on room air. Pupils react to light. She does have some jaundice. Throat is clear. Neck supple no bruits. Chest reveals dullness 1/4 up on the right side a few rales bilaterally. Heart normal rate and rhythm no murmurs. Abdomen soft nontender no masses. Extremities she has 3+ edema. She does have ascites. Calves are nontender. Results - Labs CBC & BMP: 01/06/17 04:39 01/10/17 05:55 Lab Results: I have reviewed the past 24 hour labs - Diagnostic Findings Procedure: Chest x-ray: image reviewed by me (Small bilateral pleural effusions , cardiomegaly.) Assessment and Plan (1) Hepatic encephalopathy Status: Acute Assessment and plan: Patient's ammonia level was 116. Being addressed with Chronulac. 12/28/2016 continuing with Chronula. Monitor ammonia level. 12/29/2016 she is a little drowsy but arousable and carries on a good conversation. 12/30/16 mental status a little better today. 12/31/2016 she is more sluggish today. Defer to gastroenterology. 01/01/2017 more sluggish, ammonia level higher 01/02/2017 ammonia is down from around 200 to around 100 and she is more alert. 01/03/2017 she is more alert. Defer to GI. 01/04/2017 a little more thick tongue today. 01/05/2017 patient more alert today. 01/06/2017 continuing treatment for hepatic encephalopathy 01/07/2017 patient responsive but a little sluggish. 01/10/2017 seems a little more responsive than Tuesday. Current Visit: No (2) Pleural effusion on right Status: Chronic Assessment and plan: She has a moderate right pleural effusion. She is not in respiratory distress. If it gets worse we can tap her. This is best handled with diuretics, salt poor albumin, and possibly a TIPS procedure. 12/28/2016 chest x-ray pending. With concern about using diuretics she may require thoracentesis. 12/29/2016 effusion has increased to the point where she needs thoracentesis. She has renal insufficiency with creatinine 2.3. We really not able to get the fluid off with diuretics. A TIPS procedure has been addressed with her earlier. 12/30/16 trying to address the pleural effusion with diuretics. We have tapped off 1800 mL yesterday. It appears to be slowly recurring. 12/31/2016 she has had recurrent thoracenteses. It continues to recur. She has a hepatic hydrothorax. 01/01/2017 right pleural effusion has increased in size. This is a hepatic hydrothorax. We could consider a pleural catheter to drain it more easily. Do not usually like to do this with a hepatic hydrothorax but may be helpful in her case. 01/02/2017 watching the effusion from now. If she gets dialysis in the next day or 2 should be able to offload that way. If she gets into respiratory distress we can tap her before then. 01/03/2017 we will re-x-ray her tomorrow. Decide after that about management. 01/04/2017 right pleural effusion is very large. She is too weak to sit up to do a thoracentesis so I will ask interventional radiology to do one with an ultrasound 01/05/2017 x-ray much better after right thoracentesis yesterday. We are continuing to do this as a temporizing measure. Long-term decision needs to be made about dialysis. 01/06/2017 recheck x-ray tomorrow. Quite sure the effusion will recur over time 01/07/2017 does not need thoracentesis today. 01/10/2017 modest effusion, does not require thoracentesis at this point. Current Visit: No (3) Ascites Status: Chronic Assessment and plan: Related to her cirrhosis. 12/28/2016 she has ascites but she is not tense. Current Visit: No (4) Hepatic cirrhosis Status: Chronic Assessment and plan: This is of course her underlying problem. Defer to GI. 12/29/2016 this is the underlying cause for her pleural effusion and edema. 12/30/16 alcoholic cirrhosis is her primary problem. 12/31/2016 again defer to gastroenterology. 01/01/2017 she has alcoholic cirrhosis and end-stage. Defer to gastroenterology as to the next step. She has been about 2 months since her last drink of alcohol. Would not be a candidate for transplant at this point to my knowledge. 01/02/2017 she has alcoholic cirrhosis. Has not had alcohol in about 2 months. Plan for setting her up to look at a liver transplant. 01/03/2017 hope to get her where she can have a liver transplant in a few months. 01/04/2017 defer to GI 01/05/2017 likely would be candidate for liver transplant in about 4 months. Has been a little over 2 months since she had her last alcoholic beverage. 01/07/2017 hopefully can get on the list for liver transplant in time. 01/10/2017 followed by GI. Current Visit: No Qualifiers: Hepatic cirrhosis type: alcoholic cirrhosis Ascites presence: with ascites Qualified Code(s): K70.31 - Alcoholic cirrhosis of liver with ascites
[2017-01-10] MEDS: METOPROLOL TARTRATE 100 MG TABLET PO SCH ×2 (08:27→20:56)
[2017-01-10] MEDS: ALBUTEROL 2.5 MG/3 ML NEB RESP TX SCH ×4 (08:36→20:09)
--- NOTE | 2017-01-10 08:49 | Nephrology Progress Note ---
Nephrology - PN: Subj Interval history: Patient denies shortness of breath. Review of systems GI she complains of some nausea, she has a NG tube in place Physical exam general the patient chronically ill-appearing, she has no pitting edema in her lower extremities, patient's weight is decreased about 4 kg's from yesterday (reliable?), Urine output exceeded input by about 700 cc yesterday. Chest x-ray is read as showing some mild increase in pleural effusions Assessment/plan 1. Acute renal failure-this patient's creatinine is improved slightly over the weekend with the decreasein Lasix, will continue this present dose. 2. Chloride depletion alkalosis-we will continue to monitor this 3. Liver cirrhosis 4. Fever-this patient has been afebrile the past several days, she seems to have responded to IV antibiotics. Exam (PN)-Nephrology - Vital Signs Vital signs: Period Temp Pulse Resp BP Sys/Pastor Pulse Ox Last 24 Hr 95.5 F-98 F 69-97 18-22 104-137/57-87 90-97 - Lab 01/06/17 04:39 01/10/17 05:55 Most recent lab results ABG pH 7.407 (7.35-7.45) 01/02/17 02:38 ABG pCO2 58.8 MM HG (35-48) H 01/02/17 02:38 ABG pO2 61.1 MM HG (80-95) L 01/02/17 02:38 ABG HCO3 34.3 MMOL/L (20-26) H 01/02/17 02:38 ABG O2 Saturation 91.3 % (95-100) L 01/02/17 02:38 Calcium 10.3 MG/DL (8.5-10.1) H 01/10/17 05:55 Phosphorus 3.6 MG/DL (2.5-4.9) 01/10/17 05:55 Magnesium 2.0 MG/DL (1.8-2.4) 01/09/17 05:28 Assessment and Plan (1) REBECCA (acute kidney injury) Status: Acute Assessment and plan: This patient is developing acute renal failure again, her Lasix and spironolactone are being held. I think with her marked fluid overload will eventually have to restart these. I'm going to put her back on midodrine and vasopressin as she was previously to try and improve her kidney perfusion. Current Visit: Yes (2) Anemia Status: Acute Current Visit: Yes (3) CHF (congestive heart failure) Status: Acute Current Visit: Yes (4) Hypokalemia Status: Resolved Assessment and plan: Continue replacement Current Visit: Yes (5) Anasarca Status: Chronic Current Visit: No (6) COPD (chronic obstructive pulmonary disease) Status: Chronic Current Visit: No (7) Hepatorenal syndrome Status: Acute Current Visit: No (8) Alcoholic cirrhosis Status: Chronic Current Visit: No
[2017-01-10] MEDS: OCTREOTIDE 100 MCG/ML SYRINGE SUBCUT SCH ×3 (09:00→20:58)
[2017-01-10] MEDS: FUROSEMIDE INJ 100 MG in SODIUM CHLORIDE 0.9% 50 ML IV SCH ×3 (09:30→20:56)
[2017-01-10] MEDS: LEVOFLOXACIN INJ 250 MG in PREMIX 1 EACH IV SCH (09:34)
[2017-01-10] MEDS: RIFAXIMIN 550 MG TABLET PO SCH ×2 (09:42→20:56)
[2017-01-10] MEDS: SPIRONOLACTONE 50 MG TABLET PO SCH (09:42)
[2017-01-10] MEDS: MULTIVITAMIN (CENTRUM) TABLET PO SCH (09:42)
[2017-01-10] MEDS: MIDODRINE 5 MG TABLET PO SCH ×3 (09:43→20:56)
[2017-01-10] MEDS: GABAPENTIN 300 MG CAPSULE PO SCH ×4 (09:43→20:57)
[2017-01-10] MEDS: DESITIN 4OZ/NYSTATIN 15 GRAM MIXTURE PASTE TOP SCH ×2 (09:43→20:59)
[2017-01-10] MEDS: PANTOPRAZOLE 40 MG TABLET PO SCH (09:43)
[2017-01-10] MEDS: metOLazone 5 MG TABLET PO SCH (09:44)
[2017-01-10] MEDS: MUPIROCIN 2% OINT 22 GM TUBE TOP SCH ×2 (09:44→20:58)
[2017-01-10] MEDS: NYSTATIN POWDER 15 GM BOTTLE TOP SCH ×3 (09:44→20:58)
--- NOTE | 2017-01-10 15:13 | XRay Report ---
XR chest 1V portable Indication: NG tube placement. Chest one view: Compromise view the chest and abdomen shows an NG tube extending the mid stomach. Sidehole appears to be at the GE junction. Recommend advancing slightly. Impression: NG tube position as described. Recommend advancing slightly. PROCEDURE INTERPRETED AT [facility] DEPARTMENT OF RADIOLOGY Final Report Signed by: Miko Tay M.D.
--- NOTE | 2017-01-10 16:56 | Hospitalist Progress Note ---
Assessment and Plan (1) Hepatic encephalopathy Status: Acute Assessment and plan: Check ammonia level in the morning again. Continue current management avoid hypovolemia and infection Current Visit: Yes (2) Ascites Status: Chronic Assessment and plan: Stable at this point (note tense ascites) Current Visit: No (3) Anemia of chronic disease Status: Chronic Assessment and plan: Continue to observe for any drop in hematocrit. This patient may be at risk for GI bleeding Current Visit: No (4) Hepatorenal syndrome Status: Acute Current Visit: No Hospitalist: Subjective Interval history: This is my first encounter with this lady to 6 years old admitted to the hospital with a alcoholic cirrhosis and portosystemic shunting with hepatic encephalopathy. Patient reported also has had hepatorenal syndrome. Is able to talk to me but stated that she does not feel too good. Cannot elaborate on what she means by that. The signs have been reviewed. She is status post thoracentesis of a pleural effusion on 06 January I will review the results of that when I can get to the labs. Regarding the hepatorenal syndrome nephrology is following regarding the alcoholism there is no signs of withdrawal at this point patient did have a high ammonia area on admission this will be repeated tomorrow Exam - Constitutional Vitals: Period Temp Pulse Resp BP Sys/Pastor Pulse Ox Last 24 Hr 97.5 F-98.8 F 79-97 18-20 100-111/57-75 90-92 General appearance: over weight - Head Head exam: Present: normocephalic, atraumatic - Eye Eye exam: Present: EOMI Pupils: Present: PAPITO - ENT ENT exam: Present: normal oropharynx - Neck Neck exam: Present: normal inspection - Respiratory Respiratory exam: Present: clear to auscultation bilaterally, other (No wheezing no rales) - Cardiovascular Cardiovascular exam: Present: irregular rhythm, other (Rate below 100 this could be ventricular ectopy) - GI/Abdominal GI/Abdominal exam: Present: other (Rotund abdomen no guarding though she did seem to express some discomfort on palpation no rebound tenderness) - Extremities Exam Extremities exam: Present: full ROM - Back Exam Back exam: Present: normal inspection - Neurological Exam Neurological exam: Present: alert, oriented X3, CN II-XII intact, other (Slow in response) - Psychiatric Psychiatric exam: Present: other (Subdued) - Skin Skin exam: Present: normal color, warm, dry Results - Labs CBC & BMP: 01/06/17 04:39 01/10/17 05:55 Lab Results: I have reviewed the past 24 hour labs (Noted chronic stable anemia and note azotemia with BUN of 58 and creatinine of 4.3 and mild hyperglycemia and patient is in the hospital with hepatorenal syndrome)
--- NOTE | 2017-01-10 19:01 | Gastrointestinal Progress Note ---
Assessment and Plan (1) Alcoholic cirrhosis Status: Chronic Assessment and plan: Patient has advanced chronic liver disease. She has abstained from alcohol for approximately 5 weeks now. She is not a candidate for liver transplant for now with her recent alcohol use. Increase lactulose today with her lack of bowel movements and recent hepatic encephalopathy episode. 01/06 patient remains significantly ill with end-stage liver disease. Encephalopathy appears controlled at present on lactulose and Xifaxan. Source of fever unclear but may be genitourinary with urinalysis results noted. Also consider lung source. Antibiotic spectrum has been broadened with Levaquin added. Cultures pending. 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 She has had no fever in over 24 hours with adjustment of IV antibiotics. Blood and urine cultures negative so far. Continue empiric antibiotics for now. With no bowel movements in over 36 hours, will give an extra dose of lactulose today. She needs to have at least 2 soft bowel movements daily. She is also on Xifaxan. 01/10 has had exacerbation of encephalopathy related to constipation. This appears improved with increase lactulose therapy. Renal function appears to have stabilized with creatinine in the 4.3 range. Plan to probably discontinue nasogastric tube this evening if mental status remains improved. Continue lactulose by mouth titrated to 2 or 3 stools per day. Also continue Xifaxan. Current Visit: No (2) Hepatorenal syndrome Status: Acute Assessment and plan: Creatinine has increased from 1.8-2.0 since admission with increased diuresis. I am going to hold her Aldactone and Lasix for now and continue albumin. Continue daily BMP level. Potassium 2.9 and replacing this. Current Visit: No Gastroenterology - PN: Subj Interval history: Weekends events reviewed. Had increased confusion over the weekend with constipation. Nasogastric tube was placed to give lactulose. She is more alert this evening and is having bowel movements now. She denies abdominal pain or nausea. Exam (Progress Note) - Constitutional Vitals: Period Temp Pulse Resp BP Sys/Pastor Pulse Ox Last 24 Hr 97.5 F-98.8 F 79-97 18-18 100-111/57-75 90-92 General appearance: no acute distress - Eye Eye exam: Present: EOMI, scleral icterus Pupils: Present: normal accommodation - Respiratory Respiratory exam: Present: decreased breath sounds (Right lung field) - Cardiovascular Cardiovascular exam: Present: regular rate and rhythm. Absent: gallop, rubs - GI/Abdominal GI/Abdominal exam: Present: normal bowel sounds, distended, soft. Absent: tenderness - Extremities Exam Extremities exam: Present: edema. Absent: calf tenderness - Neurological Exam Neurological exam: Present: alert, oriented X3, CN II-XII intact. Absent: motor sensory deficit - Skin Skin exam: Present: warm, dry Results - Labs CBC & BMP: 01/06/17 04:39 01/10/17 05:55 Lab Results: I have reviewed the past 24 hour labs
[2017-01-10] MEDS: traMADol 50 MG TABLET PO PRN (20:56)
[2017-01-10] MEDS: LACTULOSE 20 GM/30 ML UDCUP PO SCH (22:45)
[2017-01-11] MEDS: LACTULOSE 20 GM/30 ML UDCUP PO SCH ×6 (03:04→21:52)
--- NOTE | 2017-01-11 07:33 | Pulmonology Progress Note ---
Pulmonary - PN: Subj Interval history: This 56-year-old white female was recently here with anasarca and a large right pleural effusion. She had 2 thoracenteses with findings of transudative fluid. It is felt to be due to her chronic liver disease. 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 A TIPS procedure was offered but she declined. She chose to go home over the weekend but came back in a couple days later with worsening shortness of breath. We had diuresed her before and she had worsening renal function so the diuretics were decreased. She now has a moderate right pleural effusion. However she is not in respiratory distress and she is adequately oxygenated. I would prefer to diurese are rather than doing recurrent thoracenteses as they will not solve the underlying problem. TIPS procedure needs to be readdressed. 12/28/2016 patient had episode of dyspnea yesterday afternoon and was given Ativan. She is a little bit groggy this morning but responsive. She has an elevated PCO2 of 66. We need to be very careful about sedation. No chest x- ray is yet this morning. 12/29/2016 patient's pleural effusion on chest x-ray is larger and she is having increased symptoms. She needs a right thoracentesis which I will do. 12/30/16 x-ray better after right thoracentesis. She has reaccumulated a little fluid today. Now on Lasix and Zaroxolyn. Creatinine stable at 2.3. 12/31/2016 patient is more lethargic. Worsening renal function. Difficulty diuresing her. Ammonia level higher. Appears to be nearing end-stage. Decision needs to be made about her CODE STATUS. 01/01/2017 patient was moved to CCU as she became more lethargic. Doing a little better with facemask BiPAP. Has a large recurrent right pleural effusion again. I discussed the case on the telephone with her youngest daughter. I advised him that the family need to get together make a decision about CODE STATUS on her. She is end-stage liver disease. Not a candidate for liver transplant. Has ammonia levels over 200. Will ask GI to address this with family as well. 01/02/2017 patient and family had discussion with Dr. Chambers yesterday. He is a clinique counter manager this weekend. He gave him detailed information on outlook for liver transplant. Also plans for dialysis. They have decided to have dialysis done. This would hopefully bridge her over until she can have a liver transplant done. It would be the best way to offload her ascites and hepatic hydrothorax. She is more alert this morning. Oxygen saturation 94% on 3 L. Does not look like we will need to tap her at this point. I did have a discussion with Dr. Chambers yesterday as well about the options. 01/03/2017 patient is responding to diuretics. Creatinine has gotten up to 3.9. Defer to nephrology on further plans there. As long as were able to mobilize fluid, I will not plan thoracentesis unless her oxygen saturation drops to an unacceptable level. O2 sat is 91-92% on nasal biprong's at present. 01/04/2017 creatinine is rising. Patient a little more sleepy. Chest x-ray shows the right pleural effusion is reviewed. She needs another therapeutic thoracentesis. She is too weak and groggy to safely seat on the side of the bed. Will ask interventional radiology to use ultrasound to do thoracentesis. This is just a temporizing measure until we can find some way to offload her fluid permanently, perhaps with dialysis. 01/05/2017 patient had right thoracentesis with 1200 mL removed and chest x-ray clearly is better. Patient feels better and is more alert. This is a temporizing measure. Creatinine a little higher. Patient has hepatorenal syndrome. Will soon need to make a decision about dialysis. 01/06/2017 patient is a little drowsy this morning and she is having some feeling. Cultures have been ordered. Will add Levaquin at renal dose. 01/07/2017 patient responsive. Chest x-ray shows pleural effusions but they are not large as yet. As her creatinine rises and she is less responsive to diuretics, it becomes clear that she is going to need dialysis. In the meantime needs thoracentesis every few days. Does not need one today. 01/10/2017 patient now has an NG tube down because of some vomiting over the weekend. She is getting more Chronulac. She seems to be a little bit more alert. She is not complaining of shortness of breath. Chest x-ray shows modest pleural effusions. No need for thoracentesis at this point. 01/11/2017 mental status is a little better. Her [id number] is in the room and feels that she is making more since the last couple of days. Exam (Progress Note) - Constitutional Vitals: Period Temp Pulse Resp BP Sys/Pastor Pulse Ox Last 24 Hr 98 F-98.8 F 63-86 18-20 100-110/58-66 91-93 Exam: She is alert, vital signs normal. Has NG tube in place. O2 sat 93% on room air. Pupils react to light. She does have some jaundice. Throat is clear. Neck supple no bruits. Chest reveals dullness 1/4 up on the right side a few rales bilaterally. Heart normal rate and rhythm no murmurs. Abdomen soft nontender no masses. Extremities she has 3+ edema. She does have ascites. Calves are nontender. Results - Labs CBC & BMP: 01/06/17 04:39 01/10/17 05:55 Lab Results: I have reviewed the past 24 hour labs - Diagnostic Findings Procedure: Chest x-ray: image reviewed by me (Modest bilateral pleural effusion , cardiomegaly) Assessment and Plan (1) Hepatic encephalopathy Status: Acute Assessment and plan: Patient's ammonia level was 116. Being addressed with Chronulac. 12/28/2016 continuing with Chronulac. Monitor ammonia level. 12/29/2016 she is a little drowsy but arousable and carries on a good conversation. 12/30/16 mental status a little better today. 12/31/2016 she is more sluggish today. Defer to gastroenterology. 01/01/2017 more sluggish, ammonia level higher 01/02/2017 ammonia is down from around 200 to around 100 and she is more alert. 01/03/2017 she is more alert. Defer to GI. 01/04/2017 a little more thick tongue today. 01/05/2017 patient more alert today. 01/06/2017 continuing treatment for hepatic encephalopathy 01/07/2017 patient responsive but a little sluggish. 01/10/2017 seems a little more responsive than Tuesday. 01/11/2017 a little more responsive. Ammonia level around 100. Defer to GI. Current Visit: No (2) Pleural effusion on right Status: Chronic Assessment and plan: She has a moderate right pleural effusion. She is not in respiratory distress. If it gets worse we can tap her. This is best handled with diuretics, salt poor albumin, and possibly a TIPS procedure. 12/28/2016 chest x-ray pending. With concern about using diuretics she may require thoracentesis. 12/29/2016 effusion has increased to the point where she needs thoracentesis. She has renal insufficiency with creatinine 2.3. We really not able to get the fluid off with diuretics. A TIPS procedure has been addressed with her earlier. 12/30/16 trying to address the pleural effusion with diuretics. We have tapped off 1800 mL yesterday. It appears to be slowly recurring. 12/31/2016 she has had recurrent thoracenteses. It continues to recur. She has a hepatic hydrothorax. 01/01/2017 right pleural effusion has increased in size. This is a hepatic hydrothorax. We could consider a pleural catheter to drain it more easily. Do not usually like to do this with a hepatic hydrothorax but may be helpful in her case. 01/02/2017 watching the effusion from now. If she gets dialysis in the next day or 2 should be able to offload that way. If she gets into respiratory distress we can tap her before then. 01/03/2017 we will re-x-ray her tomorrow. Decide after that about management. 01/04/2017 right pleural effusion is very large. She is too weak to sit up to do a thoracentesis so I will ask interventional radiology to do one with an ultrasound 01/05/2017 x-ray much better after right thoracentesis yesterday. We are continuing to do this as a temporizing measure. Long-term decision needs to be made about dialysis. 01/06/2017 recheck x-ray tomorrow. Quite sure the effusion will recur over time 01/07/2017 does not need thoracentesis today. 01/10/2017 modest effusion, does not require thoracentesis at this point. 01/11/2017 pleural effusions are stable. Current Visit: No (3) Ascites Status: Chronic Assessment and plan: Related to her cirrhosis. 12/28/2016 she has ascites but she is not tense. Current Visit: No (4) Hepatic cirrhosis Status: Chronic Assessment and plan: This is of course her underlying problem. Defer to GI. 12/29/2016 this is the underlying cause for her pleural effusion and edema. 12/30/16 alcoholic cirrhosis is her primary problem. 12/31/2016 again defer to gastroenterology. 01/01/2017 she has alcoholic cirrhosis and end-stage. Defer to gastroenterology as to the next step. She has been about 2 months since her last drink of alcohol. Would not be a candidate for transplant at this point to my knowledge. 01/02/2017 she has alcoholic cirrhosis. Has not had alcohol in about 2 months. Plan for setting her up to look at a liver transplant. 01/03/2017 hope to get her where she can have a liver transplant in a few months. 01/04/2017 defer to GI 01/05/2017 likely would be candidate for liver transplant in about 4 months. Has been a little over 2 months since she had her last alcoholic beverage. 01/07/2017 hopefully can get on the list for liver transplant in time. 01/10/2017 followed by GI. Current Visit: No Qualifiers: Hepatic cirrhosis type: alcoholic cirrhosis Ascites presence: with ascites Qualified Code(s): K70.31 - Alcoholic cirrhosis of liver with ascites
--- NOTE | 2017-01-11 08:29 | XRay Report ---
History: Pleural effusion Date: 01/11/2017 Study: Chest x-ray AP portable Comparison exam: 01/10/2017 The nasogastric tube remains in place. There is continued cardiomegaly. The mediastinal contours are unchanged. There is continued patchy and hazy opacity over the mid to lower lungs bilaterally. This is thought to be related to a combination of layering moderate bilateral pleural effusion and some superimposed atelectasis/infiltrate. This may be unchanged when accounting for differences in patient positioning. The osseous structures are similar. Impression: Continued bilateral pleural effusion and bilateral edema/infiltrate, the same or mildly increased PROCEDURE INTERPRETED AT [facility] DEPARTMENT OF RADIOLOGY Final Report Signed by: Dr. Lisbeth Vidal
[2017-01-11] MEDS: ALBUTEROL 2.5 MG/3 ML NEB RESP TX SCH ×4 (08:42→19:07)
--- NOTE | 2017-01-11 08:45 | Nephrology Progress Note ---
Nephrology - PN: Subj Interval history: Patient is verbal today. She was conversing but seemed to lose her train of thought at times. Physical exam general the patient is chronically ill-appearing, heart is regular rate and rhythm, she has trace lower extremity edema, abdomen is soft with positive bowel sounds lungs are clear to auscultation anteriorly Assessment/plan 1. Acute renal failure-this patient's creatinine had been improving since decreasing her Lasix. We will recheck a BMP in the morning 2. Liver cirrhosis 3. Volume overload-this patient's weight is up about 2 EKGs from yesterday. I do not think the weights over the intake and output measures are accurate. The chest x-ray report sounds like there is not much change. We will continue 100 mg of Lasix IV 3 times a day and Zaroxolyn 5 mg daily. Exam (PN)-Nephrology - Vital Signs Vital signs: Period Temp Pulse Resp BP Sys/Pastor Pulse Ox Last 24 Hr 98.0 F-98.8 F 63-86 18-20 100-110/58-66 91-93 - Lab 01/06/17 04:39 01/10/17 05:55 Most recent lab results ABG pH 7.407 (7.35-7.45) 01/02/17 02:38 ABG pCO2 58.8 MM HG (35-48) H 01/02/17 02:38 ABG pO2 61.1 MM HG (80-95) L 01/02/17 02:38 ABG HCO3 34.3 MMOL/L (20-26) H 01/02/17 02:38 ABG O2 Saturation 91.3 % (95-100) L 01/02/17 02:38 Calcium 10.3 MG/DL (8.5-10.1) H 01/10/17 05:55 Phosphorus 3.6 MG/DL (2.5-4.9) 01/10/17 05:55 Magnesium 2.0 MG/DL (1.8-2.4) 01/09/17 05:28 Assessment and Plan (1) REBECCA (acute kidney injury) Status: Acute Assessment and plan: This patient is developing acute renal failure again, her Lasix and spironolactone are being held. I think with her marked fluid overload will eventually have to restart these. I'm going to put her back on midodrine and vasopressin as she was previously to try and improve her kidney perfusion. Current Visit: Yes (2) Anemia Status: Acute Current Visit: Yes (3) CHF (congestive heart failure) Status: Acute Current Visit: Yes (4) Hypokalemia Status: Resolved Assessment and plan: Continue replacement Current Visit: Yes (5) Anasarca Status: Chronic Current Visit: No (6) COPD (chronic obstructive pulmonary disease) Status: Chronic Current Visit: No (7) Hepatorenal syndrome Status: Acute Current Visit: No (8) Alcoholic cirrhosis Status: Chronic Current Visit: No
[2017-01-11] MEDS: SPIRONOLACTONE 50 MG TABLET PO SCH (09:10)
[2017-01-11] MEDS: GABAPENTIN 300 MG CAPSULE PO SCH ×4 (09:11→21:42)
[2017-01-11] MEDS: PANTOPRAZOLE 40 MG TABLET PO SCH (09:11)
[2017-01-11] MEDS: FUROSEMIDE INJ 100 MG in SODIUM CHLORIDE 0.9% 50 ML IV SCH ×3 (09:11→21:44)
[2017-01-11] MEDS: RIFAXIMIN 550 MG TABLET PO SCH ×2 (09:11→21:42)
[2017-01-11] MEDS: MIDODRINE 5 MG TABLET PO SCH ×3 (09:11→21:43)
[2017-01-11] MEDS: OCTREOTIDE 100 MCG/ML SYRINGE SUBCUT SCH ×3 (09:11→21:52)
[2017-01-11] MEDS: NYSTATIN POWDER 15 GM BOTTLE TOP SCH ×3 (09:11→21:44)
[2017-01-11] MEDS: MULTIVITAMIN (CENTRUM) TABLET PO SCH (09:11)
[2017-01-11] MEDS: MUPIROCIN 2% OINT 22 GM TUBE TOP SCH ×2 (09:11→21:43)
[2017-01-11] MEDS: METOPROLOL TARTRATE 100 MG TABLET PO SCH ×2 (09:11→21:42)
[2017-01-11] MEDS: DESITIN 4OZ/NYSTATIN 15 GRAM MIXTURE PASTE TOP SCH ×2 (09:11→21:44)
[2017-01-11] MEDS: metOLazone 5 MG TABLET PO SCH (09:12)
--- NOTE | 2017-01-11 16:31 | Hospitalist Progress Note ---
Assessment and Plan (1) Hepatic encephalopathy Status: Acute Assessment and plan: Check ammonia level in the morning again. Continue current management avoid hypovolemia and infection Current Visit: Yes (2) Ascites Status: Chronic Assessment and plan: Stable at this point (note tense ascites). Remove the NG tube from the patient Current Visit: No (3) Anemia of chronic disease Status: Chronic Assessment and plan: Continue to observe for any drop in hematocrit. This patient may be at risk for GI bleeding Current Visit: No (4) Hepatorenal syndrome Status: Acute Current Visit: No Hospitalist: Subjective Interval history: Patient been seen interviewed and examined and chart has been reviewed; can answer question slow in responses no new changes. Will need to remove NG tube. This patient has cirrhosis with more than likely varices. Patient not reporting NG tube in this patient and this is very necessary. This NG tube was pulled before he got involved in the case. Exam - Constitutional Vitals: Period Temp Pulse Resp BP Sys/Pastor Pulse Ox Last 24 Hr 97.1 F-98.2 F 62-93 17-20 105-142/59-87 92-99 General appearance: over weight - Head Head exam: Present: normal inspection - Eye Eye exam: Present: EOMI Pupils: Present: PAPITO - ENT ENT exam: Present: normal exam - Neck Neck exam: Present: normal inspection - Respiratory Respiratory exam: Present: clear to auscultation bilaterally - Cardiovascular Cardiovascular exam: Present: regular rate and rhythm - GI/Abdominal GI/Abdominal exam: Present: ascites - Extremities Exam Extremities exam: Present: other (Mild edema can move extremities without limitation) - Neurological Exam Neurological exam: Present: alert, CN II-XII intact, other (Oriented to person and person not to time) - Psychiatric Psychiatric exam: Present: other (Subdued affect) - Skin Skin exam: Present: normal color, warm, dry Results - Labs CBC & BMP: 01/06/17 04:39 01/10/17 05:55 Lab Results: I have reviewed the past 24 hour labs (Thrombocytopenia most likely secondary to hypersplenism)
[2017-01-11] MEDS ORDERED: LACTULOSE 20 GM/30 ML UDCUP PO ONE (17:56)
--- NOTE | 2017-01-11 18:06 | Gastrointestinal Progress Note ---
Assessment and Plan (1) Alcoholic cirrhosis Status: Chronic Assessment and plan: Patient has advanced chronic liver disease. She has abstained from alcohol for approximately 5 weeks now. She is not a candidate for liver transplant for now with her recent alcohol use. Increase lactulose today with her lack of bowel movements and recent hepatic encephalopathy episode. 01/06 patient remains significantly ill with end-stage liver disease. Encephalopathy appears controlled at present on lactulose and Xifaxan. Source of fever unclear but may be genitourinary with urinalysis results noted. Also consider lung source. Antibiotic spectrum has been broadened with Levaquin added. Cultures pending. 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 She has had no fever in over 24 hours with adjustment of IV antibiotics. Blood and urine cultures negative so far. Continue empiric antibiotics for now. With no bowel movements in over 36 hours, will give an extra dose of lactulose today. She needs to have at least 2 soft bowel movements daily. She is also on Xifaxan. 01/10 has had exacerbation of encephalopathy related to constipation. This appears improved with increase lactulose therapy. Renal function appears to have stabilized with creatinine in the 4.3 range. Plan to probably discontinue nasogastric tube this evening if mental status remains improved. Continue lactulose by mouth titrated to 2 or 3 stools per day. Also continue Xifaxan. 01/11 patient still with mild encephalopathy symptoms. She has had excessive bowel movements in the last 24 hours with high-dose lactulose. Will decrease dose some and continue Xifaxan. Repeat electrolytes tomorrow morning. Avoid sedative hypnotic medications. Current Visit: No (2) Hepatorenal syndrome Status: Acute Assessment and plan: Creatinine has increased from 1.8-2.0 since admission with increased diuresis. I am going to hold her Aldactone and Lasix for now and continue albumin. Continue daily BMP level. Potassium 2.9 and replacing this. Current Visit: No Gastroenterology - PN: Subj Interval history: Patient awake and slightly confused. Has had 4 bowel movements today according to nurses and had multiple bowel movements last night. She has remained afebrile for the last few days. She denies complaints including abdominal pain or shortness of breath. Electrolytes not done today. Exam (Progress Note) - Constitutional Vitals: Period Temp Pulse Resp BP Sys/Pastor Pulse Ox Last 24 Hr 97.1 F-98.2 F 62-93 17-20 100-142/54-87 92-99 General appearance: no acute distress - Head Head exam: Present: normocephalic, atraumatic - Eye Eye exam: Present: scleral icterus - Respiratory Respiratory exam: Present: decreased breath sounds (Right lung base) - Cardiovascular Cardiovascular exam: Present: regular rate and rhythm. Absent: gallop, rubs - GI/Abdominal GI/Abdominal exam: Present: normal bowel sounds, distended, soft. Absent: tenderness - Extremities Exam Extremities exam: Present: edema - Neurological Exam Neurological exam: Present: alert, CN II-XII intact. Absent: motor sensory deficit - Skin Skin exam: Present: warm, dry Results - Labs CBC & BMP: 01/06/17 04:39 01/10/17 05:55
[2017-01-12 06:05] LABS: Basophils # 0.1 10*3/uL (0.0-0.2); Eosinophils # 0.4 10*3/uL (0.0-0.87); Eosinophils % 4.4 % (0.00-10.9); Hematocrit 30.1 VOL% (35.7-47.0); Hemoglobin 9.9 GM/DL (12.0-16.0); Immature Granulocytes % 0.2 %; Immature Granulocytes Absolute 0.02 #; Lymphocytes # 2.6 10*3/uL (1.4-4.0); Lymphocytes % 31.8 % (21.3-54.2); Mean Corpuscular HGB Conc 32.9 GM/DL (32-36); Mean Corpuscular Hemoglobin 31 PG (27-34); Mean Corpuscular Volume 93.5 FL (87-102); Mean Platelet Volume 10.9 FL (9.6-12.0); Monocytes # 0.9 10*3/uL (0.11-0.8); Monocytes % 10.8 % (1.7-12.7); Neutrophils # 4.2 10*3/uL (1.4-7.4); Neutrophils % 51.8 % (38.7-73.9); Platelet Count 101 T/CUMM (130-400); Red Blood Count 3.22 MC/CUMM (3.8-5.5); Red Cell Distribution Width 21.3 % (9.3-17.3); White Blood Count 8.1 T/CUMM (4-12)
[2017-01-12 06:40] LABS: Calcium 10.2 MG/DL (8.5-10.1); Osmolality,Calculated 294.5 MOS/KG (273-304); Potassium 3.2 MMOL/L (3.5-5.1)
--- NOTE | 2017-01-12 07:05 | Nephrology Progress Note ---
Nephrology - PN: Subj Interval history: Patient denies shortness of breath. Review of systems GI she denies nausea or vomiting, she states she ate well however her daughter in the room states she does not think the patient need anything yesterday. Physical exam general the patient is chronically ill-appearing, heart is regular rate and rhythm, she has trace pretibial edema, lungs are clear to auscultation anteriorly, abdomen is soft with positive bowel sounds Assessment/plan 1. Volume overload-this patient's weight is down 14 KGs from yesterday?, Overall her volume status is much improved, will continue her diuretics 2. Metabolic alkalosis-believes some of this is related to her diuretics but also some related to her tendency for respiratory acidosis based on her previous ABGs. 3. Acute renal failure-patient's creatinine has been stable past week or so around 4.4 mg/dL. 4. Hypokalemia-I am going to put her on a maintenance dose of potassium chloride 20 mEq twice daily Exam (PN)-Nephrology - Vital Signs Vital signs: Period Temp Pulse Resp BP Sys/Pastor Pulse Ox Last 24 Hr 97.1 F-98.8 F 62-93 17-20 98-142/53-87 90-99 - Lab 01/12/17 04:38 01/12/17 04:38 Most recent lab results ABG pH 7.407 (7.35-7.45) 01/02/17 02:38 ABG pCO2 58.8 MM HG (35-48) H 01/02/17 02:38 ABG pO2 61.1 MM HG (80-95) L 01/02/17 02:38 ABG HCO3 34.3 MMOL/L (20-26) H 01/02/17 02:38 ABG O2 Saturation 91.3 % (95-100) L 01/02/17 02:38 Calcium 10.2 MG/DL (8.5-10.1) H 01/12/17 04:38 Phosphorus 3.6 MG/DL (2.5-4.9) 01/10/17 05:55 Magnesium 2.0 MG/DL (1.8-2.4) 01/09/17 05:28 Assessment and Plan (1) REBECCA (acute kidney injury) Status: Acute Assessment and plan: This patient is developing acute renal failure again, her Lasix and spironolactone are being held. I think with her marked fluid overload will eventually have to restart these. I'm going to put her back on midodrine and vasopressin as she was previously to try and improve her kidney perfusion. Current Visit: Yes (2) Anemia Status: Acute Current Visit: Yes (3) CHF (congestive heart failure) Status: Acute Current Visit: Yes (4) Hypokalemia Status: Resolved Assessment and plan: Continue replacement Current Visit: Yes (5) Anasarca Status: Chronic Current Visit: No (6) COPD (chronic obstructive pulmonary disease) Status: Chronic Current Visit: No (7) Hepatorenal syndrome Status: Acute Current Visit: No (8) Alcoholic cirrhosis Status: Chronic Current Visit: No
--- NOTE | 2017-01-12 07:21 | Pulmonology Progress Note ---
Pulmonary - PN: Subj Interval history: This 56-year-old white female has severe alcoholic cirrhosis. She has hepatorenal syndrome. She has a hepatic hydrothorax. Also has some congestive heart failure. She has had 4 thoracenteses. She is getting diuretics and salt poor albumin and octreotide. Also on rifaximin mean and Chronulac. Her mental status is fairly good despite an elevated ammonia level. Her renal function has stabilized with creatinine around 4.4. We do not seem to be able to make any advances as far as getting the fluid off over. I am continuing to follow her pleural effusions to see if and when she needs tapping again. Exam (Progress Note) - Constitutional Vitals: Period Temp Pulse Resp BP Sys/Pastor Pulse Ox Last 24 Hr 97.1 F-98.8 F 62-93 17-20 98-142/53-87 90-99 Exam: She is alert, vital signs normal. O2 sat 93% on room air. Pupils react to light. She does have some jaundice. Throat is clear. Neck supple no bruits. Chest reveals dullness 1/4 up on the right side a few rales bilaterally. Heart normal rate and rhythm no murmurs. Abdomen soft nontender no masses. Liver is palpably enlarged. Extremities she has 3+ edema. She does have ascites. Calves are nontender. Results - Labs CBC & BMP: 01/12/17 04:38 01/12/17 04:38 Lab Results: I have reviewed the past 24 hour labs Assessment and Plan (1) Hepatic encephalopathy Status: Acute Assessment and plan: Patient's ammonia level was 116. Being addressed with Chronulac. 12/28/2016 continuing with Chronulac. Monitor ammonia level. 12/29/2016 she is a little drowsy but arousable and carries on a good conversation. 12/30/16 mental status a little better today. 12/31/2016 she is more sluggish today. Defer to gastroenterology. 01/01/2017 more sluggish, ammonia level higher 01/02/2017 ammonia is down from around 200 to around 100 and she is more alert. 01/03/2017 she is more alert. Defer to GI. 01/04/2017 a little more thick tongue today. 01/05/2017 patient more alert today. 01/06/2017 continuing treatment for hepatic encephalopathy 01/07/2017 patient responsive but a little sluggish. 01/10/2017 seems a little more responsive than Tuesday. 01/11/2017 a little more responsive. Ammonia level around 100. Defer to GI. 01/12/2017 patient able to answer questions and seems oriented. Current Visit: No (2) Pleural effusion on right Status: Chronic Assessment and plan: She has a moderate right pleural effusion. She is not in respiratory distress. If it gets worse we can tap her. This is best handled with diuretics, salt poor albumin, and possibly a TIPS procedure. 12/28/2016 chest x-ray pending. With concern about using diuretics she may require thoracentesis. 12/29/2016 effusion has increased to the point where she needs thoracentesis. She has renal insufficiency with creatinine 2.3. We really not able to get the fluid off with diuretics. A TIPS procedure has been addressed with her earlier. 12/30/16 trying to address the pleural effusion with diuretics. We have tapped off 1800 mL yesterday. It appears to be slowly recurring. 12/31/2016 she has had recurrent thoracenteses. It continues to recur. She has a hepatic hydrothorax. 01/01/2017 right pleural effusion has increased in size. This is a hepatic hydrothorax. We could consider a pleural catheter to drain it more easily. Do not usually like to do this with a hepatic hydrothorax but may be helpful in her case. 01/02/2017 watching the effusion from now. If she gets dialysis in the next day or 2 should be able to offload that way. If she gets into respiratory distress we can tap her before then. 01/03/2017 we will re-x-ray her tomorrow. Decide after that about management. 01/04/2017 right pleural effusion is very large. She is too weak to sit up to do a thoracentesis so I will ask interventional radiology to do one with an ultrasound 01/05/2017 x-ray much better after right thoracentesis yesterday. We are continuing to do this as a temporizing measure. Long-term decision needs to be made about dialysis. 01/06/2017 recheck x-ray tomorrow. Quite sure the effusion will recur over time 01/07/2017 does not need thoracentesis today. 01/10/2017 modest effusion, does not require thoracentesis at this point. 01/11/2017 pleural effusions are stable. 01/12/2017 she is not short of breath at present. Recheck x-ray in a couple of days. Current Visit: No (3) Ascites Status: Chronic Assessment and plan: Related to her cirrhosis. 12/28/2016 she has ascites but she is not tense. Current Visit: No (4) Hepatic cirrhosis Status: Chronic Assessment and plan: This is of course her underlying problem. Defer to GI. 12/29/2016 this is the underlying cause for her pleural effusion and edema. 12/30/16 alcoholic cirrhosis is her primary problem. 12/31/2016 again defer to gastroenterology. 01/01/2017 she has alcoholic cirrhosis and end-stage. Defer to gastroenterology as to the next step. She has been about 2 months since her last drink of alcohol. Would not be a candidate for transplant at this point to my knowledge. 01/02/2017 she has alcoholic cirrhosis. Has not had alcohol in about 2 months. Plan for setting her up to look at a liver transplant. 01/03/2017 hope to get her where she can have a liver transplant in a few months. 01/04/2017 defer to GI 01/05/2017 likely would be candidate for liver transplant in about 4 months. Has been a little over 2 months since she had her last alcoholic beverage. 01/07/2017 hopefully can get on the list for liver transplant in time. 01/10/2017 followed by GI. 01/12/2017 end-stage cirrhosis. We do not seem to be making any progress. Basically holding her own with renal function and encephalopathy. Current Visit: No Qualifiers: Hepatic cirrhosis type: alcoholic cirrhosis Ascites presence: with ascites Qualified Code(s): K70.31 - Alcoholic cirrhosis of liver with ascites
[2017-01-12] MEDS: ALBUTEROL 2.5 MG/3 ML NEB RESP TX SCH ×3 (07:33→15:03)
[2017-01-12] MEDS: DESITIN 4OZ/NYSTATIN 15 GRAM MIXTURE PASTE TOP SCH ×2 (09:30→21:20)
[2017-01-12] MEDS: NYSTATIN POWDER 15 GM BOTTLE TOP SCH ×3 (09:30→21:21)
[2017-01-12] MEDS: FUROSEMIDE INJ 100 MG in SODIUM CHLORIDE 0.9% 50 ML IV SCH ×3 (10:02→21:18)
[2017-01-12] MEDS: LEVOFLOXACIN INJ 250 MG in PREMIX 1 EACH IV SCH (10:08)
[2017-01-12] MEDS: MUPIROCIN 2% OINT 22 GM TUBE TOP SCH ×2 (10:15→21:20)
[2017-01-12] MEDS: MULTIVITAMIN (CENTRUM) TABLET PO SCH (10:15)
[2017-01-12] MEDS: SPIRONOLACTONE 50 MG TABLET PO SCH (10:15)
[2017-01-12] MEDS: METOPROLOL TARTRATE 100 MG TABLET PO SCH ×2 (10:16→21:19)
[2017-01-12] MEDS: GABAPENTIN 300 MG CAPSULE PO SCH ×4 (10:16→21:19)
[2017-01-12] MEDS: POTASSIUM CHLORIDE 20 MEQ TABLET PO SCH ×2 (10:17→21:19)
[2017-01-12] MEDS: RIFAXIMIN 550 MG TABLET PO SCH ×2 (10:17→21:20)
[2017-01-12] MEDS: metOLazone 5 MG TABLET PO SCH (10:17)
[2017-01-12] MEDS: PANTOPRAZOLE 40 MG TABLET PO SCH (10:17)
[2017-01-12] MEDS: LACTULOSE 20 GM/30 ML UDCUP PO SCH ×3 (10:19→21:19)
[2017-01-12] MEDS: OCTREOTIDE 100 MCG/ML SYRINGE SUBCUT SCH ×3 (10:33→21:18)
[2017-01-12] MEDS: MIDODRINE 5 MG TABLET PO SCH ×3 (12:48→21:19)
--- NOTE | 2017-01-12 14:03 | Gastrointestinal Progress Note ---
Assessment and Plan (1) Alcoholic cirrhosis Status: Chronic Assessment and plan: Patient has advanced chronic liver disease. She has abstained from alcohol for approximately 5 weeks now. She is not a candidate for liver transplant for now with her recent alcohol use. Increase lactulose today with her lack of bowel movements and recent hepatic encephalopathy episode. 01/06 patient remains significantly ill with end-stage liver disease. Encephalopathy appears controlled at present on lactulose and Xifaxan. Source of fever unclear but may be genitourinary with urinalysis results noted. Also consider lung source. Antibiotic spectrum has been broadened with Levaquin added. Cultures pending. 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 She has had no fever in over 24 hours with adjustment of IV antibiotics. Blood and urine cultures negative so far. Continue empiric antibiotics for now. With no bowel movements in over 36 hours, will give an extra dose of lactulose today. She needs to have at least 2 soft bowel movements daily. She is also on Xifaxan. 01/10 has had exacerbation of encephalopathy related to constipation. This appears improved with increase lactulose therapy. Renal function appears to have stabilized with creatinine in the 4.3 range. Plan to probably discontinue nasogastric tube this evening if mental status remains improved. Continue lactulose by mouth titrated to 2 or 3 stools per day. Also continue Xifaxan. 01/11 patient still with mild encephalopathy symptoms. She has had excessive bowel movements in the last 24 hours with high-dose lactulose. Will decrease dose some and continue Xifaxan. Repeat electrolytes tomorrow morning. Avoid sedative hypnotic medications. 01/12 56-year-old female with end-stage liver disease has persistent mild hepatic encephalopathy symptoms. She has had 4 bowel movements in the last 24 hours but none so far today. Creatinine up slightly to 4.4 today. Her weight is stable. She is not symptomatic from her hepatic hydrothorax at present but has been requiring intermittent thoracentesis for palliation. She remains significantly ill with complications from her liver disease. Continue lactulose titrated to bowel movements and Xifaxan. Current Visit: No (2) Hepatorenal syndrome Status: Acute Assessment and plan: Creatinine has increased from 1.8-2.0 since admission with increased diuresis. I am going to hold her Aldactone and Lasix for now and continue albumin. Continue daily BMP level. Potassium 2.9 and replacing this. Current Visit: No Gastroenterology - PN: Subj Interval history: Patient more alert today but family states still intermittently confused. She denies shortness of breath, abdominal pain or nausea. She ate lunch fairly well today with good appetite. Exam (Progress Note) - Constitutional Vitals: Period Temp Pulse Resp BP Sys/Pastor Pulse Ox Last 24 Hr 97.9 F-98.8 F 74-94 15-20 97-112/53-64 90-97 General appearance: no acute distress - Head Head exam: Present: normocephalic, atraumatic - Eye Eye exam: Present: scleral icterus - Respiratory Respiratory exam: Present: decreased breath sounds (Right lower lung field). Absent: wheezes - Cardiovascular Cardiovascular exam: Present: regular rate and rhythm. Absent: gallop, rubs - GI/Abdominal GI/Abdominal exam: Present: normal bowel sounds, distended, soft. Absent: tenderness - Extremities Exam Extremities exam: Present: edema - Neurological Exam Neurological exam: Present: alert, oriented X3, CN II-XII intact. Absent: motor sensory deficit - Psychiatric Psychiatric exam: Present: flat affect - Skin Skin exam: Present: warm, dry Results - Labs CBC & BMP: 01/12/17 04:38 01/12/17 04:38 Lab Results: I have reviewed the past 24 hour labs
--- NOTE | 2017-01-12 14:20 | Hospitalist Progress Note ---
Assessment and Plan (1) Hepatic encephalopathy Status: Acute Assessment and plan: Check ammonia level in the morning again. Continue current management avoid hypovolemia and infection Current Visit: Yes (2) Ascites Status: Chronic Assessment and plan: Stable at this point (note tense ascites). Remove the NG tube from the patient Current Visit: No (3) Anemia of chronic disease Status: Chronic Assessment and plan: Continue to observe for any drop in hematocrit. This patient may be at risk for GI bleeding Current Visit: No (4) Hepatorenal syndrome Status: Acute Current Visit: No (5) Physical debility Status: Acute Assessment and plan: Patient will need continued physical therapy here have case management involved for arranging for correction facility. Discharge should be evident at this point. This patient has been new since 26 December. Current Visit: Yes Hospitalist: Subjective Interval history: She has been seen and examined chart has been reviewed. She is much more awake today but still of reduced cognitive activity. In the hospital with a hepatic encephalopathy patient has been in the hospital for a long time she is very debilitated she will need physical therapy more than likely with referral to a correction facility. I discussed this with her and she is willing to do that at this point case management need to be involved in trying to arrange where we can get her. More than likely she may end up on the [facility]. Is been in the hospital since the 26 of December with a history of acute kidney injury on top of the liver problems congestive heart failure and fluid overload. Patient was in hepatorenal syndrome at presentation. Her labs today show a creatinine of 4.4 sodium 139 potassium is 3.2. We will have to check magnesium effects of this hypokalemia. White count is normal at 8.1. Machine differential is unremarkable fasting and postprandial glucose seemed to be optimal suggesting appropriate group gluconeogenesis Exam - Constitutional Vitals: Period Temp Pulse Resp BP Sys/Pastor Pulse Ox Last 24 Hr 97.9 F-98.8 F 74-94 15-20 97-112/53-64 90-97 General appearance: over weight - Head Head exam: Present: normal inspection - Eye Eye exam: Present: EOMI, other (Anicteric sclera no conjunctival petechiae) Pupils: Present: PAPITO - ENT ENT exam: Present: normal oropharynx - Neck Neck exam: Present: normal inspection - Respiratory Respiratory exam: Present: clear to auscultation bilaterally, other (Normal respiratory excursions there is no wheezing no rhonchi no rales) - Cardiovascular Cardiovascular exam: Present: irregular rhythm (She has an occasional ectopy no murmurs no gallops no pericardial rub) - GI/Abdominal GI/Abdominal exam: Present: ascites, other (No guarding) - Extremities Exam Extremities exam: Present: other (Generalized weakness no change to range of motion exam) - Psychiatric Psychiatric exam: Present: other (Subdued affect) - Skin Skin exam: Present: normal color, warm, dry Results - Labs CBC & BMP: 01/12/17 04:38 01/12/17 04:38 Lab Results: I have reviewed the past 24 hour labs (Stable anemia 9.1 kalemia of 3.2 BUN of 6400 creatinine of 4.4)
[2017-01-13] MEDS: ALBUTEROL 2.5 MG/3 ML NEB RESP TX SCH ×5 (00:48→19:59)
--- NOTE | 2017-01-13 07:29 | Pulmonology Progress Note ---
Pulmonary - PN: Subj Interval history: This 56-year-old white female has severe alcoholic cirrhosis. She has hepatorenal syndrome. She has a hepatic hydrothorax. Also has some congestive heart failure. She has had 4 thoracenteses. She is getting diuretics and salt poor albumin and octreotide. Also on rifaximin mean and Chronulac. Her mental status is fairly good despite an elevated ammonia level. Her renal function has stabilized with creatinine around 4.4. We do not seem to be able to make any advances as far as getting the fluid off over. I am continuing to follow her pleural effusions to see if and when she needs tapping again. 01/13/2017 she has no new complaints. Denies dyspnea. Sleeping better. Mental status improved. Recheck chemistries and chest x-ray in the morning. Lady with severe cirrhosis and hepatic hydrothorax that were following after recurrent thoracenteses. Acute on chronic renal failure. Exam (Progress Note) - Constitutional Vitals: Period Temp Pulse Resp BP Sys/Pastor Pulse Ox Last 24 Hr 97.1 F-98.4 F 72-94 13-18 94-118/52-69 90-97 Exam: She is alert, vital signs normal. O2 sat 93% on room air. Pupils react to light. She does have some jaundice. Throat is clear. Neck supple no bruits. Chest reveals dullness 1/4 up on the right side a few rales bilaterally. Heart normal rate and rhythm no murmurs. Abdomen soft nontender no masses. Liver is palpably enlarged. Extremities she has 3+ edema. She does have ascites. Calves are nontender. Little change from yesterday. Results - Labs CBC & BMP: 01/12/17 04:38 01/12/17 04:38 Lab Results: I have reviewed the past 24 hour labs Assessment and Plan (1) Hepatic encephalopathy Status: Acute Assessment and plan: Patient's ammonia level was 116. Being addressed with Chronulac. 12/28/2016 continuing with Chronula. Monitor ammonia level. 12/29/2016 she is a little drowsy but arousable and carries on a good conversation. 12/30/16 mental status a little better today. 12/31/2016 she is more sluggish today. Defer to gastroenterology. 01/01/2017 more sluggish, ammonia level higher 01/02/2017 ammonia is down from around 200 to around 100 and she is more alert. 01/03/2017 she is more alert. Defer to GI. 01/04/2017 a little more thick tongue today. 01/05/2017 patient more alert today. 01/06/2017 continuing treatment for hepatic encephalopathy 01/07/2017 patient responsive but a little sluggish. 01/10/2017 seems a little more responsive than Tuesday. 01/11/2017 a little more responsive. Ammonia level around 100. Defer to GI. 01/12/2017 patient able to answer questions and seems oriented. 01/13/2017 mental status is a little better on current medications. Current Visit: No (2) Pleural effusion on right Status: Chronic Assessment and plan: She has a moderate right pleural effusion. She is not in respiratory distress. If it gets worse we can tap her. This is best handled with diuretics, salt poor albumin, and possibly a TIPS procedure. 12/28/2016 chest x-ray pending. With concern about using diuretics she may require thoracentesis. 12/29/2016 effusion has increased to the point where she needs thoracentesis. She has renal insufficiency with creatinine 2.3. We really not able to get the fluid off with diuretics. A TIPS procedure has been addressed with her earlier. 12/30/16 trying to address the pleural effusion with diuretics. We have tapped off 1800 mL yesterday. It appears to be slowly recurring. 12/31/2016 she has had recurrent thoracenteses. It continues to recur. She has a hepatic hydrothorax. 01/01/2017 right pleural effusion has increased in size. This is a hepatic hydrothorax. We could consider a pleural catheter to drain it more easily. Do not usually like to do this with a hepatic hydrothorax but may be helpful in her case. 01/02/2017 watching the effusion from now. If she gets dialysis in the next day or 2 should be able to offload that way. If she gets into respiratory distress we can tap her before then. 01/03/2017 we will re-x-ray her tomorrow. Decide after that about management. 01/04/2017 right pleural effusion is very large. She is too weak to sit up to do a thoracentesis so I will ask interventional radiology to do one with an ultrasound 01/05/2017 x-ray much better after right thoracentesis yesterday. We are continuing to do this as a temporizing measure. Long-term decision needs to be made about dialysis. 01/06/2017 recheck x-ray tomorrow. Quite sure the effusion will recur over time 01/07/2017 does not need thoracentesis today. 01/10/2017 modest effusion, does not require thoracentesis at this point. 01/11/2017 pleural effusions are stable. 01/12/2017 she is not short of breath at present. Recheck x-ray in a couple of days. 01/13/2017 repeat chest x-ray tomorrow. Does not appear to be in respiratory distress. Current Visit: No (3) Ascites Status: Chronic Assessment and plan: Related to her cirrhosis. 12/28/2016 she has ascites but she is not tense. 01/13/2017 she has ascites and clearly an enlarged liver. No real change in abdominal exam. Current Visit: No (4) Hepatic cirrhosis Status: Chronic Assessment and plan: This is of course her underlying problem. Defer to GI. 12/29/2016 this is the underlying cause for her pleural effusion and edema. 12/30/16 alcoholic cirrhosis is her primary problem. 12/31/2016 again defer to gastroenterology. 01/01/2017 she has alcoholic cirrhosis and end-stage. Defer to gastroenterology as to the next step. She has been about 2 months since her last drink of alcohol. Would not be a candidate for transplant at this point to my knowledge. 01/02/2017 she has alcoholic cirrhosis. Has not had alcohol in about 2 months. Plan for setting her up to look at a liver transplant. 01/03/2017 hope to get her where she can have a liver transplant in a few months. 01/04/2017 defer to GI 01/05/2017 likely would be candidate for liver transplant in about 4 months. Has been a little over 2 months since she had her last alcoholic beverage. 01/07/2017 hopefully can get on the list for liver transplant in time. 01/10/2017 followed by GI. 01/12/2017 end-stage cirrhosis. We do not seem to be making any progress. Basically holding her own with renal function and encephalopathy. 01/13/2017 end-stage cirrhosis. Patient will need liver transplant when she is eligible. Trying to keep her renal function intact and pleural effusions controlled until that time Current Visit: No Qualifiers: Hepatic cirrhosis type: alcoholic cirrhosis Ascites presence: with ascites Qualified Code(s): K70.31 - Alcoholic cirrhosis of liver with ascites
[2017-01-13] MEDS: OCTREOTIDE 100 MCG/ML SYRINGE SUBCUT SCH ×3 (08:27→21:20)
[2017-01-13] MEDS: FUROSEMIDE INJ 100 MG in SODIUM CHLORIDE 0.9% 50 ML IV SCH (08:27)
[2017-01-13] MEDS: MIDODRINE 5 MG TABLET PO SCH ×3 (08:28→21:20)
[2017-01-13] MEDS: GABAPENTIN 300 MG CAPSULE PO SCH ×2 (08:28→13:36)
[2017-01-13] MEDS: NYSTATIN POWDER 15 GM BOTTLE TOP SCH ×3 (08:28→21:20)
[2017-01-13] MEDS: SPIRONOLACTONE 50 MG TABLET PO SCH (08:28)
[2017-01-13] MEDS: RIFAXIMIN 550 MG TABLET PO SCH ×2 (08:28→21:20)
[2017-01-13] MEDS: POTASSIUM CHLORIDE 20 MEQ TABLET PO SCH (08:28)
[2017-01-13] MEDS: metOLazone 5 MG TABLET PO SCH (08:28)
[2017-01-13] MEDS: MULTIVITAMIN (CENTRUM) TABLET PO SCH (08:28)
[2017-01-13] MEDS: PANTOPRAZOLE 40 MG TABLET PO SCH (08:28)
[2017-01-13] MEDS: LACTULOSE 20 GM/30 ML UDCUP PO SCH ×3 (08:29→21:19)
[2017-01-13] MEDS: DESITIN 4OZ/NYSTATIN 15 GRAM MIXTURE PASTE TOP SCH ×2 (08:29→21:20)
[2017-01-13] MEDS: METOPROLOL TARTRATE 100 MG TABLET PO SCH ×2 (08:29→21:20)
[2017-01-13] MEDS: MUPIROCIN 2% OINT 22 GM TUBE TOP SCH ×2 (08:29→21:20)
--- NOTE | 2017-01-13 11:04 | Nephrology Progress Note ---
Nephrology - PN: Subj Interval history: Patient feels better today. She denies shortness of breath. Review of systems GI she had a little bit yesterday she has not touched her breakfast this morning. Physical exam general the patient is chronically ill-appearing, she has no pitting edema, her weight is down 2 KGs from yesterday (reliable?) Assessment/plan 1. Acute renal failure-patient's creatinine is stabilized around 4-1/2 mg/dL we will continue to monitor this 2. Volume overload-patient's volume status seems to have stabilized on the current diuretic regimen 3. Liver cirrhosis 4. Altered mental status-this patient seems a little more clear and coherent this morning. Exam (PN)-Nephrology - Vital Signs Vital signs: Period Temp Pulse Resp BP Sys/Pastor Pulse Ox Last 24 Hr 97.1 F-98.1 F 70-90 13-22 94-118/52-71 90-97 - Lab 01/12/17 04:38 01/12/17 04:38 Most recent lab results ABG pH 7.407 (7.35-7.45) 01/02/17 02:38 ABG pCO2 58.8 MM HG (35-48) H 01/02/17 02:38 ABG pO2 61.1 MM HG (80-95) L 01/02/17 02:38 ABG HCO3 34.3 MMOL/L (20-26) H 01/02/17 02:38 ABG O2 Saturation 91.3 % (95-100) L 01/02/17 02:38 Calcium 10.2 MG/DL (8.5-10.1) H 01/12/17 04:38 Phosphorus 3.6 MG/DL (2.5-4.9) 01/10/17 05:55 Magnesium 2.0 MG/DL (1.8-2.4) 01/09/17 05:28 Assessment and Plan (1) REBECCA (acute kidney injury) Status: Acute Assessment and plan: This patient is developing acute renal failure again, her Lasix and spironolactone are being held. I think with her marked fluid overload will eventually have to restart these. I'm going to put her back on midodrine and vasopressin as she was previously to try and improve her kidney perfusion. Current Visit: Yes (2) Anemia Status: Acute Current Visit: Yes (3) CHF (congestive heart failure) Status: Acute Current Visit: Yes (4) Hypokalemia Status: Resolved Assessment and plan: Continue replacement Current Visit: Yes (5) Anasarca Status: Chronic Current Visit: No (6) COPD (chronic obstructive pulmonary disease) Status: Chronic Current Visit: No (7) Hepatorenal syndrome Status: Acute Current Visit: No (8) Alcoholic cirrhosis Status: Chronic Current Visit: No
[2017-01-13] MEDS: ONDANSETRON 4 MG/2 ML VIAL IV PRN (11:09)
--- NOTE | 2017-01-13 15:38 | Hospitalist Progress Note ---
Assessment and Plan (1) Alkalosis Status: Acute Assessment and plan: Likely due to diuretics with intravascular volume depletion will hold her metolazone and loop diuretics also and the restart at a lower dose after close monitoring. Current Visit: Yes (2) REBECCA (acute kidney injury) Status: Acute Assessment and plan: Unlikely due to diuretics and liver cirrhosis. Will hold diuretic and watch. Will need to adjust medication for the GFR. I'll hold gabapentin as patient has been on relatively high-dose of gabapentin at present Current Visit: Yes (3) Physical debility Status: Acute Current Visit: Yes (4) Hepatic encephalopathy Status: Acute Assessment and plan: Patient is alert at present although weak due to physical disability Current Visit: Yes Hospitalist: Subjective Interval history: Ms. Greco is a 56 year old female past medical history of diastolic heart failure acute dyspnea, anasarca, atrial fibrillation with RVR, pleural effusion , COPD, hepatic cirrhosis and history of alcoholism admitted with dyspnea and s/ p right thoracentesis multiple times. Patient has been on diuretics. She also has a worsening renal function over the last month or so. Subjectively she has had any symptom is afebrile Exam - Constitutional Vitals: Period Temp Pulse Resp BP Sys/Pastor Pulse Ox Last 24 Hr 97.1 F-97.9 F 70-95 13-22 94-118/52-71 90-97 General appearance: other (chronically ill-looking) - Respiratory Respiratory exam: Present: clear to auscultation bilaterally (decreased air entry right side compared to left). Absent: rales, rhonchi - Cardiovascular Cardiovascular exam: Present: regular rate and rhythm. Absent: tachycardia - GI/Abdominal GI/Abdominal exam: Present: soft. Absent: normal bowel sounds, distended, tenderness - Extremities Exam Extremities exam: Absent: edema Results - Labs CBC & BMP: 01/12/17 04:38 01/12/17 04:38 Lab Results: I have reviewed the past 24 hour labs
--- NOTE | 2017-01-14 06:44 | Pulmonology Progress Note ---
Pulmonary - PN: Subj Interval history: This 56-year-old white female has severe alcoholic cirrhosis. She has hepatorenal syndrome. She has a hepatic hydrothorax. Also has some congestive heart failure. She has had 4 thoracenteses. She is getting diuretics and salt poor albumin and octreotide. Also on rifaximin mean and Chronulac. Her mental status is fairly good despite an elevated ammonia level. Her renal function has stabilized with creatinine around 4.4. We do not seem to be able to make any advances as far as getting the fluid off over. I am continuing to follow her pleural effusions to see if and when she needs tapping again. 01/13/2017 she has no new complaints. Denies dyspnea. Sleeping better. Mental status improved. Recheck chemistries and chest x-ray in the morning. Lady with severe cirrhosis and hepatic hydrothorax that were following after recurrent thoracenteses. Acute on chronic renal failure. 01/14/2017 once again today's chest x-ray does not show any increase in her pleural effusions. Her weight is down. Seems to be responding to current treatment. Needs close watch on renal function. Defer to nephrology. Last creatinine was 4.4. She has end-stage cirrhosis with apparent hepatorenal syndrome. Exam (Progress Note) - Constitutional Vitals: Period Temp Pulse Resp BP Sys/Pastor Pulse Ox Last 24 Hr 96.7 F-98.1 F 70-95 15- 105-122/65-77 90-100 Exam: She is alert, vital signs normal. O2 sat 93% on room air. Pupils react to light. She does have some jaundice. Throat is clear. Neck supple no bruits. Chest reveals dullness 1/4 up on the right side a few rales bilaterally. Heart normal rate and rhythm no murmurs. Abdomen soft nontender no masses. Liver is palpably enlarged. Extremities she has 3+ edema. She does have ascites. Calves are nontender. Results - Labs CBC & BMP: 01/12/17 04:38 01/12/17 04:38 - Diagnostic Findings Procedure: Chest x-ray: image reviewed by me (Modest bilateral pleural effusions. Actually looks a little bit less than yesterday.) Assessment and Plan (1) Hepatic encephalopathy Status: Acute Assessment and plan: Patient's ammonia level was 116. Being addressed with Chronulac. [facility] Monitor ammonia level. 12/29/2016 she is a little drowsy but arousable and carries on a good conversation. 12/30/16 mental status a little better today. 12/31/2016 she is more sluggish today. Defer to gastroenterology. 01/01/2017 more sluggish, ammonia level higher 01/02/2017 ammonia is down from around 200 to around 100 and she is more alert. 01/03/2017 she is more alert. Defer to GI. 01/04/2017 a little more thick tongue today. 01/05/2017 patient more alert today. 01/06/2017 continuing treatment for hepatic encephalopathy 01/07/2017 patient responsive but a little sluggish. 01/10/2017 seems a little more responsive than Tuesday. 01/11/2017 a little more responsive. Ammonia level around 100. Defer to GI. 01/12/2017 patient able to answer questions and seems oriented. 01/13/2017 mental status is a little better on current medications. 01/14/2017 mental status stable Current Visit: No (2) Pleural effusion on right Status: Chronic Assessment and plan: She has a moderate right pleural effusion. She is not in respiratory distress. If it gets worse we can tap her. This is best handled with diuretics, salt poor albumin, and possibly a TIPS procedure. 12/28/2016 chest x-ray pending. With concern about using diuretics she may require thoracentesis. 12/29/2016 effusion has increased to the point where she needs thoracentesis. She has renal insufficiency with creatinine 2.3. We really not able to get the fluid off with diuretics. A TIPS procedure has been addressed with her earlier. 12/30/16 trying to address the pleural effusion with diuretics. We have tapped off 1800 mL yesterday. It appears to be slowly recurring. 12/31/2016 she has had recurrent thoracenteses. It continues to recur. She has a hepatic hydrothorax. 01/01/2017 right pleural effusion has increased in size. This is a hepatic hydrothorax. We could consider a pleural catheter to drain it more easily. Do not usually like to do this with a hepatic hydrothorax but may be helpful in her case. 01/02/2017 watching the effusion from now. If she gets dialysis in the next day or 2 should be able to offload that way. If she gets into respiratory distress we can tap her before then. 01/03/2017 we will re-x-ray her tomorrow. Decide after that about management. 01/04/2017 right pleural effusion is very large. She is too weak to sit up to do a thoracentesis so I will ask interventional radiology to do one with an ultrasound 01/05/2017 x-ray much better after right thoracentesis yesterday. We are continuing to do this as a temporizing measure. Long-term decision needs to be made about dialysis. 01/06/2017 recheck x-ray tomorrow. Quite sure the effusion will recur over time 01/07/2017 does not need thoracentesis today. 01/10/2017 modest effusion, does not require thoracentesis at this point. 01/11/2017 pleural effusions are stable. 01/12/2017 she is not short of breath at present. Recheck x-ray in a couple of days. 01/13/2017 repeat chest x-ray tomorrow. Does not appear to be in respiratory distress. 01/14/2017 effusion is not increasing at this point. I will check back Tuesday and get another chest x-ray. Dr. Puckett available this if needed. Current Visit: No (3) Ascites Status: Chronic Assessment and plan: Related to her cirrhosis. 12/28/2016 she has ascites but she is not tense. 01/13/2017 she has ascites and clearly an enlarged liver. No real change in abdominal exam. Current Visit: No (4) Hepatic cirrhosis Status: Chronic Assessment and plan: This is of course her underlying problem. Defer to GI. 12/29/2016 this is the underlying cause for her pleural effusion and edema. 12/30/16 alcoholic cirrhosis is her primary problem. 12/31/2016 again defer to gastroenterology. 01/01/2017 she has alcoholic cirrhosis and end-stage. Defer to gastroenterology as to the next step. She has been about 2 months since her last drink of alcohol. Would not be a candidate for transplant at this point to my knowledge. 01/02/2017 she has alcoholic cirrhosis. Has not had alcohol in about 2 months. Plan for setting her up to look at a liver transplant. 01/03/2017 hope to get her where she can have a liver transplant in a few months. 01/04/2017 defer to GI 01/05/2017 likely would be candidate for liver transplant in about 4 months. Has been a little over 2 months since she had her last alcoholic beverage. 01/07/2017 hopefully can get on the list for liver transplant in time. 01/10/2017 followed by GI. 01/12/2017 end-stage cirrhosis. We do not seem to be making any progress. Basically holding her own with renal function and encephalopathy. 01/13/2017 end-stage cirrhosis. Patient will need liver transplant when she is eligible. Trying to keep her renal function intact and pleural effusions controlled until that time 01/14/2017 mental status is better and fluid status better. Watch renal function. Current Visit: No Qualifiers: Hepatic cirrhosis type: alcoholic cirrhosis Ascites presence: with ascites Qualified Code(s): K70.31 - Alcoholic cirrhosis of liver with ascites
[2017-01-14 07:02] LABS: Albumin 4.8 G/DL (3.4-5.0); Bilirubin,Total 5.7 MG/DL (0.2-1.0); Calcium 10.5 MG/DL (8.5-10.1); Osmolality,Calculated 291.8 MOS/KG (273-304); Potassium 3.6 MMOL/L (3.5-5.1); Total Protein 7.4 G/DL (6.4-8.3)
[2017-01-14] MEDS: ALBUTEROL 2.5 MG/3 ML NEB RESP TX SCH ×3 (08:18→20:01)
--- NOTE | 2017-01-14 08:53 | Nephrology Progress Note ---
Nephrology - PN: Subj Interval history: Patient denies shortness of breath. Review of systems GI she denies nausea or vomiting, she states she ate a little bit yesterday. Physical exam general patient is chronically ill-appearing, she has no pitting edema in her lower extremities Assessment/plan 1. Acute renal failure-patient's creatinine has been stable around 4.4 mg/dL the past week, she is thought to have acute renal injury related to hepatorenal syndrome. 2. Volume overload-this patient seems to be out of pretty good spot with regards to her volume presently. Her Lasix and metolazone are being held presently. This seems reasonable in light of her decreased p.o. intake. 3. Chloride depletion alkalosis-we will see how holding her diuretics helps with this. 4. Liver cirrhosis Exam (PN)-Nephrology - Vital Signs Vital signs: Period Temp Pulse Resp BP Sys/Pastor Pulse Ox Last 24 Hr 96.7 F-98.5 F 70-96 16-22 105-122/65-77 90-100 - Lab 01/12/17 04:38 01/14/17 05:24 Most recent lab results ABG pH 7.407 (7.35-7.45) 01/02/17 02:38 ABG pCO2 58.8 MM HG (35-48) H 01/02/17 02:38 ABG pO2 61.1 MM HG (80-95) L 01/02/17 02:38 ABG HCO3 34.3 MMOL/L (20-26) H 01/02/17 02:38 ABG O2 Saturation 91.3 % (95-100) L 01/02/17 02:38 Calcium 10.5 MG/DL (8.5-10.1) H 01/14/17 05:24 Phosphorus 3.6 MG/DL (2.5-4.9) 01/10/17 05:55 Magnesium 2.0 MG/DL (1.8-2.4) 01/09/17 05:28 Assessment and Plan (1) REBECCA (acute kidney injury) Status: Acute Assessment and plan: This patient is developing acute renal failure again, her Lasix and spironolactone are being held. I think with her marked fluid overload will eventually have to restart these. I'm going to put her back on midodrine and vasopressin as she was previously to try and improve her kidney perfusion. Current Visit: Yes (2) Anemia Status: Acute Current Visit: Yes (3) CHF (congestive heart failure) Status: Acute Current Visit: Yes (4) Hypokalemia Status: Resolved Assessment and plan: Continue replacement Current Visit: Yes (5) Anasarca Status: Chronic Current Visit: No (6) COPD (chronic obstructive pulmonary disease) Status: Chronic Current Visit: No (7) Hepatorenal syndrome Status: Acute Current Visit: No (8) Alcoholic cirrhosis Status: Chronic Current Visit: No
--- NOTE | 2017-01-14 09:17 | XRay Report ---
Portable chest Date: 01/14/2017 Clinical history: Cirrhosis, pleural effusions Comparison: 01/11/2017 Technique: Portable AP sitting chest Findings: Persistent cardiomegaly with interval removal of nasogastric tube. Reduced parenchymal findings with smaller pleural effusions. Degenerative changes are noted. Impression: Removal of the nasogastric tube. Improved CHF/pneumonitis with smaller bilateral pleural effusions. PROCEDURE INTERPRETED AT [facility] DEPARTMENT OF RADIOLOGY Final Report Signed by: Dr. Daiana Duarte
[2017-01-14] MEDS: SPIRONOLACTONE 50 MG TABLET PO SCH (09:41)
[2017-01-14] MEDS: METOPROLOL TARTRATE 100 MG TABLET PO SCH ×3 (09:42→22:32)
[2017-01-14] MEDS: NYSTATIN POWDER 15 GM BOTTLE TOP SCH ×3 (09:42→22:16)
[2017-01-14] MEDS: MIDODRINE 5 MG TABLET PO SCH ×3 (09:42→22:16)
[2017-01-14] MEDS: MULTIVITAMIN (CENTRUM) TABLET PO SCH (09:42)
[2017-01-14] MEDS: MUPIROCIN 2% OINT 22 GM TUBE TOP SCH ×2 (09:42→22:18)
[2017-01-14] MEDS: LACTULOSE 20 GM/30 ML UDCUP PO SCH ×3 (09:42→22:08)
[2017-01-14] MEDS: PANTOPRAZOLE 40 MG TABLET PO SCH (09:43)
[2017-01-14] MEDS: OCTREOTIDE 100 MCG/ML SYRINGE SUBCUT SCH ×3 (09:43→22:17)
[2017-01-14] MEDS: DESITIN 4OZ/NYSTATIN 15 GRAM MIXTURE PASTE TOP SCH ×2 (09:43→22:16)
[2017-01-14] MEDS: RIFAXIMIN 550 MG TABLET PO SCH ×2 (09:43→22:17)
[2017-01-14] MEDS: ONDANSETRON 4 MG/2 ML VIAL IV PRN (10:27)
--- NOTE | 2017-01-14 16:25 | Gastrointestinal Progress Note ---
Assessment and Plan (1) Alcoholic cirrhosis Status: Chronic Assessment and plan: Patient has advanced chronic liver disease. She has abstained from alcohol for approximately 5 weeks now. She is not a candidate for liver transplant for now with her recent alcohol use. Increase lactulose today with her lack of bowel movements and recent hepatic encephalopathy episode. 01/06 patient remains significantly ill with end-stage liver disease. Encephalopathy appears controlled at present on lactulose and Xifaxan. Source of fever unclear but may be genitourinary with urinalysis results noted. Also consider lung source. Antibiotic spectrum has been broadened with Levaquin added. Cultures pending. 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 She has had no fever in over 24 hours with adjustment of IV antibiotics. Blood and urine cultures negative so far. Continue empiric antibiotics for now. With no bowel movements in over 36 hours, will give an extra dose of lactulose today. She needs to have at least 2 soft bowel movements daily. She is also on Xifaxan. 01/10 has had exacerbation of encephalopathy related to constipation. This appears improved with increase lactulose therapy. Renal function appears to have stabilized with creatinine in the 4.3 range. Plan to probably discontinue nasogastric tube this evening if mental status remains improved. Continue lactulose by mouth titrated to 2 or 3 stools per day. Also continue Xifaxan. 01/11 patient still with mild encephalopathy symptoms. She has had excessive bowel movements in the last 24 hours with high-dose lactulose. Will decrease dose some and continue Xifaxan. Repeat electrolytes tomorrow morning. Avoid sedative hypnotic medications. 01/12 56-year-old female with end-stage liver disease has persistent mild hepatic encephalopathy symptoms. She has had 4 bowel movements in the last 24 hours but none so far today. Creatinine up slightly to 4.4 today. Her weight is stable. She is not symptomatic from her hepatic hydrothorax at present but has been requiring intermittent thoracentesis for palliation. She remains significantly ill with complications from her liver disease. Continue lactulose titrated to bowel movements and Xifaxan. 01/13 basically stable there remains significantly ill with complications from her advanced cirrhosis. Still has evidence of mild hepatic encephalopathy with adequate stooling on lactulose and also on Xifaxan. 01/14 56-year-old female with alcoholic cirrhosis complicated by hepatorenal syndrome, hepatic hydrothorax and hepatic encephalopathy has slowly continued clinical decline over the last couple of weeks. She has a very low threshold for developing increased encephalopathy especially if her bowels do not move for over 24 hours. She has developed marked alkalosis on diuretics and I would agree with holding them for now. She has required thoracentesis for symptomatic hydrothorax once or twice a week. Meld score is 33 which would meet criteria for liver transplantation but she has been abstinent from alcohol a little over 2 months. Her prognosis is very poor with 3 month survival statistically around 50%. Current Visit: No (2) Hepatorenal syndrome Status: Acute Assessment and plan: Creatinine has increased from 1.8-2.0 since admission with increased diuresis. I am going to hold her Aldactone and Lasix for now and continue albumin. Continue daily BMP level. Potassium 2.9 and replacing this. Current Visit: No Gastroenterology - PN: Subj Interval history: Patient somewhat sluggish mentation but improved. She denies any complaints. Had 1 bowel movement so far today. Her weight is stable. Exam (Progress Note) - Constitutional Vitals: Period Temp Pulse Resp BP Sys/Pastor Pulse Ox Last 24 Hr 96.7 F-98.5 F 68-96 16-19 105-119/71-77 93-100 General appearance: no acute distress, over weight - Head Head exam: Present: normocephalic, atraumatic - Eye Eye exam: Present: EOMI, scleral icterus - Respiratory Respiratory exam: Present: decreased breath sounds (Right lung field) - Cardiovascular Cardiovascular exam: Present: regular rate and rhythm. Absent: gallop, rubs - GI/Abdominal GI/Abdominal exam: Present: normal bowel sounds, distended, soft. Absent: tenderness - Extremities Exam Extremities exam: Present: edema. Absent: calf tenderness - Neurological Exam Neurological exam: Present: alert, oriented X3, CN II-XII intact - Psychiatric Psychiatric exam: Present: normal affect, normal mood - Skin Skin exam: Present: warm, dry Results - Labs CBC & BMP: 01/12/17 04:38 01/14/17 05:24 Lab Results: I have reviewed the past 24 hour labs
--- NOTE | 2017-01-14 16:39 | Hospitalist Progress Note ---
Assessment and Plan (1) Alkalosis Status: Acute Assessment and plan: Likely due to diuretics with intravascular volume depletion we'll continue to hold metolazone and loop diuretic. Patient is to have very high bicarbonate level but better than yesterday monitor volume status Current Visit: Yes (2) REBECCA (acute kidney injury) Status: Acute Assessment and plan: Likely due to diuretics and liver cirrhosis. Continue to l hold diuretic and watch. Dose of medicine for GFR. Gabapentin was discontinued . Patient hemodynamically stable and voiding . Nephrology following Current Visit: Yes (3) Physical debility Status: Acute Assessment and plan: need pt/ot Current Visit: Yes (4) Hepatic encephalopathy Status: Acute Assessment and plan: Patient is alert at present although weak due to physical disability Current Visit: Yes Hospitalist: Subjective Interval history: Ms. Greco is a 56 year old female past medical history of diastolic heart failure acute dyspnea, anasarca, atrial fibrillation with RVR, pleural effusion , COPD, hepatic cirrhosis and history of alcoholism admitted with dyspnea and s/ p right thoracentesis multiple times. Patient had been on diuretics stopped yesterday due to alkalosis and worsening renal function. Subjectively she has no fever shortness of breath. She does has some bouts of confusion noticed by staff nurse patient states she has poor memory Exam - Constitutional Vitals: Period Temp Pulse Resp BP Sys/Apstor Pulse Ox Last 24 Hr 96.7 F-98.5 F 68-96 16-19 105-119/71-77 93-100 General appearance: other (chronic ill-looking) - Respiratory Respiratory exam: Present: clear to auscultation bilaterally (decreases air entry right base). Absent: rales, rhonchi - Cardiovascular Cardiovascular exam: Present: regular rate and rhythm. Absent: tachycardia - GI/Abdominal GI/Abdominal exam: Present: normal bowel sounds, soft. Absent: tenderness - Extremities Exam Extremities exam: Absent: edema - Neurological Exam Neurological exam: Present: alert Results - Labs CBC & BMP: 01/12/17 04:38 01/14/17 05:24 Lab Results: I have reviewed the past 24 hour labs
[2017-01-15] MEDS: ALBUTEROL 2.5 MG/3 ML NEB RESP TX SCH ×5 (07:37→19:10)
--- NOTE | 2017-01-15 09:05 | Gastrointestinal Progress Note ---
Assessment and Plan (1) Alcoholic cirrhosis Status: Chronic Current Visit: No (2) Hepatorenal syndrome Status: Acute Current Visit: No (3) Hepatic encephalopathy Status: Acute Current Visit: No (4) Other specified counseling Status: Acute Current Visit: No Exam (Progress Note) - Constitutional Vitals: Period Temp Pulse Resp BP Sys/Pastor Pulse Ox Last 24 Hr 96.1 F-98.3 F 68-90 16-20 90-124/56-76 93-99 Results - Labs CBC & BMP: 01/12/17 04:38 01/14/17 05:24 Note Addendum: PLEASE NOTE -- automatic citation of patient information is unavoidable in this electronic note. I have made a reasonable effort to review the information cited , but it is not a part of my evaluation, impression, or recommendation unless specifically discussed in the dictated text that follows.~ As well, voice recognition software was used in the creation of this clinical note. Reasonable effort was made to identify and correct gross errors. Despite proofreading, errors in nursing home aide may be present, including nonsense verbiage at times. If you encounter such an error, please contact me at for discussion and correction. -- Reyes Chief complaint: alcoholic cirrhosis Subjective: the patient is a 56-year-old female seen for follow-up of hepatic cirrhosis with hepatorenal syndrome. She reports feeling about the same this morning. She is not having any nausea or vomiting. She has eaten a little bit and tolerating that without difficulty. She has had a bowel movement this morning. She is mildly confused. She is attended by her daughter Medications: albuterol, lactulose, Zaroxolyn, Lopressor, midodrine, octreotide, Protonix, potassium chloride, Rifaximin Review of Symptoms: 12 point review of symptoms was negative except as noted above Physical examination: Vital Signs:~ Current vital signs reviewed. General Appearance: the patient is lying in bed, comfortable, in no apparent distress. Head:~ Normocephalic. Eyes: positive scleral icterus. No scleral injection. No conjunctival pallor. Oral Cavity:~ Odor of breath was normal.~ No drooling was observed.~ Lips showed no abnormalities. ~ Lungs:~ Respiration rhythm and depth was normal. ~ Cardiovascular:~ Heart rate and rhythm were normal. ~ Abdomen: abdomen was protuberant due to obesity but not not distended. Abdominal auscultation revealed no abnormalities. Ascites was not clearly present. Abdominal palpation revealed no tenderness and no hepatosplenomegaly. Musculoskeletal System: musculoskeletal system was grossly normal. Neurological: level of consciousness was mildly somnolent. Speech was normal. No coordination/cerebellum abnormalities were noted. The patient was oriented to person and place but not to time. Skin: Gen. appearance was normal. Rosado was present. No skin lesions were appreciated. Laboratory: ALT 14, AST 45, total bilirubin 5.7, alkaline phosphatase 70, total protein 7.4, albumin 4.8, creatinine 4.4 Radiology: reviewed with no pertinent changes noted. Impressions: 1. Alcoholic cirrhosis -- the patient remains ill with poor prognosis. Mental status is waxing and waning with hepatic encephalopathy. Volume management is much better with periodic dialysis. Her best hope remains with transplant if she survives through the abstinence period. 2. Hepatorenal syndrome -- serum creatinine has remained stable with periodic dialysis. We are very appreciative to the nephrology service for their help in this regard. Diuretics are being held at present in hopes of improving the electrolyte pattern and associated symptoms. 2. Patient Counseling:~ Medical Management: Patient seen for greater than 30 minutes. Greater than 50% of this time was spent counseling regarding differential diagnosis, likely diagnosis,, diagnostic and therapeutic options, risks, benefits, and alternatives to procedures and medications, informed consent, and plan of care generally.~ Patient has expressed understanding and wishes to proceed. Recommendations: -- continued aggressive volume and electrolyte management -- continued supportive care otherwise -- Best hope lies with transplant if patient survives the abstinence period. -- We will continue to follow with you
[2017-01-15] MEDS: PANTOPRAZOLE 40 MG TABLET PO SCH (09:29)
[2017-01-15] MEDS: METOPROLOL TARTRATE 100 MG TABLET PO SCH ×2 (09:29→22:34)
[2017-01-15] MEDS: MIDODRINE 5 MG TABLET PO SCH ×3 (09:29→22:34)
[2017-01-15] MEDS: OCTREOTIDE 100 MCG/ML SYRINGE SUBCUT SCH ×3 (09:29→22:31)
[2017-01-15] MEDS: MULTIVITAMIN (CENTRUM) TABLET PO SCH (09:29)
[2017-01-15] MEDS: RIFAXIMIN 550 MG TABLET PO SCH ×2 (09:29→22:35)
[2017-01-15] MEDS: NYSTATIN POWDER 15 GM BOTTLE TOP SCH ×3 (09:30→22:34)
[2017-01-15] MEDS: MUPIROCIN 2% OINT 22 GM TUBE TOP SCH ×2 (09:30→22:32)
[2017-01-15] MEDS: DESITIN 4OZ/NYSTATIN 15 GRAM MIXTURE PASTE TOP SCH ×2 (09:30→22:34)
[2017-01-15] MEDS: LACTULOSE 20 GM/30 ML UDCUP PO SCH ×3 (09:30→22:32)
--- NOTE | 2017-01-15 16:47 | Hospitalist Progress Note ---
Assessment and Plan (1) Ascites Status: Chronic Current Visit: No (2) Acute dyspnea Status: Acute Current Visit: No (3) Pleural effusion on right Status: Chronic Current Visit: No (4) History of alcoholism Status: Chronic Current Visit: No (5) Hepatic cirrhosis Status: Chronic Current Visit: No Qualifiers: Hepatic cirrhosis type: alcoholic cirrhosis Ascites presence: with ascites Qualified Code(s): K70.31 - Alcoholic cirrhosis of liver with ascites (6) REBECCA (acute kidney injury) Status: Acute Current Visit: No Hospitalist: Subjective Interval history: Patient was fairly alert this morning but feels weak. She has occasional confusion. She denies any chest pain or shortness of breath currently. Assessment and plan 01/15/2017: Acute kidney injury with hepatorenal syndrome Probable alcoholic cirrhosis Nephrology and GI following her. Continue current management today. She may require swing bed. Exam - Constitutional Vitals: Period Temp Pulse Resp BP Sys/Pastor Pulse Ox Last 24 Hr 97.4 F-98.3 F 74-105 18-20 90-94/56-64 93-99 Exam: Gen.: In no acute distress, sitting in a chair Head and neck: Pupils are reactive neck is supple Cardiovascular: S1-S2 with regular rate and rhythm Respiratory: Lungs are clear to auscultation and percussion Abdomen: Soft, bowel sounds are positive Extremities: no edema Neuro: Grossly intact Results - Labs CBC & BMP: 01/12/17 04:38 01/14/17 05:24 Lab Results: I have reviewed the past 24 hour labs
--- NOTE | 2017-01-15 17:46 | Nephrology Progress Note ---
Nephrology - PN: Subj Interval history: Patient is a little more alert and interactive today. She denies shortness of breath. Review of systems GI she denies nausea or vomiting Physical exam general the patient chronically ill-appearing, she has no pitting edema, her weight is up a few KGs today although I am not sure of the reliability of these measures. Assessment/plan 1. Acute renal failure on chronic renal failure-this patient's creatinine stabilized around 4.5 mg/dL 2. Liver cirrhosis secondary to alcohol use 3. Recurrent pleural effusions 4. Volume overload-the patient's Lasix was recently stopped-if her weight trend continues up would be inclined to restart the Lasix 5. Urinary tract infection-this seems to have resolved with antibiotics Exam (PN)-Nephrology - Vital Signs Vital signs: Period Temp Pulse Resp BP Sys/Pastor Pulse Ox Last 24 Hr 97.4 F-98.3 F 74-105 18-20 90-94/56-64 93-99 - Lab 01/12/17 04:38 01/14/17 05:24 Most recent lab results ABG pH 7.407 (7.35-7.45) 01/02/17 02:38 ABG pCO2 58.8 MM HG (35-48) H 01/02/17 02:38 ABG pO2 61.1 MM HG (80-95) L 01/02/17 02:38 ABG HCO3 34.3 MMOL/L (20-26) H 01/02/17 02:38 ABG O2 Saturation 91.3 % (95-100) L 01/02/17 02:38 Calcium 10.5 MG/DL (8.5-10.1) H 01/14/17 05:24 Phosphorus 3.6 MG/DL (2.5-4.9) 01/10/17 05:55 Magnesium 2.0 MG/DL (1.8-2.4) 01/09/17 05:28 Assessment and Plan (1) REBECCA (acute kidney injury) Status: Acute Assessment and plan: This patient is developing acute renal failure again, her Lasix and spironolactone are being held. I think with her marked fluid overload will eventually have to restart these. I'm going to put her back on midodrine and vasopressin as she was previously to try and improve her kidney perfusion. Current Visit: Yes (2) Anemia Status: Acute Current Visit: Yes (3) CHF (congestive heart failure) Status: Acute Current Visit: Yes (4) Hypokalemia Status: Resolved Assessment and plan: Continue replacement Current Visit: Yes (5) Anasarca Status: Chronic Current Visit: No (6) COPD (chronic obstructive pulmonary disease) Status: Chronic Current Visit: No (7) Hepatorenal syndrome Status: Acute Current Visit: No (8) Alcoholic cirrhosis Status: Chronic Current Visit: No
[2017-01-16] MEDS: ALBUTEROL 2.5 MG/3 ML NEB RESP TX SCH ×4 (07:55→19:57)
[2017-01-16] MEDS: OCTREOTIDE 100 MCG/ML SYRINGE SUBCUT SCH ×3 (09:55→21:13)
[2017-01-16] MEDS: LACTULOSE 20 GM/30 ML UDCUP PO SCH ×3 (09:55→21:10)
[2017-01-16] MEDS: METOPROLOL TARTRATE 100 MG TABLET PO SCH ×2 (09:56→21:11)
[2017-01-16] MEDS: MULTIVITAMIN (CENTRUM) TABLET PO SCH (09:56)
[2017-01-16] MEDS: RIFAXIMIN 550 MG TABLET PO SCH ×2 (09:56→21:11)
[2017-01-16] MEDS: MIDODRINE 5 MG TABLET PO SCH ×3 (09:56→21:11)
[2017-01-16] MEDS: NYSTATIN POWDER 15 GM BOTTLE TOP SCH ×3 (09:56→21:11)
[2017-01-16] MEDS: DESITIN 4OZ/NYSTATIN 15 GRAM MIXTURE PASTE TOP SCH ×2 (09:56→21:16)
[2017-01-16] MEDS: PANTOPRAZOLE 40 MG TABLET PO SCH (09:56)
[2017-01-16] MEDS: MUPIROCIN 2% OINT 22 GM TUBE TOP SCH ×2 (09:57→21:11)
--- NOTE | 2017-01-16 10:29 | Nephrology Progress Note ---
Nephrology - PN: Subj Interval history: Patient states she is feeling better. She denies nausea or vomiting, review of systems pulmonary-she denies shortness of breath Physical exam general the patient is chronically ill-appearing, she has no pitting edema Assessment/plan 1. Acute renal failure-patient's creatinine stable around 4 mg/ dL 2. Metabolic alkalosis this is slightly improved at 38 today 3. Liver cirrhosis 4. Diabetes mellitus 5. Volume overload-this patient's weight is about the same as it was yesterday , will continue to hold the diuretics for now unless there is evidence of reaccumulation of a pleural effusion. Exam (PN)-Nephrology - Vital Signs Vital signs: Period Temp Pulse Resp BP Sys/Pastor Pulse Ox Last 24 Hr 96.6 F-98.8 F 62-105 16-20 95-110/52-77 94-99 - Lab 01/12/17 04:38 01/14/17 05:24 Most recent lab results ABG pH 7.407 (7.35-7.45) 01/02/17 02:38 ABG pCO2 58.8 MM HG (35-48) H 01/02/17 02:38 ABG pO2 61.1 MM HG (80-95) L 01/02/17 02:38 ABG HCO3 34.3 MMOL/L (20-26) H 01/02/17 02:38 ABG O2 Saturation 91.3 % (95-100) L 01/02/17 02:38 Calcium 10.5 MG/DL (8.5-10.1) H 01/14/17 05:24 Phosphorus 3.6 MG/DL (2.5-4.9) 01/10/17 05:55 Magnesium 2.0 MG/DL (1.8-2.4) 01/09/17 05:28 Assessment and Plan (1) REBECCA (acute kidney injury) Status: Acute Assessment and plan: This patient is developing acute renal failure again, her Lasix and spironolactone are being held. I think with her marked fluid overload will eventually have to restart these. I'm going to put her back on midodrine and vasopressin as she was previously to try and improve her kidney perfusion. Current Visit: Yes (2) Anemia Status: Acute Current Visit: Yes (3) CHF (congestive heart failure) Status: Acute Current Visit: Yes (4) Hypokalemia Status: Resolved Assessment and plan: Continue replacement Current Visit: Yes (5) Anasarca Status: Chronic Current Visit: No (6) COPD (chronic obstructive pulmonary disease) Status: Chronic Current Visit: No (7) Hepatorenal syndrome Status: Acute Current Visit: No (8) Alcoholic cirrhosis Status: Chronic Current Visit: No
--- NOTE | 2017-01-16 15:09 | Hospitalist Progress Note ---
Assessment and Plan (1) Ascites Status: Chronic Current Visit: No (2) Acute dyspnea Status: Acute Current Visit: No (3) Pleural effusion on right Status: Chronic Current Visit: No (4) History of alcoholism Status: Chronic Current Visit: No (5) Hepatic cirrhosis Status: Chronic Current Visit: No Qualifiers: Hepatic cirrhosis type: alcoholic cirrhosis Ascites presence: with ascites Qualified Code(s): K70.31 - Alcoholic cirrhosis of liver with ascites (6) REBECCA (acute kidney injury) Status: Acute Current Visit: No (7) Metabolic alkalosis Status: Acute Current Visit: Yes Hospitalist: Subjective Interval history: Improving metabolic alkalosis and slightly improved renal functions. She still gets easily confused and recognizes the fact that she is getting confused on and off. There is competent of hepatorenal syndrome felt to be present. She does have history of alcoholic cirrhosis. Her dyspnea seems to be better. Assessment and plan 01/16/2017: We will repeat chest x-ray tomorrow. Diuretics as still being on hold since it was felt that she had contraction alkalosis. We will recheck an ammonia level in the morning as well. Would also consult social services technician for swing bed Exam - Constitutional Vitals: Period Temp Pulse Resp BP Sys/Pastor Pulse Ox Last 24 Hr 96.6 F-98.8 F 62-105 16-20 95-110/52-72 94-99 Exam: Gen.: In no acute distress, sitting in a chair Head and neck: Pupils are reactive neck is supple Cardiovascular: S1-S2 with regular rate and rhythm Respiratory: Lungs are clear to auscultation and percussion Abdomen: Soft, bowel sounds are positive Extremities: no edema Neuro: Grossly intact Results - Labs CBC & BMP: 01/12/17 04:38 01/14/17 05:24 Lab Results: I have reviewed the past 24 hour labs
[2017-01-17 05:27] LABS: Basophils # 0.1 10*3/uL (0.0-0.2); Basophils % 1.6 % (0.0-0.8); Eosinophils # 0.3 10*3/uL (0.0-0.87); Eosinophils % 4.2 % (0.00-10.9); Hematocrit 35.4 VOL% (35.7-47.0); Hemoglobin 11.9 GM/DL (12.0-16.0); Immature Granulocytes % 0.4 %; Immature Granulocytes Absolute 0.03 #; Lymphocytes # 2.4 10*3/uL (1.4-4.0); Lymphocytes % 30.7 % (21.3-54.2); Mean Corpuscular HGB Conc 33.6 GM/DL (32-36); Mean Corpuscular Hemoglobin 30 PG (27-34); Mean Corpuscular Volume 89.2 FL (87-102); Mean Platelet Volume 10.8 FL (9.6-12.0); Monocytes # 0.8 10*3/uL (0.11-0.8); Monocytes % 10.5 % (1.7-12.7); Neutrophils % 52.6 % (38.7-73.9); Platelet Count 116 T/CUMM (130-400); Red Blood Count 3.97 MC/CUMM (3.8-5.5); Red Cell Distribution Width 20.9 % (9.3-17.3); White Blood Count 7.7 T/CUMM (4-12)
[2017-01-17 05:52] LABS: Calcium 10.5 MG/DL (8.5-10.1); Magnesium 2.6 MG/DL (1.8-2.4); Potassium 3.5 MMOL/L (3.5-5.1)
--- NOTE | 2017-01-17 07:40 | XRay Report ---
Portable chest Date: 01/17/2017 Clinical history: Pleural effusions, hepatic cirrhosis Comparison: 01/14/2017 Technique: Portable AP sitting chest Findings: Moderate cardiomegaly with calcification in the aortic knob. Progressive diffuse parenchymal findings with larger pleural effusions. Stable mediastinum with degenerative changes. Impression: Moderate cardiomegaly with progressive pulmonary edema/pneumonitis with larger moderate right and small left pleural effusions. PROCEDURE INTERPRETED AT [facility] DEPARTMENT OF RADIOLOGY Final Report Signed by: Dr. Daiana Duarte
[2017-01-17] MEDS: ALBUTEROL 2.5 MG/3 ML NEB RESP TX SCH ×4 (07:45→19:29)
--- NOTE | 2017-01-17 09:19 | Pulmonology Progress Note ---
Pulmonary - PN: Subj Interval history: This 56-year-old white female has severe alcoholic cirrhosis. She has hepatorenal syndrome. She has a hepatic hydrothorax. Also has some congestive heart failure. She has had 4 thoracenteses. She is getting diuretics and salt poor albumin and octreotide. Also on rifaximin mean and Chronulac. Her mental status is fairly good despite an elevated ammonia level. Her renal function has stabilized with creatinine around 4.4. We do not seem to be able to make any advances as far as getting the fluid off over. I am continuing to follow her pleural effusions to see if and when she needs tapping again. 01/13/2017 she has no new complaints. Denies dyspnea. Sleeping better. Mental status improved. Recheck chemistries and chest x-ray in the morning. Lady with severe cirrhosis and hepatic hydrothorax that were following after recurrent thoracenteses. Acute on chronic renal failure. 01/14/2017 once again today's chest x-ray does not show any increase in her pleural effusions. Her weight is down. Seems to be responding to current treatment. Needs close watch on renal function. Defer to nephrology. Last creatinine was 4.4. She has end-stage cirrhosis with apparent hepatorenal syndrome. 01/17/2017 patient is really not dyspneic. Pleural effusions have not increased. Creatinine is a little higher. Stable from a pulmonary standpoint. Exam (Progress Note) - Constitutional Vitals: Period Temp Pulse Resp BP Sys/Pastor Pulse Ox Last 24 Hr 96.9 F-97.5 F 74-88 16-18 80-108/48-71 91-98 Exam: She is drowsy but arousable, vital signs normal. O2 sat 93% on room air. Pupils react to light. She does have some jaundice. Throat is clear. Neck supple no bruits. Chest reveals dullness 1/4 up on the right side a few rales bilaterally. Heart normal rate and rhythm no murmurs. Abdomen soft nontender no masses. Liver is palpably enlarged. Extremities she has 3+ edema. She does have ascites. Calves are nontender. Results - Labs CBC & BMP: 01/17/17 04:54 01/17/17 04:54 Lab Results: I have reviewed the past 24 hour labs - Diagnostic Findings Procedure: Chest x-ray: image reviewed by me (Modest pleural effusion right more than left. This has not changed since previous one Tuesday.) Assessment and Plan (1) Hepatic encephalopathy Status: Acute Assessment and plan: Patient's ammonia level was 116. Being addressed with Chronulac. 12/28/2016 continuing with Chronulac. Monitor ammonia level. 12/29/2016 she is a little drowsy but arousable and carries on a good conversation. 12/30/16 mental status a little better today. 12/31/2016 she is more sluggish today. Defer to gastroenterology. 01/01/2017 more sluggish, ammonia level higher 01/02/2017 ammonia is down from around 200 to around 100 and she is more alert. 01/03/2017 she is more alert. Defer to GI. 01/04/2017 a little more thick tongue today. 01/05/2017 patient more alert today. 01/06/2017 continuing treatment for hepatic encephalopathy 01/07/2017 patient responsive but a little sluggish. 01/10/2017 seems a little more responsive than Tuesday. 01/11/2017 a little more responsive. Ammonia level around 100. Defer to GI. 01/12/2017 patient able to answer questions and seems oriented. 01/13/2017 mental status is a little better on current medications. 01/14/2017 mental status stable 01/17/2017 she has a little sleepier today. Current Visit: No (2) Pleural effusion on right Status: Chronic Assessment and plan: She has a moderate right pleural effusion. She is not in respiratory distress. If it gets worse we can tap her. This is best handled with diuretics, salt poor albumin, and possibly a TIPS procedure. 12/28/2016 chest x-ray pending. With concern about using diuretics she may require thoracentesis. 12/29/2016 effusion has increased to the point where she needs thoracentesis. She has renal insufficiency with creatinine 2.3. We really not able to get the fluid off with diuretics. A TIPS procedure has been addressed with her earlier. 12/30/16 trying to address the pleural effusion with diuretics. We have tapped off 1800 mL yesterday. It appears to be slowly recurring. 12/31/2016 she has had recurrent thoracenteses. It continues to recur. She has a hepatic hydrothorax. 01/01/2017 right pleural effusion has increased in size. This is a hepatic hydrothorax. We could consider a pleural catheter to drain it more easily. Do not usually like to do this with a hepatic hydrothorax but may be helpful in her case. 01/02/2017 watching the effusion from now. If she gets dialysis in the next day or 2 should be able to offload that way. If she gets into respiratory distress we can tap her before then. 01/03/2017 we will re-x-ray her tomorrow. Decide after that about management. 01/04/2017 right pleural effusion is very large. She is too weak to sit up to do a thoracentesis so I will ask interventional radiology to do one with an ultrasound 01/05/2017 x-ray much better after right thoracentesis yesterday. We are continuing to do this as a temporizing measure. Long-term decision needs to be made about dialysis. 01/06/2017 recheck x-ray tomorrow. Quite sure the effusion will recur over time 01/07/2017 does not need thoracentesis today. 01/10/2017 modest effusion, does not require thoracentesis at this point. 01/11/2017 pleural effusions are stable. 01/12/2017 she is not short of breath at present. Recheck x-ray in a couple of days. 01/13/2017 repeat chest x-ray tomorrow. Does not appear to be in respiratory distress. 01/14/2017 effusion is not increasing at this point. I will check back Tuesday and get another chest x-ray. Dr. Puckett available this if needed. 01/17/2017 does not need thoracentesis at this point. Current Visit: No (3) Ascites Status: Chronic Assessment and plan: Related to her cirrhosis. 12/28/2016 she has ascites but she is not tense. 01/13/2017 she has ascites and clearly an enlarged liver. No real change in abdominal exam. Current Visit: No (4) Hepatic cirrhosis Status: Chronic Assessment and plan: This is of course her underlying problem. Defer to GI. 12/29/2016 this is the underlying cause for her pleural effusion and edema. 12/30/16 alcoholic cirrhosis is her primary problem. 12/31/2016 again defer to gastroenterology. 01/01/2017 she has alcoholic cirrhosis and end-stage. Defer to gastroenterology as to the next step. She has been about 2 months since her last drink of alcohol. Would not be a candidate for transplant at this point to my knowledge. 01/02/2017 she has alcoholic cirrhosis. Has not had alcohol in about 2 months. Plan for setting her up to look at a liver transplant. 01/03/2017 hope to get her where she can have a liver transplant in a few months. 01/04/2017 defer to GI 01/05/2017 likely would be candidate for liver transplant in about 4 months. Has been a little over 2 months since she had her last alcoholic beverage. 01/07/2017 hopefully can get on the list for liver transplant in time. 01/10/2017 followed by GI. 01/12/2017 end-stage cirrhosis. We do not seem to be making any progress. Basically holding her own with renal function and encephalopathy. 01/13/2017 end-stage cirrhosis. Patient will need liver transplant when she is eligible. Trying to keep her renal function intact and pleural effusions controlled until that time 01/14/2017 mental status is better and fluid status better. Watch renal function. 01/17/2017 creatinine up to 4.8. Current Visit: No Qualifiers: Hepatic cirrhosis type: alcoholic cirrhosis Ascites presence: with ascites Qualified Code(s): K70.31 - Alcoholic cirrhosis of liver with ascites
--- NOTE | 2017-01-17 09:42 | Nephrology Progress Note ---
Nephrology - PN: Subj Interval history: Patient is sleepy this morning, she did arouse to open her eyes and look at me but was nonverbal. Physical exam general the patient is chronically ill-appearing, heart is regular rate and rhythm, she has no pitting edema, lungs are clear to auscultation anteriorly, abdomen is soft with positive bowel sounds Assessment/plan 1. Acute renal failure-this patient's creatinine is increased 4.8 mg/dL 2. Liver cirrhosis 3. Volume overload-patient's chest x-ray was read as having increased vascular congestion and enlarging effusions by radiology, her weight is up half a EKG from yesterday, she continues on metolazone for her diuretic I think at some point we are going to have to add back her Lasix 4. Hypotension-patient's systolic blood pressure around 85, with her increased creatinine I am going to decrease her metoprolol to try and improve her perfusion pressure to her kidneys. Exam (PN)-Nephrology - Vital Signs Vital signs: Period Temp Pulse Resp BP Sys/Pastor Pulse Ox Last 24 Hr 96.9 F-97.5 F 74-88 16-18 80-108/48-71 91-98 - Lab 01/17/17 04:54 01/17/17 04:54 Most recent lab results ABG pH 7.407 (7.35-7.45) 01/02/17 02:38 ABG pCO2 58.8 MM HG (35-48) H 01/02/17 02:38 ABG pO2 61.1 MM HG (80-95) L 01/02/17 02:38 ABG HCO3 34.3 MMOL/L (20-26) H 01/02/17 02:38 ABG O2 Saturation 91.3 % (95-100) L 01/02/17 02:38 Calcium 10.5 MG/DL (8.5-10.1) H 01/17/17 04:54 Phosphorus 3.6 MG/DL (2.5-4.9) 01/10/17 05:55 Magnesium 2.6 MG/DL (1.8-2.4) H 01/17/17 04:54 Assessment and Plan (1) REBECCA (acute kidney injury) Status: Acute Assessment and plan: This patient is developing acute renal failure again, her Lasix and spironolactone are being held. I think with her marked fluid overload will eventually have to restart these. I'm going to put her back on midodrine and vasopressin as she was previously to try and improve her kidney perfusion. Current Visit: Yes (2) Anemia Status: Acute Current Visit: Yes (3) CHF (congestive heart failure) Status: Acute Current Visit: Yes (4) Hypokalemia Status: Resolved Assessment and plan: Continue replacement Current Visit: Yes (5) Anasarca Status: Chronic Current Visit: No (6) COPD (chronic obstructive pulmonary disease) Status: Chronic Current Visit: No (7) Hepatorenal syndrome Status: Acute Current Visit: No (8) Alcoholic cirrhosis Status: Chronic Current Visit: No
[2017-01-17] MEDS: RIFAXIMIN 550 MG TABLET PO SCH ×2 (09:43→22:55)
[2017-01-17] MEDS: PANTOPRAZOLE 40 MG TABLET PO SCH (09:43)
[2017-01-17] MEDS: NYSTATIN POWDER 15 GM BOTTLE TOP SCH ×3 (09:43→22:54)
[2017-01-17] MEDS: DESITIN 4OZ/NYSTATIN 15 GRAM MIXTURE PASTE TOP SCH ×2 (09:43→22:55)
[2017-01-17] MEDS: OCTREOTIDE 100 MCG/ML SYRINGE SUBCUT SCH ×3 (09:43→22:54)
[2017-01-17] MEDS: MIDODRINE 5 MG TABLET PO SCH ×3 (09:43→22:54)
[2017-01-17] MEDS: METOPROLOL TARTRATE 100 MG TABLET PO SCH ×2 (09:43→22:54)
[2017-01-17] MEDS: LACTULOSE 20 GM/30 ML UDCUP PO SCH ×3 (09:43→22:54)
[2017-01-17] MEDS: MUPIROCIN 2% OINT 22 GM TUBE TOP SCH ×2 (09:43→22:54)
[2017-01-17] MEDS: MULTIVITAMIN (CENTRUM) TABLET PO SCH (09:43)
--- NOTE | 2017-01-17 11:22 | Gastrointestinal Progress Note ---
Assessment and Plan (1) Alcoholic cirrhosis Status: Chronic Assessment and plan: 01/17-somnolent, ammonia 118. One bowel movement 24 hours. Weight stable. Plan addendum to follow by Dr. Vidal 01/05-No signs of encephalopathy at present time. CMP pending for this morning. Continues with good UOP. Thoracentesis with 1200 removed. Plan and addendum to follow by Dr Vidal. 01/04-Alert but somnolent, oriented. Creatnine 4.2. Continues with good UOP. Thoracentesis today. Plan and addendum to follow by Dr Vidal. 01/03-Ammonia 75, oriented, alert. Continued output via BMS. Creatnine 3.9. Good UOP. Plan and addendum to follow by Dr Vidal. 12/31-Ammonia elevated at 215, encephalopathy noted with confusion, lethargy. Increase Lacutulose to q 1 hr until bowel movement and then QID. Keep NPO at present time. Plan and addendum to follow by Dr Vidal 12/30-Ammonia 173, no signs of encephalopathy. Bowels moving daily. Plan and addendum to follow by DR Vidal. 12/29-Ammonia 47. No pain. Add Mirliax to regimen as needed daily. Plan and addendum to follow by Dr Vidal. 12/28-Ammonia 79, one BM. No c/o pain. No SOB. NO changes in weight. Creatnine 2.2. Plan and addendum to follow by Dr Vidal. 12/27-Ammonia down at 116, one BM today. No encephalopathy noted at present time. Plan and addendum to follow by Dr Vidal. Current Visit: No (2) Hepatorenal syndrome Status: Acute Assessment and plan: 01/17-Creatnine 4.8 today. Chest x-ray findings noted. Plan an addendum to follow by Dr. Vidal. 01/05-Creatnine pending. Dr Sierra following at present. Plan and addendum to follow by Dr Vidal. 01/03-Creatnine 3.9. Nephrology following. Plan and addendum to follow by Dr Vidal. 12/30-No repeat creatnine today. Recheck lab. Plan and addendum to follow by Dr Vidal. 12/29-Armando 2.3. For thoracentesis today. Plan and addendum to follow by Dr Vidal. 12/27-[place] 2.2. Chest xray noted with persistent bilateral pleural effusion , right greater than left. Plan and addendum to follow by Dr Vidal. Current Visit: No Gastroenterology - PN: Subj Interval history: Cc: Cirrhosis Patient is seen with family at bedside. She has been reported to be difficult to arouse this morning. She is awake and alert however repeats the same statement over and again. She is reported to have had one bowel movement last night. Nursing staff is having difficulty getting her Chronulac in her today. Abdomen is soft nondistended. Ammonia level is 118 today. Creatinine 4.8. Chest x-ray today revealed large moderate right pleural effusion and small left effusion.Weight is essentially unchanged today. Patient noted to have some hypotensive readings with systolic pressures in the mid 80s at times. Review of systems: Denies shortness of breath or chest pain present Exam (Progress Note) - Constitutional Vitals: Period Temp Pulse Resp BP Sys/Pastor Pulse Ox Last 24 Hr 96.9 F-97.5 F 74-88 16-18 80-108/48-71 91-98 General appearance: normal weight, no acute distress - Head Head exam: Present: normal inspection, normocephalic - Eye Eye exam: Present: other (lids and conjunctiva unremarakble). Absent: scleral icterus - ENT ENT exam: Present: normal exam, normal oropharynx - Neck Neck exam: Present: normal inspection - Respiratory Respiratory exam: Present: clear to auscultation bilaterally. Absent: rales, rhonchi, wheezes - Cardiovascular Cardiovascular exam: Present: regular rate and rhythm. Absent: diastolic murmur , JVD, systolic murmur - GI/Abdominal GI/Abdominal exam: Present: normal bowel sounds, soft. Absent: ascites, distended, mass, organomegaly, tenderness - Extremities Exam Extremities exam: Present: normal inspection, full ROM, edema - Back Exam Back exam: Present: normal inspection - Neurological Exam Neurological exam: Present: alert, altered - Psychiatric Psychiatric exam: Present: other - Skin Skin exam: Present: warm, dry Results - Labs CBC & BMP: 01/17/17 04:54 03/20/17 04:54 Lab Results: I have reviewed the past 24 hour labs
[2017-01-17] MEDS ORDERED: LACTULOSE 20 GM/30 ML UDCUP PO ONE (18:43)
[2017-01-18] MEDS: ONDANSETRON 4 MG/2 ML VIAL IV PRN (01:07)
[2017-01-18 06:36] LABS: Basophils # 0.1 10*3/uL (0.0-0.2); Eosinophils # 0.2 10*3/uL (0.0-0.87); Eosinophils % 3.2 % (0.00-10.9); Hematocrit 35.5 VOL% (35.7-47.0); Hemoglobin 11.8 GM/DL (12.0-16.0); Immature Granulocytes % 0.6 %; Immature Granulocytes Absolute 0.04 #; Lymphocytes # 1.7 10*3/uL (1.4-4.0); Lymphocytes % 24.2 % (21.3-54.2); Mean Corpuscular HGB Conc 33.2 GM/DL (32-36); Mean Corpuscular Hemoglobin 31 PG (27-34); Mean Corpuscular Volume 92.2 FL (87-102); Mean Platelet Volume 11.1 FL (9.6-12.0); Monocytes # 0.7 10*3/uL (0.11-0.8); Monocytes % 9.8 % (1.7-12.7); Neutrophils # 4.2 10*3/uL (1.4-7.4); Neutrophils % 61.2 % (38.7-73.9); Platelet Count 112 T/CUMM (130-400); Red Blood Count 3.85 MC/CUMM (3.8-5.5); Red Cell Distribution Width 20.6 % (9.3-17.3); White Blood Count 6.8 T/CUMM (4-12)
[2017-01-18] MEDS: ALBUTEROL 2.5 MG/3 ML NEB RESP TX SCH ×4 (07:40→21:14)
--- NOTE | 2017-01-18 07:43 | Pulmonology Progress Note ---
Pulmonary - PN: Subj Interval history: This 56-year-old white female has severe alcoholic cirrhosis. She has hepatorenal syndrome. She has a hepatic hydrothorax. Also has some congestive heart failure. She has had 4 thoracenteses. She is getting diuretics and salt poor albumin and octreotide. Also on rifaximin mean and Chronulac. Her mental status is fairly good despite an elevated ammonia level. Her renal function has stabilized with creatinine around 4.4. We do not seem to be able to make any advances as far as getting the fluid off over. I am continuing to follow her pleural effusions to see if and when she needs tapping again. 01/13/2017 she has no new complaints. Denies dyspnea. Sleeping better. Mental status improved. Recheck chemistries and chest x-ray in the morning. Lady with severe cirrhosis and hepatic hydrothorax that were following after recurrent thoracenteses. Acute on chronic renal failure. 01/14/2017 once again today's chest x-ray does not show any increase in her pleural effusions. Her weight is down. Seems to be responding to current treatment. Needs close watch on renal function. Defer to nephrology. Last creatinine was 4.4. She has end-stage cirrhosis with apparent hepatorenal syndrome. 01/17/2017 patient is really not dyspneic. Pleural effusions have not increased. Creatinine is a little higher. Stable from a pulmonary standpoint. 01/18/2017 mental status has gotten worse. She does have some asterixis. She is not having bowel movement from the Chronulac. Exam (Progress Note) - Constitutional Vitals: Period Temp Pulse Resp BP Sys/Pastor Pulse Ox Last 24 Hr 97.0 F-99.4 F 73-103 12-20 94-114/60-88 93-98 Exam: She is drowsy but arousable, vital signs normal. O2 sat 93% on room air. Pupils react to light. She does have some jaundice. Throat is clear. Neck supple no bruits. Chest reveals dullness 1/4 up on the right side a few rales bilaterally. Heart normal rate and rhythm no murmurs. Abdomen soft nontender no masses. Liver is palpably enlarged. Extremities she has 3+ edema. She does have ascites. Calves are nontender. She does have some asterixis. Results - Labs CBC & BMP: 01/18/17 05:53 01/17/17 04:54 Lab Results: I have reviewed the past 24 hour labs Assessment and Plan (1) Hepatic encephalopathy Status: Acute Assessment and plan: Patient's ammonia level was 116. Being addressed with Chronulac. 12/28/2016 continuing with Chronulac. Monitor ammonia level. 12/29/2016 she is a little drowsy but arousable and carries on a good conversation. 12/30/16 mental status a little better today. 12/31/2016 she is more sluggish today. Defer to gastroenterology. 01/01/2017 more sluggish, ammonia level higher 01/02/2017 ammonia is down from around 200 to around 100 and she is more alert. 01/03/2017 she is more alert. Defer to GI. 01/04/2017 a little more thick tongue today. 01/05/2017 patient more alert today. 01/06/2017 continuing treatment for hepatic encephalopathy 01/07/2017 patient responsive but a little sluggish. 01/10/2017 seems a little more responsive than Tuesday. 01/11/2017 a little more responsive. Ammonia level around 100. Defer to GI. 01/12/2017 patient able to answer questions and seems oriented. 01/13/2017 mental status is a little better on current medications. 01/14/2017 mental status stable 01/17/2017 she has a little sleepier today. 01/18/2017 mental status is worse. Defer to GI. Current Visit: No (2) Pleural effusion on right Status: Chronic Assessment and plan: She has a moderate right pleural effusion. She is not in respiratory distress. If it gets worse we can tap her. This is best handled with diuretics, salt poor albumin, and possibly a TIPS procedure. 12/28/2016 chest x-ray pending. With concern about using diuretics she may require thoracentesis. 12/29/2016 effusion has increased to the point where she needs thoracentesis. She has renal insufficiency with creatinine 2.3. We really not able to get the fluid off with diuretics. A TIPS procedure has been addressed with her earlier. 12/30/16 trying to address the pleural effusion with diuretics. We have tapped off 1800 mL yesterday. It appears to be slowly recurring. 12/31/2016 she has had recurrent thoracenteses. It continues to recur. She has a hepatic hydrothorax. 01/01/2017 right pleural effusion has increased in size. This is a hepatic hydrothorax. We could consider a pleural catheter to drain it more easily. Do not usually like to do this with a hepatic hydrothorax but may be helpful in her case. 01/02/2017 watching the effusion from now. If she gets dialysis in the next day or 2 should be able to offload that way. If she gets into respiratory distress we can tap her before then. 01/03/2017 we will re-x-ray her tomorrow. Decide after that about management. 01/04/2017 right pleural effusion is very large. She is too weak to sit up to do a thoracentesis so I will ask interventional radiology to do one with an ultrasound 01/05/2017 x-ray much better after right thoracentesis yesterday. We are continuing to do this as a temporizing measure. Long-term decision needs to be made about dialysis. 01/06/2017 recheck x-ray tomorrow. Quite sure the effusion will recur over time 01/07/2017 does not need thoracentesis today. 01/10/2017 modest effusion, does not require thoracentesis at this point. 01/11/2017 pleural effusions are stable. 01/12/2017 she is not short of breath at present. Recheck x-ray in a couple of days. 01/13/2017 repeat chest x-ray tomorrow. Does not appear to be in respiratory distress. 01/14/2017 effusion is not increasing at this point. I will check back Tuesday and get another chest x-ray. Dr. Puckett available this if needed. 01/17/2017 does not need thoracentesis at this point. 01/18/2017 recheck x-ray on . Current Visit: No (3) Ascites Status: Chronic Assessment and plan: Related to her cirrhosis. 12/28/2016 she has ascites but she is not tense. 01/13/2017 she has ascites and clearly an enlarged liver. No real change in abdominal exam. Current Visit: No (4) Hepatic cirrhosis Status: Chronic Assessment and plan: This is of course her underlying problem. Defer to GI. 12/29/2016 this is the underlying cause for her pleural effusion and edema. 12/30/16 alcoholic cirrhosis is her primary problem. 12/31/2016 again defer to gastroenterology. 01/01/2017 she has alcoholic cirrhosis and end-stage. Defer to gastroenterology as to the next step. She has been about 2 months since her last drink of alcohol. Would not be a candidate for transplant at this point to my knowledge. 01/02/2017 she has alcoholic cirrhosis. Has not had alcohol in about 2 months. Plan for setting her up to look at a liver transplant. 01/03/2017 hope to get her where she can have a liver transplant in a few months. 01/04/2017 defer to GI 01/05/2017 likely would be candidate for liver transplant in about 4 months. Has been a little over 2 months since she had her last alcoholic beverage. 01/07/2017 hopefully can get on the list for liver transplant in time. 01/10/2017 followed by GI. 01/12/2017 end-stage cirrhosis. We do not seem to be making any progress. Basically holding her own with renal function and encephalopathy. 01/13/2017 end-stage cirrhosis. Patient will need liver transplant when she is eligible. Trying to keep her renal function intact and pleural effusions controlled until that time 01/14/2017 mental status is better and fluid status better. Watch renal function. 01/17/2017 creatinine up to 4.8. 01/18/2017 has severe cirrhosis with hepatorenal syndrome. Current Visit: No Qualifiers: Hepatic cirrhosis type: alcoholic cirrhosis Ascites presence: with ascites Qualified Code(s): K70.31 - Alcoholic cirrhosis of liver with ascites
--- NOTE | 2017-01-18 09:19 | Gastrointestinal Progress Note ---
Assessment and Plan (1) Alcoholic cirrhosis Status: Chronic Assessment and plan: 01/18-More somnolent today. 1-2 bowel movements reported. Labs pending at present time. Plan and addendum to follow by Dr Vidal. 01/17-somnolent, ammonia 118. One bowel movement 24 hours. Weight stable. Plan addendum to follow by Dr. Vidal 01/05-No signs of encephalopathy at present time. CMP pending for this morning. Continues with good UOP. Thoracentesis with 1200 removed. Plan and addendum to follow by Dr Vidal. 01/04-Alert but somnolent, oriented. Creatnine 4.2. Continues with good UOP. Thoracentesis today. Plan and addendum to follow by Dr Vidal. 01/03-Ammonia 75, oriented, alert. Continued output via BMS. Creatnine 3.9. Good UOP. Plan and addendum to follow by Dr Vidal. 12/31-Ammonia elevated at 215, encephalopathy noted with confusion, lethargy. Increase Lacutulose to q 1 hr until bowel movement and then QID. Keep NPO at present time. Plan and addendum to follow by Dr Vidal 12/30-Ammonia 173, no signs of encephalopathy. Bowels moving daily. Plan and addendum to follow by DR Vidal. 12/29-Ammonia 47. No pain. Add Mirliax to regimen as needed daily. Plan and addendum to follow by Dr Vidal. 12/28-Ammonia 79, one BM. No c/o pain. No SOB. NO changes in weight. Creatnine 2.2. Plan and addendum to follow by Dr Vidal. 12/27-Ammonia down at 116, one BM today. No encephalopathy noted at present time. Plan and addendum to follow by Dr Vidal. Current Visit: No (2) Hepatorenal syndrome Status: Acute Assessment and plan: 01/18-Labs pending. 01/17-Creatnine 4.8 today. Chest x-ray findings noted. Plan an addendum to follow by Dr. Vidal. 01/05-Creatnine pending. Dr Sierra following at present. Plan and addendum to follow by Dr Vidal. 01/03-Creatnine 3.9. Nephrology following. Plan and addendum to follow by Dr Vidal. 12/30-No repeat creatnine today. Recheck lab. Plan and addendum to follow by Dr Vidal. 12/29-Creatnine 2.3. For thoracentesis today. Plan and addendum to follow by Dr Vidal. 12/27-Creatnine 2.2. Chest xray noted with persistent bilateral pleural effusion , right greater than left. Plan and addendum to follow by Dr Vidal. Current Visit: No Gastroenterology - PN: Subj Interval history: CC: Cirrhosis Pt is seen, asleep, family at side. She is difficult to arouse this morning. Family was able to arouse her enough on yesterday to take her Chronulac and drink a small amount of Boost. She had 1-2 bowel movements in past 24 hours reported by family. She will open eyes however does not converse, respond today. Abdomen is soft, nontender. Labs pending this morning. No weights noted. ROS: No acute distress Exam (Progress Note) - Constitutional Vitals: Period Temp Pulse Resp BP Sys/Pastor Pulse Ox Last 24 Hr 97.4 F-99.4 F 73-103 12-20 94-110/60-88 93-98 General appearance: normal weight, no acute distress - Head Head exam: Present: normal inspection, normocephalic - Eye Eye exam: Present: scleral icterus, other (lids and conjunctiva unremarakble) - ENT ENT exam: Present: normal exam, normal oropharynx - Neck Neck exam: Present: normal inspection - Respiratory Respiratory exam: Present: clear to auscultation bilaterally. Absent: rales, rhonchi, wheezes - Cardiovascular Cardiovascular exam: Present: regular rate and rhythm. Absent: diastolic murmur , JVD, systolic murmur - GI/Abdominal GI/Abdominal exam: Present: normal bowel sounds, soft. Absent: ascites, distended, mass, organomegaly, tenderness - Extremities Exam Extremities exam: Present: normal inspection, full ROM, edema - Back Exam Back exam: Present: normal inspection - Neurological Exam Neurological exam: Present: alert, altered - Psychiatric Psychiatric exam: Present: other - Skin Skin exam: Present: other (jaundice) Results - Labs CBC & BMP: 03/21/17 05:53 01/17/17 04:54 Lab Results: I have reviewed the past 24 hour labs
[2017-01-18 09:20] LABS: Bilirubin,Total 4.5 MG/DL (0.2-1.0); Calcium 10.6 MG/DL (8.5-10.1); Osmolality,Calculated 295.1 MOS/KG (273-304); Potassium 3.3 MMOL/L (3.5-5.1); Total Protein 7.7 G/DL (6.4-8.3)
--- NOTE | 2017-01-18 09:40 | Hospitalist Progress Note ---
Assessment and Plan - Time spent with patient Time spent with patient: Less than 30 minutes (1) Ascites Status: Chronic Current Visit: No (2) Congestive heart failure Status: Acute Current Visit: No (3) Hepatic cirrhosis Status: Chronic Assessment and plan: 56-year-old female now unresponsive with hepatic cirrhosis. At this time she is a full code. Did have a zana discussion with [id number] in the room who will have a discussion with her son today. We are trying to get patient placed and hopefully move her over to comfort care if this is patient's family' s wishes. GI and pulmonary are both following patient along with nephrology. Patient seems to be going downhill despite all medical efforts. Will discuss this with Dr. Martin and patient's son when he arrives. Current Visit: No Qualifiers: Hepatic cirrhosis type: alcoholic cirrhosis Ascites presence: with ascites Qualified Code(s): K70.31 - Alcoholic cirrhosis of liver with ascites (4) Anasarca Status: Chronic Current Visit: No (5) REBECCA (acute kidney injury) Status: Acute Current Visit: No (6) Hepatorenal syndrome Status: Acute Current Visit: No Hospitalist: Subjective Interval history: Patient is somnolent today. She is unresponsive to tactile stimuli. Daughter- in-law is present in the room. Had a zana discussion with the [id number] about the gravity of patient's situation. [id number] is realistic and does understand and will have a zana discussion with patient's son about CODE STATUS. Exam - Constitutional Vitals: Period Temp Pulse Resp BP Sys/Pastor Pulse Ox Last 24 Hr 97.4 F-99.4 F 73-103 12-20 94-110/60-88 93-98 Exam: 56-year-old female unresponsive Chest clear CV regular rate and rhythm Abdomen ascites with fluid wave Extremities with mild edema Results - Labs CBC & BMP: 01/18/17 05:53 01/18/17 05:53 Lab Results: I have reviewed the past 24 hour labs
[2017-01-18] MEDS: LACTULOSE 20 GM/30 ML UDCUP PO SCH ×3 (09:58→14:46)
[2017-01-18] MEDS: OCTREOTIDE 100 MCG/ML SYRINGE SUBCUT SCH ×4 (09:59→23:28)
--- NOTE | 2017-01-18 11:40 | Nephrology Progress Note ---
Nephrology - PN: Subj Interval history: Patient is very drowsy this day. She moved her head a little bit to a moderate sternal rub but never open her eyes or verbalize standing. Physical exam general the patient is chronically ill-appearing, heart is regular rate and rhythm, she has no pitting edema, lungs are clear to auscultation anteriorly, abdomen is soft with positive bowel sounds Assessment/plan 1. Acute renal failure-patient's creatinine is 4.6 mg/dL this is improved from 4.8 mg/dL yesterday 2. Liver cirrhosis- 3. Altered mental status-this patient has had worsening in her neuro status in the past 24 hours, I suspect this is resulting from her end-stage liver disease , the family is considering taking her home for comfort. 4. Diabetes mellitus Exam (PN)-Nephrology - Vital Signs Vital signs: Period Temp Pulse Resp BP Sys/Pastor Pulse Ox Last 24 Hr 97.4 F-99.4 F 73-103 12-20 94-110/60-88 93-98 - Lab 01/18/17 05:53 01/18/17 05:53 Most recent lab results ABG pH 7.407 (7.35-7.45) 01/02/17 02:38 ABG pCO2 58.8 MM HG (35-48) H 01/02/17 02:38 ABG pO2 61.1 MM HG (80-95) L 01/02/17 02:38 ABG HCO3 34.3 MMOL/L (20-26) H 01/02/17 02:38 ABG O2 Saturation 91.3 % (95-100) L 01/02/17 02:38 Calcium 10.6 MG/DL (8.5-10.1) H 01/18/17 05:53 Phosphorus 3.6 MG/DL (2.5-4.9) 01/10/17 05:55 Magnesium 2.6 MG/DL (1.8-2.4) H 01/17/17 04:54 Assessment and Plan (1) REBECCA (acute kidney injury) Status: Acute Assessment and plan: This patient is developing acute renal failure again, her Lasix and spironolactone are being held. I think with her marked fluid overload will eventually have to restart these. I'm going to put her back on midodrine and vasopressin as she was previously to try and improve her kidney perfusion. Current Visit: Yes (2) Anemia Status: Acute Current Visit: Yes (3) CHF (congestive heart failure) Status: Acute Current Visit: Yes (4) Hypokalemia Status: Resolved Assessment and plan: Continue replacement Current Visit: Yes (5) Anasarca Status: Chronic Current Visit: No (6) COPD (chronic obstructive pulmonary disease) Status: Chronic Current Visit: No (7) Hepatorenal syndrome Status: Acute Current Visit: No (8) Alcoholic cirrhosis Status: Chronic Current Visit: No
[2017-01-18] MEDS: MUPIROCIN 2% OINT 22 GM TUBE TOP SCH ×2 (12:34→23:28)
[2017-01-18] MEDS: MULTIVITAMIN (CENTRUM) TABLET PO SCH (12:34)
[2017-01-18] MEDS: NYSTATIN POWDER 15 GM BOTTLE TOP SCH ×3 (12:35→23:28)
[2017-01-18] MEDS: PANTOPRAZOLE 40 MG TABLET PO SCH (12:35)
[2017-01-18] MEDS: METOPROLOL TARTRATE 100 MG TABLET PO SCH ×2 (12:35→23:28)
[2017-01-18] MEDS: MIDODRINE 5 MG TABLET PO SCH ×3 (12:35→23:28)
[2017-01-18] MEDS: DESITIN 4OZ/NYSTATIN 15 GRAM MIXTURE PASTE TOP SCH ×2 (12:35→23:29)
[2017-01-18] MEDS: RIFAXIMIN 550 MG TABLET PO SCH ×2 (12:36→23:29)
[2017-01-19] MEDS ORDERED: FUROSEMIDE INJ 160 MG in SODIUM CHLORIDE 0.9% 50 ML IV ONE (00:35)
[2017-01-19] MEDS: ALBUTEROL 2.5 MG/3 ML NEB RESP TX SCH ×4 (07:36→17:10)
--- NOTE | 2017-01-19 08:23 | Pulmonology Progress Note ---
Pulmonary - PN: Subj Interval history: Patient is a 56-year-old white lady with severe alcoholic cirrhosis. She apparently has severe hepatorenal syndrome and has hepatic encephalopathy. She apparently has had significant congestive heart failure. She is completely obtunded now on the family just wants to keep her comfortable. She apparently has had labored breathing and has received morphine through the night. Exam (Progress Note) - Constitutional Vitals: Period Temp Pulse Resp BP Sys/Pastor Pulse Ox Last 24 Hr 96.9 F-98.3 F 76-105 16-22 102-111/50-78 70-96 General appearance: over weight, other (She is completely unresponsive now.) - Head Head exam: Present: normal inspection - Eye Eye exam: Present: scleral icterus - ENT ENT exam: Present: normal exam - Neck Neck exam: Absent: lymphadenopathy, thyromegaly - Respiratory Respiratory exam: Present: rales, rhonchi, other (She has fair breath sounds bilaterally with some rales and rhonchi.) - Cardiovascular Cardiovascular exam: Present: regular rate and rhythm, systolic murmur, tachycardia - GI/Abdominal GI/Abdominal exam: Present: ascites, distended. Absent: tenderness - Extremities Exam Extremities exam: Present: edema (She has edema of her legs) - Neurological Exam Neurological exam: Present: altered (She is not responding now) - Skin Skin exam: Present: warm, dry Results - Labs CBC & BMP: 01/18/17 05:53 01/18/17 05:53 Assessment and Plan (1) Hepatorenal syndrome Status: Acute Assessment and plan: Patient has hepatorenal syndrome with worsening heart failure. Her creatinine is 4.6 yesterday. Current Visit: No (2) Hepatic encephalopathy Status: Acute Assessment and plan: The patient is now obtunded with hepatic encephalopathy. Current Visit: No (3) Pleural effusion associated with hepatic disorder Status: Acute Assessment and plan: The patient has had pleural effusions and heart failure has had some respiratory distress. She is comfortable now after morphine and is on oxygen. Current Visit: Yes (4) Alcoholic cirrhosis of liver with ascites Status: Acute Assessment and plan: Patient basically has end-stage cirrhosis Current Visit: Yes
[2017-01-19 09:03] VITALS: BP 45/22
--- NOTE | 2017-01-19 09:08 | Nephrology Progress Note ---
Nephrology - PN: Subj Interval history: Patient is lying on her left side she is unresponsive family is in the room with the patient. Her breathing is at a increased rate but sounds clear Assessment/plan 1. Acute renal failure-patient's urine output has decreased per the family, I discussed that her creatinine was unchanged from yesterday although with her minimal urine output today she likely has further acute renal injury. I mentioned dialysis however the family was not interested in this. 2. Liver cirrhosis-patient has end-stage disease, the family seems to be accepting this and indicated that they think their main focus is going to be comfort care only at this point. Exam (PN)-Nephrology - Vital Signs Vital signs: Period Temp Pulse Resp BP Sys/Pastor Pulse Ox Last 24 Hr 96.9 F-98.3 F 51-105 16-34 45-111/22-78 70-96 - Lab 01/18/17 05:53 01/18/17 05:53 Most recent lab results ABG pH 7.407 (7.35-7.45) 01/02/17 02:38 ABG pCO2 58.8 MM HG (35-48) H 01/02/17 02:38 ABG pO2 61.1 MM HG (80-95) L 01/02/17 02:38 ABG HCO3 34.3 MMOL/L (20-26) H 01/02/17 02:38 ABG O2 Saturation 91.3 % (95-100) L 01/02/17 02:38 Calcium 10.6 MG/DL (8.5-10.1) H 01/18/17 05:53 Phosphorus 3.6 MG/DL (2.5-4.9) 01/10/17 05:55 Magnesium 2.6 MG/DL (1.8-2.4) H 01/17/17 04:54 Assessment and Plan (1) REBECCA (acute kidney injury) Status: Acute Assessment and plan: This patient is developing acute renal failure again, her Lasix and spironolactone are being held. I think with her marked fluid overload will eventually have to restart these. I'm going to put her back on midodrine and vasopressin as she was previously to try and improve her kidney perfusion. Current Visit: Yes (2) Anemia Status: Acute Current Visit: Yes (3) CHF (congestive heart failure) Status: Acute Current Visit: Yes (4) Hypokalemia Status: Resolved Assessment and plan: Continue replacement Current Visit: Yes (5) Anasarca Status: Chronic Current Visit: No (6) COPD (chronic obstructive pulmonary disease) Status: Chronic Current Visit: No (7) Hepatorenal syndrome Status: Acute Current Visit: No (8) Alcoholic cirrhosis Status: Chronic Current Visit: No
--- NOTE | 2017-01-19 09:48 | Gastrointestinal Progress Note ---
Assessment and Plan (1) Alcoholic cirrhosis Status: Chronic Assessment and plan: 01/19-unresponsive to any stimuli. CODE STATUS has been changed to DNR, comfort measures only. Plan an addendum to followed by Dr. Vidal 01/18-More somnolent today. 1-2 bowel movements reported. Labs pending at present time. Plan and addendum to follow by Dr Vidal. 01/17-somnolent, ammonia 118. One bowel movement 24 hours. Weight stable. Plan addendum to follow by Dr. Vidal 01/05-No signs of encephalopathy at present time. CMP pending for this morning. Continues with good UOP. Thoracentesis with 1200 removed. Plan and addendum to follow by Dr Vidal. 01/04-Alert but somnolent, oriented. Creatnine 4.2. Continues with good UOP. Thoracentesis today. Plan and addendum to follow by Dr Vidal. 01/03-Ammonia 75, oriented, alert. Continued output via BMS. Creatnine 3.9. Good UOP. Plan and addendum to follow by Dr Vidal. 12/31-Ammonia elevated at 215, encephalopathy noted with confusion, lethargy. Increase Lacutulose to q 1 hr until bowel movement and then QID. Keep NPO at present time. Plan and addendum to follow by Dr Vidal 12/30-Ammonia 173, no signs of encephalopathy. Bowels moving daily. Plan and addendum to follow by DR Vidal. 12/29-Ammonia 47. No pain. Add Mirliax to regimen as needed daily. Plan and addendum to follow by Dr Vidal. 12/28-Ammonia 79, one BM. No c/o pain. No SOB. NO changes in weight. Creatnine 2.2. Plan and addendum to follow by Dr Vidal. 12/27-Ammonia down at 116, one BM today. No encephalopathy noted at present time. Plan and addendum to follow by Dr Vidal. Current Visit: No (2) Hepatorenal syndrome Status: Acute Assessment and plan: 01/18-Labs pending. 01/17-Creatnine 4.8 today. Chest x-ray findings noted. Plan an addendum to follow by Dr. Vidal. 01/05-Creatnine pending. Dr Sierra following at present. Plan and addendum to follow by Dr Vidal. 01/03-Creatnine 3.9. Nephrology following. Plan and addendum to follow by Dr Vidal. 12/30-No repeat creatnine today. Recheck lab. Plan and addendum to follow by Dr Vidal. 12/29-Creatnine 2.3. For thoracentesis today. Plan and addendum to follow by Dr Vidal. 12/27-Creatnine 2.2. Chest xray noted with persistent bilateral pleural effusion , right greater than left. Plan and addendum to follow by Dr Vidal. Current Visit: No Gastroenterology - PN: Subj Interval history: CC: Cirrhosis Patient seen, lying on her side, unresponsive to verbal stimuli. Family in room at present time. Family declined NG placement on yesterday. Family has decided at this time to make patient a DNR and comfort measures only. Family states she has not been responsive since very early yesterday morning. Respirations are slightly labored however patient appears comfortable at present time. Oxygen saturation noted in the mid to low 80s. Abdomen is soft. Review of systems: No acute distress at present Exam (Progress Note) - Constitutional Vitals: Period Temp Pulse Resp BP Sys/Pastor Pulse Ox Last 24 Hr 96.9 F-98.3 F 51-105 16-34 45-111/22-78 70-96 General appearance: normal weight, no acute distress - Head Head exam: Present: normal inspection, normocephalic - Eye Eye exam: Present: scleral icterus, other (Lids and conjunctivae unremarkable) - ENT ENT exam: Present: normal exam, normal oropharynx - Neck Neck exam: Present: normal inspection - Respiratory Respiratory exam: Present: clear to auscultation bilaterally. Absent: rales, rhonchi, wheezes - Cardiovascular Cardiovascular exam: Present: regular rate and rhythm. Absent: diastolic murmur , JVD, systolic murmur - GI/Abdominal GI/Abdominal exam: Present: normal bowel sounds, soft. Absent: ascites, distended, mass, organomegaly, tenderness - Extremities Exam Extremities exam: Present: normal inspection - Back Exam Back exam: Present: normal inspection - Neurological Exam Neurological exam: Present: other - Psychiatric Psychiatric exam: Present: other - Skin Skin exam: Present: other (Jaundice) Results - Labs CBC & BMP: 01/18/17 05:53 01/18/17 05:53 Lab Results: I have reviewed the past 24 hour labs
--- NOTE | 2017-01-19 09:59 | Hospitalist Progress Note ---
Assessment and Plan (1) REBECCA (acute kidney injury) Status: Acute Assessment and plan: UOP is marginal. Noted increase in BUN/Creatinine today; BUN-77/Creatinine-4.6. Nephrology to restart midodrine and vasopressin in an effort to and improve renal perfusion. Current Visit: No (2) Hepatic encephalopathy Status: Acute Assessment and plan: Client remains altered. Liver enzymes remain elevated. Will obtain ammonia level in AM. Family at bedside; discussed patient prognosis in great detail. Current Visit: No Hospitalist: Subjective Interval history: Patient seen and examined. Family at bedside. Remains grossly altered. Exam - Constitutional Vitals: Period Temp Pulse Resp BP Sys/Pastor Pulse Ox Last 24 Hr 96.9 F-98.3 F 51-105 16-34 45-111/22-78 70-96 General appearance: mild distress, other (anasarcic) - Head Head exam: Present: normal inspection, normocephalic - Eye Eye exam: Present: EOMI, other (jaundice) Pupils: Present: PAPITO - ENT ENT exam: Present: normal exam - Neck Neck exam: Present: normal inspection. Absent: lymphadenopathy, meningismus, tenderness, thyromegaly - Respiratory Respiratory exam: Present: decreased breath sounds - Cardiovascular Cardiovascular exam: Present: regular rate and rhythm. Absent: carotid bruit, diastolic murmur, gallop, JVD, rubs, systolic murmur - GI/Abdominal GI/Abdominal exam: Present: ascites - Extremities Exam Extremities exam: Present: normal inspection, edema - Back Exam Back exam: Present: normal inspection - Neurological Exam Neurological exam: Present: altered - Psychiatric Psychiatric exam: Present: other (altered) - Skin Skin exam: Present: warm (jaundice), dry Results - Labs CBC & BMP: 01/18/17 05:53 01/18/17 05:53 Lab Results: I have reviewed the past 24 hour labs
[2017-01-19] MEDS: MUPIROCIN 2% OINT 22 GM TUBE TOP SCH (10:32)
[2017-01-19] MEDS: PANTOPRAZOLE 40 MG TABLET PO SCH (10:33)
[2017-01-19] MEDS: MIDODRINE 5 MG TABLET PO SCH ×2 (10:33→15:02)
[2017-01-19] MEDS ORDERED: MORPHINE 2 MG/1 ML SYRINGE IV PRN (10:33)
[2017-01-19] MEDS: METOPROLOL TARTRATE 100 MG TABLET PO SCH (10:33)
[2017-01-19] MEDS: MULTIVITAMIN (CENTRUM) TABLET PO SCH (10:33)
[2017-01-19] MEDS: NYSTATIN POWDER 15 GM BOTTLE TOP SCH ×2 (10:33→15:02)
[2017-01-19] MEDS: DESITIN 4OZ/NYSTATIN 15 GRAM MIXTURE PASTE TOP SCH (10:34)
[2017-01-19] MEDS: OCTREOTIDE 100 MCG/ML SYRINGE SUBCUT SCH ×2 (10:34→15:02)
[2017-01-19] MEDS: RIFAXIMIN 550 MG TABLET PO SCH (10:34)
--- NOTE | 2017-01-19 12:41 | Discharge Summary ---
Hospital Course - Hospital Course Hospital Course: The patient was admitted to the hospital with hepatic encephalopathy. The patient had progressive cirrhotic liver disease with liver failure which led to hepatorenal syndrome. The patient family was updated concerning the patient's prognosis and shows a DO NOT RESUSCITATE status. The patient succumbed to her illness on the afternoon of the . 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 Diagnosis - Discharge Diagnosis (1) Hepatic cirrhosis Status: Chronic (2) Hepatorenal syndrome Status: Acute (3) Hepatic encephalopathy Status: Acute Discharge Plan - Discharge Data Disposition: Condition at Discharge: - Discharge Medications Discontinued Spironolactone 100 mg PO DAILY Albuterol Sulfate [Ventolin HFA] 1 puff INH QID PRN PRN Reason: Wheezing Metoprolol Succinate Xl [Toprol Xl] 50 mg PO BID #60 tablet Pantoprazole Tab [Protonix Tab] 40 mg PO DAILY #30 tablet metOLazone [Zaroxolyn] 5 mg PO DAILY #30 tablet Furosemide Tab [Lasix Tab] 80 mg PO TID #90 tablet Lactulose 20 gm PO Q6H - Follow Up or Referral - Forms/Instructions Exam - Constitutional Vitals: Period Temp Pulse Resp BP Sys/Pastor Pulse Ox Last 24 Hr 97.3 F-99.6 F 51-105 16-34 45-102/22-56 70-90 Discharge Results Procedures and tests throughout hospitalization: Pending Orders 12/29/16 07:01 Cytology Request Routine 01/20/17 04:00 XR chest 1V portable IN 48 HOURS DS: Provider Date of admission: 12/26/16 04:08 Primary care physician: Abdifatah Saenz Attending physician on admission: Candi Slaughter MD Consults: 12/26/16 04:17 Consult to Pharmacy [CONS] Routine Reason for Pharmacy Consult: Dose/Manage Vancomycin 12/26/16 04:54 Consult to Pharmacy [CONS] Routine Reason for Pharmacy Consult: Adjust Meds Renal Funct 12/26/16 05:01 Consult to Pharmacy [CONS] Routine Reason for Pharmacy Consult: Dose/Manage Vancomycin 12/26/16 08:05 Consult to Physician [CONS] Routine Comment: Consulting Provider: Ward Vidal When should Consulting Provider be notified: Now Person Notified: dr vidal Date Notified: 12/26/16 Time Notified: 08:53 Consult Notification Comment: notified dr vidal on his cell phone this am 12/26/16 10:30 Consult to Physician [CONS] Routine Comment: Elevated creatinine Consulting Provider: Cynthia Johnson Consult to Specialist Group: Nephrology When should Consulting Provider be notified: Now Person Notified: dr cynthia johnson Date Notified: 12/26/16 Time Notified: 10:54 Consult Notification Comment: dr johnson states he has talked with dr slaughter about the case. he has nothing to offer at this time. condition is fatal. 12/28/16 09:09 Consult to Physical Therapy [CONS] Routine Reason for Physical Therapy: Evaluate and Treat 01/12/17 14:24 Consult to Case Mgmt/Social Srvs [CONS] Routine Reason for Case Mgmt/Social Srvs: Swingbed/SNF/Fdc 01/14/17 16:43 Consult to Physical Therapy [CONS] Routine Reason for Physical Therapy: Weakness 01/16/17 15:45 Consult to Case Mgmt/Social Srvs [CONS] Routine Reason for Case Mgmt/Social Srvs: Swingbed/SNF/Fdc Discharging clinician: Marciano Martin MD
== END 2017-01-19 12:21 | disposition expired | DRG 432 ==
LOC: N.ED 00:30 → SUATTDRO 04:08 → N.EDINP 04:08 → N.ICU 04:42 → N.4E 12-27 13:33 → N.ICU 12-27 17:01 → N.5E 12-28 15:32 → N.CC 01-01 02:17 → N.3E 01-05 21:00
PROVIDERS: ADMIT Family Medicine; ATTEND Internal Medicine
PROC: IRTHORA (2017-01-04 10:05)